=== PATIENT | female | born 1955 | race African-American/Black ===

== ENCOUNTER → 2017-03-31 | Outpatient (CLI) | payer MEDICARE, MEDICAID ==
[2017-03-31 12:02] LABS: ABSOLUTE BASOPHILS # (AUTO) 0.1 10^3/uL (0.0-0.2); ABSOLUTE EOSINOPHILS # (AUTO) 0.2 10^3/uL (0.0-0.6); ABSOLUTE LYMPHOCYTES (AUTO) 2.2 10^3/uL (0.5-4.7); ABSOLUTE MONOCYTES (AUTO) 0.5 10^3/uL (0.1-1.4); ABSOLUTE NEUT (AUTO) 4.8 10^3/uL (1.7-8.2); BASOPHILS % (AUTO) 0.7 % (0-2); EOSINOPHILS % (AUTO) 2.2 % (0-6); HEMATOCRIT 35.2 % (36.0-47.0); HEMOGLOBIN 11.3 g/dL (12.0-15.5); HGB HCT DIFFERENCE -1.3; LYMPHOCYTES % (AUTO) 28.2 % (13-45); MEAN CORPUSCULAR HEMOGLOBIN 25.6 pg (27.0-33.4); MEAN CORPUSCULAR HGB CONC 32.2 g/dL (32.0-36.0); MEAN CORPUSCULAR VOLUME 80 fl (80-97); RED BLOOD COUNT 4.42 10^6/uL (3.72-5.28); RED CELL DISTRIBUTION WIDTH 15.1 % (11.5-14.0); SEGMENTED NEUTROPHILS % (AUTO) 62.9 % (42-78); WHITE BLOOD COUNT 7.7 10^3/uL (4.0-10.5)
[2017-03-31 12:31] LABS: ALANINE AMINOTRANSFERASE 23 U/L (9-52); ALBUMIN 3.8 g/dL (3.5-5.0); ALKALINE PHOSPHATASE 76 U/L (38-126); ANION GAP 9 (5-19); ASPARTATE AMINO TRANSFERASE 18 U/L (14-36); BILIRUBIN,DIRECT 0.4 mg/dL (0.0-0.4); BILIRUBIN,TOTAL 0.8 mg/dL (0.2-1.3); BLOOD UREA NITROGEN 11 mg/dL (7-20); CALCIUM 9.3 mg/dL (8.4-10.2); CARBON DIOXIDE 26 mmol/L (22-30); CHLORIDE 106 mmol/L (98-107); CREATININE RESULT 0.98 mg/dL (0.52-1.25); GLUCOSE 134 mg/dL (75-110); POTASSIUM 4.1 mmol/L (3.6-5.0); SODIUM 141.3 mmol/L (137-145); TOTAL PROTEIN 7.5 g/dL (6.3-8.2)
== END ==
LOC: OD 11:15
PROVIDERS: ATTEND Plastic Surgery
DX: E11.8 Type 2 diabetes mellitus with unspecified complications (principal)
CPT/HCPCS: 36415; 80053; 83036; 85025

== ENCOUNTER → 2017-04-07 | Outpatient (CLI) | payer MEDICAID, MEDICARE ==
--- NOTE | 2017-04-07 16:59 | XCELERA REPORT ---
[address] [address] Lower Extremity Arterial Evaluation Name: CARMELO WHITTEN Age: 61 yrs Gender: Female : 1955 Patient Status: Outpatient Patient Location: Study Date: 04/07/2017 01:20 PM Procedure: A color flow and duplex scan of the lower extremity arteries was performed bilaterally with velocity and waveform anaylsis. Ankle brachial indicies performed. 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 Biphasic with little spectral broadening, well maintained velocities to the infrageniculate vessels. 0-19% stenosis at the Femoral artery. Ankle Brachial index was not obtainable, non compressible. Left Side Arterial Evaluation Normal velocity and triphasic waveforms noted from the Common Femoral artery to the Popliteal . Biphasic with little spectral broadening, well maintained velocities in the infrageniculate vessels. 0-19% stenosis at the infrageniculate vessels. Ankle Brachial index was not obtainable, non compressible. Interpretation Summary Mild hemodynamically significant lesions in the bilateral lower extremities, on duplex imaging, at rest. : TANIYA BARBOUR > Theo Steen
--- NOTE | 2017-04-07 17:15 | XCELERA REPORT ---
[address] [address] Lower Extremity Venous Evaluation Name: CARMELO WHITTEN Age: 61 yrs Gender: Female : 1955 Patient Status: Outpatient Patient Location: Study Date: 04/07/2017 01:38 PM Procedure: A bilateral duplex scan of the lower extremity veins was performed. The evaluation included responses to compression and other maneuvers with patient in the supine and standing positions to assess venous insufficiency. Reason For Study: ULCER Ordering Physician: TANIYA BARBOUR Performed By: Marcus Carranza Right Sided Venous Evaluation Deep venous system evaluation shows patent veins with no obstruction or significant reflux identified. Sapheno Femoral junction: 4.5 second reflux. 6 mm diameter. Greater Saphenous vein beneath the knee exhibits chronic phlebitis. Greater Saphenous vein, Proximal thigh: reflux: 4.5 seconds, 5 mm diameter. Greater Saphenous vein, Distal thigh: reflux: 4.7 seconds. 4 mm diameter. Greater Saphenous vein, Proximal below knee: reflux: none. Short Saphenous vein: No reflux. No significant Perforators identified. Left Sided Venous Evaluation Deep venous system evaluation shows patent veins with no obstruction or significant reflux identified. Greater Saphenous vein in the thigh exhibits chronic phlebitis. Sapheno Femoral junction:no reflux. Greater Saphenous vein, Proximal thigh: reflux: no reflux. Greater Saphenous vein, Distal thigh: reflux: 4.2 seconds. 5 mm diameter. Greater Saphenous vein, Proximal below knee: reflux: 4.6 secpnd reflux, 5 mm diameter.. Greater Saphenous vein, Mid below knee: reflux: 4.6 secpnd reflux, 4 mm diameter.. Short Saphenous vein: No reflux. No significant Perforators identified. Interpretation Summary No duplex evidence of DVT or obstruction in the bilateral lower extremities. Reflux and chronic superficial phlebitis as indicated. : TANIYA BARBOUR > Theo Steen
== END ==
LOC: SP 12:37
PROVIDERS: ATTEND Plastic Surgery
DX: I87.2 Venous insufficiency (chronic) (peripheral) (principal); L97.919 Non-pressure chronic ulcer of unspecified part of right lower leg with unspecified severity; L97.909 Non-pressure chronic ulcer of unspecified part of unspecified lower leg with unspecified severity
CPT/HCPCS: 93925; 93970

== ENCOUNTER → 2018-03-06 | Outpatient (CLI) | payer MEDICAID, MEDICARE ==
--- NOTE | 2018-03-06 12:46 | RADIOLOGY REPORT (SQ) ---
EXAM DESCRIPTION: VENOUS BILATERAL LOWER COMPLETED DATE/TIME: 03/06/2018 12:34 pm REASON FOR STUDY: SWELLING I87.2 VENOUS INSUFFICIENCY (CHRONIC) (PERIPHERAL) COMPARISON: Venous reflux study 04/07/2017 TECHNIQUE: Dynamic and static ceja scale and color images acquired of both lower extremity venous sy stems. Selected spectral images acquired with additional compression and augmentation maneuvers. Imag es stored on PACS. LIMITATIONS: Body habitus FINDINGS: RIGHT LEG COMMON FEMORAL AND FEMORAL: Normal phasicity, compression and augmentation. No visualized echogenic m aterial on ceja scale. No defects on color images. POPLITEAL: Normal compression and augmentation. No visualized echogenic material on ceja scale. No de fects on color images. CALF VESSELS: Normal compression and augmentation. No visualized echogenic material on ceja scale. No defects on color image. Please note that the peroneal veins were not visualized. GSV AND SSV: Normal compression. No visualized echogenic material on ceja scale. No defects on color images. ANY DEEP VENOUS INSUFFICIENCY: Not evaluated. Prior dedicated venous reflux study 04/07/2017 demonstra nguyen reflux in the right saphenous femoral junction and saphenous veins. ANY EVIDENCE OF POPLITEAL CYST: No. OTHER: No other significant finding. LEFT LEG COMMON FEMORAL AND FEMORAL: Normal phasicity, compression and augmentation. No visualized echogenic m aterial on ceja scale. No defects on color images. POPLITEAL: Normal compression and augmentation. No visualized echogenic material on ceja scale. No de fects on color images. CALF VESSELS: Normal compression and augmentation. No visualized echogenic material on ceja scale. No defects on color images. Please note that the peroneal veins were not visualized. GSV AND SSV: Normal compression. No visualized echogenic material on ceja scale. No defects on color images. ANY DEEP VENOUS INSUFFICIENCY: Not evaluated. Prior dedicated venous reflux study 04/07/2017 demonstra nguyen reflux in the right greater saphenous vein. ANY EVIDENCE POPLITEAL CYST: No. OTHER: No other significant finding. IMPRESSION: NO EVIDENCE DVT OR SVT IN EITHER LEG. TECHNICAL DOCUMENTATION: JOB ID: [id number] [employer]- All Rights Reserved Reading location - IP/workstation name: [facility]
== END ==
LOC: SP 11:11
PROVIDERS: ATTEND Plastic Surgery
DX: I87.2 Venous insufficiency (chronic) (peripheral) (principal)
CPT/HCPCS: 93970

== ENCOUNTER 2018-04-22 10:33 | Inpatient (IN) | payer MEDICARE, MEDICAID ==
[2018-04-22] MEDS ORDERED: HYDROCODONE/ACETAMINOPHEN 5-325 MG TABLET PO ONE (13:12)
[2018-04-22] MEDS ORDERED: NORMAL SALINE 1000 ML 1,000 ML IV ONE ×2 (13:44→19:16)
--- NOTE | 2018-04-22 15:41 | ER Document Report ---
ED Extremity Problem, Lower - General Chief Complaint: Leg Swelling Stated Complaint: SWOLLEN LEG Time Seen by Provider: 04/22/18 12:00 Mode of Arrival: Wheelchair Information source: Patient, Relative TRAVEL OUTSIDE OF THE [place] IN LAST 30 DAYS: No - HPI Patient complains to provider of: Pain, Swelling, Other - This 62-year-old female presented for evaluation of left lower extremity swelling and pain which is worsened over the last 5 days since the blister burst on the leg as well as uncontrolled blood sugars at home. She notes that she has had subjective fevers without taking temperature, she denies any shortness of breath chest pain diarrhea constipation dysuria or other symptoms, she has had some polyuria and fatigue and difficulty with ambulation. She has had similar symptoms in the past which have been a result of cellulitis for which she has been treated. - Related Data Allergies/Adverse Reactions: oxycodone [Oxycodone] Adverse Reaction (Verified 04/22/18 10:35) oxycodone HCl [From Percocet] Adverse Reaction (Verified 04/22/18 10:35) Bradycardia Past Medical History - General Information source: Patient, Relative - Social History Smoking Status: Never Smoker Frequency of alcohol use: None Drug Abuse: None Family History: Reviewed & Not Pertinent Patient has suicidal ideation: No Patient has homicidal ideation: No - Past Medical History Cardiac Medical History: Reports: Hx Hypercholesterolemia, Hx Hypertension Endocrine Medical History: Reports: Hx Diabetes Mellitus Type 1, Hx Diabetes Mellitus Type 2 Renal/ Medical History: Denies: Hx Peritoneal Dialysis Skin Medical History: Reports Hx Cellulitis Psychiatric Medical History: Denies: Hx Depression Past Surgical History: Reports: Hx Hysterectomy - Immunizations Hx Diphtheria, Pertussis, Tetanus Vaccination: No Hx Pneumococcal Vaccination: 09/05/99 Review of Systems - Review of Systems -: Yes All other systems reviewed and negative Physical Exam - Vital signs Vitals: Temp Pulse Resp BP Pulse Ox 98.2 F 92 18 160/80 H 100 04/22/18 10:39 04/22/18 10:39 04/22/18 10:39 04/22/18 10:39 04/22/18 10:39 - General General appearance: Appears well, Other - somewhat lethargic In distress: Mild - HEENT Head: Normocephalic Eyes: Normal Conjunctiva: Normal Cornea: Normal Extraocular movements intact: Yes - Respiratory Respiratory status: No respiratory distress Chest status: Nontender Breath sounds: Normal Chest palpation: Normal - Cardiovascular Rhythm: Regular Heart sounds: Normal auscultation Murmur: No - Abdominal Inspection: Normal Distension: No distension Tenderness: Nontender - Back Back: Normal - Extremities General upper extremity: Normal inspection General lower extremity: Other - Massive edema erythema and swelling over the left lower extremity with bolus changes over the dorsum of the foot, weeping wound over the lateral aspect of the left lower extremity, loss of skin over the posterior aspect of the right lower extremity just proximal to the level of the knee - Neurological Neuro grossly intact: Yes Cognition: Other - Somnolent 62-year-old female Orientation: AAOx4 Course - Re-evaluation Re-evalutation: 04/22/18 18:24 62-year-old female presents for massive swelling edema and pain in the left lower extremity as well as uncontrolled blood glucoses. Given the concern for her hyperglycemia will plan for administration of bolus saline, will obtain broad-spectrum labs including beta hydroxybutyrate VBG his CBC CMP. Patient with difficulty in obtaining access, placed ultrasound-guided IV, second liter of normal saline administered, her initial labs hemolyzed. We will plan to redraw. 04/22/18 19:27 Venous blood gas demonstrates a pH of 7.28, recheck of fingerstick glucose is 447, will initiate rate of normal saline 125, will initiate vancomycin for treatment of presumptive cellulitis in the left lower extremity. Blood cultures have been drawn, have a chemistry pending at this time. I am waiting on the administration of insulin as this patient currently does not have a known potassium. A third chemistry has been sent at this time. We will plan for admission to the [facility] we have the hospitalist Dr. Dwayne Shea. He is agreed to admission at this time, will plan for evaluation. - Vital Signs Vital signs: Temp Pulse Resp BP Pulse Ox 98.4 F 84 18 138/66 H 100 04/22/18 19:05 04/22/18 19:05 04/22/18 19:05 04/22/18 19:05 04/22/18 19:05 - Laboratory Result Diagrams: 04/22/18 15:54 04/22/18 15:54 Laboratory results interpreted by me: 04/22/18 04/22/18 04/22/18 15:54 18:44 18:47 WBC 14.2 H Hgb 11.8 L Hct 35.7 L RDW 15.5 H Seg Neutrophils % 83.5 H Lymphocytes % 9.7 L Absolute Neutrophils 11.9 H VBG pH 7.28 L POC Glucose 443 H* Discharge - Discharge Clinical Impression: Cellulitis Qualifiers: Site of cellulitis: extremity Site of cellulitis of extremity: lower extremity Laterality: left Qualified Code(s): L03.116 - Cellulitis of left lower limb Edema Qualifiers: Edema type: unspecified Qualified Code(s): R60.9 - Edema, unspecified Leukocytosis Qualifiers: Leukocytosis type: other Qualified Code(s): D72.828 - Other elevated white blood cell count Condition: Serious Disposition: ADMITTED INPATIENT Admitting Provider: Hospitalist Unit Admitted: IMCU Referrals: AQUILINO LIPSCOMB MD [Primary Care Provider] - Follow up as needed
[2018-04-22 16:10] LABS: ABSOLUTE BASOPHILS # (AUTO) 0.1 10^3/uL (0.0-0.2); ABSOLUTE EOSINOPHILS # (AUTO) 0.1 10^3/uL (0.0-0.6); ABSOLUTE LYMPHOCYTES (AUTO) 1.4 10^3/uL (0.5-4.7); ABSOLUTE MONOCYTES (AUTO) 0.7 10^3/uL (0.1-1.4); ABSOLUTE NEUT (AUTO) 11.9 10^3/uL (1.7-8.2); BASOPHILS % (AUTO) 0.7 % (0-2); EOSINOPHILS % (AUTO) 0.9 % (0-6); HEMATOCRIT 35.7 % (36.0-47.0); HEMOGLOBIN 11.8 g/dL (12.0-15.5); LYMPHOCYTES % (AUTO) 9.7 % (13-45); MEAN CORPUSCULAR HEMOGLOBIN 27.1 pg (27.0-33.4); MEAN CORPUSCULAR VOLUME 82 fl (80-97); MONOCYTES % (AUTO) 5.2 % (3-13); PLATELET COUNT 404 10^3/uL (150-450); RED BLOOD COUNT 4.34 10^6/uL (3.72-5.28); RED CELL DISTRIBUTION WIDTH 15.5 % (11.5-14.0); SEGMENTED NEUTROPHILS % (AUTO) 83.5 % (42-78); TOTAL CELLS COUNTED % (AUTO) 100 %; WHITE BLOOD COUNT 14.2 10^3/uL (4.0-10.5)
[2018-04-22] MEDS ORDERED: NORMAL SALINE 1000 ML 1,000 ML IV PRN (17:38)
[2018-04-22 19:06] LABS: VENOUS BLOOD BASE EXCESS -2.7 mmol/L; VENOUS BLOOD HCO3 24.8 mmol/L (20-32); VENOUS BLOOD PCO2 53.4 mmHg (35-63); VENOUS BLOOD PH 7.28 (7.30-7.42)
[2018-04-22] MEDS ORDERED: VANCOMYCIN HCL INJ 1000 MG VIAL IV ONE (19:18)
[2018-04-22] MEDS ORDERED: IPRATROPIUM/ALBUTEROL 0.5-2.5 MG/3 ML AMPUL NEB PRN (19:25)
[2018-04-22] MEDS ORDERED: GLUCAGON,HUMAN RECOMB 1 MG INJ IM PRN (19:25)
[2018-04-22] MEDS ORDERED: MAGNESIUM HYDROXIDE SUSP 30 ML UDCUP PO PRN (19:25)
[2018-04-22] MEDS ORDERED: DEXTROSE 50%-WATER 25 GM/50 ML DISP.SYRIN IV PRN ×2 (19:25)
[2018-04-22] MEDS ORDERED: DEXTROSE 40% GEL 15 GM TUBE PO PRN ×2 (19:25)
[2018-04-22] MEDS ORDERED: MAG HYDROX/AL HYDROX/SIMETH SUSP 30 ML UDCUP PO PRN (19:25)
[2018-04-22] MEDS ORDERED: NORMAL SALINE 1000 ML 1,000 ML IV SCH (19:30)
[2018-04-22 19:50] LABS: ALANINE AMINOTRANSFERASE 13 U/L (9-52); ALBUMIN 2.9 g/dL (3.5-5.0); ALKALINE PHOSPHATASE 90 U/L (38-126); ANION GAP 12 (5-19); ASPARTATE AMINO TRANSFERASE 8 U/L (14-36); BILIRUBIN,DIRECT 0.4 mg/dL (0.0-0.4); BILIRUBIN,TOTAL 0.4 mg/dL (0.2-1.3); BLOOD UREA NITROGEN 57 mg/dL (7-20); CALCIUM 9.3 mg/dL (8.4-10.2); CARBON DIOXIDE 19 mmol/L (22-30); CHLORIDE 109 mmol/L (98-107); GLUCOSE 375 mg/dL (75-110); POTASSIUM 4.7 mmol/L (3.6-5.0); SODIUM 139.9 mmol/L (137-145); TOTAL PROTEIN 6.8 g/dL (6.3-8.2)
[2018-04-22] MEDS: INSULIN LISPRO 100 UNIT/ML 3 ML VIAL SUBCUT PRN (20:57)
[2018-04-22] MEDS: HEPARIN SOD (PORCINE) 5,000 UNIT/ML 1 ML SYRINGE SUBCUT SCH (21:56)
[2018-04-22] MEDS: ACETAMINOPHEN 325 MG TABLET PO PRN (22:00)
[2018-04-22 22:04] LABS: APPEARANCE,URINE CLEAR; BILIRUBIN,URINE NEGATIVE (NEGATIVE); COLOR,URINE YELLOW; GLUCOSE, URINE >=500 mg/dL (NEGATIVE); KETONES,URINE NEGATIVE (NEGATIVE); LEUKOCYTE ESTERASE,URINE NEGATIVE (NEGATIVE); NITRITE,URINE NEGATIVE (NEGATIVE); PROTEIN,URINE NEGATIVE (NEGATIVE); UROBILINOGEN,URINE NEGATIVE mg/dL (<2.0)
[2018-04-22 22:22] LABS: URINE AMPHETAMINES SCREEN NEGATIVE; URINE BARBITURATES SCREEN NEGATIVE; URINE BENZODIAZEPINES SCREEN NEGATIVE; URINE COCAINE SCREEN NEGATIVE; URINE MARIJUANA (THC) SCREEN NEGATIVE; URINE METHADONE SCREEN NEGATIVE; URINE PHENCYCLIDINE SCREEN NEGATIVE
[2018-04-23 01:41] LABS: ANION GAP 12 (5-19); BLOOD UREA NITROGEN 53 mg/dL (7-20); CARBON DIOXIDE 19 mmol/L (22-30); CHLORIDE 111 mmol/L (98-107); GLUCOSE 317 mg/dL (75-110); POTASSIUM 4.7 mmol/L (3.6-5.0); SODIUM 141.8 mmol/L (137-145)
[2018-04-23] MEDS ORDERED: NORMAL SALINE 1000 ML 1,000 ML IV SCH (04:00)
[2018-04-23] MEDS: NORMAL SALINE 1000 ML 1,000 ML IV PRN ×3 (04:01→14:20)
[2018-04-23] MEDS: HEPARIN SOD (PORCINE) 5,000 UNIT/ML 1 ML SYRINGE SUBCUT SCH ×2 (05:45→21:50)
[2018-04-23] MEDS: ACETAMINOPHEN 325 MG TABLET PO PRN (05:45)
--- NOTE | 2018-04-23 05:46 | PDOC H&P ---
History of Present Illness Admission Date/PCP: 04/22/18 19:36 AQUILINO LIPSCOMB Patient complains of: Leg edema and pain History of Present Illness: CARMELO WHITTEN is a 62 year old female with a past medical history of morbid obesity, diabetes, hypertension, MRSA cellulitis, chronic venous stasis with lymphedema bilaterally. Patient followed by wound care clinic and Dr. Baltazar, over the last 5 days she has developed blistering of the left foot and uncontrolled hyperglycemia. She denies fever but admits to polyuria polydipsia. In the emergency room she is found to have leukocytosis, acute renal failure cellulitis of the left lower extremity, started on empiric antibiotics and referred to the hospitalist for admission. Patient has scheduled appointment with vascular surgeon Dr. Lou April 24. Past Medical History Cardiac Medical History: Reports: Hyperlipidema, Hypertension Endocrine Medical History: Reports: Diabetes Mellitus Type 1, Diabetes Mellitus Type 2, Obesity Psychiatric Medical History: Denies: Depression Past Surgical History Past Surgical History: Reports: Hysterectomy Social History Information Source: Patient Lives with: Family Smoking Status: Never Smoker Frequency of Alcohol Use: None Hx Recreational Drug Use: No Drugs: None Hx Prescription Drug Abuse: No Family History Family History: DM, Hypertension Parental Family History Reviewed: Yes Children Family History Reviewed: Yes Sibling(s) Family History Reviewed.: Yes Medication/Allergy Home Medications: Amlodipine Besylate 10 mg PO DAILY 04/12/13 Ascorbic Acid [Vitamin C] 500 mg PO Q12HP PRN 04/12/13 Atenolol 100 mg PO BID 04/12/13 Hum Insulin NPH/Reg Insulin Hm [Novolin 70-30 100 Unit/ml Vial] 40 units BID 04/17 Metformin HCl [Glucophage 1000 mg Tablet] 1,000 mg PO BID 04/12/13 Pravastatin Sodium [Pravachol] 20 mg PO DAILY 04/12/13 Ferrous Sulfate 325 mg PO Q12HP PRN 04/13/13 Oxycodone HCl/Acetaminophen [Percocet 5-325 mg Tablet] 1 - 2 tab PO ASDIR PRN # 25 tablet 09/10/15 Acidoph/L.bulg/Bif.b/S.thermop [Bacid Caplet] 1 each PO BID #28 tablet 09/18/15 Ciprofloxacin HCl [Cipro 750 mg Tablet] 750 mg PO Q12 #28 tablet 09/18/15 Linezolid [Zyvox 600 mg Tablet] 600 mg PO Q12 #28 tablet 09/18/15 Torsemide [Demadex 20 mg Tablet] 10 mg PO DAILY #30 tablet 09/18/15 Allergies/Adverse Reactions: oxycodone [Oxycodone] Adverse Reaction (Verified 04/22/18 10:35) oxycodone HCl [From Percocet] Adverse Reaction (Verified 04/22/18 10:35) Bradycardia Review of Systems Constitutional: PRESENT: as per HPI, fatigue, weakness. ABSENT: chills, fever(s ), headache(s), weight gain, weight loss Eyes: ABSENT: visual disturbances Ears: ABSENT: hearing changes Cardiovascular: ABSENT: chest pain, dyspnea on exertion, edema, orthropnea, palpitations Respiratory: ABSENT: cough, hemoptysis Gastrointestinal: ABSENT: abdominal pain, constipation, diarrhea, hematemesis, hematochezia, nausea, vomiting Genitourinary: PRESENT: as per HPI Musculoskeletal: PRESENT: as per HPI Integumentary: PRESENT: as per HPI, wounds - Marketed bilateral chronic changes to the lower extremity, acute blistering of the left foot Neurological: ABSENT: abnormal gait, abnormal speech, confusion, dizziness, focal weakness, syncope Psychiatric: ABSENT: anxiety, depression, homidical ideation, suicidal ideation Endocrine: PRESENT: polydipsia, polyuria. ABSENT: cold intolerance, heat intolerance Hematologic/Lymphatic: ABSENT: easy bleeding, easy bruising Physical Exam Vital Signs: Temp Pulse Resp BP Pulse Ox 98.5 F 83 16 139/54 H 100 04/23/18 03:42 04/23/18 03:42 04/23/18 03:42 04/23/18 03:42 04/23/18 03:42 Intake & Output 04/21/18 04/22/18 04/23/18 11:59 11:59 11:59 Intake Total 1100 Output Total 0 Balance 1100 Weight 128.3 kg General appearance: PRESENT: cooperative, mild distress, morbidly obese. ABSENT : disheveled Head exam: PRESENT: atraumatic, normocephalic Eye exam: PRESENT: conjunctiva pink, EOMI, PERRLA. ABSENT: scleral icterus Ear exam: PRESENT: normal external ear exam Mouth exam: PRESENT: moist, tongue midline Neck exam: ABSENT: carotid bruit, JVD, lymphadenopathy, thyromegaly Respiratory exam: PRESENT: clear to auscultation paulie. ABSENT: rales, rhonchi, wheezes Cardiovascular exam: PRESENT: RRR. ABSENT: diastolic murmur, rubs, systolic murmur Pulses: PRESENT: normal dorsalis pedis pul Vascular exam: PRESENT: normal capillary refill GI/Abdominal exam: PRESENT: normal bowel sounds, soft. ABSENT: distended, guarding, mass, organolmegaly, rebound, tenderness Rectal exam: PRESENT: deferred Extremities exam: PRESENT: pedal edema, tenderness, +2 edema. ABSENT: calf tenderness, clubbing Neurological exam: PRESENT: alert, awake, oriented to person, oriented to place , oriented to time, oriented to situation, CN II-XII grossly intact. ABSENT: motor sensory deficit Psychiatric exam: PRESENT: appropriate affect, normal mood. ABSENT: homicidal ideation, suicidal ideation Skin exam: PRESENT: erythema, rash, skin tears, warm, other - Bulla. ABSENT: intact, jaundice Results Laboratory Results: 04/23/18 01:16 04/22/18 04/23/18 21:10 01:16 Sodium 141.8 Potassium 4.7 Chloride 111 H Carbon Dioxide 19 L Anion Gap 12 BUN 53 H Creatinine 1.84 H Est GFR ( Amer) 33 L Est GFR (Non-Af Amer) 28 L Glucose 317 H Calcium 9.0 Urine Color YELLOW Urine Appearance CLEAR Urine pH 5.0 Ur Specific [place] 1.020 Urine Protein NEGATIVE Urine Glucose (UA) >=500 H Urine Ketones NEGATIVE Urine Blood NEGATIVE Urine Nitrite NEGATIVE Ur Leukocyte Esterase NEGATIVE Urine WBC (Auto) 1 Urine RBC (Auto) 3 Assessment & Plan - Diagnosis (1) Cellulitis Qualifiers: Site of cellulitis: extremity Site of cellulitis of extremity: lower extremity Laterality: left Qualified Code(s): L03.116 - Cellulitis of left lower limb Is this a current diagnosis for this admission?: Yes Plan: Complicated by chronic venous stasis, empiric antibiotics initiated, follow-up CBC, culture and surgery consult (2) Diabetes 1.5, managed as type 1 Is this a current diagnosis for this admission?: Yes Plan: IV fluid, insulin, follow-up chemistry and A1c (3) Acute renal failure Is this a current diagnosis for this admission?: Yes Plan: Avoid nephrotoxic meds and doses, IV fluid challenge reevaluate chemistry - Time Time Spent: 50 to 70 Minutes - Inpatient Certification Medical Necessity: Need Close Monitoring Due to Risk of Patient Decompensation
[2018-04-23 08:08] LABS: ABSOLUTE BASOPHILS # (AUTO) 0.1 10^3/uL (0.0-0.2); ABSOLUTE EOSINOPHILS # (AUTO) 0.1 10^3/uL (0.0-0.6); ABSOLUTE LYMPHOCYTES (AUTO) 1.1 10^3/uL (0.5-4.7); ABSOLUTE MONOCYTES (AUTO) 0.5 10^3/uL (0.1-1.4); ABSOLUTE NEUT (AUTO) 7.4 10^3/uL (1.7-8.2); BASOPHILS % (AUTO) 0.6 % (0-2); EOSINOPHILS % (AUTO) 1.4 % (0-6); HEMATOCRIT 29.1 % (36.0-47.0); LYMPHOCYTES % (AUTO) 12.1 % (13-45); MEAN CORPUSCULAR HEMOGLOBIN 26.2 pg (27.0-33.4); MEAN CORPUSCULAR HGB CONC 32.1 g/dL (32.0-36.0); MEAN CORPUSCULAR VOLUME 82 fl (80-97); MONOCYTES % (AUTO) 5.1 % (3-13); PLATELET COUNT 257 10^3/uL (150-450); RED BLOOD COUNT 3.56 10^6/uL (3.72-5.28); SEGMENTED NEUTROPHILS % (AUTO) 80.8 % (42-78); TOTAL CELLS COUNTED % (AUTO) 100 %; WHITE BLOOD COUNT 9.2 10^3/uL (4.0-10.5)
[2018-04-23 08:11] LABS: HEMOGLOBIN 9.3 g/dL (12.0-15.5)
[2018-04-23 08:18] LABS: ANION GAP 10 (5-19); BLOOD UREA NITROGEN 47 mg/dL (7-20); CALCIUM 8.8 mg/dL (8.4-10.2); CARBON DIOXIDE 19 mmol/L (22-30); CHLORIDE 115 mmol/L (98-107); CHOLESTEROL 79.49 mg/dL (0-200); GLUCOSE 321 mg/dL (75-110); POTASSIUM 4.9 mmol/L (3.6-5.0); SODIUM 144.4 mmol/L (137-145); TRIGLYCERIDES 93 mg/dL (<150)
[2018-04-23 08:29] LABS: DIRECT LDL 38 mg/dL (<100)
[2018-04-23] MEDS: INSULIN LISPRO 100 UNIT/ML 3 ML VIAL SUBCUT PRN ×3 (08:32→22:37)
[2018-04-23] MEDS ORDERED: ATENOLOL 50 MG TABLET PO SCH ×2 (10:00→11:00)
[2018-04-23] MEDS ORDERED: ATORVASTATIN CALCIUM 10 MG TABLET PO SCH ×2 (11:00→22:00)
[2018-04-23] MEDS: HUM INSULIN NPH/REG INSULIN HM 100 UNIT/1 ML 3 ML SUBCUT SCH ×2 (11:06→20:52)
[2018-04-23] MEDS: AMLODIPINE BESYLATE 10 MG TABLET PO SCH (11:08)
[2018-04-23] MEDS: LACTOBACILLUS ACIDOPHILUS 250 MG TAB PO SCH ×2 (11:15→19:01)
[2018-04-23] MEDS: DOCUSATE SODIUM 100 MG CAPSULE PO SCH ×2 (11:15→19:01)
--- NOTE | 2018-04-23 11:57 | PDOC CONSULTATION ---
Consultation Consult Date: 04/23/18 Consult reason:: Left foot infection History of Present Illness Admission Date/PCP: 04/22/18 19:36 AQUILINO LIPSCOMB History of Present Illness: CARMELO WHITTEN is a 62 year old female seen at the request of the hospitalist service. This is a patient with chronic venous stasis changes of bilateral lower extremities. She has recently been treated for lower extremity cellulitis on an outpatient basis. The patient presents with bullae/swelling of the left foot, severe pain, and purulent drainage. She describes her pain as throbbing. She reports her pain as 5 out of 10. Her bulla encompasses the entire dorsal surface of her foot, from the toes to the ankle. The patient denies fevers, chills, chest pain, shortness of breath, headache, dizziness, orthostasis. She does report increasing swelling, pain, and drainage. She first noticed the swelling and bulla 4-5 days ago. She thought it would get better on its own. Past Medical History Cardiac Medical History: Reports: Hyperlipidema, Hypertension Endocrine Medical History: Reports: Diabetes Mellitus Type 1, Diabetes Mellitus Type 2, Obesity Skin Medical History: Reports: Other - Chronic venous insufficiency bilateral lower extremities Psychiatric Medical History: Denies: Depression Past Surgical History Past Surgical History: Reports: Hysterectomy Social History Lives with: Family Smoking Status: Never Smoker Frequency of Alcohol Use: None Hx Recreational Drug Use: No Drugs: None Hx Prescription Drug Abuse: No Family History Family History: DM, Hypertension Parental Family History Reviewed: Yes Children Family History Reviewed: Yes Sibling(s) Family History Reviewed.: Yes Medication/Allergy Allergies/Adverse Reactions: oxycodone [Oxycodone] Adverse Reaction (Verified 04/22/18 10:35) oxycodone HCl [From Percocet] Adverse Reaction (Verified 04/22/18 10:35) Bradycardia Review of Systems Constitutional: ABSENT: chills, fever(s), headache(s) Eyes: ABSENT: visual disturbances Ears: ABSENT: hearing changes Nose, Mouth, and Throat: ABSENT: sore throat Cardiovascular: ABSENT: chest pain, dyspnea on exertion Respiratory: ABSENT: cough, dyspnea Gastrointestinal: ABSENT: abdominal pain, diarrhea, heartburn, nausea, vomiting Genitourinary: ABSENT: dysuria Musculoskeletal: ABSENT: back pain Integumentary: PRESENT: other - bilateral lower extremities edema. Large bulla of the left foot. Neurological: ABSENT: abnormal speech, confusion, memory loss Psychiatric: ABSENT: anxiety, depression Endocrine: ABSENT: cold intolerance, heat intolerance Hematologic/Lymphatic: ABSENT: easy bleeding, easy bruising Physical Exam Vital Signs: Temp Pulse Resp BP Pulse Ox 98.1 F 69 14 135/57 H 99 04/23/18 07:48 04/23/18 10:57 04/23/18 10:57 04/23/18 07:48 04/23/18 10:57 Intake & Output 04/22/18 04/23/18 04/24/18 06:59 06:59 06:59 Intake Total 1100 983 Output Total 0 Balance 1100 983 Weight 129.1 kg General appearance: PRESENT: no acute distress Head exam: PRESENT: atraumatic, normocephalic Eye exam: PRESENT: EOMI, PERRLA. ABSENT: scleral icterus Mouth exam: PRESENT: moist, neck supple Neck exam: ABSENT: meningismus, tenderness, thyromegaly, tracheal deviation Respiratory exam: PRESENT: clear to auscultation paulie. ABSENT: chest wall tenderness, tachypnea Cardiovascular exam: PRESENT: RRR Pulses: PRESENT: normal radial pulses Vascular exam: PRESENT: other - Gaiter sign bilateral lower extremities. GI/Abdominal exam: PRESENT: soft. ABSENT: distended, firm, guarding, hernia, tenderness Rectal exam: PRESENT: deferred Extremities exam: PRESENT: +2 edema, other - Large bulla of the left foot extending from the toes to the ankle on the dorsal surface. There is evidence of skin necrosis, and purulent drainage. Neurological exam: PRESENT: alert, awake, oriented to person, oriented to place , oriented to time, oriented to situation, CN II-XII grossly intact Psychiatric exam: ABSENT: agitated, anxious, depressed Focused psych exam: ABSENT: delusional Skin exam: PRESENT: other - See extremity exam.. ABSENT: cyanosis, jaundice Results Laboratory Results: 04/23/18 07:41 04/23/18 07:41 04/22/18 04/23/18 04/23/18 21:10 01:16 07:41 WBC 9.2 RBC 3.56 L Hgb 9.3 L D Hct 29.1 L MCV 82 MCH 26.2 L MCHC 32.1 RDW 15.0 H Plt Count 257 Seg Neutrophils % 80.8 H Lymphocytes % 12.1 L Monocytes % 5.1 Eosinophils % 1.4 Basophils % 0.6 Absolute Neutrophils 7.4 Absolute Lymphocytes 1.1 Absolute Monocytes 0.5 Absolute Eosinophils 0.1 Absolute Basophils 0.1 Sodium 141.8 Potassium 4.7 Chloride 111 H Carbon Dioxide 19 L Anion Gap 12 BUN 53 H Creatinine 1.84 H Est GFR ( Amer) 33 L Est GFR (Non-Af Amer) 28 L Glucose 317 H Calcium 9.0 Triglycerides Cholesterol LDL Cholesterol Direct VLDL Cholesterol HDL Cholesterol Urine Color YELLOW Urine Appearance CLEAR Urine pH 5.0 Ur Specific [place] 1.020 Urine Protein NEGATIVE Urine Glucose (UA) >=500 H Urine Ketones NEGATIVE Urine Blood NEGATIVE Urine Nitrite NEGATIVE Ur Leukocyte Esterase NEGATIVE Urine WBC (Auto) 1 Urine RBC (Auto) 3 04/23/18 07:41 WBC RBC Hgb Hct MCV MCH MCHC RDW Plt Count Seg Neutrophils % Lymphocytes % Monocytes % Eosinophils % Basophils % Absolute Neutrophils Absolute Lymphocytes Absolute Monocytes Absolute Eosinophils Absolute Basophils Sodium 144.4 Potassium 4.9 Chloride 115 H Carbon Dioxide 19 L Anion Gap 10 BUN 47 H Creatinine 1.62 H Est GFR ( Amer) 39 L Est GFR (Non-Af Amer) 32 L Glucose 321 H Calcium 8.8 Triglycerides 93 Cholesterol 79.49 LDL Cholesterol Direct 38 VLDL Cholesterol 19.0 HDL Cholesterol 19 L Urine Color Urine Appearance Urine pH Ur Specific [place] Urine Protein Urine Glucose (UA) Urine Ketones Urine Blood Urine Nitrite Ur Leukocyte Esterase Urine WBC (Auto) Urine RBC (Auto) Assessment & Plan - Diagnosis (1) Diabetic infection of left foot Is this a current diagnosis for this admission?: Yes - Plan Summary Plan Summary: This is a 62-year-old female with a severe diabetic foot infection, superimposed over chronic venous insufficiency. The patient has evidence of skin necrosis and purulent bulla formation. I have recommended urgent surgical intervention with debridement of any necrotic or nonviable tissue. Tight glucose control is very important. Continue antibiotics. At this time, the prognosis is guarded with significant threat to the left foot.
[2018-04-23 15:15] LABS: ANION GAP 13 (5-19); BLOOD UREA NITROGEN 40 mg/dL (7-20); CARBON DIOXIDE 19 mmol/L (22-30); CHLORIDE 116 mmol/L (98-107); GLUCOSE 238 mg/dL (75-110); POTASSIUM 4.8 mmol/L (3.6-5.0); SODIUM 147.6 mmol/L (137-145)
[2018-04-23] MEDS ORDERED: NORMAL SALINE 1000 ML 1,000 ML IV PRN (15:41)
[2018-04-23] MEDS: PIPERACILLIN SODIUM/TAZOBACTAM 3.375 GM in NORMAL SALINE 100 ML IV SCH ×2 (16:19→20:55)
--- NOTE | 2018-04-23 16:19 | EKG REPORT ---
SEVERITY:- NORMAL ECG - SINUS RHYTHM : Confirmed by: Rick Jones MD 23-Apr-2018 16:18:37
[2018-04-23] MEDS ORDERED: FENTANYL CITRATE INJ/PF 100 MCG/2 ML AMPUL ONE (16:53)
[2018-04-23] MEDS ORDERED: KETAMINE HCL INJ 500 MG/10 ML VIAL ONE (16:53)
[2018-04-23] MEDS ORDERED: EPHEDRINE SULFATE INJ 50 MG/1 ML AMPULE ONE (16:54)
[2018-04-23] MEDS ORDERED: MIDAZOLAM 2 MG/2 ML INJ ONE (16:54)
[2018-04-23] MEDS ORDERED: PROPOFOL INJ 200 MG/20 ML VIAL IV ONE (16:54)
[2018-04-23] MEDS ORDERED: LIDOCAINE 2% INJ-PF (20 MG/ML) 10 ML AMPUL ONE (16:57)
[2018-04-23] MEDS ORDERED: LIDOCAINE 1% INJ-PF (10 MG/ML) 30 ML SDV ONE (17:01)
[2018-04-23] MEDS ORDERED: BUPIVACAINE HCL 0.25 % INJ/PF (2.5 MG/1 ML) 30 ML VIAL ONE (17:02)
[2018-04-23] MEDS ORDERED: METOCLOPRAMIDE HCL INJ/PF 10 MG/2 ML SDV ONE (17:05)
[2018-04-23] MEDS ORDERED: FAMOTIDINE INJ/PF 20 MG/2 ML SDV IV ONE (17:06)
[2018-04-23] MEDS ORDERED: DIPHENHYDRAMINE HCL 50 MG/ML VIAL IV PRN (17:37)
[2018-04-23] MEDS ORDERED: PROMETHAZINE HCL INJ 25 MG/1 ML VIAL IV PRN (17:37)
[2018-04-23] MEDS ORDERED: FENTANYL CITRATE INJ/PF 100 MCG/2 ML AMPUL IV PRN ×3 (17:37)
--- NOTE | 2018-04-23 18:01 | PDOC PROGRESS REPORT ---
Subjective Progress Note for:: 04/23/18 Subjective:: The patient is a 62-year-old female with a past medical history of morbid obesity, insulin-dependent diabetes, hypertension, hyperlipidemia, MRSA cellulitis, and chronic venous stasis with lymphedema to her bilateral lower extremities who was recently followed by the wound care clinic and referred to vascular surgery for chronic wounds. She was admitted 04/22/18 for acutely worsened cellulitis of the left lower extremity and acute renal failure. The patient was seen on morning rounds. She was found resting in bed comfortably on supplemental oxygen. Unfortunately, the patient has just completed her breakfast and so her surgical intervention will need to be delayed until this evening. The patient reports that she was discharged from the wound care clinic and has recently been followed by physical therapy only. She reports that she developed increased swelling, pain, erythema, and blister formation to her left lower leg and foot approximately 4-5 day ago. She denies associated fever, chills, or body aches. She has already been seen by Dr. Santos today and states that the plan is to go to the OR this afternoon to "remove the skin and clean it really well." She does understand that once Safely beings the procedure, he may find that the infection is much deeper. She has no new questions or concerns at this time. Nursing requests that Dr. Santos be notified of need for central line placement. Reason For Visit: LEFT LEG CELLULITIS MORBID OBESITY ISABEL Physical Exam Vital Signs: Temp Pulse Resp BP Pulse Ox 98.8 F 96 16 156/75 H 100 04/23/18 16:25 04/23/18 16:25 04/23/18 16:25 04/23/18 16:25 04/23/18 16:25 Intake & Output 04/22/18 04/23/18 04/24/18 06:59 06:59 06:59 Intake Total 1100 2220 Output Total 0 400 Balance 1100 1820 Weight 129.1 kg General appearance: PRESENT: no acute distress, cooperative, morbidly obese, well-developed, well-nourished Head exam: PRESENT: atraumatic, normocephalic Eye exam: PRESENT: conjunctiva pink, EOMI, PERRLA. ABSENT: scleral icterus Ear exam: PRESENT: normal external ear exam Mouth exam: PRESENT: moist, tongue midline Neck exam: ABSENT: carotid bruit, JVD, lymphadenopathy, thyromegaly Respiratory exam: PRESENT: clear to auscultation paulie. ABSENT: rales, rhonchi, wheezes Cardiovascular exam: PRESENT: RRR. ABSENT: diastolic murmur, rubs, systolic murmur Pulses: PRESENT: normal dorsalis pedis pul Vascular exam: PRESENT: normal capillary refill GI/Abdominal exam: PRESENT: normal bowel sounds, soft. ABSENT: distended, guarding, mass, organolmegaly, rebound, tenderness Rectal exam: PRESENT: deferred Extremities exam: PRESENT: full ROM, +2 edema - Bilateral lower extremities; L> R. ABSENT: calf tenderness, clubbing, pedal edema Neurological exam: PRESENT: alert, awake, oriented to person, oriented to place , oriented to time, oriented to situation, CN II-XII grossly intact. ABSENT: motor sensory deficit Psychiatric exam: PRESENT: appropriate affect, normal mood. ABSENT: homicidal ideation, suicidal ideation Skin exam: PRESENT: dry, warm, other - BLE edema; L +2, R +1 edema with chronic venous stasis changes and crusts. Left extremity with erythema begining just proximal to the foot. Large bulla with purulent fluid noted to dorsum of foot, extending around the posterior ankle/heel, and circumfrencially to toes 2-4.. ABSENT: cyanosis, rash Results Laboratory Results: 04/23/18 07:41 04/23/18 14:39 04/22/18 04/23/18 04/23/18 21:10 01:16 07:41 WBC 9.2 RBC 3.56 L Hgb 9.3 L D Hct 29.1 L MCV 82 MCH 26.2 L MCHC 32.1 RDW 15.0 H Plt Count 257 Seg Neutrophils % 80.8 H Lymphocytes % 12.1 L Monocytes % 5.1 Eosinophils % 1.4 Basophils % 0.6 Absolute Neutrophils 7.4 Absolute Lymphocytes 1.1 Absolute Monocytes 0.5 Absolute Eosinophils 0.1 Absolute Basophils 0.1 Sodium 141.8 Potassium 4.7 Chloride 111 H Carbon Dioxide 19 L Anion Gap 12 BUN 53 H Creatinine 1.84 H Est GFR ( Amer) 33 L Est GFR (Non-Af Amer) 28 L Glucose 317 H Calcium 9.0 Triglycerides Cholesterol LDL Cholesterol Direct VLDL Cholesterol HDL Cholesterol Urine Color YELLOW Urine Appearance CLEAR Urine pH 5.0 Ur Specific [place] 1.020 Urine Protein NEGATIVE Urine Glucose (UA) >=500 H Urine Ketones NEGATIVE Urine Blood NEGATIVE Urine Nitrite NEGATIVE Ur Leukocyte Esterase NEGATIVE Urine WBC (Auto) 1 Urine RBC (Auto) 3 04/23/18 04/23/18 07:41 14:39 WBC RBC Hgb Hct MCV MCH MCHC RDW Plt Count Seg Neutrophils % Lymphocytes % Monocytes % Eosinophils % Basophils % Absolute Neutrophils Absolute Lymphocytes Absolute Monocytes Absolute Eosinophils Absolute Basophils Sodium 144.4 147.6 H Potassium 4.9 4.8 Chloride 115 H 116 H Carbon Dioxide 19 L 19 L Anion Gap 10 13 BUN 47 H 40 H Creatinine 1.62 H 1.43 H Est GFR ( Amer) 39 L 45 L Est GFR (Non-Af Amer) 32 L 37 L Glucose 321 H 238 H Calcium 8.8 9.0 Triglycerides 93 Cholesterol 79.49 LDL Cholesterol Direct 38 VLDL Cholesterol 19.0 HDL Cholesterol 19 L Urine Color Urine Appearance Urine pH Ur Specific [place] Urine Protein Urine Glucose (UA) Urine Ketones Urine Blood Urine Nitrite Ur Leukocyte Esterase Urine WBC (Auto) Urine RBC (Auto) 04/23/18 07:41 Creatine Kinase 82 Assessment & Plan - Diagnosis (1) Cellulitis Qualifiers: Site of cellulitis: extremity Site of cellulitis of extremity: lower extremity Laterality: left Qualified Code(s): L03.116 - Cellulitis of left lower limb Is this a current diagnosis for this admission?: Yes Plan: The patient presents with extensive purulent cellulitis to her left foot; complicated by chronic venous stasis, lymphedema , uncontrolled diabetes mellitus, and morbid obesity. Surgery has been consulted; plan for surgical intervention this evening. We will obtain central line at that time. She is empirically been placed on Zyvox for MRSA coverage, and Zosyn for gram positives/negatives and anaerobic bacterium. Cultures are pending; will adjust antibiotics as these result. Analgesics and antiemetics as needed. Anticipate that patient may require extensive wound care and/or acute rehab at discharge. Discharge planning is consulted. (2) Diabetes Qualifiers: Diabetes mellitus type: type 2 Diabetes mellitus terminal make up operator insulin use: with terminal make up operator use Diabetes mellitus complication status: with skin complications Diabetes mellitus complication detail: with other skin complication Qualified Code(s): E11.628 - Type 2 diabetes mellitus with other skin complications; Z79.4 - shelter (current) use of insulin; Z79.4 - shelter (current) use of insulin; Z79.4 - terminal supervisor (current) use of insulin; Z79.4 - shelter (current) use of insulin Is this a current diagnosis for this admission?: Yes Plan: A1c 8.9% The patient is placed on a consistent carb diet. Continue 70/30 40 units BID. Accu-Cheks before meals and at bedtime with Humalog sliding scale coverage. We will ask the head of merchandise buying and registered dietitian to meet with patient. (3) Acute renal failure Is this a current diagnosis for this admission?: Yes Plan: Creatinine 2.06 on admission; baseline of 0.98. She is provided IV fluids; creatinine is trending down, this afternoon 1.43. We will avoid nephrotoxic medication as able. Renally dosed antibiotics. Continue to trend daily chemistries. (4) Leukocytosis Qualifiers: Leukocytosis type: bandemia Qualified Code(s): D72.825 - Bandemia Is this a current diagnosis for this admission?: Yes Plan: Resolved; on admission WBC 14.2, now 9.2 Cultures and Antibiotics as above. (5) Morbid obesity Is this a current diagnosis for this admission?: Yes Plan: A1c 8.9% Lipid panel acceptable. TSH is low; <0.01. Will obtain T3/T4 with am labs. manager transfer and charge lpn are consulted. Dietary discretion is advised. (6) Hypertension Is this a current diagnosis for this admission?: Yes Plan: The patient's home medication regimen is continued with the exception of Accupril r/t LEDA.
--- NOTE | 2018-04-23 18:06 | Operative Report ---
Nonrecallable Operative Report DATE OF SURGERY: 04/23/18 PREOPERATIVE DIAGNOSIS: Severe diabetic left foot infection POSTOPERATIVE DIAGNOSIS: Same as above OPERATION: Sharp, excisional debridement of skin of the left foot for diabetic foot infection (23 cm x 20 cm). SURGEON: AIME FRANCOIS ANESTHESIA: LMAC TISSUE REMOVED OR ALTERED: Wound culture COMPLICATIONS: None apparent ESTIMATED BLOOD LOSS: Minimal PROCEDURE: Drains/implants: 4 x 4 gauze. Procedure in detail: After informed consent was obtained, the patient was brought into the operating room and laid in the supine position. The area of the left foot was prepped and draped in a normal sterile fashion. There was a large bulla encompassing the entirety of the dorsal aspect of the foot, from the toes extending to the ankle. This bulla was filled with purulent fluid. The bulla was incised, fluid was taken for culture, and the necrotic appearing skin was debrided away sharply with Metzenbaum scissors. The debrided area measured 23 x 20 cm. Once the skin was debrided away, the wound was irrigated and vigorously cleaned with Betadine scrub brushes. Next, a dressing was fashioned with Betadine soaked 4 x 4 gauze. The wound was then wrapped with a Kerlix. Once the dressing was fashioned, the procedure was concluded. All sponge, instrument, and needle counts were correct 2. Condition: Fair.
[2018-04-23] MEDS: LINEZOLID 600 MG/300 ML RTUPB IV SCH (19:01)
[2018-04-23] MEDS: MORPHINE SULFATE 10 MG/ML INJ IV PRN (19:57)
[2018-04-23] MEDS: CLONIDINE HCL 0.2 MG TABLET PO SCH (21:50)
[2018-04-23] MEDS: TRAMADOL HCL 50 MG TABLET PO PRN (21:56)
[2018-04-24] MEDS: PIPERACILLIN SODIUM/TAZOBACTAM 3.375 GM in NORMAL SALINE 100 ML IV SCH ×4 (02:53→20:42)
[2018-04-24] MEDS: LINEZOLID 600 MG/300 ML RTUPB IV SCH ×2 (05:03→17:55)
[2018-04-24] MEDS: HEPARIN SOD (PORCINE) 5,000 UNIT/ML 1 ML SYRINGE SUBCUT SCH ×3 (05:03→22:02)
[2018-04-24] MEDS: MORPHINE SULFATE 10 MG/ML INJ IV PRN (09:07)
[2018-04-24] MEDS: AMLODIPINE BESYLATE 10 MG TABLET PO SCH (09:10)
[2018-04-24] MEDS: LACTOBACILLUS ACIDOPHILUS 250 MG TAB PO SCH ×2 (09:10→17:55)
[2018-04-24] MEDS: DOCUSATE SODIUM 100 MG CAPSULE PO SCH ×2 (09:10→17:55)
[2018-04-24] MEDS: CLONIDINE HCL 0.2 MG TABLET PO SCH ×2 (09:10→22:02)
[2018-04-24] MEDS: HUM INSULIN NPH/REG INSULIN HM 100 UNIT/1 ML 3 ML SUBCUT SCH ×3 (09:14→17:56)
[2018-04-24] MEDS ORDERED: AMLODIPINE BESYLATE 10 MG TABLET PO SCH (10:00)
--- NOTE | 2018-04-24 10:18 | PDOC PROGRESS REPORT ---
Subjective Progress Note for:: 04/24/18 Subjective:: States she feels better. Reason For Visit: LEFT LEG CELLULITIS MORBID OBESITY ISABEL Physical Exam Vital Signs: Temp Pulse Resp BP Pulse Ox 98.6 F 81 18 125/66 96 04/24/18 07:26 04/24/18 07:26 04/24/18 07:26 04/24/18 07:26 04/24/18 07:26 Intake & Output 04/23/18 04/24/18 04/25/18 06:59 06:59 06:59 Intake Total 1100 5020 Output Total 0 2075 Balance 1100 2945 Weight 129.1 kg 132.1 kg General appearance: PRESENT: no acute distress Extremities exam: PRESENT: other - Extremities examined. Chronic lichenification of both legs appreciated; mostly dry; small wound distal left inner thigh with minimal dry eschar. Left foot examined. Status post debridement; there are new micro-pustules at the sites of skin debridement. Underlying deep tissue appears uninvolved. Patient able to wiggle toes. Results Laboratory Results: 04/23/18 07:41 04/23/18 14:39 04/23/18 14:39 Sodium 147.6 H Potassium 4.8 Chloride 116 H Carbon Dioxide 19 L Anion Gap 13 BUN 40 H Creatinine 1.43 H Est GFR ( Amer) 45 L Est GFR (Non-Af Amer) 37 L Glucose 238 H Calcium 9.0 04/23/18 07:41 Creatine Kinase 82 Assessment & Plan - Diagnosis (1) Cellulitis Qualifiers: Site of cellulitis: extremity Site of cellulitis of extremity: lower extremity Laterality: left Qualified Code(s): L03.116 - Cellulitis of left lower limb Is this a current diagnosis for this admission?: Yes Plan: Impression: Improved cellulitis and edema status post superficial skin debridement yesterday; skin continues to have small ocular eruptions. Wound cultures left foot growing no infecting organisms. Recommendation: 1. Start dressing changes with nonadhesive applique, 4 x 4's and Kerlix 2. Continue empiric antibiotic therapy 3. We will continue to follow left foot closely (2) Acute renal failure Is this a current diagnosis for this admission?: Yes (3) Diabetes Qualifiers: Diabetes mellitus type: type 2 Diabetes mellitus salvage determiner insulin use: with salvage determiner use Diabetes mellitus complication status: with skin complications Diabetes mellitus complication detail: with other skin complication Qualified Code(s): E11.628 - Type 2 diabetes mellitus with other skin complications; Z79.4 - long-term (current) use of insulin; Z79.4 - long-term (current) use of insulin; Z79.4 - terminal block assembler (current) use of insulin; Z79.4 - terminal block assembler (current) use of insulin Is this a current diagnosis for this admission?: Yes (4) Hypertension Is this a current diagnosis for this admission?: Yes
[2018-04-24] MEDS: INSULIN LISPRO 100 UNIT/ML 3 ML VIAL SUBCUT PRN ×3 (12:30→22:09)
--- NOTE | 2018-04-24 17:17 | PDOC PROGRESS REPORT ---
Subjective Progress Note for:: 04/24/18 Subjective:: Pt seen at bedside and is doing better. She is s.p debridement of left foot blister has left thigh blister. Blood culture - no growth day 1; Wound culture is pending.We appreciate input of Dr Still in mgt of this pt.We will increase NPH insulin to 45 iu BID to optimize DM mgt. We will switch her IV fluid to from normal saline to 1/2 normal saline due to hypernatremia. Reason For Visit: LEFT LEG CELLULITIS MORBID OBESITY ISABEL Physical Exam Vital Signs: Temp Pulse Resp BP Pulse Ox 98.7 F 73 16 125/61 93 04/24/18 11:26 04/24/18 14:00 04/24/18 13:50 04/24/18 11:26 04/24/18 13:50 Intake & Output 04/23/18 04/24/18 04/25/18 06:59 06:59 06:59 Intake Total 1100 5020 722 Output Total 0 2075 400 Balance 1100 2945 322 Weight 129.1 kg 132.1 kg General appearance: PRESENT: no acute distress, cooperative, morbidly obese, well-nourished Head exam: PRESENT: atraumatic, normocephalic Eye exam: PRESENT: EOMI, PERRLA Ear exam: PRESENT: normal external ear exam, TM's normal bilaterally Mouth exam: PRESENT: neck supple, tongue midline Respiratory exam: PRESENT: clear to auscultation paulie, symmetrical Cardiovascular exam: PRESENT: +S1, +S2 Pulses: PRESENT: +1 pedal pulses bilateral GI/Abdominal exam: PRESENT: normal bowel sounds, soft Rectal exam: PRESENT: deferred Additional comments: Left foot- covered with dressing; s.p debridement; has left thigh blister covered with dressing. Musculoskeletal exam: PRESENT: full ROM Neurological exam: PRESENT: alert, awake, oriented to person, oriented to place , oriented to time Psychiatric exam: PRESENT: normal mood Results Laboratory Results: 04/23/18 07:41 04/23/18 14:39 04/23/18 07:41 Creatine Kinase 82 Assessment & Plan - Diagnosis (1) Cellulitis Qualifiers: Site of cellulitis: extremity Site of cellulitis of extremity: lower extremity Laterality: left Qualified Code(s): L03.116 - Cellulitis of left lower limb Is this a current diagnosis for this admission?: Yes Plan: Ct with Zosyn 3.375 mg q6h IV; Linezolid 600 mg q12h IV; Morphine 4mg q4h IV prn ; Tramadol 50 mg q6h po prn. F/u wound culture and blood culture. F/u Gen. surgeon for mgt. (2) Acute kidney injury Is this a current diagnosis for this admission?: Yes Plan: Ct with IV half normal saline at 125 cc/hour; Strict input/out chart; daily weight; Monitor chemistries daily. Hold Quinapril, Metformin and all nephrotoxics. (3) Diabetes mellitus type 2 in obese Is this a current diagnosis for this admission?: Yes Plan: Ct with accucheck QAC, QHS with slidding scale with humalog insulin [facility] protocol. Ct with NPH insulin 70/30 45 iu BID subcut; 1800 calorie ADA diet. Hold Metformin due to acute kidney injury. (4) Hypertension Is this a current diagnosis for this admission?: Yes Plan: Ct with Clonidine 0.2 mg Q12h PO; Amlodipine 10 mg qd po; Hold Quinapril 40 mg qd due to acute kidney injury; hold Atenolol 100 mg due to relative bradycardia and hypotension. Ct with 2 G sodium diet. (5) Hyperlipidemia Qualifiers: Hyperlipidemia type: mixed hyperlipidemia Qualified Code(s): E78.2 - Mixed hyperlipidemia Is this a current diagnosis for this admission?: Yes Plan: Ct with Atorvastatin 5 mg qhs since Pravastatin 40 mg is not in our formulary; 200 mg cholesterol diet. (6) Constipation Is this a current diagnosis for this admission?: Yes Plan: Ct with Colace 100 mg BID po. (7) DVT prophylaxis Is this a current diagnosis for this admission?: Yes Plan: Ct with Heparin 5000iu Q8H subcut; SCD.
[2018-04-24] MEDS: 1/2 NORMAL SALINE 1,000 ML IV PRN (17:55)
[2018-04-24] MEDS ORDERED: HUM INSULIN NPH/REG INSULIN HM 100 UNIT/1 ML 3 ML SUBCUT SCH (18:00)
[2018-04-24] MEDS: ATORVASTATIN CALCIUM 10 MG TABLET PO SCH (22:02)
[2018-04-25] MEDS: PIPERACILLIN SODIUM/TAZOBACTAM 3.375 GM in NORMAL SALINE 100 ML IV SCH ×4 (03:27→21:38)
[2018-04-25] MEDS: 1/2 NORMAL SALINE 1,000 ML IV PRN ×2 (03:28→15:00)
[2018-04-25 05:20] LABS: ABSOLUTE EOSINOPHILS # (AUTO) 0.2 10^3/uL (0.0-0.6); ABSOLUTE LYMPHOCYTES (AUTO) 1.3 10^3/uL (0.5-4.7); ABSOLUTE MONOCYTES (AUTO) 0.5 10^3/uL (0.1-1.4); ABSOLUTE NEUT (AUTO) 5.5 10^3/uL (1.7-8.2); BASOPHILS % (AUTO) 0.4 % (0-2); EOSINOPHILS % (AUTO) 2.1 % (0-6); HEMATOCRIT 29.2 % (36.0-47.0); HEMOGLOBIN 9.6 g/dL (12.0-15.5); LYMPHOCYTES % (AUTO) 17.5 % (13-45); MEAN CORPUSCULAR HEMOGLOBIN 26.3 pg (27.0-33.4); MEAN CORPUSCULAR HGB CONC 32.7 g/dL (32.0-36.0); MEAN CORPUSCULAR VOLUME 81 fl (80-97); MONOCYTES % (AUTO) 6.8 % (3-13); PLATELET COUNT 195 10^3/uL (150-450); RED BLOOD COUNT 3.62 10^6/uL (3.72-5.28); SEGMENTED NEUTROPHILS % (AUTO) 73.2 % (42-78); TOTAL CELLS COUNTED % (AUTO) 100 %; WHITE BLOOD COUNT 7.6 10^3/uL (4.0-10.5)
[2018-04-25 05:45] LABS: ALANINE AMINOTRANSFERASE 23 U/L (9-52); ALBUMIN 2.2 g/dL (3.5-5.0); ALKALINE PHOSPHATASE 77 U/L (38-126); ANION GAP 11 (5-19); ASPARTATE AMINO TRANSFERASE 19 U/L (14-36); BILIRUBIN,DIRECT 0.4 mg/dL (0.0-0.4); BILIRUBIN,TOTAL 0.5 mg/dL (0.2-1.3); BLOOD UREA NITROGEN 15 mg/dL (7-20); CALCIUM 8.2 mg/dL (8.4-10.2); CARBON DIOXIDE 20 mmol/L (22-30); CHLORIDE 114 mmol/L (98-107); GLUCOSE 120 mg/dL (75-110); POTASSIUM 3.8 mmol/L (3.6-5.0); SODIUM 144.5 mmol/L (137-145); TOTAL PROTEIN 5.8 g/dL (6.3-8.2)
[2018-04-25] MEDS: LINEZOLID 600 MG/300 ML RTUPB IV SCH ×2 (06:39→17:45)
[2018-04-25] MEDS: HEPARIN SOD (PORCINE) 5,000 UNIT/ML 1 ML SYRINGE SUBCUT SCH ×3 (06:39→21:39)
--- NOTE | 2018-04-25 10:58 | PDOC PROGRESS REPORT ---
Subjective Progress Note for:: 04/25/18 Subjective:: No complaints Reason For Visit: LEFT LEG CELLULITIS MORBID OBESITY ISABEL Physical Exam Vital Signs: Temp Pulse Resp BP Pulse Ox 98.6 F 83 20 150/79 H 97 04/25/18 07:43 04/25/18 07:43 04/25/18 07:43 04/25/18 07:43 04/25/18 07:43 Intake & Output 04/24/18 04/25/18 04/26/18 06:59 06:59 06:59 Intake Total 5020 3944 300 Output Total 2075 2450 Balance 2945 1494 300 Weight 132.1 kg 132.8 kg Extremities exam: PRESENT: other - Left leg with lichenification of the upper leg with chronic venous stasis changes. Diffuse bilateral leg swelling. Her foot appears relatively clean with no necrotic debris. No active oozing. Xeroform dressings being applied. Results Laboratory Results: 04/25/18 04:26 04/25/18 04:26 04/25/18 04/25/18 04:26 04:26 WBC 7.6 RBC 3.62 L Hgb 9.6 L Hct 29.2 L MCV 81 MCH 26.3 L MCHC 32.7 RDW 15.0 H Plt Count 195 Seg Neutrophils % 73.2 Lymphocytes % 17.5 Monocytes % 6.8 Eosinophils % 2.1 Basophils % 0.4 Absolute Neutrophils 5.5 Absolute Lymphocytes 1.3 Absolute Monocytes 0.5 Absolute Eosinophils 0.2 Absolute Basophils 0.0 Sodium 144.5 Potassium 3.8 Chloride 114 H Carbon Dioxide 20 L Anion Gap 11 BUN 15 Creatinine 1.32 H Est GFR ( Amer) 49 L Est GFR (Non-Af Amer) 41 L Glucose 120 H Calcium 8.2 L Total Bilirubin 0.5 AST 19 ALT 23 Alkaline Phosphatase 77 Total Protein 5.8 L Albumin 2.2 L 04/23/18 17:28 Foot - Left Gram Stain - Final 04/23/18 07:41 Creatine Kinase 82 Assessment & Plan - Diagnosis (1) Cellulitis of leg, left Is this a current diagnosis for this admission?: Yes Plan: In the setting of chronic venous stasis. Status post local debridement with good results. I do not see any role for any further debridement. Recommend continuation leg elevations and antibiotics. When patient is discharged have her follow-up at the wound care clinic. Surgicalist service signing off.
[2018-04-25] MEDS: MORPHINE SULFATE 10 MG/ML INJ IV PRN (11:12)
[2018-04-25] MEDS: HUM INSULIN NPH/REG INSULIN HM 100 UNIT/1 ML 3 ML SUBCUT SCH ×2 (11:13→17:47)
[2018-04-25] MEDS: AMLODIPINE BESYLATE 10 MG TABLET PO SCH (11:15)
[2018-04-25] MEDS: CLONIDINE HCL 0.2 MG TABLET PO SCH ×2 (11:15→21:39)
[2018-04-25] MEDS: DOCUSATE SODIUM 100 MG CAPSULE PO SCH ×2 (11:15→17:45)
[2018-04-25] MEDS: LACTOBACILLUS ACIDOPHILUS 250 MG TAB PO SCH ×2 (11:15→17:45)
[2018-04-25] MEDS: TRAMADOL HCL 50 MG TABLET PO PRN ×2 (12:05→21:38)
--- NOTE | 2018-04-25 16:32 | PDOC PROGRESS REPORT ---
Subjective Progress Note for:: 04/25/18 Subjective:: Pt is doing well. Her wound culture showed Pseudomonas, Klebsiella, Gram positive cocci in chains and Corynebactrium; we will ct with same antibiotics for now. The surgical team has signed off and we appreciate their input in mgt of this pt. Reason For Visit: LEFT LEG CELLULITIS MORBID OBESITY ISABEL Physical Exam Vital Signs: Temp Pulse Resp BP Pulse Ox 98.6 F 83 20 150/79 H 97 04/25/18 07:43 04/25/18 07:43 04/25/18 07:43 04/25/18 07:43 04/25/18 07:43 Intake & Output 04/24/18 04/25/18 04/26/18 06:59 06:59 06:59 Intake Total 5020 3944 2022 Output Total 2075 2450 700 Balance 2945 1494 1322 Weight 132.1 kg 132.8 kg General appearance: PRESENT: no acute distress, cooperative, morbidly obese, well-nourished Head exam: PRESENT: atraumatic, normocephalic Eye exam: PRESENT: EOMI, PERRLA Ear exam: PRESENT: TM's normal bilaterally Mouth exam: PRESENT: neck supple, tongue midline Neck exam: PRESENT: full ROM Respiratory exam: PRESENT: clear to auscultation paulie, symmetrical Cardiovascular exam: PRESENT: +S1, +S2 Pulses: PRESENT: +1 pedal pulses bilateral, +2 pedal pulses bilateral GI/Abdominal exam: PRESENT: normal bowel sounds, soft Rectal exam: PRESENT: deferred Extremities exam: PRESENT: full ROM Musculoskeletal exam: PRESENT: full ROM Neurological exam: PRESENT: alert, altered, awake, oriented to person, oriented to place, oriented to time Psychiatric exam: PRESENT: normal mood Results Laboratory Results: 04/25/18 04:26 04/25/18 04:26 04/25/18 04/25/18 04:26 04:26 WBC 7.6 RBC 3.62 L Hgb 9.6 L Hct 29.2 L MCV 81 MCH 26.3 L MCHC 32.7 RDW 15.0 H Plt Count 195 Seg Neutrophils % 73.2 Lymphocytes % 17.5 Monocytes % 6.8 Eosinophils % 2.1 Basophils % 0.4 Absolute Neutrophils 5.5 Absolute Lymphocytes 1.3 Absolute Monocytes 0.5 Absolute Eosinophils 0.2 Absolute Basophils 0.0 Sodium 144.5 Potassium 3.8 Chloride 114 H Carbon Dioxide 20 L Anion Gap 11 BUN 15 Creatinine 1.32 H Est GFR ( Amer) 49 L Est GFR (Non-Af Amer) 41 L Glucose 120 H Calcium 8.2 L Total Bilirubin 0.5 AST 19 ALT 23 Alkaline Phosphatase 77 Total Protein 5.8 L Albumin 2.2 L 04/23/18 17:28 Foot - Left Gram Stain - Final 04/23/18 07:41 Creatine Kinase 82 Assessment & Plan - Diagnosis (1) Cellulitis Qualifiers: Site of cellulitis: extremity Site of cellulitis of extremity: lower extremity Laterality: left Qualified Code(s): L03.116 - Cellulitis of left lower limb Is this a current diagnosis for this admission?: Yes Plan: Ct with Zosyn 3.375 mg q6h IV; Linezolid 600 mg q12h IV; Morphine 4mg q4h IV prn ; Tramadol 50 mg q6h po prn. F/u wound culture and blood culture. F/u Gen. surgeon for mgt. (2) Acute kidney injury Is this a current diagnosis for this admission?: Yes Plan: Ct with IV half normal saline at 125 cc/hour; Strict input/out chart; daily weight; Monitor chemistries daily. Hold Quinapril, Metformin and all nephrotoxics. (3) Diabetes mellitus type 2 in obese Is this a current diagnosis for this admission?: Yes Plan: Ct with accucheck QAC, QHS with slidding scale with humalog insulin [facility] protocol. Ct with NPH insulin 70/30 45 iu BID subcut; 1800 calorie ADA diet. Hold Metformin due to acute kidney injury. (4) Hypertension Is this a current diagnosis for this admission?: Yes Plan: Ct with Clonidine 0.2 mg Q12h PO; Amlodipine 10 mg qd po; Hold Quinapril 40 mg qd due to acute kidney injury; hold Atenolol 100 mg due to relative bradycardia and hypotension. Ct with 2 G sodium diet. (5) Hyperlipidemia Qualifiers: Hyperlipidemia type: mixed hyperlipidemia Qualified Code(s): E78.2 - Mixed hyperlipidemia Is this a current diagnosis for this admission?: Yes Plan: Ct with Atorvastatin 5 mg qhs since Pravastatin 40 mg is not in our formulary; 200 mg cholesterol diet. (6) Constipation Is this a current diagnosis for this admission?: Yes Plan: Ct with Colace 100 mg BID po. (7) DVT prophylaxis Is this a current diagnosis for this admission?: Yes Plan: Ct with Heparin 5000iu Q8H subcut; SCD.
[2018-04-25] MEDS: ATORVASTATIN CALCIUM 10 MG TABLET PO SCH (21:39)
[2018-04-26] MEDS: PIPERACILLIN SODIUM/TAZOBACTAM 3.375 GM in NORMAL SALINE 100 ML IV SCH ×4 (02:53→22:09)
[2018-04-26] MEDS: 1/2 NORMAL SALINE 1,000 ML IV PRN ×2 (04:12→14:23)
[2018-04-26 05:19] LABS: ABSOLUTE EOSINOPHILS # (AUTO) 0.2 10^3/uL (0.0-0.6); ABSOLUTE LYMPHOCYTES (AUTO) 2.5 10^3/uL (0.5-4.7); ABSOLUTE MONOCYTES (AUTO) 0.8 10^3/uL (0.1-1.4); ABSOLUTE NEUT (AUTO) 5.9 10^3/uL (1.7-8.2); BASOPHILS % (AUTO) 0.2 % (0-2); EOSINOPHILS % (AUTO) 1.6 % (0-6); HEMATOCRIT 29.4 % (36.0-47.0); HEMOGLOBIN 9.7 g/dL (12.0-15.5); MEAN CORPUSCULAR VOLUME 82 fl (80-97); MONOCYTES % (AUTO) 8.5 % (3-13); PLATELET COUNT 196 10^3/uL (150-450); RED CELL DISTRIBUTION WIDTH 14.5 % (11.5-14.0); SEGMENTED NEUTROPHILS % (AUTO) 62.7 % (42-78); TOTAL CELLS COUNTED % (AUTO) 100 %; WHITE BLOOD COUNT 9.4 10^3/uL (4.0-10.5)
[2018-04-26 05:53] LABS: ALANINE AMINOTRANSFERASE 27 U/L (9-52); ALBUMIN 2.4 g/dL (3.5-5.0); ALKALINE PHOSPHATASE 82 U/L (38-126); ANION GAP 9 (5-19); ASPARTATE AMINO TRANSFERASE 27 U/L (14-36); BILIRUBIN,DIRECT 0.4 mg/dL (0.0-0.4); BILIRUBIN,TOTAL 0.5 mg/dL (0.2-1.3); BLOOD UREA NITROGEN 9 mg/dL (7-20); CALCIUM 8.1 mg/dL (8.4-10.2); CARBON DIOXIDE 22 mmol/L (22-30); CHLORIDE 110 mmol/L (98-107); GLUCOSE 46 mg/dL (75-110); POTASSIUM 3.6 mmol/L (3.6-5.0); SODIUM 141.1 mmol/L (137-145); TOTAL PROTEIN 6.1 g/dL (6.3-8.2)
[2018-04-26] MEDS: HEPARIN SOD (PORCINE) 5,000 UNIT/ML 1 ML SYRINGE SUBCUT SCH ×3 (06:03→22:10)
[2018-04-26] MEDS: LINEZOLID 600 MG/300 ML RTUPB IV SCH (06:03)
[2018-04-26] MEDS ORDERED: ONDANSETRON HCL INJ/PF 4 MG/2 ML SDV IV PRN (10:47)
[2018-04-26] MEDS: HUM INSULIN NPH/REG INSULIN HM 100 UNIT/1 ML 3 ML SUBCUT SCH ×2 (11:18→17:31)
[2018-04-26] MEDS: AMLODIPINE BESYLATE 10 MG TABLET PO SCH (12:11)
[2018-04-26] MEDS: LACTOBACILLUS ACIDOPHILUS 250 MG TAB PO SCH ×2 (12:11→17:27)
[2018-04-26] MEDS: CLONIDINE HCL 0.2 MG TABLET PO SCH ×2 (12:11→22:10)
[2018-04-26] MEDS: DOCUSATE SODIUM 100 MG CAPSULE PO SCH ×2 (12:11→17:27)
--- NOTE | 2018-04-26 14:55 | PDOC PROGRESS REPORT ---
Subjective Progress Note for:: 04/26/18 Subjective:: She is doing well except that she complained of nausea, and Zofran IV prn was added. She agreed for SNF placement due to deconditioning and pt wants to go to [facility] for REHAB. We are looking forward for possible placement tomorrow.Wound culture grew additional Enterococcus fecalis. while blood culture showed n growth day 3. Reason For Visit: LEFT LEG CELLULITIS MORBID OBESITY ISABEL Physical Exam Vital Signs: Temp Pulse Resp BP Pulse Ox 98.6 F 81 18 177/84 H 96 04/26/18 11:50 04/26/18 11:50 04/26/18 11:50 04/26/18 11:50 04/26/18 11:50 Intake & Output 04/25/18 04/26/18 04/27/18 06:59 06:59 06:59 Intake Total 3944 3622 1622 Output Total 2450 2050 900 Balance 1494 1572 722 Weight 132.8 kg 135.3 kg General appearance: PRESENT: no acute distress, cooperative, morbidly obese, well-developed, well-nourished Head exam: PRESENT: atraumatic, normocephalic Eye exam: PRESENT: EOMI, PERRLA Ear exam: PRESENT: normal external ear exam, TM's normal bilaterally Mouth exam: PRESENT: neck supple, tongue midline Respiratory exam: PRESENT: clear to auscultation paulie, symmetrical Cardiovascular exam: PRESENT: +S1, +S2 Pulses: PRESENT: +2 pedal pulses bilateral GI/Abdominal exam: PRESENT: normal bowel sounds, soft Rectal exam: PRESENT: deferred Extremities exam: PRESENT: full ROM Musculoskeletal exam: PRESENT: full ROM Neurological exam: PRESENT: alert, awake, oriented to person, oriented to place , oriented to time Psychiatric exam: PRESENT: normal mood Results Laboratory Results: 04/26/18 04:15 04/26/18 04:15 04/26/18 04/26/18 04:15 04:15 WBC 9.4 RBC 3.60 L Hgb 9.7 L Hct 29.4 L MCV 82 MCH 27.0 MCHC 33.0 RDW 14.5 H Plt Count 196 Seg Neutrophils % 62.7 Lymphocytes % 27.0 Monocytes % 8.5 Eosinophils % 1.6 Basophils % 0.2 Absolute Neutrophils 5.9 Absolute Lymphocytes 2.5 Absolute Monocytes 0.8 Absolute Eosinophils 0.2 Absolute Basophils 0.0 Sodium 141.1 Potassium 3.6 Chloride 110 H Carbon Dioxide 22 Anion Gap 9 BUN 9 Creatinine 1.14 Est GFR ( Amer) 58 L Est GFR (Non-Af Amer) 48 L Glucose 46 L Calcium 8.1 L Total Bilirubin 0.5 AST 27 ALT 27 Alkaline Phosphatase 82 Total Protein 6.1 L Albumin 2.4 L 04/23/18 17:28 Foot - Left Gram Stain - Final 04/23/18 17:28 Foot - Left Wound Culture - Final Pseudomonas Aeruginosa Klebsiella Pneumoniae Enterococcus Faecalis(Group D) Corynebacterium Species 04/23/18 07:41 Creatine Kinase 82 Assessment & Plan - Diagnosis (1) Cellulitis Qualifiers: Site of cellulitis: extremity Site of cellulitis of extremity: lower extremity Laterality: left Qualified Code(s): L03.116 - Cellulitis of left lower limb Is this a current diagnosis for this admission?: Yes Plan: Ct with Zosyn 3.375 mg q6h IV; Linezolid 600 mg q12h IV; Morphine 4mg q4h IV prn ; Tramadol 50 mg q6h po prn. F/u wound culture and blood culture. F/u Gen. surgeon for mgt. (2) Acute kidney injury Is this a current diagnosis for this admission?: Yes Plan: Ct with IV half normal saline at 125 cc/hour; Strict input/out chart; daily weight; Monitor chemistries daily. Hold Quinapril, Metformin and all nephrotoxics. (3) Diabetes mellitus type 2 in obese Is this a current diagnosis for this admission?: Yes Plan: Ct with accucheck QAC, QHS with slidding scale with humalog insulin OM protocol. Ct with NPH insulin 70/30 45 iu BID subcut; 1800 calorie ADA diet. Hold Metformin due to acute kidney injury. (4) Hypertension Is this a current diagnosis for this admission?: Yes Plan: Ct with Clonidine 0.2 mg Q12h PO; Amlodipine 10 mg qd po; Hold Quinapril 40 mg qd due to acute kidney injury; hold Atenolol 100 mg due to relative bradycardia and hypotension. Ct with 2 G sodium diet. (5) Hyperlipidemia Qualifiers: Hyperlipidemia type: mixed hyperlipidemia Qualified Code(s): E78.2 - Mixed hyperlipidemia Is this a current diagnosis for this admission?: Yes Plan: Ct with Atorvastatin 5 mg qhs since Pravastatin 40 mg is not in our formulary; 200 mg cholesterol diet. (6) Constipation Is this a current diagnosis for this admission?: Yes Plan: Ct with Colace 100 mg BID po. (7) DVT prophylaxis Is this a current diagnosis for this admission?: Yes Plan: Ct with Heparin 5000iu Q8H subcut; SCD.
[2018-04-26] MEDS: LINEZOLID 600 MG TABLET PO SCH (17:28)
[2018-04-26] MEDS: ATORVASTATIN CALCIUM 10 MG TABLET PO SCH (22:09)
[2018-04-27] MEDS: 1/2 NORMAL SALINE 1,000 ML IV PRN ×2 (00:33→09:13)
[2018-04-27] MEDS: PIPERACILLIN SODIUM/TAZOBACTAM 3.375 GM in NORMAL SALINE 100 ML IV SCH ×3 (02:30→14:17)
[2018-04-27] MEDS: LINEZOLID 600 MG TABLET PO SCH (05:35)
[2018-04-27] MEDS: HEPARIN SOD (PORCINE) 5,000 UNIT/ML 1 ML SYRINGE SUBCUT SCH ×2 (05:35→14:16)
[2018-04-27 06:34] LABS: ALANINE AMINOTRANSFERASE 36 U/L (9-52); ALBUMIN 2.4 g/dL (3.5-5.0); ALKALINE PHOSPHATASE 89 U/L (38-126); ANION GAP 10 (5-19); ASPARTATE AMINO TRANSFERASE 47 U/L (14-36); BILIRUBIN,DIRECT 0.4 mg/dL (0.0-0.4); BILIRUBIN,TOTAL 0.5 mg/dL (0.2-1.3); BLOOD UREA NITROGEN 8 mg/dL (7-20); CALCIUM 8.2 mg/dL (8.4-10.2); CARBON DIOXIDE 22 mmol/L (22-30); CHLORIDE 108 mmol/L (98-107); GLUCOSE 189 mg/dL (75-110); POTASSIUM 4.5 mmol/L (3.6-5.0); SODIUM 139.5 mmol/L (137-145); TOTAL PROTEIN 6.2 g/dL (6.3-8.2)
[2018-04-27 06:35] LABS: ABSOLUTE BASOPHILS # (AUTO) 0.1 10^3/uL (0.0-0.2); ABSOLUTE EOSINOPHILS # (AUTO) 0.2 10^3/uL (0.0-0.6); ABSOLUTE LYMPHOCYTES (AUTO) 1.6 10^3/uL (0.5-4.7); ABSOLUTE MONOCYTES (AUTO) 0.6 10^3/uL (0.1-1.4); ABSOLUTE NEUT (AUTO) 4.9 10^3/uL (1.7-8.2); BASOPHILS % (AUTO) 0.8 % (0-2); EOSINOPHILS % (AUTO) 2.7 % (0-6); HEMATOCRIT 30.4 % (36.0-47.0); HEMOGLOBIN 9.8 g/dL (12.0-15.5); LYMPHOCYTES % (AUTO) 21.8 % (13-45); MEAN CORPUSCULAR HEMOGLOBIN 26.4 pg (27.0-33.4); MEAN CORPUSCULAR HGB CONC 32.4 g/dL (32.0-36.0); MEAN CORPUSCULAR VOLUME 81 fl (80-97); MONOCYTES % (AUTO) 8.1 % (3-13); PLATELET COUNT 206 10^3/uL (150-450); RED BLOOD COUNT 3.73 10^6/uL (3.72-5.28); RED CELL DISTRIBUTION WIDTH 14.9 % (11.5-14.0); SEGMENTED NEUTROPHILS % (AUTO) 66.6 % (42-78); TOTAL CELLS COUNTED % (AUTO) 100 %; WHITE BLOOD COUNT 7.4 10^3/uL (4.0-10.5)
[2018-04-27] MEDS: CLONIDINE HCL 0.2 MG TABLET PO SCH (09:11)
[2018-04-27] MEDS: LACTOBACILLUS ACIDOPHILUS 250 MG TAB PO SCH (09:11)
[2018-04-27] MEDS: AMLODIPINE BESYLATE 10 MG TABLET PO SCH (09:11)
[2018-04-27] MEDS: DOCUSATE SODIUM 100 MG CAPSULE PO SCH (09:11)
[2018-04-27] MEDS: HUM INSULIN NPH/REG INSULIN HM 100 UNIT/1 ML 3 ML SUBCUT SCH (09:13)
--- NOTE | 2018-04-27 11:07 | PDOC TRANSFER SUMMARY ---
General - Admit/Disc Date/PCP Admission Date/Primary Care Provider: 04/22/18 19:36 AQUILINO LIPSCOMB Discharge Date: 04/27/18 - Discharge Diagnosis (1) Cellulitis Is this a current diagnosis for this admission?: Yes (2) Acute kidney injury Is this a current diagnosis for this admission?: Yes (3) Diabetes mellitus type 2 in obese Is this a current diagnosis for this admission?: Yes (4) Hypertension Is this a current diagnosis for this admission?: Yes (5) Hyperlipidemia Is this a current diagnosis for this admission?: Yes (6) Constipation Is this a current diagnosis for this admission?: Yes (7) DVT prophylaxis Is this a current diagnosis for this admission?: Yes - Additional Information Resuscitation Status: Full Code Home Medications: Amlodipine Besylate [Norvasc 10 mg Tablet] 10 mg PO DAILY 04/23/18 Clonidine HCl [Catapres 0.2 mg Tablet] 0.2 mg PO Q12 04/23/18 Ergocalciferol (Vitamin D2) [Drisdol 50,000 unit (1.25MG) Capsule] 50,000 unit PO LOAIZA@1000 04/23/18 Furosemide [Lasix 20 mg Tablet] 20 mg PO DAILY 04/23/18 Insulin NPH Hum/Reg Insulin Hm [Humulin 70-30 Vial] 55 units SQ BID 04/23/18 Pravastatin Sodium [Pravachol] 40 mg PO DAILY 04/23/18 Quinapril HCl [Accupril 40 mg Tablet] 40 mg PO Q12 04/23/18 Tramadol HCl [Ultram 50 mg Tablet] 50 mg PO Q12HP PRN 04/23/18 History of Present Illness Admission Date/PCP: 04/22/18 19:36 AQUILINO LIPSCOMB History of Present Illness: CARMELO WHITTEN is a 62 year old female Hospital Course Hospital Course: 62 year old woman who was admitted to [facility] for left foot cellulitis and acute kidney injury. She had debridement of left foot by general surgeon and wound culture grew Pseudomonas aeruginosa, Klebsiella pneumoniae, Enterococcus fecalis and Corynebacterium. She was put o IV Zosyn and Linezolid and IV fluids and pain was optimized with Morphine and Tylenol. Her kidney function is back to normal and she was evaluated by physical therapy for PT/OT and due to deconditioning and her inability to take care of herself at home since she lives by herself, skill nursing facility was recommended for short term REHAB. She was accepted at [facility] and she will be transferred there today. Patient is in agreement with this plan of care. Physical Exam Vital Signs: Temp Pulse Resp BP Pulse Ox 98.5 F 81 20 159/80 H 94 04/27/18 08:00 04/27/18 08:00 04/27/18 08:00 04/27/18 08:00 04/27/18 08:00 Intake & Output 04/26/18 04/27/18 04/28/18 06:59 06:59 06:59 Intake Total 3622 3380 1100 Output Total 2050 4950 Balance 1572 -1570 1100 Weight 135.3 kg 137.2 kg General appearance: PRESENT: no acute distress, cooperative, morbidly obese, well-nourished Head exam: PRESENT: atraumatic, normocephalic Eye exam: PRESENT: EOMI, PERRLA Ear exam: PRESENT: normal external ear exam Mouth exam: PRESENT: neck supple, tongue midline Neck exam: PRESENT: full ROM Respiratory exam: PRESENT: clear to auscultation paulie, symmetrical Cardiovascular exam: PRESENT: +S1, +S2 GI/Abdominal exam: PRESENT: normal bowel sounds, soft Rectal exam: PRESENT: deferred Neurological exam: PRESENT: alert, awake, oriented to person, oriented to place , oriented to time Psychiatric exam: PRESENT: normal mood Results Laboratory Results: 04/27/18 04:42 04/27/18 04:42 04/27/18 04/27/18 04:42 04:42 WBC 7.4 RBC 3.73 Hgb 9.8 L Hct 30.4 L MCV 81 MCH 26.4 L MCHC 32.4 RDW 14.9 H Plt Count 206 Seg Neutrophils % 66.6 Lymphocytes % 21.8 Monocytes % 8.1 Eosinophils % 2.7 Basophils % 0.8 Absolute Neutrophils 4.9 Absolute Lymphocytes 1.6 Absolute Monocytes 0.6 Absolute Eosinophils 0.2 Absolute Basophils 0.1 Sodium 139.5 Potassium 4.5 Chloride 108 H Carbon Dioxide 22 Anion Gap 10 BUN 8 Creatinine 0.99 Est GFR ( Amer) > 60 Est GFR (Non-Af Amer) 56 L Glucose 189 H Calcium 8.2 L Total Bilirubin 0.5 AST 47 H ALT 36 Alkaline Phosphatase 89 Total Protein 6.2 L Albumin 2.4 L 04/23/18 17:28 Foot - Left Gram Stain - Final 04/23/18 17:28 Foot - Left Wound Culture - Final Pseudomonas Aeruginosa Klebsiella Pneumoniae Enterococcus Faecalis(Group D) Corynebacterium Species 04/23/18 07:41 Creatine Kinase 82 Transfer Plan - Time Spent with Patient Time spent with patient: Less than 30 Minutes Qualifiers - * PATIENT BEING DISCHARGED WITH ANY OF THE FOLLOWING DIAGNOSIS: No
[2018-04-27] MEDS: INSULIN LISPRO 100 UNIT/ML 3 ML VIAL SUBCUT PRN (12:41)
[2018-04-27 15:42] VITALS: BP 121/72
== END 2018-04-27 16:44 | DRG 603 ==
LOC: ER 10:33 → EH 19:36 → 3N 21:11
PROVIDERS: ADMIT Internal Medicine; ATTEND Internal Medicine
PROC: 3E0F73Z Introduction of Anti-inflammatory into Respiratory Tract, Via Natural or Artificial Opening (ICD-10-PCS; 2018-04-23)
PROC: 0HDNXZZ Extraction of Left Foot Skin, External Approach (ICD-10-PCS; principal; 2018-04-23 17:30)
DX: L03.116 Cellulitis of left lower limb (principal); Z68.42 Body mass index [BMI] 45.0-49.9, adult; N17.9 Acute kidney failure, unspecified; E66.01 Morbid (severe) obesity due to excess calories; G47.33 Obstructive sleep apnea (adult) (pediatric); E78.2 Mixed hyperlipidemia; K59.00 Constipation, unspecified; B96.5 Pseudomonas (aeruginosa) (mallei) (pseudomallei) as the cause of diseases classified elsewhere; B96.1 Klebsiella pneumoniae [K. pneumoniae] as the cause of diseases classified elsewhere; B95.2 Enterococcus as the cause of diseases classified elsewhere; I87.2 Venous insufficiency (chronic) (peripheral); E11.69 Type 2 diabetes mellitus with other specified complication; I10 Essential (primary) hypertension; E11.65 Type 2 diabetes mellitus with hyperglycemia; Z86.14 Personal history of Methicillin resistant Staphylococcus aureus infection; Z88.6 Allergy status to analgesic agent; Z79.4 Long term (current) use of insulin; Z79.899 Other long term (current) drug therapy; Z90.710 Acquired absence of both cervix and uterus; Z83.3 Family history of diabetes mellitus; Z82.49 Family history of ischemic heart disease and other diseases of the circulatory system
CPT/HCPCS: 36415; 400; 80048; 80053; 80061; 80307; 81001; 82010; 82550; 82803; 82962; 83036; 83605; 83880; 84443; 85025; 87040; 87070; 87075; 87077; 87186; 87205; 93005; 93010; 96360; 96361; 99285; J1644; J1815; J2020; J2250; J2270; J2405; J2543; J2704; J2765; J3010; J3370; J3490; J7030; S0028

== ENCOUNTER 2019-04-09 17:23 | Inpatient (IN) | payer MEDICARE ==
--- NOTE | 2019-04-09 18:27 | ER Document Report ---
ED Medical Screen (RME) - General Chief Complaint: Abnormal Lab Results Stated Complaint: ABNORMAL LABS Time Seen by Provider: 04/09/19 18:19 Primary Care Provider: AQUILINO LIPSCOMB MD [Primary Care Provider] - Follow up as needed TRAVEL OUTSIDE OF THE [place] IN LAST 30 DAYS: No - HPI Notes: 04/09/19 18:25 Patient is a 63-year-old female with a history of morbid obesity, diabetes, hypertension, MRSA cellulitis, chronic venous stasis with lymphedema bilaterally who presents per the direction of Dr. Lipscomb for abnormal renal function, but was not told any of her numbers. Patient states that she had blood work this past Tuesday and she was called today to come here for evaluation. Patient states that she is feeling well. She is eating and drinking without difficulty. She i s urinating normally and having normal bowel movements. She has no concerns or complaints otherwise. Denies SCHNEIDER, fever, neck pain, URI, CP, SOB, Abd pain, dysuria, back pain, or rash. I have treated and performed a rapid initial assessment of this patient. A comprehensive ED assessment and evaluation of the patient, analysis of test results and completion of medical decision making process will be conducted by additional ED providers. PHYSICAL EXAMINATION: GENERAL: Well-appearing, well-nourished and in no acute distress. A&Ox4. Answers questions appropriately. LUNGS: Breath sounds clear to auscultation bilaterally and equal. No wheezes rales or rhonchi. HEART: Regular rate and rhythm without murmurs, rubs, gallops. ABDOMEN: Soft, nondistended abdomen. No guarding, no rebound. Normal bowel sounds present. No CVA tenderness bilaterally. Grossly nontender (cannot elicit thorough abd exam w/o bed, however). - Related Data Allergies/Adverse Reactions: oxycodone [Oxycodone] Adverse Reaction (Verified 04/09/19 17:27) oxycodone HCl [From Percocet] Adverse Reaction (Verified 04/09/19 17:27) Bradycardia Past Medical History - Social History Frequency of alcohol use: None Drug Abuse: None - Past Medical History Cardiac Medical History: Reports: Hx Hypercholesterolemia, Hx Hypertension Endocrine Medical History: Reports: Hx Diabetes Mellitus Type 1, Hx Diabetes Mellitus Type 2 Renal/ Medical History: Denies: Hx Peritoneal Dialysis Skin Medical History: Reports Hx Cellulitis Psychiatric Medical History: Denies: Hx Depression Past Surgical History: Reports: Hx Hysterectomy - Immunizations Hx Diphtheria, Pertussis, Tetanus Vaccination: No Physical Exam - Vital signs Vitals: Temp Pulse Resp BP 97.8 F 88 18 118/56 L 04/09/19 17:32 04/09/19 17:32 04/09/19 17:32 04/09/19 17:32 Course - Vital Signs Vital signs: Temp Pulse Resp BP Pulse Ox 97.8 F 88 18 118/56 L 04/09/19 17:32 04/09/19 17:32 04/09/19 17:32 04/09/19 17:32 Doctor's Discharge - Discharge Referrals: AQUILINO LIPSCOMB MD [Primary Care Provider] - Follow up as needed
[2019-04-09 19:04] LABS: AMORPHOUS SEDIMENT,URINE TRACE /HPF; APPEARANCE,URINE CLOUDY; BILIRUBIN,URINE NEGATIVE (NEGATIVE); GLUCOSE, URINE NEGATIVE (NEGATIVE); KETONES,URINE NEGATIVE (NEGATIVE); LEUKOCYTE ESTERASE,URINE LARGE (NEGATIVE); NITRITE,URINE NEGATIVE (NEGATIVE); PROTEIN,URINE 30 mg/dL (NEGATIVE); URINE SPECIFIC GRAVITY 1.019; UROBILINOGEN,URINE NEGATIVE mg/dL (<2.0)
[2019-04-09 19:05] LABS: COLOR,URINE YELLOW
[2019-04-09 19:07] LABS: ABSOLUTE EOSINOPHILS # (AUTO) 0.1 10^3/uL (0.0-0.6); ABSOLUTE LYMPHOCYTES (AUTO) 1.7 10^3/uL (0.5-4.7); ABSOLUTE MONOCYTES (AUTO) 0.6 10^3/uL (0.1-1.4); ABSOLUTE NEUT (AUTO) 4.7 10^3/uL (1.7-8.2); BASOPHILS % (AUTO) 0.5 % (0-2); EOSINOPHILS % (AUTO) 1.4 % (0-6); HEMATOCRIT 32.7 % (36.0-47.0); HEMOGLOBIN 10.3 g/dL (12.0-15.5); MEAN CORPUSCULAR HEMOGLOBIN 25.8 pg (27.0-33.4); MEAN CORPUSCULAR HGB CONC 31.4 g/dL (32.0-36.0); MEAN CORPUSCULAR VOLUME 82 fl (80-97); MONOCYTES % (AUTO) 8.7 % (3-13); PLATELET COUNT 141 10^3/uL (150-450); RED BLOOD COUNT 3.97 10^6/uL (3.72-5.28); SEGMENTED NEUTROPHILS % (AUTO) 65.4 % (42-78); TOTAL CELLS COUNTED % (AUTO) 100 %; WHITE BLOOD COUNT 7.3 10^3/uL (4.0-10.5)
[2019-04-09 19:29] LABS: ALBUMIN 4.3 g/dL (3.5-5.0); ALKALINE PHOSPHATASE 67 U/L (38-126); ANION GAP 14 (5-19); ASPARTATE AMINO TRANSFERASE 19 U/L (14-36); BILIRUBIN,DIRECT 0.4 mg/dL (0.0-0.4); BILIRUBIN,TOTAL 0.4 mg/dL (0.2-1.3); BLOOD UREA NITROGEN 64 mg/dL (7-20); CALCIUM 9.8 mg/dL (8.4-10.2); CARBON DIOXIDE 16 mmol/L (22-30); CHLORIDE 112 mmol/L (98-107); GLUCOSE 125 mg/dL (75-110); POTASSIUM 5.1 mmol/L (3.6-5.0); TOTAL PROTEIN 8.8 g/dL (6.3-8.2)
[2019-04-09] MEDS ORDERED: NORMAL SALINE 1000 ML 1,000 ML IV ONE (22:05)
[2019-04-09 23:09] LABS: APPEARANCE,URINE SLIGHTLY-CLOUDY; BILIRUBIN,URINE NEGATIVE (NEGATIVE); COLOR,URINE YELLOW; GLUCOSE, URINE NEGATIVE (NEGATIVE); KETONES,URINE NEGATIVE (NEGATIVE); LEUKOCYTE ESTERASE,URINE NEGATIVE (NEGATIVE); NITRITE,URINE NEGATIVE (NEGATIVE); PROTEIN,URINE 30 mg/dL (NEGATIVE); URINE SPECIFIC GRAVITY 1.014; UROBILINOGEN,URINE NEGATIVE mg/dL (<2.0)
--- NOTE | 2019-04-09 23:38 | ER Document Report ---
Entered by CECILE BARBOSA SCRIBE 04/09/19 [id number] Acting as scribe for:SYLVIA LYLE MD ED General - General Chief Complaint: Abnormal Lab Results Stated Complaint: ABNORMAL LABS Time Seen by Provider: 04/09/19 18:19 Primary Care Provider: AQUILINO LIPSCOMB MD [Primary Care Provider] - Follow up as needed Mode of Arrival: Ambulatory Information source: Patient Notes: 63-year-old female presents to the emergency department today with complaints of abnormal labs during outpatient blood work on 04/06/2019. Patient had a creatinine of 4.4. The last labs that we have in our system are from April 27, 2018 and her creatinine at that time was 2.06. Patient states that she has had a decreased appetite but that has been her only symptom. Patient states she has lost about 10 pounds in the last 2 weeks. TRAVEL OUTSIDE OF THE [place] IN LAST 30 DAYS: No - Related Data Allergies/Adverse Reactions: oxycodone [Oxycodone] Adverse Reaction (Verified 04/09/19 17:27) oxycodone HCl [From Percocet] Adverse Reaction (Verified 04/09/19 17:27) Bradycardia Past Medical History - General Information source: Patient - Social History Smoking Status: Never Smoker Cigarette use (# per day): No Frequency of alcohol use: None Drug Abuse: None Lives with: Family Family History: DM, Hypertension Patient has suicidal ideation: No Patient has homicidal ideation: No - Past Medical History Cardiac Medical History: Reports: Hx Hypercholesterolemia, Hx Hypertension Endocrine Medical History: Reports: Hx Diabetes Mellitus Type 1, Hx Diabetes Mellitus Type 2 Renal/ Medical History: Denies: Hx Peritoneal Dialysis Skin Medical History: Reports Hx Cellulitis Psychiatric Medical History: Denies: Hx Depression Past Surgical History: Reports: Hx Hysterectomy - Immunizations Hx Diphtheria, Pertussis, Tetanus Vaccination: No Hx Pneumococcal Vaccination: 09/05/99 Review of Systems - Review of Systems Constitutional: See HPI, Other - lack of appetite. abnormal labs, creatinine 4.4, Weight loss - 10 lbs over x2 weeks EENT: No symptoms reported Cardiovascular: No symptoms reported Respiratory: No symptoms reported Gastrointestinal: No symptoms reported Genitourinary: No symptoms reported Female Genitourinary: No symptoms reported Musculoskeletal: No symptoms reported Skin: No symptoms reported Hematologic/Lymphatic: No symptoms reported Neurological/Psychological: No symptoms reported -: Yes All other systems reviewed and negative Physical Exam - Vital signs Vitals: Temp Pulse Resp BP 97.8 F 88 18 118/56 L 04/09/19 17:32 04/09/19 17:32 04/09/19 17:32 04/09/19 17:32 - Notes Notes: Physical Exam: General: Alert, appears well. HEENT: Normocephalic. Atraumatic. PERRL. Extraocular movements intact. Oropharynx clear. Neck: Supple. Non-tender. Respiratory: No respiratory distress. Clear and equal breath sounds bilaterally. Cardiovascular: 2/6 systolic ejection murmur. Regular rate and rhythm. Abdominal: Normal Inspection. Non-tender. No distension. Normal Bowel Sounds. Back: Non-tender. No deformity or step off. Extremities: Moves all four extremities. Upper extremities: Normal inspection. Normal ROM. Lower extremities: Normal inspection. No edema. Normal ROM. Neurological: Normal cognition. AAOx4. Normal speech. Psychological: Normal affect. Normal Mood. Skin: Warm. Dry. Normal color. Course - Vital Signs Vital signs: Temp Pulse Resp BP Pulse Ox 97.8 F 88 18 118/56 L 04/09/19 17:32 04/09/19 17:32 04/09/19 17:32 04/09/19 17:32 - Laboratory Result Diagrams: 04/09/19 18:40 04/09/19 18:40 Laboratory results interpreted by me: 04/09/19 04/09/19 04/09/19 18:40 18:40 18:40 Hgb 10.3 L Hct 32.7 L MCH 25.8 L MCHC 31.4 L RDW 16.0 H Plt Count 141 L Potassium 5.1 H Chloride 112 H Carbon Dioxide 16 L BUN 64 H Creatinine 4.43 H Est GFR ( Amer) 12 L Est GFR (Non-Af Amer) 10 L Glucose 125 H POC Glucose Total Protein 8.8 H Urine Protein 30 H Urine Blood SMALL H Ur Leukocyte Esterase LARGE H 04/09/19 04/09/19 18:41 22:55 Hgb Hct MCH MCHC RDW Plt Count Potassium Chloride Carbon Dioxide BUN Creatinine Est GFR ( Amer) Est GFR (Non-Af Amer) Glucose POC Glucose 116 H Total Protein Urine Protein 30 H Urine Blood Ur Leukocyte Esterase - Diagnostic Test Radiology reviewed: Image reviewed, Reports reviewed - Renal ultrasound did not show any acute abnormalities. - Consults Dr. Shea Time consulted: 00:14 Consulted provider: will come to ER Discharge - Discharge Clinical Impression: Dehydration Acute renal failure (ARF) Qualifiers: Acute renal failure type: unspecified Qualified Code(s): N17.9 - Acute kidney failure, unspecified Condition: Stable Disposition: ADMITTED INPATIENT Admitting Provider: Shabbir (Hospitalist) Unit Admitted: Telemetry Referrals: AQUILINO LIPSCOMB MD [Primary Care Provider] - Follow up as needed Scribe Attestation: 04/09/19 23:40 I personally performed the services described in the documentation, reviewed and edited the documentation which was dictated to the scribe in my presence, and it accurately records my words and actions. I personally performed the services described in the documentation, reviewed and edited the documentation which was dictated to the scribe in my presence, and it accurately records my words and actions.
--- NOTE | 2019-04-09 23:46 | RADIOLOGY REPORT (SQ) ---
EXAM: US Retroperitoneum (renals) CLINICAL DATA: Acute renal failure TECHNICAL DATA: Grayscale and Doppler ultrasound imaging of the abdomen was performed including imaging of the kidneys, bladder and aorta. Comparison: Prior retroperitoneal ultrasound performed on 09/13/2015. FINDINGS: The right kidney measures 9.5 x 4.9 x 4.4 cm. The renal cortex appears normal in thickness and grossly normal in echogenicity. There is no evidence of renal mass, calculi or perinephric fluid collection. There is no pelvocaliectasis. The left kidney measures 10.0 x 5.1 x 4.4 cm. The renal cortex appears normal in thickness and grossly normal in echogenicity. There are a couple of small focal areas of decreased echogenicity arising from the left renal cortex which demonstrate enhanced through transmission of sound and may represent renal cysts. These measure 1.6 x 1.3 x 1.2 cm and 1.0 x 0.8 x 0.9 cm. There is no pelvocaliectasis. There is Doppler flow to both kidneys. The aorta is normal in caliber and contour and tapers distally. The visualized bladder appears to be within normal limits. No focal bladder abnormalities are appreciated on this examination. IMPRESSION: 1. No acute renal abnormalities are identified. 2. There are a couple of small focal areas of decreased echogenicity arising from the left renal cortex which demonstrate enhanced through transmission of sound and may represent renal cysts.
[2019-04-10] MEDS ORDERED: MAG HYDROX/AL HYDROX/SIMETH SUSP 30 ML UDCUP PO PRN (00:19)
[2019-04-10] MEDS ORDERED: IPRATROPIUM/ALBUTEROL 0.5-2.5 MG/3 ML AMPUL NEB PRN (00:19)
[2019-04-10] MEDS ORDERED: DEXTROSE 50%-WATER 25 GM/50 ML DISP.SYRIN IV PRN ×2 (00:23)
[2019-04-10] MEDS ORDERED: GLUCAGON,HUMAN RECOMB 1 MG INJ IM PRN (00:23)
[2019-04-10] MEDS ORDERED: DEXTROSE 40% GEL 15 GM TUBE PO PRN ×2 (00:23)
[2019-04-10 00:37] LABS: ABSOLUTE RETICS # 0.056 10^6/uL (0.028-0.122); RETICULOCYTE COUNT (AUTO) 1.38 % (0.66-2.85)
[2019-04-10 01:10] LABS: CREATINE KINASE 101 U/L (30-135); IRON(TIBC) 53.5 ug/dL (37-170)
[2019-04-10] MEDS: NORMAL SALINE 1000 ML 1,000 ML IV PRN ×4 (01:29→18:45)
[2019-04-10 02:18] LABS: FOLATE 7.23 ng/mL (>2.76)
[2019-04-10] MEDS: ACETAMINOPHEN 325 MG TABLET PO PRN (02:42)
--- NOTE | 2019-04-10 05:47 | PDOC H&P ---
History of Present Illness Admission Date/PCP: 04/10/19 00:25 AQUILINO LIPSCOMB Patient complains of: Abnormal labs History of Present Illness: CARMELO WHITTEN is a 63 year old female with a past medical history of morbid obesity, diabetes, hypertension, MRSA cellulitis, chronic venous stasis with lymphedema, morbid obesity and obstructive sleep apnea with noncompliance. She presents to the emergency room with abnormal labs from her primary care provider Dr. Lipscomb. She is found to have acute renal failure with a creatinine of 4.4 when 62, metabolic acidosis, hyperkalemia, anemia and thrombocytopenia. Renal ultrasound is unremarkable urinalysis is similarly unremarkable with exception to minor protein. Patient denies recent change in urine, new medications and is otherwise felt well. She is referred to the hospitalist for admission. Past Medical History Cardiac Medical History: Reports: Hyperlipidema, Hypertension Pulmonary Medical History: Reports: Sleep Apnea Endocrine Medical History: Reports: Diabetes Mellitus Type 1, Diabetes Mellitus Type 2, Obesity Psychiatric Medical History: Denies: Depression Past Surgical History Past Surgical History: Reports: Hysterectomy Social History Information Source: Patient, [facility] Records Lives with: Family Smoking Status: Never Smoker Frequency of Alcohol Use: None Hx Recreational Drug Use: No Drugs: None Hx Prescription Drug Abuse: No - Advance Directive Resuscitation Status: Full Code Family History Family History: DM, Hypertension Parental Family History Reviewed: Yes Children Family History Reviewed: Yes Sibling(s) Family History Reviewed.: Yes Medication/Allergy Home Medications: Amlodipine Besylate [Norvasc 10 mg Tablet] 10 mg PO DAILY 04/23/18 Clonidine HCl [Catapres 0.2 mg Tablet] 0.2 mg PO Q12 04/23/18 Ergocalciferol (Vitamin D2) [Drisdol 50,000 unit (1.25MG) Capsule] 50,000 unit PO LOAIZA@1000 04/23/18 Pravastatin Sodium [Pravachol] 40 mg PO DAILY 04/23/18 Quinapril HCl [Accupril 40 mg Tablet] 40 mg PO Q12 04/23/18 Furosemide [Lasix 20 mg Tablet] 20 mg PO DAILY PRN #0 04/27/18 Insulin NPH Hum/Reg Insulin Hm [Humulin 70-30 Vial] 50 units SQ BID #0 04/27/18 Levofloxacin [Levaquin 500 mg Tablet] 500 mg PO DAILY #10 tablet 04/27/18 Ondansetron HCl [Zofran 4 mg Tablet] 1 tab PO TID PRN #90 tablet 04/27/18 Penicillin V Potassium [Penicillin Vk 500 mg Tablet] 500 mg PO Q6H 10 Days #40 tablet 04/27/18 Tramadol HCl [Ultram 50 mg Tablet] 50 mg PO Q6H PRN #90 04/27/18 Allergies/Adverse Reactions: oxycodone [Oxycodone] Adverse Reaction (Verified 04/09/19 17:27) oxycodone HCl [From Percocet] Adverse Reaction (Verified 04/09/19 17:27) Bradycardia Review of Systems Constitutional: ABSENT: chills, fever(s), headache(s), weight gain, weight loss Eyes: ABSENT: visual disturbances Ears: ABSENT: hearing changes Cardiovascular: ABSENT: chest pain, dyspnea on exertion, edema, orthropnea, palpitations Respiratory: ABSENT: cough, hemoptysis Gastrointestinal: ABSENT: abdominal pain, constipation, diarrhea, hematemesis, hematochezia, nausea, vomiting Genitourinary: ABSENT: dysuria, hematuria Musculoskeletal: ABSENT: joint swelling Integumentary: ABSENT: rash, wounds Neurological: ABSENT: abnormal gait, abnormal speech, confusion, dizziness, focal weakness, syncope Psychiatric: ABSENT: anxiety, depression, homidical ideation, suicidal ideation Endocrine: ABSENT: cold intolerance, heat intolerance, polydipsia, polyuria Hematologic/Lymphatic: ABSENT: easy bleeding, easy bruising Physical Exam Vital Signs: Temp Pulse Resp BP Pulse Ox 98.2 F 95 17 133/59 H 100 04/10/19 02:51 04/10/19 02:51 04/10/19 02:51 04/10/19 02:51 04/10/19 02:51 Intake & Output 04/08/19 04/09/19 04/10/19 11:59 11:59 11:59 Intake Total 1000 Balance 1000 Weight 118 kg General appearance: PRESENT: no acute distress, cooperative, obese, well-dev eloped Head exam: PRESENT: atraumatic, normocephalic Eye exam: PRESENT: conjunctiva pink, EOMI, PERRLA. ABSENT: scleral icterus Ear exam: PRESENT: normal external ear exam Mouth exam: PRESENT: moist, tongue midline Neck exam: ABSENT: carotid bruit, JVD, lymphadenopathy, thyromegaly Respiratory exam: PRESENT: clear to auscultation paulie. ABSENT: rales, rhonchi, wheezes Cardiovascular exam: PRESENT: diastolic murmur, RRR. ABSENT: rubs, systolic murmur Pulses: PRESENT: normal dorsalis pedis pul Vascular exam: PRESENT: normal capillary refill GI/Abdominal exam: PRESENT: normal bowel sounds, soft. ABSENT: distended, guarding, mass, organolmegaly, rebound, tenderness Rectal exam: PRESENT: deferred Extremities exam: PRESENT: full ROM, +2 edema. ABSENT: calf tenderness, clubbing Neurological exam: PRESENT: alert, awake, oriented to person, oriented to place, oriented to time, oriented to situation, CN II-XII grossly intact. ABSENT: motor sensory deficit Psychiatric exam: PRESENT: appropriate affect, normal mood. ABSENT: homicidal ideation, suicidal ideation Skin exam: PRESENT: other - Bilateral lower extremity lymphedema with chronic changes. Results Laboratory Results: 04/09/19 18:40 04/09/19 18:40 04/09/19 04/09/19 04/09/19 18:40 18:40 18:40 WBC 7.3 RBC 3.97 Hgb 10.3 L Hct 32.7 L MCV 82 MCH 25.8 L MCHC 31.4 L RDW 16.0 H Plt Count 141 L Seg Neutrophils % 65.4 Lymphocytes % 24.0 Monocytes % 8.7 Eosinophils % 1.4 Basophils % 0.5 Absolute Neutrophils 4.7 Absolute Lymphocytes 1.7 Absolute Monocytes 0.6 Absolute Eosinophils 0.1 Absolute Basophils 0.0 Retic Count (auto) Absolute Retic Sodium 141.6 Potassium 5.1 H Chloride 112 H Carbon Dioxide 16 L Anion Gap 14 BUN 64 H Creatinine 4.43 H Est GFR ( Amer) 12 L Est GFR (Non-Af Amer) 10 L Glucose 125 H Calcium 9.8 Magnesium Iron TIBC % Saturation Ferritin Total Bilirubin 0.4 AST 19 Alkaline Phosphatase 67 Total Protein 8.8 H Albumin 4.3 Vitamin B12 Folate TSH Urine Color YELLOW Urine Appearance CLOUDY Urine pH 5.0 Ur Specific [place] 1.019 Urine Protein 30 H Urine Glucose (UA) NEGATIVE Urine Ketones NEGATIVE Urine Blood SMALL H Urine Nitrite NEGATIVE Ur Leukocyte Esterase LARGE H Urine WBC (Auto) 84 Urine RBC (Auto) 34 04/09/19 04/09/19 04/09/19 18:40 18:40 18:40 WBC RBC Hgb Hct MCV MCH MCHC RDW Plt Count Seg Neutrophils % Lymphocytes % Monocytes % Eosinophils % Basophils % Absolute Neutrophils Absolute Lymphocytes Absolute Monocytes Absolute Eosinophils Absolute Basophils Retic Count (auto) 1.38 Absolute Retic 0.056 Sodium Potassium Chloride Carbon Dioxide Anion Gap BUN Creatinine Est GFR ( Amer) Est GFR (Non-Af Amer) Glucose Calcium Magnesium 1.5 L Iron 53.5 TIBC 217 L % Saturation 25 Ferritin 285.00 H Total Bilirubin AST Alkaline Phosphatase Total Protein Albumin Vitamin B12 398.0 Folate 7.23 TSH < 0.01 L Urine Color Urine Appearance Urine pH Ur Specific [place] Urine Protein Urine Glucose (UA) Urine Ketones Urine Blood Urine Nitrite Ur Leukocyte Esterase Urine WBC (Auto) Urine RBC (Auto) 04/09/19 22:55 WBC RBC Hgb Hct MCV MCH MCHC RDW Plt Count Seg Neutrophils % Lymphocytes % Monocytes % Eosinophils % Basophils % Absolute Neutrophils Absolute Lymphocytes Absolute Monocytes Absolute Eosinophils Absolute Basophils Retic Count (auto) Absolute Retic Sodium Potassium Chloride Carbon Dioxide Anion Gap BUN Creatinine Est GFR ( Amer) Est GFR (Non-Af Amer) Glucose Calcium Magnesium Iron TIBC % Saturation Ferritin Total Bilirubin AST Alkaline Phosphatase Total Protein Albumin Vitamin B12 Folate TSH Urine Color YELLOW Urine Appearance SLIGHTLY-CLOUDY Urine pH 5.0 Ur Specific [place] 1.014 Urine Protein 30 H Urine Glucose (UA) NEGATIVE Urine Ketones NEGATIVE Urine Blood NEGATIVE Urine Nitrite NEGATIVE Ur Leukocyte Esterase NEGATIVE Urine WBC (Auto) 2 Urine RBC (Auto) 1 04/09/19 18:40 Creatine Kinase 101 Impressions: Renal Ultrasound 04/09/19 22:08 IMPRESSION: 1. No acute renal abnormalities are identified. 2. There are a couple of small focal areas of decreased echogenicity arising from the left renal cortex which demonstrate enhanced through transmission of sound and may represent renal cysts. Assessment and Plan - Diagnosis (1) Metabolic acidosis Is this a current diagnosis for this admission?: Yes Plan: Appears primarily prerenal with an elevated BUN and hyaline casts, IV fluid challenge, avoid nephrotoxic meds and doses follow-up chemistry, nephrology consult (2) Anemia Is this a current diagnosis for this admission?: Yes Plan: Likely of chronic disease, follow-up anemia work-up (3) Thrombocytopenia Is this a current diagnosis for this admission?: Yes Plan: Consider outpatient hematology consult (4) Acute renal failure Qualifiers: Acute renal failure type: unspecified Qualified Code(s): N17.9 - Acute kidney failure, unspecified Is this a current diagnosis for this admission?: Yes Plan: Likely prerenal azotemia, fairly benign urinalysis with hyaline casts and only 30 protein. IV fluid challenge, follow-up chemistry, consider nephrology consult (5) Diabetes mellitus type 2 in obese Is this a current diagnosis for this admission?: Yes Plan: Outpatient regiment with Humalog sliding scale - Time Time Spent with patient: 25-34 minutes - Inpatient Certification Medical Necessity: Need Close Monitoring Due to Risk of Patient Decompensation
[2019-04-10] MEDS: CLONIDINE HCL 0.2 MG TABLET PO SCH ×3 (06:38→17:01)
[2019-04-10] MEDS: HEPARIN SOD (PORCINE) 5,000 UNIT/ML 1 ML VIAL SUBCUT SCH ×3 (06:38→21:37)
[2019-04-10 06:57] LABS: ABSOLUTE EOSINOPHILS # (AUTO) 0.1 10^3/uL (0.0-0.6); ABSOLUTE LYMPHOCYTES (AUTO) 1.6 10^3/uL (0.5-4.7); ABSOLUTE MONOCYTES (AUTO) 0.8 10^3/uL (0.1-1.4); ABSOLUTE NEUT (AUTO) 4.4 10^3/uL (1.7-8.2); BASOPHILS % (AUTO) 0.3 % (0-2); EOSINOPHILS % (AUTO) 1.7 % (0-6); HEMATOCRIT 26.1 % (36.0-47.0); HEMOGLOBIN 8.3 g/dL (12.0-15.5); LYMPHOCYTES % (AUTO) 22.6 % (13-45); MEAN CORPUSCULAR HEMOGLOBIN 26.1 pg (27.0-33.4); MEAN CORPUSCULAR VOLUME 82 fl (80-97); MONOCYTES % (AUTO) 11.5 % (3-13); PLATELET COUNT 101 10^3/uL (150-450); RED BLOOD COUNT 3.19 10^6/uL (3.72-5.28); RED CELL DISTRIBUTION WIDTH 15.3 % (11.5-14.0); SEGMENTED NEUTROPHILS % (AUTO) 63.9 % (42-78); TOTAL CELLS COUNTED % (AUTO) 100 %; WHITE BLOOD COUNT 6.9 10^3/uL (4.0-10.5)
[2019-04-10 07:11] LABS: ANION GAP 10 (5-19); BLOOD UREA NITROGEN 60 mg/dL (7-20); CALCIUM 8.6 mg/dL (8.4-10.2); CARBON DIOXIDE 14 mmol/L (22-30); CHLORIDE 117 mmol/L (98-107); GLUCOSE 176 mg/dL (75-110); POTASSIUM 5.2 mmol/L (3.6-5.0)
--- NOTE | 2019-04-10 07:39 | Progress Note Acknowledgement ---
Progress Note Acknowledgement Progess Note Acknowledgement: I, the undersigned member of the medical staff with appropriate privileges and with supervisory authority over [Felipe Parra], a dependent practice allied health professional, acknowledge that I have reviewed the progress notes entered on this patient, and in my professional judgment believe that the assessment made and/or any care evidenced was appropriate
[2019-04-10] MEDS: HUM INSULIN NPH/REG INSULIN HM 100 UNIT/1 ML 3 ML SUBCUT SCH ×2 (07:42→15:45)
--- NOTE | 2019-04-10 07:42 | Progress Note ---
Provider Note Provider Note: Patient admitted early this a.m. Patient does have a slight hyperkalemia 5.2 she has been hydrated with normal saline at this time. Patient has acute renal failure which is significantly improved from 4-2 with fluids. We will continue hydration. Repeat BMP in a.m. Patient has a what is thought to be hyperthyro idism. I am awaiting a T4 at this time. Patient also has a hypomagnesemia. magnesium level 1.5. Will give 2 g IV magnesium this time. Magnesium level in a.m.
[2019-04-10] MEDS: INSULIN LISPRO 100 UNIT/ML 3 ML VIAL SUBCUT SCH ×3 (07:43→15:45)
[2019-04-10] MEDS: MAGNESIUM SULFATE/D5W 1 GM/100 ML RTUPB IV SCH ×2 (08:27→10:28)
[2019-04-10] MEDS ORDERED: LOSARTAN POTASSIUM 25 MG TABLET PO SCH (10:00)
[2019-04-10] MEDS: AMLODIPINE BESYLATE 5 MG TABLET PO SCH ×2 (12:12→21:40)
[2019-04-10] MEDS: TRAMADOL HCL 50 MG TABLET PO PRN (21:40)
[2019-04-11] MEDS: CLONIDINE HCL 0.2 MG TABLET PO SCH ×4 (04:37→17:28)
[2019-04-11] MEDS: NORMAL SALINE 1000 ML 1,000 ML IV PRN ×2 (05:15→14:14)
[2019-04-11] MEDS: HEPARIN SOD (PORCINE) 5,000 UNIT/ML 1 ML VIAL SUBCUT SCH ×3 (06:23→21:17)
[2019-04-11 06:36] LABS: ABSOLUTE EOSINOPHILS # (AUTO) 0.1 10^3/uL (0.0-0.6); ABSOLUTE LYMPHOCYTES (AUTO) 1.4 10^3/uL (0.5-4.7); ABSOLUTE MONOCYTES (AUTO) 0.7 10^3/uL (0.1-1.4); ABSOLUTE NEUT (AUTO) 3.1 10^3/uL (1.7-8.2); BASOPHILS % (AUTO) 0.6 % (0-2); EOSINOPHILS % (AUTO) 2.7 % (0-6); HEMATOCRIT 28.6 % (36.0-47.0); LYMPHOCYTES % (AUTO) 26.5 % (13-45); MEAN CORPUSCULAR HEMOGLOBIN 25.6 pg (27.0-33.4); MEAN CORPUSCULAR HGB CONC 31.5 g/dL (32.0-36.0); MEAN CORPUSCULAR VOLUME 81 fl (80-97); MONOCYTES % (AUTO) 12.4 % (3-13); PLATELET COUNT 120 10^3/uL (150-450); RED BLOOD COUNT 3.52 10^6/uL (3.72-5.28); RED CELL DISTRIBUTION WIDTH 15.7 % (11.5-14.0); SEGMENTED NEUTROPHILS % (AUTO) 57.8 % (42-78); TOTAL CELLS COUNTED % (AUTO) 100 %; WHITE BLOOD COUNT 5.3 10^3/uL (4.0-10.5)
[2019-04-11 07:00] LABS: ANION GAP 10 (5-19); BLOOD UREA NITROGEN 39 mg/dL (7-20); CALCIUM 8.8 mg/dL (8.4-10.2); CARBON DIOXIDE 14 mmol/L (22-30); CHLORIDE 117 mmol/L (98-107); GLUCOSE 138 mg/dL (75-110); POTASSIUM 5.1 mmol/L (3.6-5.0)
[2019-04-11] MEDS: INSULIN LISPRO 100 UNIT/ML 3 ML VIAL SUBCUT SCH ×3 (08:03→16:00)
[2019-04-11] MEDS: HUM INSULIN NPH/REG INSULIN HM 100 UNIT/1 ML 3 ML SUBCUT SCH ×2 (08:17→17:24)
--- NOTE | 2019-04-11 08:55 | PDOC PROGRESS REPORT ---
Subjective Progress Note for:: 04/11/19 Subjective:: April 11, 2019-no complaints this a.m. Reason For Visit: ARF DIABETES MORBID OBESITY Physical Exam Vital Signs: Temp Pulse Resp BP Pulse Ox 98.2 F 65 14 124/62 100 04/11/19 03:26 04/11/19 07:00 04/11/19 03:26 04/11/19 03:26 04/11/19 03:26 Intake & Output 04/10/19 04/11/19 04/12/19 06:59 06:59 06:59 Intake Total 1999 4390 Balance 1999 4390 Weight 118 kg General appearance: PRESENT: no acute distress, well-developed, well-nourished Head exam: PRESENT: atraumatic, normocephalic Eye exam: PRESENT: conjunctiva pink, EOMI, PERRLA. ABSENT: scleral icterus Ear exam: PRESENT: normal external ear exam Mouth exam: PRESENT: moist, tongue midline Neck exam: ABSENT: carotid bruit, JVD, lymphadenopathy, thyromegaly Respiratory exam: PRESENT: clear to auscultation paulie. ABSENT: rales, rhonchi, wheezes Cardiovascular exam: PRESENT: RRR. ABSENT: diastolic murmur, rubs, systolic murmur Pulses: PRESENT: normal dorsalis pedis pul Vascular exam: PRESENT: normal capillary refill GI/Abdominal exam: PRESENT: normal bowel sounds, soft. ABSENT: distended, guard ing, mass, organolmegaly, rebound, tenderness Rectal exam: PRESENT: deferred Extremities exam: PRESENT: full ROM. ABSENT: calf tenderness, clubbing, pedal edema Neurological exam: PRESENT: alert, awake, oriented to person, oriented to place, oriented to time, oriented to situation, CN II-XII grossly intact. ABSENT: motor sensory deficit Psychiatric exam: PRESENT: appropriate affect, normal mood. ABSENT: homicidal ideation, suicidal ideation Skin exam: PRESENT: dry, intact, warm. ABSENT: cyanosis, rash Results Laboratory Results: 04/11/19 06:27 04/11/19 06:27 04/11/19 04/11/19 06:27 06:27 WBC 5.3 RBC 3.52 L Hgb 9.0 L Hct 28.6 L MCV 81 MCH 25.6 L MCHC 31.5 L RDW 15.7 H Plt Count 120 L Seg Neutrophils % 57.8 Lymphocytes % 26.5 Monocytes % 12.4 Eosinophils % 2.7 Basophils % 0.6 Absolute Neutrophils 3.1 Absolute Lymphocytes 1.4 Absolute Monocytes 0.7 Absolute Eosinophils 0.1 Absolute Basophils 0.0 Sodium 140.5 Potassium 5.1 H Chloride 117 H Carbon Dioxide 14 L Anion Gap 10 BUN 39 H Creatinine 1.68 H Est GFR ( Amer) 37 L Est GFR (Non-Af Amer) 31 L Glucose 138 H Calcium 8.8 04/09/19 18:40 Creatine Kinase 101 Impressions: Renal Ultrasound 04/09/19 22:08 IMPRESSION: 1. No acute renal abnormalities are identified. 2. There are a couple of small focal areas of decreased echogenicity arising from the left renal cortex which demonstrate enhanced through transmission of sound and may represent renal cysts. Assessment and Plan - Diagnosis (1) Acute renal failure Qualifiers: Acute renal failure type: unspecified Qualified Code(s): N17.9 - Acute kidney failure, unspecified Is this a current diagnosis for this admission?: Yes Plan: Likely prerenal azotemia, fairly benign urinalysis with hyaline casts and only 30 protein. IV fluid challenge, follow-up chemistry, consider nephrology consult April 11, 2019-improving at this time. Creatinine is down to 1.68. This most likely prerenal in nature. Patient continued hydrated we will repeat BMP in the a.m. I suspect that at this time this should be mostly resolved. (2) Dehydration Is this a current diagnosis for this admission?: Yes Plan: April 11, 2019-continue hydration (3) Thrombocytopenia Is this a current diagnosis for this admission?: Yes Plan: Consider outpatient hematology consult April 11, 2019-slightly worse at this time most likely secondary to hydration. We will continue to follow daily CBCs. (4) Diabetes Qualifiers: Diabetes mellitus type: type 2 Diabetes mellitus penitentiary insulin use: with penitentiary use Diabetes mellitus complication status: with skin complications Diabetes mellitus complication detail: with other skin complication Qualified Code(s): E11.628 - Type 2 diabetes mellitus with other skin complications; Z79.4 - snf (current) use of insulin; Z79.4 - snf (current) use of insulin; Z79.4 - long term acute care registered nurse (current) use of insulin; Z79.4 - snf (current) use of insulin Is this a current diagnosis for this admission?: Yes Plan: April 11, 2019-stable. Continue current management titrate medications as needed for patient response. (5) Hyperkalemia Is this a current diagnosis for this admission?: Yes Plan: April 11, 2019-mild potassium 5.1. Most likely resolving patient's renal function returned to normal. We will continue to follow daily BMPs. - Time Time Spent with patient: Less than 15 minutes - Inpatient Certification Based on my medical assessment, after consideration of the patient's comorbidities, presenting symptoms, or acuity I expect that the services needed warrant INPATIENT care.: Yes I certify that my determination is in accordance with my understanding of Medicare's requirements for reasonable and necessary INPATIENT services [42 CFR 412.3e].: Yes Medical Necessity: Other - Continue IV hydration, continue to monitor renal function.
[2019-04-11] MEDS ORDERED: HUM INSULIN NPH/REG INSULIN HM 100 UNIT/1 ML 3 ML SUBCUT ONE (09:00)
[2019-04-11] MEDS: AMLODIPINE BESYLATE 5 MG TABLET PO SCH ×2 (09:03→21:15)
[2019-04-11] MEDS: TRAMADOL HCL 50 MG TABLET PO PRN (21:15)
[2019-04-12] MEDS: CLONIDINE HCL 0.2 MG TABLET PO SCH ×4 (01:09→17:43)
[2019-04-12 04:44] LABS: HEMATOCRIT 25.9 % (36.0-47.0); HEMOGLOBIN 8.2 g/dL (12.0-15.5); MEAN CORPUSCULAR HEMOGLOBIN 25.7 pg (27.0-33.4); MEAN CORPUSCULAR HGB CONC 31.8 g/dL (32.0-36.0); MEAN CORPUSCULAR VOLUME 81 fl (80-97); PLATELET COUNT 111 10^3/uL (150-450); RED BLOOD COUNT 3.21 10^6/uL (3.72-5.28); RED CELL DISTRIBUTION WIDTH 15.4 % (11.5-14.0)
[2019-04-12 05:00] LABS: BLOOD UREA NITROGEN 29 mg/dL (7-20); CALCIUM 8.6 mg/dL (8.4-10.2); CHLORIDE 116 mmol/L (98-107); GLUCOSE 187 mg/dL (75-110); POTASSIUM 5.8 mmol/L (3.6-5.0)
[2019-04-12 05:05] LABS: CARBON DIOXIDE 18 mmol/L (22-30)
[2019-04-12 05:10] LABS: ANION GAP 4 (5-19)
[2019-04-12] MEDS: NORMAL SALINE 1000 ML 1,000 ML IV PRN (05:25)
[2019-04-12] MEDS: HEPARIN SOD (PORCINE) 5,000 UNIT/ML 1 ML VIAL SUBCUT SCH ×3 (06:49→21:19)
--- NOTE | 2019-04-12 08:12 | PDOC PROGRESS REPORT ---
Subjective Progress Note for:: 04/12/19 Subjective:: April 11, 2019-no complaints this a.m. April 12, 2019-no complaints this a.m. Reason For Visit: ARF DIABETES MORBID OBESITY Physical Exam Vital Signs: Temp Pulse Resp BP Pulse Ox 98.2 F 61 17 119/61 100 04/12/19 04:56 04/12/19 07:00 04/12/19 04:56 04/12/19 04:56 04/12/19 04:56 Intake & Output 04/11/19 04/12/19 04/13/19 06:59 06:59 06:59 Intake Total 4390 2822 Balance 4390 2822 General appearance: PRESENT: no acute distress, well-developed, well-nourished Head exam: PRESENT: atraumatic, normocephalic Eye exam: PRESENT: conjunctiva pink, EOMI, PERRLA. ABSENT: scleral icterus Ear exam: PRESENT: normal external ear exam Mouth exam: PRESENT: moist, tongue midline Neck exam: ABSENT: carotid bruit, JVD, lymphadenopathy, thyromegaly Respiratory exam: PRESENT: clear to auscultation paulie. ABSENT: rales, rhonchi, wheezes Cardiovascular exam: PRESENT: RRR. ABSENT: diastolic murmur, rubs, systolic murmur Pulses: PRESENT: normal dorsalis pedis pul Vascular exam: PRESENT: normal capillary refill GI/Abdominal exam: PRESENT: normal bowel sounds, soft. ABSENT: distended, guarding, mass, organolmegaly, rebound, tenderness Rectal exam: PRESENT: deferred Extremities exam: PRESENT: full ROM, pedal edema, +2 edema, other - Gross lymphedema bilateral extremities Neurological exam: PRESENT: alert, awake, oriented to person, oriented to place, oriented to time, oriented to situation, CN II-XII grossly intact. ABSENT: motor sensory deficit Psychiatric exam: PRESENT: appropriate affect, normal mood. ABSENT: homicidal ideation, suicidal ideation Skin exam: PRESENT: dry, intact, warm. ABSENT: cyanosis, rash Results Laboratory Results: 04/12/19 03:41 04/12/19 03:41 04/12/19 04/12/19 03:41 03:41 WBC 6.0 RBC 3.21 L Hgb 8.2 L Hct 25.9 L MCV 81 MCH 25.7 L MCHC 31.8 L RDW 15.4 H Plt Count 111 L Sodium 138.3 Potassium 5.8 H Chloride 116 H Carbon Dioxide 18 L Anion Gap 4 L BUN 29 H Creatinine 1.33 H Est GFR ( Amer) 48 L Est GFR (Non-Af Amer) 40 L Glucose 187 H Calcium 8.6 04/09/19 18:40 Creatine Kinase 101 Impressions: Renal Ultrasound 04/09/19 22:08 IMPRESSION: 1. No acute renal abnormalities are identified. 2. There are a couple of small focal areas of decreased echogenicity arising from the left renal cortex which demonstrate enhanced through transmission of sound and may represent renal cysts. Assessment and Plan - Diagnosis (1) Acute renal failure Qualifiers: Acute renal failure type: unspecified Qualified Code(s): N17.9 - Acute kidney failure, unspecified Is this a current diagnosis for this admission?: Yes Plan: Likely prerenal azotemia, fairly benign urinalysis with hyaline casts and only 30 protein. IV fluid challenge, follow-up chemistry, consider nephrology consult April 11, 2019-improving at this time. Creatinine is down to 1.68. This most likely prerenal in nature. Patient continued hydrated we will repeat BMP in the a.m. I suspect that at this time this should be mostly resolved. April 12, 2019-much improved at this time creatinine down to 1.3 this a.m. Patient does have a slight hyperkalemia at 5.8. We will continue hydration give patient Kayexalate 30 g p.o. and repeat potassium at 2:00 this afternoon. (2) Dehydration Is this a current diagnosis for this admission?: Yes Plan: April 11, 2019-continue hydration April 8019-much improved. Continue hydration (3) Thrombocytopenia Is this a current diagnosis for this admission?: Yes Plan: Consider outpatient hematology consult April 11, 2019-slightly worse at this time most likely secondary to hydration. We will continue to follow daily CBCs. (4) Diabetes Qualifiers: Diabetes mellitus type: type 2 Diabetes mellitus parts counterman insulin use: with parts counterman use Diabetes mellitus complication status: with skin comp lications Diabetes mellitus complication detail: with other skin complication Qualified Code(s): E11.628 - Type 2 diabetes mellitus with other skin complications; Z79.4 - nursing home (current) use of insulin; Z79.4 - terminal computer operator (current) use of insulin; Z79.4 - terminal computer operator (current) use of insulin; Z79.4 - terminal computer operator (current) use of insulin Is this a current diagnosis for this admission?: Yes Plan: April 11, 2019-stable. Continue current management titrate medications as needed for patient response. April 12, 2019-stable (5) Hyperkalemia Is this a current diagnosis for this admission?: Yes Plan: April 11, 2019-mild potassium 5.1. Most likely resolving patient's renal function returned to normal. We will continue to follow daily BMPs. April 12, 2019-potassium 5.8. Kayexalate 30 g p.o. times 1 repeat potassium level at 2 PM. - Time Time Spent with patient: 15-24 minutes - Inpatient Certification Based on my medical assessment, after consideration of the patient's comorbidities, presenting symptoms, or acuity I expect that the services needed warrant INPATIENT care.: Yes I certify that my determination is in accordance with my understanding of Medicare's requirements for reasonable and necessary INPATIENT services [42 CFR 412.3e].: Yes Medical Necessity: Other - IV fluids, follow labs.
[2019-04-12] MEDS: HUM INSULIN NPH/REG INSULIN HM 100 UNIT/1 ML 3 ML SUBCUT SCH ×2 (08:21→17:41)
[2019-04-12] MEDS: INSULIN LISPRO 100 UNIT/ML 3 ML VIAL SUBCUT SCH ×3 (08:26→16:00)
[2019-04-12] MEDS ORDERED: SODIUM POLYSTYRENE SULFONATE 15 GM/60 ML PO ONE (08:30)
[2019-04-12] MEDS: AMLODIPINE BESYLATE 5 MG TABLET PO SCH ×2 (10:01→21:20)
[2019-04-13] MEDS: CLONIDINE HCL 0.2 MG TABLET PO SCH ×5 (00:33→23:56)
[2019-04-13] MEDS: NORMAL SALINE 1000 ML 1,000 ML IV PRN (00:56)
[2019-04-13] MEDS: ACETAMINOPHEN 325 MG TABLET PO PRN (01:08)
[2019-04-13 05:12] LABS: ANION GAP 8 (5-19); BLOOD UREA NITROGEN 22 mg/dL (7-20); CALCIUM 8.6 mg/dL (8.4-10.2); CARBON DIOXIDE 16 mmol/L (22-30); CHLORIDE 113 mmol/L (98-107); GLUCOSE 188 mg/dL (75-110); POTASSIUM 5.5 mmol/L (3.6-5.0)
[2019-04-13] MEDS: HEPARIN SOD (PORCINE) 5,000 UNIT/ML 1 ML VIAL SUBCUT SCH ×3 (05:33→21:41)
[2019-04-13] MEDS: HUM INSULIN NPH/REG INSULIN HM 100 UNIT/1 ML 3 ML SUBCUT SCH ×2 (07:59→17:35)
[2019-04-13] MEDS: INSULIN LISPRO 100 UNIT/ML 3 ML VIAL SUBCUT SCH ×3 (08:06→16:00)
--- NOTE | 2019-04-13 08:26 | PDOC PROGRESS REPORT ---
Subjective Progress Note for:: 04/13/19 Subjective:: April 11, 2019-no complaints this a.m. April 12, 2019-no complaints this a.m. April 13, 2019-no complaints this a.m. Reason For Visit: ARF DIABETES MORBID OBESITY Physical Exam Vital Signs: Temp Pulse Resp BP Pulse Ox 98.3 F 70 16 119/59 L 96 04/13/19 07:19 04/13/19 07:19 04/13/19 07:19 04/13/19 07:19 04/13/19 07:19 Intake & Output 04/12/19 04/13/19 04/14/19 06:59 06:59 06:59 Intake Total 2822 1680 Balance 2822 1680 General appearance: PRESENT: no acute distress, well-developed, well-nourished Head exam: PRESENT: atraumatic, normocephalic Eye exam: PRESENT: conjunctiva pink, EOMI, PERRLA. ABSENT: scleral icterus Ear exam: PRESENT: normal external ear exam Mouth exam: PRESENT: moist, tongue midline Neck exam: ABSENT: carotid bruit, JVD, lymphadenopathy, thyromegaly Respiratory exam: PRESENT: clear to auscultation paulie. ABSENT: rales, rhonchi, w heezes Cardiovascular exam: PRESENT: RRR. ABSENT: diastolic murmur, rubs, systolic murmur Pulses: PRESENT: normal dorsalis pedis pul Vascular exam: PRESENT: normal capillary refill GI/Abdominal exam: PRESENT: normal bowel sounds, soft. ABSENT: distended, guarding, mass, organolmegaly, rebound, tenderness Rectal exam: PRESENT: deferred Extremities exam: PRESENT: full ROM. ABSENT: calf tenderness, clubbing, pedal edema Neurological exam: PRESENT: alert, awake, oriented to person, oriented to place, oriented to time, oriented to situation, CN II-XII grossly intact. ABSENT: motor sensory deficit Psychiatric exam: PRESENT: appropriate affect, normal mood. ABSENT: homicidal ideation, suicidal ideation Skin exam: PRESENT: dry, intact, warm. ABSENT: cyanosis, rash Results Laboratory Results: 04/12/19 03:41 04/13/19 03:27 04/12/19 04/13/19 13:47 03:27 Sodium 137.2 Potassium 5.0 5.5 H Chloride 113 H Carbon Dioxide 16 L Anion Gap 8 BUN 22 H Creatinine 1.29 H Est GFR ( Amer) 50 L Est GFR (Non-Af Amer) 41 L Glucose 188 H Calcium 8.6 04/09/19 18:40 Creatine Kinase 101 Impressions: Renal Ultrasound 04/09/19 22:08 IMPRESSION: 1. No acute renal abnormalities are identified. 2. There are a couple of small focal areas of decreased echogenicity arising from the left renal cortex which demonstrate enhanced through transmission of sound and may represent renal cysts. Assessment and Plan - Diagnosis (1) Acute renal failure Qualifiers: Acute renal failure type: unspecified Qualified Code(s): N17.9 - Acute kidney failure, unspecified Is this a current diagnosis for this admission?: Yes Plan: Likely prerenal azotemia, fairly benign urinalysis with hyaline casts and only 30 protein. IV fluid challenge, follow-up chemistry, consider nephrology consult April 11, 2019-improving at this time. Creatinine is down to 1.68. This most likely prerenal in nature. Patient continued hydrated we will repeat BMP in the a.m. I suspect that at this time this should be mostly resolved. April 12, 2019-much improved at this time creatinine down to 1.3 this a.m. Patient does have a slight hyperkalemia at 5.8. We will continue hydration give patient Kayexalate 30 g p.o. and repeat potassium at 2:00 this afternoon. April 13, 2019-resolved. DC IV fluids. Repeat BMP in a.m. (2) Dehydration Is this a current diagnosis for this admission?: Yes Plan: April 11, 2019-continue hydration April 12, 2019-much improved. 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 Continue current management titrate medications as needed for patient response. April 12, 2019-stable April 9019-stable continue current management (5) Hyperkalemia Is this a current diagnosis for this admission?: Yes Plan: April 11, 2019-mild potassium 5.1. Most likely resolving patient's renal function returned to normal. We will continue to follow daily BMPs. April 12, 2019-potassium 5.8. Kayexalate 30 g p.o. times 1 repeat potassium level at 2 PM. April 13, 2019-repeat potassium yesterday afternoon was 5.0. Repeat this morning is 5.5. I will give her 30 g of Kayexalate p.o. 1 time more. Repeat B MP in the a.m. Unsure where this hyperkalemia is coming from. - Time Time Spent with patient: 15-24 minutes - Inpatient Certification Based on my medical assessment, after consideration of the patient's comorbidities, presenting symptoms, or acuity I expect that the services needed warrant INPATIENT care.: Yes I certify that my determination is in accordance with my understanding of Medicare's requirements for reasonable and necessary INPATIENT services [42 CFR 412.3e].: Yes Medical Necessity: Other - Electrolyte monitoring
[2019-04-13] MEDS ORDERED: SODIUM POLYSTYRENE SULFONATE 15 GM/60 ML PO ONE (09:30)
[2019-04-13] MEDS: AMLODIPINE BESYLATE 5 MG TABLET PO SCH ×2 (09:48→21:43)
[2019-04-14] MEDS: HEPARIN SOD (PORCINE) 5,000 UNIT/ML 1 ML VIAL SUBCUT SCH ×2 (05:16→13:55)
[2019-04-14 06:09] LABS: ANION GAP 7 (5-19); BLOOD UREA NITROGEN 18 mg/dL (7-20); CARBON DIOXIDE 19 mmol/L (22-30); CHLORIDE 112 mmol/L (98-107); GLUCOSE 234 mg/dL (75-110); POTASSIUM 4.7 mmol/L (3.6-5.0)
[2019-04-14] MEDS: CLONIDINE HCL 0.2 MG TABLET PO SCH (06:50)
[2019-04-14] MEDS: HUM INSULIN NPH/REG INSULIN HM 100 UNIT/1 ML 3 ML SUBCUT SCH (08:18)
[2019-04-14] MEDS: INSULIN LISPRO 100 UNIT/ML 3 ML VIAL SUBCUT SCH ×2 (08:21→12:15)
--- NOTE | 2019-04-14 08:56 | PDOC DISCHARGE SUMMARY ---
General - Admit/Disc Date/PCP Admission Date/Primary Care Provider: 04/10/19 00:25 AQUILINO LIPSCOMB Discharge Date: 04/14/19 - Discharge Diagnosis (1) Acute renal failure Is this a current diagnosis for this admission?: Yes (2) Dehydration Is this a current diagnosis for this admission?: Yes (3) Thrombocytopenia Is this a current diagnosis for this admission?: Yes (4) Diabetes Is this a current diagnosis for this admission?: Yes (5) Hyperkalemia Is this a current diagnosis for this admission?: Yes - Additional Information Resuscitation Status: Full Code Discharge Diet: As Tolerated Home Medications: Amlodipine Besylate [Norvasc 10 mg Tablet] 10 mg PO DAILY 04/23/18 Clonidine HCl [Catapres 0.2 mg Tablet] 0.2 mg PO Q12 04/23/18 Ergocalciferol (Vitamin D2) [Drisdol 50,000 unit (1.25MG) Capsule] 50,000 unit PO LOAIZA@1000 04/23/18 Pravastatin Sodium [Pravachol] 40 mg PO DAILY 04/23/18 Atenolol [Tenormin 100 mg Tablet] 100 mg PO BID 04/10/19 Insulin NPH Hum/Reg Insulin Hm [Humulin 70-30 Vial] 45 units SQ BID 04/10/19 Lisinopril [Prinivil 40 mg Tablet] 40 mg PO DAILY 04/10/19 Metformin HCl 1,000 mg PO BID 04/10/19 Mirtazapine [Remeron 15 mg Tablet] 7.5 mg PO QHS 04/10/19 Tramadol HCl [Ultram 50 mg Tablet] 50 mg PO TID PRN 04/10/19 History of Present Illness Patient complains of: No complaints this a.m. History of Present Illness: CARMELO WHITTEN is a 63 year old female who was admitted for acute renal failure Hospital Course Hospital Course: Patient was admitted for acute renal failure. Patient was hydrated throughout her hospital stay and showed a return to normal baseline creatinine on date of discharge. Patient was found to have slight hyperkalemia for 2 days unknown etiology. Patient was given Kayexalate x2 with potassium this morning 4.7. Patient to follow-up with her primary care practitioner within a week with a potassium level. Patient will resume all other home medications other than Lasix and potassium which I have DC'd the patient follows up with her primary care practitioner. Patient is in agreement with plan of care. Physical Exam Vital Signs: Temp Pulse Resp BP Pulse Ox 98.2 F 70 18 129/66 H 100 04/14/19 03:28 04/14/19 07:00 04/14/19 03:28 04/14/19 03:28 04/14/19 03:28 Intake & Output 04/13/19 04/14/19 04/15/19 06:59 06:59 06:59 Intake Total 1680 1979 Balance 1680 1979 Weight 118.1 kg General appearance: PRESENT: no acute distress, well-developed, well-nourished Head exam: PRESENT: atraumatic, normocephalic Eye exam: PRESENT: conjunctiva pink, EOMI, PERRLA. ABSENT: scleral icterus Ear exam: PRESENT: normal external ear exam Mouth exam: PRESENT: moist, tongue midline Neck exam: ABSENT: carotid bruit, JVD, lymphadenopathy, thyromegaly Respiratory exam: PRESENT: clear to auscultation paulie. ABSENT: rales, rhonchi, wheezes Cardiovascular exam: PRESENT: RRR. ABSENT: diastolic murmur, rubs, systolic murmur Pulses: PRESENT: normal dorsalis pedis pul Vascular exam: PRESENT: normal capillary refill GI/Abdominal exam: PRESENT: normal bowel sounds, soft. ABSENT: distended, guarding, mass, organolmegaly, rebound, tenderness Rectal exam: PRESENT: deferred Extremities exam: PRESENT: full ROM, other - Bilateral lower extremity lymphedema. ABSENT: calf tenderness, clubbing, pedal edema Neurological exam: PRESENT: alert, awake, oriented to person, oriented to place, oriented to time, oriented to situation, CN II-XII grossly intact. ABSENT: motor sensory deficit Psychiatric exam: PRESENT: appropriate affect, normal mood. ABSENT: homicidal ideation, suicidal ideation Skin exam: PRESENT: dry, intact, warm. ABSENT: cyanosis, rash Results Laboratory Results: 04/12/19 03:41 04/14/19 05:32 04/14/19 04/14/19 03:54 05:32 Sodium Cancelled 137.8 Potassium Cancelled 4.7 Chloride Cancelled 112 H Carbon Dioxide Cancelled 19 L Anion Gap Cancelled 7 BUN Cancelled 18 Creatinine Cancelled 1.12 Est GFR ( Amer) Cancelled 59 L Est GFR (Non-Af Amer) Cancelled 49 L Glucose Cancelled 234 H Calcium Cancelled 9.0 04/09/19 18:40 Creatine Kinase 101 Impressions: Renal Ultrasound 04/09/19 22:08 IMPRESSION: 1. No acute renal abnormalities are identified. 2. There are a couple of small focal areas of decreased echogenicity arising from the left renal cortex which demonstrate enhanced through transmission of sound and may represent renal cysts. Qualifiers - * PATIENT BEING DISCHARGED WITH ANY OF THE FOLLOWING DIAGNOSIS: No Acute Heart Failure - Is this a Heart Failure Patient?: No Plan Time Spent: Greater than 30 Minutes
--- NOTE | 2019-04-14 08:58 | ADVANCED CARE ---
- Diagnosis (1) Acute renal failure Diagnosis Current: Yes (2) Dehydration Diagnosis Current: Yes (3) Thrombocytopenia Diagnosis Current: Yes (4) Diabetes Diagnosis Current: Yes (5) Hyperkalemia Diagnosis Current: Yes Attendance: Myself and patient Resuscitation Status: Full Code Discussion: Discussed plan of care with patient. Discharge home hold potassium and Lasix at this time. Patient follow-up with primary care. Return 1 week for repeat potassium level. Care Planning Goals: 1-no further bouts of acute renal failure 2-continue resolution of hyperkalemia 3-follow-up with primary care within 1 week Time Spent: 15 minutes
[2019-04-14] MEDS: AMLODIPINE BESYLATE 5 MG TABLET PO SCH (09:34)
[2019-04-14 13:57] VITALS: BP 119/57
== END 2019-04-14 14:55 | disposition home or self-care (01) | DRG 683 ==
LOC: ER 17:23 → EH 04-10 00:25 → 4N 04-10 01:55
PROVIDERS: ADMIT Internal Medicine; ATTEND Internal Medicine
DX: N17.9 Acute kidney failure, unspecified (principal); Z68.41 Body mass index [BMI] 40.0-44.9, adult; E87.2 Acidosis; E87.5 Hyperkalemia; G47.33 Obstructive sleep apnea (adult) (pediatric); E86.0 Dehydration; D64.9 Anemia, unspecified; E83.42 Hypomagnesemia; I87.8 Other specified disorders of veins; E11.9 Type 2 diabetes mellitus without complications; E05.90 Thyrotoxicosis, unspecified without thyrotoxic crisis or storm; E66.01 Morbid (severe) obesity due to excess calories; D69.6 Thrombocytopenia, unspecified; E78.5 Hyperlipidemia, unspecified; Z90.710 Acquired absence of both cervix and uterus; Z91.19 Patient's noncompliance with other medical treatment and regimen; Z82.49 Family history of ischemic heart disease and other diseases of the circulatory system; Z83.3 Family history of diabetes mellitus; Z79.4 Long term (current) use of insulin; Z88.8 Allergy status to other drugs, medicaments and biological substances
CPT/HCPCS: 36415; 51701; 76770; 80048; 80053; 81001; 82550; 82607; 82728; 82746; 82962; 83036; 83540; 83550; 83735; 84132; 84439; 84443; 85025; 85027; 85045; 96360; 99285; J1815; J3475; J7030

== ENCOUNTER 2019-05-17 19:52 | Inpatient (IN) | payer MEDICARE ==
--- NOTE | 2019-05-17 20:41 | ER Document Report ---
ED Medical Screen (RME) - General Chief Complaint: Abnormal Lab Results Stated Complaint: FLANK PAIN Time Seen by Provider: 05/17/19 20:38 Primary Care Provider: AQUILINO LIPSCOMB MD [Primary Care Provider] - Follow up as needed Mode of Arrival: Ambulatory Information source: Patient Notes: 64-year-old female presented to ED for abnormal blood work. She states her do ctor called her and told her she was in kidney failure she need to go straight to the emergency room. She does not have any blood levels in our facility yesterday. I have ordered blood work at this time. He states he does have a history of diabetes cholesterol high blood pressure. States he has had a hysterectomy. He states he has been feeling tired and fatigued. I have greeted and performed a rapid initial assessment of this patient. A comprehensive ED assessment and evaluation of the patient, analysis of test results and completion of medical decision making process will be conducted by an additional ED providers. TRAVEL OUTSIDE OF THE [place] IN LAST 30 DAYS: No - Related Data Allergies/Adverse Reactions: oxycodone [Oxycodone] Adverse Reaction (Verified 04/09/19 17:27) oxycodone HCl [From Percocet] Adverse Reaction (Verified 04/09/19 17:27) Bradycardia Past Medical History - Past Medical History Cardiac Medical History: Reports: Hx Hypercholesterolemia, Hx Hypertension Pulmonary Medical History: Reports: Hx Sleep Apnea Endocrine Medical History: Reports: Hx Diabetes Mellitus Type 1, Hx Diabetes Mellitus Type 2 Renal/ Medical History: Denies: Hx Peritoneal Dialysis Skin Medical History: Reports Hx Cellulitis Psychiatric Medical History: Denies: Hx Depression Past Surgical History: Reports: Hx Hysterectomy - Immunizations Hx Diphtheria, Pertussis, Tetanus Vaccination: No Physical Exam - Vital signs Vitals: Temp Pulse Resp BP Pulse Ox 98.7 F 84 18 127/61 H 100 05/17/19 20:30 05/17/19 20:30 05/17/19 20:30 05/17/19 20:30 05/17/19 20:30 Course - Vital Signs Vital signs: Temp Pulse Resp BP Pulse Ox 98.7 F 84 18 127/61 H 100 05/17/19 20:30 05/17/19 20:30 05/17/19 20:30 05/17/19 20:30 05/17/19 20:30 Doctor's Discharge - Discharge Referrals: AQUILINO LIPSCOMB MD [Primary Care Provider] - Follow up as needed
[2019-05-17 21:38] LABS: ABSOLUTE BASOPHILS # (AUTO) 0.1 10^3/uL (0.0-0.2); ABSOLUTE EOSINOPHILS # (AUTO) 0.1 10^3/uL (0.0-0.6); ABSOLUTE LYMPHOCYTES (AUTO) 1.2 10^3/uL (0.5-4.7); ABSOLUTE MONOCYTES (AUTO) 0.7 10^3/uL (0.1-1.4); ABSOLUTE NEUT (AUTO) 6.8 10^3/uL (1.7-8.2); BASOPHILS % (AUTO) 0.9 % (0-2); EOSINOPHILS % (AUTO) 1.1 % (0-6); HEMOGLOBIN 11.3 g/dL (12.0-15.5); LYMPHOCYTES % (AUTO) 13.7 % (13-45); MEAN CORPUSCULAR HEMOGLOBIN 26.1 pg (27.0-33.4); MEAN CORPUSCULAR HGB CONC 31.3 g/dL (32.0-36.0); MEAN CORPUSCULAR VOLUME 83 fl (80-97); MONOCYTES % (AUTO) 7.7 % (3-13); RED BLOOD COUNT 4.33 10^6/uL (3.72-5.28); RED CELL DISTRIBUTION WIDTH 16.4 % (11.5-14.0); SEGMENTED NEUTROPHILS % (AUTO) 76.6 % (42-78); TOTAL CELLS COUNTED % (AUTO) 100 %; WHITE BLOOD COUNT 8.9 10^3/uL (4.0-10.5)
[2019-05-17 21:41] LABS: ALBUMIN 4.6 g/dL (3.5-5.0); ALKALINE PHOSPHATASE 77 U/L (38-126); ANION GAP 14 (5-19); ASPARTATE AMINO TRANSFERASE 17 U/L (14-36); BILIRUBIN,DIRECT 0.3 mg/dL (0.0-0.4); BILIRUBIN,TOTAL 0.6 mg/dL (0.2-1.3); BLOOD UREA NITROGEN 110 mg/dL (7-20); CARBON DIOXIDE 14 mmol/L (22-30); CHLORIDE 115 mmol/L (98-107); CREATINE KINASE 71 U/L (30-135); GLUCOSE 209 mg/dL (75-110); TOTAL PROTEIN 9.3 g/dL (6.3-8.2)
[2019-05-17 21:51] LABS: POTASSIUM 8.9 mmol/L (3.6-5.0)
[2019-05-17 21:57] LABS: PLATELET COUNT 178 10^3/uL (150-450)
[2019-05-17] MEDS ORDERED: SODIUM POLYSTYRENE SULFONATE 15 GM/60 ML PO ONE (22:06)
[2019-05-17] MEDS ORDERED: DEXTROSE 50%-WATER 25 GM/50 ML DISP.SYRIN IV ONE (22:06)
[2019-05-17] MEDS ORDERED: INSULIN REG, HUMAN 100 UNIT/ML 3 ML VIAL (PYX) IV ONE (22:06)
[2019-05-17] MEDS ORDERED: CALCIUM GLUCONATE 1000 MG/10 ML INJ IV ONE (22:06)
--- NOTE | 2019-05-17 22:50 | ER Document Report ---
ED General - General Chief Complaint: Abnormal Lab Results Stated Complaint: FLANK PAIN Time Seen by Provider: 05/17/19 20:38 Primary Care Provider: AQUILINO LIPSCOMB MD [Primary Care Provider] - Follow up as needed Mode of Arrival: Ambulatory TRAVEL OUTSIDE OF THE [place] IN LAST 30 DAYS: No - HPI Notes: Patient is a 64-year-old female who presents to the emergency department for evaluation. She was recently admitted to the hospital for acute renal failure and hyperkalemia. She had routine lab work as performed by her primary care physician yesterday. He called her and stated that her potassium was high and she needed to report to the emergency department. Generally the patient states that she has had a sense of malaise and generalized weakness, but denies any pain. No trouble breathing. No palpitations. No significant dizziness. She states she is been taking her medications as prescribed and she was discharged from the hospital. - Related Data Allergies/Adverse Reactions: oxycodone [Oxycodone] Adverse Reaction (Verified 04/09/19 17:27) oxycodone HCl [From Percocet] Adverse Reaction (Verified 04/09/19 17:27) Bradycardia Past Medical History - General Information source: Patient - Social History Smoking Status: Never Smoker Chew tobacco use (# tins/day): No Frequency of alcohol use: None Drug Abuse: None Family History: DM, Hypertension Patient has suicidal ideation: No Patient has homicidal ideation: No - Past Medical History Cardiac Medical History: Reports: Hx Hypercholesterolemia, Hx Hypertension Pulmonary Medical History: Reports: Hx Sleep Apnea Endocrine Medical History: Reports: Hx Diabetes Mellitus Type 2 Renal/ Medical History: Denies: Hx Peritoneal Dialysis Musculoskeletal Medical History: Reports Other - Lymphedema and chronic lower extremity cellulitis Skin Medical History: Reports Hx Cellulitis Psychiatric Medical History: Denies: Hx Depression Past Surgical History: Reports: Hx Hysterectomy - Immunizations Hx Diphtheria, Pertussis, Tetanus Vaccination: No Hx Pneumococcal Vaccination: 09/05/99 Review of Systems - Review of Systems Constitutional: See HPI EENT: No symptoms reported Cardiovascular: No symptoms reported Respiratory: No symptoms reported Gastrointestinal: No symptoms reported Genitourinary: No symptoms reported Musculoskeletal: No symptoms reported Skin: No symptoms reported Neurological/Psychological: No symptoms reported Physical Exam - Vital signs Vitals: Temp Pulse Resp BP Pulse Ox 98.7 F 84 18 127/61 H 100 05/17/19 20:30 05/17/19 20:30 05/17/19 20:30 05/17/19 20:30 05/17/19 20:30 - Notes Notes: Vital signs reviewed, please refer to chart. Head is normocephalic, atraumatic. Pupils equal round, reactive to light. Neck is supple without meningismus. Heart is regular rate and rhythm. Lungs are clear to auscultation bilaterally. Abdomen is soft, nontender, normoactive bowel sounds throughout. Lymphedematous extremities with bandages in place. She has foul-smelling drainage from bi lateral lower extremities. Neurovascularly intact distally. No posterior calf tenderness. Patient is awake and alert, neurological exam is nonfocal. Course - Re-evaluation Re-evalutation: 05/17/19 22:52 Patient presents emergency department for evaluation. Laboratory investigations were obtained as ordered through triage. She was found to be markedly hyperkalemic. Based on this information she was given calcium, Kayexalate, insulin, dextrose. Given IV fluids. EKG failed to reveal any significant QRS widening or other concerning findings secondary to hyperkalemia. We will continue to monitor. 05/18/19 01:39 Patient remained stable, on the monitor. Her heart rate is in the 90s. I spoke with Dr. Shea, he will admit the patient for further care. 05/18/19 02:04 Dr. Shea did ask that I verify with Dr. Reid the she was willing to accept this patient. I spoke with Dr. Reid. She states that if there is an ICU bed that can accommodate dialysis, and the surgeon can place a temporary dialysis catheter, she will accept the patient in consult. I spoke with the nursing newspaper distributor supervisor, who states that this can be accommodated. I spoke with Dr. Spring, who will place a line in consultation. - Vital Signs Vital signs: Temp Pulse Resp BP Pulse Ox 98.7 F 84 18 127/61 H 100 05/17/19 20:30 05/17/19 20:30 05/17/19 20:30 05/17/19 20:30 05/17/19 20:30 - Laboratory Result Diagrams: 05/17/19 21:10 05/17/19 21:10 Laboratory results interpreted by me: 05/17/19 05/17/19 21:10 21:10 Hgb 11.3 L MCH 26.1 L MCHC 31.3 L RDW 16.4 H Potassium 8.9 H* Chloride 115 H Carbon Dioxide 14 L BUN 110 H Creatinine 5.60 H Est GFR ( Amer) 9 L Est GFR (MDRD) Non-Af 8 L Glucose 209 H Calcium 11.0 H Total Protein 9.3 H Lipase 429.8 H - EKG Interpretation by Me Additional EKG results interpreted by me: 05/17/19 22:53 Sinus mechanism with a rate of 85 bpm. Left axis deviation. Normal intervals. No acute ST changes concerning for ischemia or infarction. She does have peaked T waves across the precordium. Discharge - Discharge Clinical Impression: Acute renal failure, Hyperkalemia Condition: Stable Disposition: ADMITTED INPATIENT Admitting Provider: Shabbir (Hospitalist) Unit Admitted: ICU Referrals: AQUILINO LIPSCOMB MD [Primary Care Provider] - Follow up as needed
[2019-05-18] MEDS ORDERED: LACTULOSE SYRUP 20 GM/30 ML UDCUP PO ONE (01:39)
[2019-05-18] MEDS ORDERED: CALCIUM GLUCONATE 2,000 MG in DEXTROSE 5%-WATER 100 ML IV ONE (01:39)
[2019-05-18] MEDS ORDERED: SODIUM POLYSTYRENE SULFONATE 15 GM/60 ML PO ONE (01:39)
[2019-05-18] MEDS ORDERED: MAG HYDROX/AL HYDROX/SIMETH SUSP 30 ML UDCUP PO PRN (01:40)
[2019-05-18] MEDS ORDERED: IPRATROPIUM/ALBUTEROL 0.5-2.5 MG/3 ML AMPUL NEB ONE (01:40)
[2019-05-18] MEDS ORDERED: GLUCAGON,HUMAN RECOMB 1 MG INJ IM PRN (01:40)
[2019-05-18] MEDS ORDERED: DEXTROSE 40% GEL 15 GM TUBE PO PRN ×2 (01:40)
[2019-05-18] MEDS ORDERED: IPRATROPIUM/ALBUTEROL 0.5-2.5 MG/3 ML AMPUL NEB PRN (01:40)
[2019-05-18] MEDS ORDERED: DEXTROSE 50%-WATER 25 GM/50 ML DISP.SYRIN IV PRN ×2 (01:40)
[2019-05-18] MEDS ORDERED: NORMAL SALINE 1000 ML 1,000 ML IV PRN ×2 (01:45→08:56)
[2019-05-18] MEDS ORDERED: HUM INSULIN NPH/REG INSULIN HM 100 UNIT/1 ML 3 ML SUBCUT ONE (02:15)
[2019-05-18] MEDS ORDERED: CALCIUM GLUCONATE 1000 MG/10 ML INJ IV ONE (02:23)
[2019-05-18 04:30] LABS: ABSOLUTE BASOPHILS # (AUTO) 0.1 10^3/uL (0.0-0.2); ABSOLUTE EOSINOPHILS # (AUTO) 0.1 10^3/uL (0.0-0.6); ABSOLUTE LYMPHOCYTES (AUTO) 1.3 10^3/uL (0.5-4.7); ABSOLUTE MONOCYTES (AUTO) 1.1 10^3/uL (0.1-1.4); ABSOLUTE NEUT (AUTO) 7.1 10^3/uL (1.7-8.2); BASOPHILS % (AUTO) 0.5 % (0-2); EOSINOPHILS % (AUTO) 0.7 % (0-6); HEMATOCRIT 32.5 % (36.0-47.0); HEMOGLOBIN 10.2 g/dL (12.0-15.5); LYMPHOCYTES % (AUTO) 13.2 % (13-45); MEAN CORPUSCULAR HEMOGLOBIN 25.4 pg (27.0-33.4); MEAN CORPUSCULAR HGB CONC 31.5 g/dL (32.0-36.0); MEAN CORPUSCULAR VOLUME 81 fl (80-97); MONOCYTES % (AUTO) 11.6 % (3-13); PLATELET COUNT 162 10^3/uL (150-450); RED BLOOD COUNT 4.03 10^6/uL (3.72-5.28); RED CELL DISTRIBUTION WIDTH 16.2 % (11.5-14.0); TOTAL CELLS COUNTED % (AUTO) 100 %; WHITE BLOOD COUNT 9.6 10^3/uL (4.0-10.5)
[2019-05-18 04:48] LABS: ANION GAP 11 (5-19); BLOOD UREA NITROGEN 109 mg/dL (7-20); CALCIUM 10.7 mg/dL (8.4-10.2); CARBON DIOXIDE 16 mmol/L (22-30); CHLORIDE 117 mmol/L (98-107); GLUCOSE 212 mg/dL (75-110)
[2019-05-18 04:51] LABS: POTASSIUM 7.9 mmol/L (3.6-5.0)
[2019-05-18] MEDS ORDERED: LIDOCAINE 1% INJ-PF (10 MG/ML) 30 ML SDV ONE (05:40)
--- NOTE | 2019-05-18 05:52 | PDOC H&P ---
History of Present Illness Admission Date/PCP: 05/18/19 02:09 AQUILINO LIPSCOMB Patient complains of: Abnormal labs History of Present Illness: CARMELO WHITTEN is a 64 year old female patient of Dr. Lipscomb with past medical history of morbid obesity, diabetes, hypertension, MRSA cellulitis, chronic venous stasis with lymphedema, obstructive sleep apnea with noncompliance and CKD 3. Patient presents after notified by primary care to report to the emergency department for evaluation of hyperkalemia and acute on chronic renal failure. In the emergency room she is found to have peaked T waves and a potassium of 8.9, creatinine of 5.6 and a GFR of 9. She receives calcium, insulin, Kayexalate. Consultation with cdl bulk driver Dr. Reid verifies dialysis is available recommending try dialysis catheter placement and ICU admission. Patient admits constipation, is unaware of dietary restrictions but denies recent change in urine or medication regiment. Past Medical History Cardiac Medical History: Reports: Hyperlipidema, Hypertension Pulmonary Medical History: Reports: Sleep Apnea Endocrine Medical History: Reports: Diabetes Mellitus Type 1, Diabetes Mellitus Type 2 Musculoskeltal Medical History: Reports: Other - Lymphedema and chronic lower extremity cellulitis Psychiatric Medical History: Denies: Depression Past Surgical History Past Surgical History: Reports: Hysterectomy Social History Information Source: Patient, [facility] Records Smoking Status: Never Smoker Frequency of Alcohol Use: None Hx Recreational Drug Use: No Drugs: None Hx Prescription Drug Abuse: No - Advance Directive Resuscitation Status: Full Code Family History Family History: DM, Hypertension Parental Family History Reviewed: Yes Children Family History Reviewed: Yes Sibling(s) Family History Reviewed.: Yes Medication/Allergy Home Medications: Amlodipine Besylate [Norvasc 10 mg Tablet] 10 mg PO DAILY 04/23/18 Clonidine HCl [Catapres 0.2 mg Tablet] 0.2 mg PO Q12 04/23/18 Ergocalciferol (Vitamin D2) [Drisdol 50,000 unit (1.25MG) Capsule] 50,000 unit PO LOAIZA@1000 04/23/18 Pravastatin Sodium [Pravachol] 40 mg PO DAILY 04/23/18 Atenolol [Tenormin 100 mg Tablet] 100 mg PO BID 04/10/19 Insulin NPH Hum/Reg Insulin Hm [Humulin 70-30 Vial] 45 units SQ BID 04/10/19 Lisinopril [Prinivil 40 mg Tablet] 40 mg PO DAILY 04/10/19 Metformin HCl 1,000 mg PO BID 04/10/19 Mirtazapine [Remeron 15 mg Tablet] 7.5 mg PO QHS 04/10/19 Tramadol HCl [Ultram 50 mg Tablet] 50 mg PO TID PRN 04/10/19 Allergies/Adverse Reactions: oxycodone [Oxycodone] Adverse Reaction (Verified 04/09/19 17:27) oxycodone HCl [From Percocet] Adverse Reaction (Verified 04/09/19 17:27) Bradycardia Review of Systems Constitutional: PRESENT: as per HPI, fatigue. ABSENT: chills, fever(s), headache(s), weight gain, weight loss Eyes: ABSENT: visual disturbances Ears: ABSENT: hearing changes Cardiovascular: PRESENT: as per HPI, dyspnea on exertion, edema, orthropnea. ABSENT: chest pain, palpitations Respiratory: ABSENT: cough, hemoptysis Gastrointestinal: PRESENT: constipation. ABSENT: abdominal pain, diarrhea, hematemesis, hematochezia, nausea, vomiting Genitourinary: ABSENT: dysuria, hematuria Musculoskeletal: ABSENT: joint swelling Integumentary: PRESENT: other - Severe and chronic changes of lymphedema in the lower extremity bilaterally. ABSENT: rash, wounds Neurological: ABSENT: abnormal gait, abnormal speech, confusion, dizziness, focal weakness, syncope Psychiatric: ABSENT: anxiety, depression, homidical ideation, suicidal ideation Endocrine: ABSENT: cold intolerance, heat intolerance, polydipsia, polyuria Hematologic/Lymphatic: ABSENT: easy bleeding, easy bruising Physical Exam Vital Signs: Temp Pulse Resp BP Pulse Ox 98.8 F 84 19 121/66 99 05/18/19 02:00 05/17/19 20:30 05/18/19 04:01 05/18/19 04:00 05/18/19 04:01 Intake & Output 05/16/19 05/17/19 05/18/19 11:59 11:59 11:59 Weight 112.945 kg General appearance: PRESENT: cooperative, mild distress, obese, well-developed, well-nourished Head exam: PRESENT: atraumatic, normocephalic Eye exam: PRESENT: conjunctiva pink, EOMI, PERRLA. ABSENT: scleral icterus Ear exam: PRESENT: normal external ear exam Mouth exam: PRESENT: moist, tongue midline Neck exam: ABSENT: carotid bruit, JVD, lymphadenopathy, thyromegaly Respiratory exam: PRESENT: clear to auscultation paulie, symmetrical. ABSENT: crackles, prolonged expiratory phas, rales, rhonchi, wheezes Cardiovascular exam: PRESENT: RRR, +S1, +S2 Pulses: PRESENT: normal dorsalis pedis pul Vascular exam: PRESENT: normal capillary refill GI/Abdominal exam: PRESENT: distended, hypoactive bowel sounds, normal bowel sounds, soft. ABSENT: guarding, mass, organolmegaly, rebound, tenderness Rectal exam: PRESENT: deferred Extremities exam: PRESENT: +2 edema, other - Severe and chronic changes of lymphedema in the lower extremity bilaterally Neurological exam: PRESENT: alert, awake, oriented to person, oriented to place, oriented to time, oriented to situation, CN II-XII grossly intact. ABSENT: motor sensory deficit Psychiatric exam: PRESENT: appropriate affect, normal mood. ABSENT: homicidal ideation, suicidal ideation Results Laboratory Results: 05/18/19 04:18 05/18/19 04:18 05/17/19 05/17/19 05/17/19 21:10 21:10 21:10 WBC 8.9 RBC 4.33 Hgb 11.3 L Hct 36.0 MCV 83 MCH 26.1 L MCHC 31.3 L RDW 16.4 H Plt Count 178 Seg Neutrophils % 76.6 Sodium 143.0 Potassium 8.9 H* Chloride 115 H Carbon Dioxide 14 L Anion Gap 14 BUN 110 H Creatinine 5.60 H Est GFR ( Amer) 9 L Glucose 209 H Calcium 11.0 H Magnesium Total Bilirubin 0.6 AST 17 Alkaline Phosphatase 77 Total Protein 9.3 H Albumin 4.6 Lipase 429.8 H TSH < 0.01 L 05/18/19 05/18/19 04:18 04:18 WBC 9.6 RBC 4.03 Hgb 10.2 L Hct 32.5 L MCV 81 MCH 25.4 L MCHC 31.5 L RDW 16.2 H Plt Count 162 Seg Neutrophils % 74.0 Sodium 143.7 Potassium 7.9 H* D Chloride 117 H Carbon Dioxide 16 L Anion Gap 11 BUN 109 H Creatinine 4.94 H Est GFR ( Amer) 11 L Glucose 212 H Calcium 10.7 H Magnesium 1.9 Total Bilirubin AST Alkaline Phosphatase Total Protein Albumin Lipase TSH 05/17/19 05/17/19 21:10 21:10 Creatine Kinase 71 CK-MB (CK-2) 1.28 Assessment and Plan - Diagnosis (1) Acute renal failure Is this a current diagnosis for this admission?: Yes Plan: Acute on chronic renal failure with a GFR of only 9. Complicated by diabetes, diet and lifestyle noncompliance. Consults obtained for surgery and nephrology for paralysis catheter and hemodialysis. Follow-up serial chemistries. (2) Hyperkalemia Is this a current diagnosis for this admission?: Yes Plan: Complicated by peak T waves, ICU admission with calcium gluconate, insulin, albuterol, Kayexalate and lactulose initiated. Dialysis pending (3) Diabetes 1.5, managed as type 1 Is this a current diagnosis for this admission?: Yes Plan: Humalog sliding scale and 50% of long-acting insulin dose ordered while n.p.o. - Time Time Spent with patient: 35 or more minutes - Inpatient Certification Medical Necessity: Need Close Monitoring Due to Risk of Patient Decompensation
--- NOTE | 2019-05-18 06:13 | Operative Report ---
Operative Report DATE OF SURGERY: 05/18/19 PREOPERATIVE DIAGNOSIS: renal failure and poor veins for IV access POSTOPERATIVE DIAGNOSIS: same OPERATION: placement of 1) left IJ triple lumen catheter and 2) Trialysis catheter via right IJ under Ultrasound Guidance ANESTHESIA: Local TISSUE REMOVED OR ALTERED: none COMPLICATIONS: none ESTIMATED BLOOD LOSS: 10 ccs INTRAOPERATIVE FINDINGS: small left IJV PROCEDURE: Patient was placed in Trendelenburg position and the left neck was then prepped and draped in the usual sterile fashion. We used the use of the ultrasound the left internal jugular vein was then identified and noted to be slightly smaller than normal. Local anesthesia was then infiltrated over the skin and the internal jugular vein subsequently punctured and guidewire passed through the needle towards the area of the superior vena cava. The needle was removed and the insertion site dilated and a triple-lumen catheter inserted through the guidewire to a distance of about 19cm. The guidewire was removed and all the 3 ports aspirated blood easily and instilled saline easily. The catheter was then anchored to the skin with 3-0 nylon. Biopatch placed at the insertion site and a sterile dressing placed over the Biopatch and catheter. After this was done attention was then directed to the right internal jugular vein for placement of try dialysis catheter. The right internal jugular vein was then identified to the ultrasound after sterile prep and standard draped place. This time the internal jugular vein appeared to be bigger. Local anesthesia infiltrated over the skin and needle inserted through the internal jugular vein and the guidewire passed through the needle towards the area of the superior vena cava. The puncture site was then dilated and dialysis catheter about 20 cm long was aspirated through the guidewire to a distance of about 19cm. All the 3 ports of the catheter aspirated blood easily and instilled saline easily. The catheter was then anchored to the skin with 3-0 nylon. Sterile dressing was placed over the operative site. Needle patient tolerated procedure well estimated blood loss about 10 cc for the 2 procedures. Chest x-rays was obtained right away and showed 2 catheters in good position towards the area of the superior vena cava and atrium. No evidence of pneumothorax.
--- NOTE | 2019-05-18 06:35 | RADIOLOGY REPORT (SQ) ---
CLINICAL HISTORY: LINE PLACEMENT COMPARISON: September 13, 2015. TECHNIQUE: XR CHEST 1 VIEW 05/18/2019 12:00 AM CDT FINDINGS: Cardiac silhouette is normal in size. Lungs are clear without consolidation, atelectasis, mass or edema. There is no pleural effusion. There is no pneumothorax. There are no acute osseous findings. Right IJ and left IJ central line tips are in the lower SVC. IMPRESSION: No pneumothorax following bilateral central line placement.
[2019-05-18] MEDS: INSULIN LISPRO 100 UNIT/ML 3 ML VIAL SUBCUT SCH ×4 (06:59→22:07)
[2019-05-18] MEDS: HEPARIN SOD (PORCINE) 5,000 UNIT/ML 1 ML VIAL SUBCUT SCH ×3 (06:59→22:06)
[2019-05-18 07:38] LABS: FREE T3 3.46 pg/mL (2.77-5.27); FREE T4 (FREE THYROXINE) 1.05 ng/dL (0.78-2.19)
[2019-05-18 08:50] LABS: ANION GAP 11 (5-19); BLOOD UREA NITROGEN 99 mg/dL (7-20); CALCIUM 10.8 mg/dL (8.4-10.2); CARBON DIOXIDE 16 mmol/L (22-30); CHLORIDE 118 mmol/L (98-107); GLUCOSE 148 mg/dL (75-110)
[2019-05-18 08:53] LABS: POTASSIUM 7.5 mmol/L (3.6-5.0)
--- NOTE | 2019-05-18 08:55 | PDOC PROGRESS REPORT ---
Subjective Progress Note for:: 05/18/19 Subjective:: The patient had not been felling well for a number of days. she went ot see her PMD. History of Present Illness: CARMELO WHITTEN is a 64 year old female patient of Dr. Austin with past medical history of morbid obesity, diabetes, hypertension, MRSA cellulitis, chronic venous stasis with lymphedema, obstructive sleep apnea with noncompliance and CKD 3. Patient presents after notified by primary care to report to the emergency department for evaluation of hyperkalemia and acute on chronic renal failure. In the emergency room she is found to have peaked T waves and a potassium of 8.9, creatinine of 5.6 and a GFR of 9. She receives calcium, insulin, Kayexalate. Consultation with certified diabetes educator Dr. Reid verifies dialysis is available recommending try dialysis catheter placement and ICU admission. Patient admits constipation, is unaware of dietary restrictions but denies recent change in urine or medication regiment. Past Medical History Cardiac Medical History: Reports: Hyperlipidema, Hypertension Pulmonary Medical History: Reports: Sleep Apnea Endocrine Medical History: Reports: Diabetes Mellitus Type 1, Diabetes Mellitus Type 2 Musculoskeltal Medical History: Reports: Other - Lymphedema and chronic lower extremity cellulitis Psychiatric Medical History: Denies: Depression Past Surgical History Past Surgical History: Reports: Hysterectomy Social History Information Source: Patient, [facility] Records Smoking Status: Never Smoker Frequency of Alcohol Use: None Hx Recreational Drug Use: No Drugs: None Hx Prescription Drug Abuse: No - Advance Directive Resuscitation Status: Full Code Family History Family History: DM, Hypertension Parental Family History Reviewed: Yes Children Family History Reviewed: Yes Sibling(s) Family History Reviewed.: Yes Medication/Allergy Home Medications: Amlodipine Besylate [Norvasc 10 mg Tablet] 10 mg PO DAILY 04/23/18 Clonidine HCl [Catapres 0.2 mg Tablet] 0.2 mg PO Q12 04/23/18 Ergocalciferol (Vitamin D2) [Drisdol 50,000 unit (1.25MG) Capsule] 50,000 unit PO LOAIZA@1000 04/23/18 Pravastatin Sodium [Pravachol] 40 mg PO DAILY 04/23/18 Atenolol [Tenormin 100 mg Tablet] 100 mg PO BID 04/10/19 Insulin NPH Hum/Reg Insulin Hm [Humulin 70-30 Vial] 45 units SQ BID 04/10/19 Lisinopril [Prinivil 40 mg Tablet] 40 mg PO DAILY 04/10/19 Metformin HCl 1,000 mg PO BID 04/10/19 Mirtazapine [Remeron 15 mg Tablet] 7.5 mg PO QHS 04/10/19 Tramadol HCl [Ultram 50 mg Tablet] 50 mg PO TID PRN 04/10/19 Allergies/Adverse Reactions: oxycodone [Oxycodone] Adverse Reaction (Verified 04/09/19 17:27) oxycodone HCl [From Percocet] Adverse Reaction (Verified 04/09/19 17:27) Bradycardia Reason For Visit: ARF,HYPERKALEMIA WITH EKG CHANGES,DIABETES Physical Exam Vital Signs: Temp Pulse Resp BP Pulse Ox 98.1 F 96 17 147/77 H 97 05/18/19 08:00 05/18/19 08:00 05/18/19 08:00 05/18/19 08:00 05/18/19 08:00 Intake & Output 05/17/19 05/18/19 05/19/19 06:59 06:59 06:59 Output Total 0 Balance 0 Weight 112.4 kg General appearance: PRESENT: no acute distress Eye exam: PRESENT: conjunctiva pink Neck exam: ABSENT: thyromegaly GI/Abdominal exam: PRESENT: normal bowel sounds, soft Extremities exam: PRESENT: full ROM Neurological exam: PRESENT: alert Psychiatric exam: PRESENT: normal mood Results Laboratory Results: 05/18/19 04:18 05/17/19 05/17/19 05/17/19 21:10 21:10 21:10 WBC 8.9 RBC 4.33 Hgb 11.3 L Hct 36.0 MCV 83 MCH 26.1 L MCHC 31.3 L RDW 16.4 H Plt Count 178 Seg Neutrophils % 76.6 Sodium 143.0 Potassium 8.9 H* Chloride 115 H Carbon Dioxide 14 L Anion Gap 14 BUN 110 H Creatinine 5.60 H Est GFR ( Amer) 9 L Glucose 209 H Calcium 11.0 H Magnesium Total Bilirubin 0.6 AST 17 Alkaline Phosphatase 77 Total Protein 9.3 H Albumin 4.6 Lipase 429.8 H TSH < 0.01 L Free T4 Free T3 pg/mL 05/18/19 05/18/19 05/18/19 04:18 04:18 06:53 WBC 9.6 RBC 4.03 Hgb 10.2 L Hct 32.5 L MCV 81 MCH 25.4 L MCHC 31.5 L RDW 16.2 H Plt Count 162 Seg Neutrophils % 74.0 Sodium 143.7 Potassium 7.9 H* D Chloride 117 H Carbon Dioxide 16 L Anion Gap 11 BUN 109 H Creatinine 4.94 H Est GFR ( Amer) 11 L Glucose 212 H Calcium 10.7 H Magnesium 1.9 Total Bilirubin AST Alkaline Phosphatase Total Protein Albumin Lipase TSH Free T4 1.05 Free T3 pg/mL 3.46 05/17/19 05/17/19 21:10 21:10 Creatine Kinase 71 CK-MB (CK-2) 1.28 Impressions: Chest X-Ray 05/18/19 00:00 IMPRESSION: No pneumothorax following bilateral central line placement. Assessment & Plan - Diagnosis (1) Acute renal failure Is this a current diagnosis for this admission?: Yes Plan: The patient presented with a very elevated potassium. Her initial pottassium was 8.9 with a crteatinine of 5-6. - Time Time Spent with patient: 25-34 minutes Anticipated discharge: Home Within: within 72 hours
--- NOTE | 2019-05-18 08:55 | EKG REPORT ---
SEVERITY:- OTHERWISE NORMAL ECG - SINUS RHYTHM BORDERLINE LEFT AXIS DEVIATION : Confirmed by: Danya Ryder MD 18-May-2019 08:53:54
[2019-05-18] MEDS ORDERED: HEPARIN SOD (PORCINE) 1,000 UNIT/ML 10 ML VIAL IV PRN (08:56)
[2019-05-18 11:28] LABS: ANION GAP 13 (5-19); CALCIUM 10.1 mg/dL (8.4-10.2); CARBON DIOXIDE 22 mmol/L (22-30); CHLORIDE 109 mmol/L (98-107); GLUCOSE 106 mg/dL (75-110)
[2019-05-18 11:30] LABS: BLOOD UREA NITROGEN 67 mg/dL (7-20); POTASSIUM 5.2 mmol/L (3.6-5.0)
[2019-05-18] MEDS: DOCUSATE SODIUM 100 MG CAPSULE PO SCH ×2 (13:09→17:45)
[2019-05-18] MEDS: AMLODIPINE BESYLATE 10 MG TABLET PO SCH (13:10)
[2019-05-18] MEDS: METOPROLOL TARTRATE 50 MG TABLET PO SCH ×2 (13:11→22:06)
[2019-05-18] MEDS: ACETAMINOPHEN 325 MG TABLET PO PRN (13:19)
[2019-05-18] MEDS: HUM INSULIN NPH/REG INSULIN HM 100 UNIT/1 ML 3 ML SUBCUT SCH ×2 (13:52→17:47)
[2019-05-18] MEDS: 1/2 NORMAL SALINE 1,000 ML IV PRN (15:22)
--- NOTE | 2019-05-18 18:31 | PDOC CONSULTATION ---
Consultation Consult Date: 05/18/19 Provider Consulted: PEDRO CHAN Consult reason:: I was asked to see the patient because of severely elevated potassium of 8.9 and acute worsening of kidney function with a creatinine of 5.6. History of Present Illness Admission Date/PCP: 05/18/19 02:09 AQUILINO LIPSCOMB History of Present Illness: CARMELO WHITTEN is a 64 year old female with history of diabetes mellitus type 2, hypertension, and chronic lymphedema who presented to the emergency room with advice of her primary care provider, Dr. Lipscomb due to hyperkalemia from lab drawn as an outpatient yesterday. Initial evaluation in the emergency room revealed potassium of 8.9, bicarbonate of 14 with anion gap of only 14, BUN of 110 , creatinine of 5.6 and calcium of 11. Patient was given medications for the hyperkalemia including calcium gluconate, insulin with D50 and Kayexalate. I was then called for emergent treatment with hemodialysis. After all the cocktail of medications patient's potassium only went down to 7.5. Patient states that she was just admitted a month ago in April for dehydration, acute kidney injury and hyperkalemia. On April 14, 2019 she had a BUN of 18 and creatinine of 1.12. She was discharged improved. Patient states that this week her appetite has decreased and she really is not eating much. She tries to drink some fluids but it may not be enough. She also states that she has been sluggish and feeling tired. She noted that her urine output is also decreased. She has some nausea but no vomiting nor diarrhea. She admits feeling more sleepy lately. She denies chest pains, shortness of breath, cough nor abdominal pains. She denies any history of known kidney disease, kidney stones, hepatitis, NSAID use, recent administration of contrast nor any other procedures. Because of the elevated potassium, severe acidosis and acute kidney injury I imm ediately arrange for emergent hemodialysis in the ICU. So this morning I am seeing the patient on initiation of hemodialysis. She is awake and communicative and answering questions appropriately. She had a trialysis catheter placed for dialysis. Her vitals has been stable. So far she has no other complaint except for the diarrhea due to Kayexalate. Past Medical History Cardiac Medical History: Reports: Hyperlipidemia, Hypertension-primary Endocrine Medical History: Reports: Diabetes Mellitus Type 2 Musculoskeltal Medical History: Reports: Other - Lymphedema and chronic lower extremity cellulitis Psychiatric Medical History: Denies: Depression Past Surgical History Past Surgical History: Reports: Hysterectomy Social History Information Source: Patient Occupation: She was working as a part-time [employer]MENT [employer] but currently not working. Lives with: Alone Smoking Status: Never Smoker Frequency of Alcohol Use: None Hx Recreational Drug Use: No Drugs: None Hx Prescription Drug Abuse: No - Advance Directive Resuscitation Status: Full Code Family History Family History: Chronic Kidney Disease - Sister, DM - Siblings, Hypertension - Siblings Parental Family History Reviewed: Yes Children Family History Reviewed: Yes Sibling(s) Family History Reviewed.: Yes Medication/Allergy Home Medications: Amlodipine Besylate [Norvasc 10 mg Tablet] 10 mg PO DAILY 04/23/18 Clonidine HCl [Catapres 0.2 mg Tablet] 0.2 mg PO Q12 04/23/18 Ergocalciferol (Vitamin D2) [Drisdol 50,000 unit (1.25MG) Capsule] 50,000 unit PO LOAIZA@1000 04/23/18 Pravastatin Sodium [Pravachol] 40 mg PO DAILY 04/23/18 Atenolol [Tenormin 100 mg Tablet] 100 mg PO BID 04/10/19 Insulin NPH Hum/Reg Insulin Hm [Humulin 70-30 Vial] 45 units SQ BID 04/10/19 Lisinopril [Prinivil 40 mg Tablet] 40 mg PO DAILY 04/10/19 Metformin HCl 1,000 mg PO BID 04/10/19 Mirtazapine [Remeron 15 mg Tablet] 7.5 mg PO QHS 04/10/19 Tramadol HCl [Ultram 50 mg Tablet] 50 mg PO TID PRN 04/10/19 Potassium Chloride [Klor-Con M10] 10 meq PO DAILY 05/18/19 Allergies/Adverse Reactions: oxycodone [Oxycodone] Adverse Reaction (Verified 04/09/19 17:27) oxycodone HCl [From Percocet] Adverse Reaction (Verified 04/09/19 17:27) Bradycardia Review of Systems All systems: reviewed and no additional remarkable complaints except as stated Review of Systems: Constitutional: ABSENT: chills, fatigue, fever(s), headache(s), weight gain, weight loss; admits loss of appetite and sleepiness Eyes: ABSENT: visual disturbances Ears: ABSENT: hearing changes Cardiovascular: ABSENT: chest pain, dyspnea on exertion, edema, orthropnea, palpitations Respiratory: ABSENT: cough, dyspnea, hemoptysis Gastrointestinal: ABSENT: abdominal pain, constipation, hematemesis, hematochezia, vomiting; admits nausea and just started diarrhea Genitourinary: ABSENT: dysuria, hematuria Musculoskeletal: ABSENT: joint swelling Integumentary: ABSENT: rash, wounds Neurological: ABSENT: abnormal gait, abnormal speech, confusion, dizziness, focal weakness, numbness, syncope Psychiatric: ABSENT: anxiety, depression Endocrine: ABSENT: cold intolerance, heat intolerance, polydipsia, polyuria Hematologic/Lymphatic: ABSENT: easy bleeding, easy bruising, lymphadenopathy Physical Exam Vital Signs: Temp Pulse Resp BP Pulse Ox 98.1 F 96 17 147/77 H 97 05/18/19 08:00 05/18/19 08:00 05/18/19 08:00 05/18/19 08:00 05/18/19 08:00 Intake & Output 05/17/19 05/18/19 05/19/19 06:59 06:59 06:59 Output Total 0 Balance 0 Weight 112.4 kg Vitals during dialysis: Blood pressure of 138/24, heart rate of 102, respiratory rate of 15 and oxygen saturation of 100%. Exam: General appearance: No acute distress, cooperative, well-developed, well- nourished Head exam: PRESENT: atraumatic, normocephalic Eye exam: PRESENT: Conjunctiva Tomas De Castro, EOMI, PERRLA. ABSENT: conjunctival injection, scleral icterus Mouth exam: PRESENT: moist, neck supple, tongue midline Neck exam: PRESENT: full ROM. ABSENT: carotid bruit, JVD, lymphadenopathy, thyromegaly Respiratory exam: PRESENT: clear to auscultation bilaterally. ABSENT: rales, rhonchi, stridor, wheezes Cardiovascular exam: PRESENT: RRR, +S1, +S2. ABSENT: systolic murmur Pulses: PRESENT: normal radial pulses, normal dorsalis pedis pulses GI/Abdominal exam: PRESENT: normal bowel sounds, soft. ABSENT: guarding, mass, tenderness Rectal exam: Deferred Extremities exam: PRESENT: full ROM. Grade 2 bilateral chronic lymphedema ABSENT: calf tenderness Musculoskeletal: PRESENT: full ROM. ABSENT: deformity Neurological exam: PRESENT: alert, Awake, Oriented to person, Oriented to place, Oriented to time, reflexes normal, CN II-XII grossly intact. ABSENT: motor sensory deficit Psychiatric exam: PRESENT: appropriate affect, normal mood. ABSENT: homicidal ideation, suicidal ideation Skin exam: PRESENT: intact, dry, warm. Fair skin turgor ABSENT: rash Results Laboratory Results: 05/18/19 04:18 05/18/19 08:15 05/17/19 05/17/19 05/17/19 21:10 21:10 21:10 WBC 8.9 RBC 4.33 Hgb 11.3 L Hct 36.0 MCV 83 MCH 26.1 L MCHC 31.3 L RDW 16.4 H Plt Count 178 Seg Neutrophils % 76.6 Sodium 143.0 Potassium 8.9 H* Chloride 115 H Carbon Dioxide 14 L Anion Gap 14 BUN 110 H Creatinine 5.60 H Est GFR ( Amer) 9 L Glucose 209 H Calcium 11.0 H Magnesium Total Bilirubin 0.6 AST 17 Alkaline Phosphatase 77 Total Protein 9.3 H Albumin 4.6 Lipase 429.8 H TSH < 0.01 L Free T4 Free T3 pg/mL 05/18/19 05/18/19 05/18/19 04:18 04:18 06:53 WBC 9.6 RBC 4.03 Hgb 10.2 L Hct 32.5 L MCV 81 MCH 25.4 L MCHC 31.5 L RDW 16.2 H Plt Count 162 Seg Neutrophils % 74.0 Sodium 143.7 Potassium 7.9 H* D Chloride 117 H Carbon Dioxide 16 L Anion Gap 11 BUN 109 H Creatinine 4.94 H Est GFR ( Amer) 11 L Glucose 212 H Calcium 10.7 H Magnesium 1.9 Total Bilirubin AST Alkaline Phosphatase Total Protein Albumin Lipase TSH Free T4 1.05 Free T3 pg/mL 3.46 05/18/19 08:15 WBC RBC Hgb Hct MCV MCH MCHC RDW Plt Count Seg Neutrophils % Sodium 144.8 Potassium 7.5 H* Chloride 118 H Carbon Dioxide 16 L Anion Gap 11 BUN 99 H Creatinine 4.19 H Est GFR ( Amer) 13 L Glucose 148 H Calcium 10.8 H Magnesium Total Bilirubin AST Alkaline Phosphatase Total Protein Albumin Lipase TSH Free T4 Free T3 pg/mL 05/17/19 05/17/19 21:10 21:10 Creatine Kinase 71 CK-MB (CK-2) 1.28 Impressions: Chest X-Ray 05/18/19 00:00 IMPRESSION: No pneumothorax following bilateral central line placement. Assessment & Plan - Diagnosis (1) Acute kidney injury superimposed on chronic kidney disease Is this a current diagnosis for this admission?: Yes Plan: This is most likely secondary to severe prerenal azotemia secondary to severe dehydration because of poor oral intake. Due to associated severe hyperkalemia and metabolic acidosis patient required emergency hemodialysis. We will do dialysis today for 3 hours, using the patient's trialysis catheter, with 1K for an hour and depending on repeat potassium will change to 2 potassium bath, blood flow rate of 250 mL per minute, dialysate flow rate of 500 mL per minute, no ultrafiltration as the patient is dehydrated, will give the patient fluids up to 500 to 600 mL of normal saline, no heparin and no Procrit discussed treatment plan with her dialysis nurse, Nadine. Patient will be monitored thro ughout dialysis treatment and adjust treatment accordingly. I will repeat a BMP after first hour of hemodialysis to adjust treatment. (2) Hyperkalemia Is this a current diagnosis for this admission?: Yes Plan: Patient was given calcium gluconate, insulin and Kayexalate but potassium remains to be dangerously elevated which requires emergency hemodialysis. (3) Metabolic acidosis Is this a current diagnosis for this admission?: Yes Plan: Due to LEDA. (4) Dehydration Is this a current diagnosis for this admission?: Yes Plan: We will give the patient IV fluid hydration after dialysis. (5) Diabetes mellitus type 2 in obese Is this a current diagnosis for this admission?: Yes (6) Hypertension Is this a current diagnosis for this admission?: Yes - Notes Notes: Thank you very much for this consultation. Emergency hemodialysis currently ongoing. - Time Time Spent: Greater than 70 Minutes
[2019-05-18 19:34] LABS: ANION GAP 8 (5-19); BLOOD UREA NITROGEN 52 mg/dL (7-20); CALCIUM 8.9 mg/dL (8.4-10.2); CARBON DIOXIDE 25 mmol/L (22-30); CHLORIDE 106 mmol/L (98-107); GLUCOSE 136 mg/dL (75-110); POTASSIUM 4.5 mmol/L (3.6-5.0)
[2019-05-19] MEDS: ACETAMINOPHEN 325 MG TABLET PO PRN ×2 (00:21→11:09)
[2019-05-19] MEDS: 1/2 NORMAL SALINE 1,000 ML IV PRN ×3 (00:22→21:58)
[2019-05-19] MEDS: HEPARIN SOD (PORCINE) 5,000 UNIT/ML 1 ML VIAL SUBCUT SCH ×2 (06:14→14:25)
[2019-05-19 06:38] LABS: ABSOLUTE EOSINOPHILS # (AUTO) 0.1 10^3/uL (0.0-0.6); ABSOLUTE LYMPHOCYTES (AUTO) 1.5 10^3/uL (0.5-4.7); ABSOLUTE MONOCYTES (AUTO) 0.9 10^3/uL (0.1-1.4); ABSOLUTE NEUT (AUTO) 5.5 10^3/uL (1.7-8.2); BASOPHILS % (AUTO) 0.4 % (0-2); EOSINOPHILS % (AUTO) 1.5 % (0-6); HEMATOCRIT 25.4 % (36.0-47.0); HEMOGLOBIN 8.3 g/dL (12.0-15.5); LYMPHOCYTES % (AUTO) 18.7 % (13-45); MEAN CORPUSCULAR HEMOGLOBIN 25.9 pg (27.0-33.4); MEAN CORPUSCULAR HGB CONC 32.6 g/dL (32.0-36.0); MEAN CORPUSCULAR VOLUME 80 fl (80-97); MONOCYTES % (AUTO) 11.4 % (3-13); PLATELET COUNT 106 10^3/uL (150-450); RED BLOOD COUNT 3.19 10^6/uL (3.72-5.28); RED CELL DISTRIBUTION WIDTH 15.7 % (11.5-14.0); TOTAL CELLS COUNTED % (AUTO) 100 %
[2019-05-19 06:52] LABS: ANION GAP 7 (5-19); BLOOD UREA NITROGEN 48 mg/dL (7-20); CALCIUM 8.4 mg/dL (8.4-10.2); CARBON DIOXIDE 25 mmol/L (22-30); CHLORIDE 107 mmol/L (98-107); GLUCOSE 190 mg/dL (75-110); PHOSPHORUS 3.7 mg/dL (2.5-4.5); POTASSIUM 4.8 mmol/L (3.6-5.0)
[2019-05-19 07:37] LABS: HEPATITS B SURFACE ANTIGEN Negative (Negative)
--- NOTE | 2019-05-19 08:40 | PDOC PROGRESS REPORT ---
Subjective Progress Note for:: 05/19/19 Subjective:: The patient had not been felling well for a number of days. she went ot see her PMD. History of Present Illness: CARMELO WHITTEN is a 64 year old female patient of Dr. Austin with past medical history of morbid obesity, diabetes, hypertension, MRSA cellulitis, chronic venous stasis with lymphedema, obstructive sleep apnea with noncompliance and CKD 3. Patient presents after notified by primary care to report to the emergency department for evaluation of hyperkalemia and acute on chronic renal failure. In the emergency room she is found to have peaked T waves and a potassium of 8.9, creatinine of 5.6 and a GFR of 9. She receives calcium, insulin, Kayexalate. Consultation with rose grower Dr. Reid verifies dialysis is available recommending try dialysis catheter placement and ICU admission. Patient admits constipation, is unaware of dietary restrictions but denies recent change in urine or medication regiment. Past Medical History Cardiac Medical History: Reports: Hyperlipidema, Hypertension Pulmonary Medical History: Reports: Sleep Apnea Endocrine Medical History: Reports: Diabetes Mellitus Type 1, Diabetes Mellitus Type 2 Musculoskeltal Medical History: Reports: Other - Lymphedema and chronic lower extremity cellulitis Psychiatric Medical History: Denies: Depression Past Surgical History Past Surgical History: Reports: Hysterectomy Social History Information Source: Patient, [facility] Records Smoking Status: Never Smoker Frequency of Alcohol Use: None Hx Recreational Drug Use: No Drugs: None Hx Prescription Drug Abuse: No - Advance Directive Resuscitation Status: Full Code Family History Family History: DM, Hypertension Parental Family History Reviewed: Yes Children Family History Reviewed: Yes Sibling(s) Family History Reviewed.: Yes Medication/Allergy Home Medications: Amlodipine Besylate [Norvasc 10 mg Tablet] 10 mg PO DAILY 04/23/18 Clonidine HCl [Catapres 0.2 mg Tablet] 0.2 mg PO Q12 04/23/18 Ergocalciferol (Vitamin D2) [Drisdol 50,000 unit (1.25MG) Capsule] 50,000 unit PO LOAIZA@1000 04/23/18 Pravastatin Sodium [Pravachol] 40 mg PO DAILY 04/23/18 Atenolol [Tenormin 100 mg Tablet] 100 mg PO BID 04/10/19 Insulin NPH Hum/Reg Insulin Hm [Humulin 70-30 Vial] 45 units SQ BID 04/10/19 Lisinopril [Prinivil 40 mg Tablet] 40 mg PO DAILY 04/10/19 Metformin HCl 1,000 mg PO BID 04/10/19 Mirtazapine [Remeron 15 mg Tablet] 7.5 mg PO QHS 04/10/19 Tramadol HCl [Ultram 50 mg Tablet] 50 mg PO TID PRN 04/10/19 Allergies/Adverse Reactions: oxycodone [Oxycodone] Adverse Reaction (Verified 04/09/19 17:27) oxycodone HCl [From Percocet] Adverse Reaction (Verified 04/09/19 17:27) Bradycardia Reason For Visit: ARF,HYPERKALEMIA WITH EKG CHANGES,DIABETES Physical Exam Vital Signs: Temp Pulse Resp BP Pulse Ox 99.9 F 91 16 113/61 100 05/18/19 20:00 05/19/19 06:00 05/19/19 06:00 05/19/19 05:57 05/19/19 06:00 Intake & Output 05/18/19 05/19/19 05/20/19 06:59 06:59 06:59 Intake Total 2140 Output Total 600 Balance 1540 Weight 112.4 kg General appearance: PRESENT: no acute distress, well-developed, well-nourished Eye exam: PRESENT: conjunctiva pink Ear exam: PRESENT: normal external ear exam Neck exam: ABSENT: meningismus Respiratory exam: PRESENT: symmetrical, unlabored Cardiovascular exam: PRESENT: RRR, +S1, +S2 Pulses: PRESENT: +2 pedal pulses bilateral Vascular exam: PRESENT: normal capillary refill GI/Abdominal exam: PRESENT: normal bowel sounds, soft Extremities exam: PRESENT: full ROM Musculoskeletal exam: PRESENT: full ROM Results Laboratory Results: 05/19/19 06:20 05/19/19 06:20 05/18/19 05/18/19 05/18/19 08:15 10:45 18:30 WBC RBC Hgb Hct MCV MCH MCHC RDW Plt Count Seg Neutrophils % Sodium 144.8 143.5 138.7 Potassium 7.5 H* 5.2 H D 4.5 Chloride 118 H 109 H 106 Carbon Dioxide 16 L 22 25 Anion Gap 11 13 8 BUN 99 H 67 H D 52 H Creatinine 4.19 H 2.69 H 2.32 H Est GFR ( Amer) 13 L 21 L 25 L Glucose 148 H 106 136 H Calcium 10.8 H 10.1 8.9 Phosphorus Magnesium 05/19/19 05/19/19 06:20 06:20 WBC 8.0 RBC 3.19 L Hgb 8.3 L Hct 25.4 L MCV 80 MCH 25.9 L MCHC 32.6 RDW 15.7 H Plt Count 106 L Seg Neutrophils % 68.0 Sodium 139.3 Potassium 4.8 Chloride 107 Carbon Dioxide 25 Anion Gap 7 BUN 48 H Creatinine 2.10 H Est GFR ( Amer) 29 L Glucose 190 H Calcium 8.4 Phosphorus 3.7 Magnesium 1.5 L 05/17/19 05/17/19 21:10 21:10 Creatine Kinase 71 CK-MB (CK-2) 1.28 Impressions: Chest X-Ray 05/18/19 00:00 IMPRESSION: No pneumothorax following bilateral central line placement. Assessment & Plan - Diagnosis (1) Acute renal failure Is this a current diagnosis for this admission?: Yes - Time Time Spent with patient: 25-34 minutes Medications reviewed and adjusted accordingly: Yes Anticipated discharge: Home Within: within 48 hours
[2019-05-19] MEDS ORDERED: CLONIDINE HCL 0.2 MG TABLET PO SCH (10:00)
[2019-05-19] MEDS ORDERED: (PENDING PHARMACY ID) (Atenolol [Tenormin 100 Mg Tablet] 100 MG) PO SCH (10:00)
[2019-05-19] MEDS ORDERED: (PENDING PHARMACY ID) (Pravastatin Sodium [Pravachol] 40 MG) PO SCH (10:00)
[2019-05-19] MEDS: INSULIN LISPRO 100 UNIT/ML 3 ML VIAL SUBCUT SCH ×4 (10:16→21:51)
[2019-05-19] MEDS: AMLODIPINE BESYLATE 10 MG TABLET PO SCH ×3 (10:17→11:04)
[2019-05-19] MEDS: METOPROLOL TARTRATE 50 MG TABLET PO SCH (10:33)
[2019-05-19] MEDS: DOCUSATE SODIUM 100 MG CAPSULE PO SCH ×2 (11:04→17:39)
[2019-05-19] MEDS: HUM INSULIN NPH/REG INSULIN HM 100 UNIT/1 ML 3 ML SUBCUT SCH ×2 (11:05→17:38)
[2019-05-19] MEDS: ATENOLOL 50 MG TABLET PO SCH ×2 (11:05→21:52)
[2019-05-19] MEDS: MAGNESIUM SULFATE 1 GM/D5W 100 ML IV SCH ×2 (17:39→18:47)
[2019-05-19 20:36] LABS: HEPATITIS C QUANTITATION HCV Not Detected IU/mL (.)
[2019-05-19] MEDS: MIRTAZAPINE 15 MG TABLET PO SCH (21:52)
[2019-05-19] MEDS: ATORVASTATIN CALCIUM 10 MG TABLET PO SCH (21:52)
[2019-05-20 06:31] LABS: ABSOLUTE EOSINOPHILS # (AUTO) 0.3 10^3/uL (0.0-0.6); ABSOLUTE LYMPHOCYTES (AUTO) 1.9 10^3/uL (0.5-4.7); ABSOLUTE MONOCYTES (AUTO) 0.8 10^3/uL (0.1-1.4); ABSOLUTE NEUT (AUTO) 4.5 10^3/uL (1.7-8.2); BASOPHILS % (AUTO) 0.5 % (0-2); EOSINOPHILS % (AUTO) 3.8 % (0-6); HEMATOCRIT 24.4 % (36.0-47.0); LYMPHOCYTES % (AUTO) 25.6 % (13-45); MEAN CORPUSCULAR HGB CONC 32.3 g/dL (32.0-36.0); MEAN CORPUSCULAR VOLUME 80 fl (80-97); MONOCYTES % (AUTO) 10.9 % (3-13); PLATELET COUNT 106 10^3/uL (150-450); RED BLOOD COUNT 3.03 10^6/uL (3.72-5.28); RED CELL DISTRIBUTION WIDTH 15.5 % (11.5-14.0); SEGMENTED NEUTROPHILS % (AUTO) 59.2 % (42-78); TOTAL CELLS COUNTED % (AUTO) 100 %; WHITE BLOOD COUNT 7.6 10^3/uL (4.0-10.5)
[2019-05-20 06:33] LABS: HEMOGLOBIN 7.9 g/dL (12.0-15.5)
[2019-05-20 06:46] LABS: ANION GAP 6 (5-19); BLOOD UREA NITROGEN 36 mg/dL (7-20); CALCIUM 8.3 mg/dL (8.4-10.2); CARBON DIOXIDE 26 mmol/L (22-30); CHLORIDE 107 mmol/L (98-107); GLUCOSE 102 mg/dL (75-110); PHOSPHORUS 2.8 mg/dL (2.5-4.5); POTASSIUM 4.4 mmol/L (3.6-5.0)
[2019-05-20] MEDS: INSULIN LISPRO 100 UNIT/ML 3 ML VIAL SUBCUT SCH ×4 (07:46→21:15)
[2019-05-20] MEDS: ACETAMINOPHEN 325 MG TABLET PO PRN ×2 (07:49→20:17)
--- NOTE | 2019-05-20 08:43 | PDOC PROGRESS REPORT ---
Subjective Progress Note for:: 05/20/19 Subjective:: The patient had not been felling well for a number of days. she went ot see her PMD. History of Present Illness: CARMELO WHITTEN is a 64 year old female patient of Dr. Austin with past medical history of morbid obesity, diabetes, hypertension, MRSA cellulitis, chronic venous stasis with lymphedema, obstructive sleep apnea with noncompliance and CKD 3. Patient presents after notified by primary care to report to the emergency department for evaluation of hyperkalemia and acute on chronic renal failure. In the emergency room she is found to have peaked T waves and a potassium of 8.9, creatinine of 5.6 and a GFR of 9. She receives calcium, insulin, Kayexalate. Consultation with room inspector Dr. Reid verifies dialysis is available recommending try dialysis catheter placement and ICU admission. Patient admits constipation, is unaware of dietary restrictions but denies recent change in urine or medication regiment. Past Medical History Cardiac Medical History: Reports: Hyperlipidema, Hypertension Pulmonary Medical History: Reports: Sleep Apnea Endocrine Medical History: Reports: Diabetes Mellitus Type 1, Diabetes Mellitus Type 2 Musculoskeltal Medical History: Reports: Other - Lymphedema and chronic lower extremity cellulitis Psychiatric Medical History: Denies: Depression Past Surgical History Past Surgical History: Reports: Hysterectomy Social History Information Source: Patient, ON LICENSE OF [facility] Records Smoking Status: Never Smoker Frequency of Alcohol Use: None Hx Recreational Drug Use: No Drugs: None Hx Prescription Drug Abuse: No - Advance Directive Resuscitation Status: Full Code Family History Family History: DM, Hypertension Parental Family History Reviewed: Yes Children Family History Reviewed: Yes Sibling(s) Family History Reviewed.: Yes Medication/Allergy Home Medications: Amlodipine Besylate [Norvasc 10 mg Tablet] 10 mg PO DAILY 04/23/18 Clonidine HCl [Catapres 0.2 mg Tablet] 0.2 mg PO Q12 04/23/18 Ergocalciferol (Vitamin D2) [Drisdol 50,000 unit (1.25MG) Capsule] 50,000 unit PO LOAIZA@1000 04/23/18 Pravastatin Sodium [Pravachol] 40 mg PO DAILY 04/23/18 Atenolol [Tenormin 100 mg Tablet] 100 mg PO BID 04/10/19 Insulin NPH Hum/Reg Insulin Hm [Humulin 70-30 Vial] 45 units SQ BID 04/10/19 Lisinopril [Prinivil 40 mg Tablet] 40 mg PO DAILY 04/10/19 Metformin HCl 1,000 mg PO BID 04/10/19 Mirtazapine [Remeron 15 mg Tablet] 7.5 mg PO QHS 04/10/19 Tramadol HCl [Ultram 50 mg Tablet] 50 mg PO TID PRN 04/10/19 Allergies/Adverse Reactions: oxycodone [Oxycodone] Adverse Reaction (Verified 04/09/19 17:27) oxycodone HCl [From Percocet] Adverse Reaction (Verified 04/09/19 17:27) Bradycardia Reason For Visit: ARF,HYPERKALEMIA WITH EKG CHANGES,DIABETES 05/20 The patient has looked much improved. she is awake and alert. Her appetite is good. Her renal fn is much improved. No longer hyperkalemic Physical Exam Vital Signs: Temp Pulse Resp BP Pulse Ox 98.2 F 79 13 121/65 99 05/20/19 04:00 05/19/19 22:00 05/20/19 06:00 05/20/19 05:58 05/20/19 06:00 Intake & Output 05/19/19 05/20/19 05/21/19 06:59 06:59 06:59 Intake Total 2140 3250 Output Total 600 650 0 Balance 1540 2600 0 General appearance: PRESENT: no acute distress Eye exam: PRESENT: conjunctiva pink, EOMI Ear exam: PRESENT: normal external ear exam Mouth exam: PRESENT: moist Neck exam: PRESENT: full ROM Respiratory exam: PRESENT: clear to auscultation paulie, unlabored Cardiovascular exam: PRESENT: RRR, +S1, +S2 Pulses: PRESENT: +1 pedal pulses bilateral GI/Abdominal exam: PRESENT: normal bowel sounds, soft Rectal exam: PRESENT: deferred, normal inspection Extremities exam: PRESENT: full ROM Results Laboratory Results: 05/20/19 05:50 05/20/19 05:50 05/20/19 05/20/19 05:50 05:50 WBC 7.6 RBC 3.03 L Hgb 7.9 L Hct 24.4 L MCV 80 MCH 26.0 L MCHC 32.3 RDW 15.5 H Plt Count 106 L Seg Neutrophils % 59.2 Sodium 138.6 Potassium 4.4 Chloride 107 Carbon Dioxide 26 Anion Gap 6 BUN 36 H Creatinine 1.54 H Est GFR ( Amer) 41 L Glucose 102 Calcium 8.3 L Phosphorus 2.8 Magnesium 1.8 05/17/19 05/17/19 21:10 21:10 Creatine Kinase 71 CK-MB (CK-2) 1.28 Impressions: Chest X-Ray 05/18/19 00:00 IMPRESSION: No pneumothorax following bilateral central line placement. Assessment & Plan - Diagnosis (1) Acute renal failure Is this a current diagnosis for this admission?: Yes Plan: The patient presented with a very elevated potassium. Her initial pottassium was 8.9 with a crteatinine of 5-6. The patient was treate iitaially with detrose and insulinand kayexelat. A vascyular cather was placed last night. the patient is getting diaysis this AM 05/20 The patient still remains a bit oliguric. I am not sure oif further dialysi is plkanned for the next 1-2 days. As noted her creatinine is in the 1-2 range presently and potassium is normal (4) Anemia Is this a current diagnosis for this admission?: Yes Plan: The patient was slightly anemic on admission. her Hb was about 11. It has consistently dropped since than. It is presently 7.9 There is no opvert signof external bleeding. will be scheck ing stool ob. MCV is 80. Will be checking iron studies
[2019-05-20] MEDS: 1/2 NORMAL SALINE 1,000 ML IV PRN ×2 (08:47→20:00)
[2019-05-20] MEDS: AMLODIPINE BESYLATE 10 MG TABLET PO SCH (09:33)
[2019-05-20] MEDS: DOCUSATE SODIUM 100 MG CAPSULE PO SCH ×2 (09:33→18:14)
[2019-05-20] MEDS: ATENOLOL 50 MG TABLET PO SCH ×2 (09:33→21:13)
[2019-05-20] MEDS: HUM INSULIN NPH/REG INSULIN HM 100 UNIT/1 ML 3 ML SUBCUT SCH ×2 (09:33→18:14)
[2019-05-20] MEDS ORDERED: ERGOCALCIFEROL (VITAMIN D2) 50000 UNIT (1.25 MG) CAPSULE PO SCH (10:00)
[2019-05-20] MEDS: MIRTAZAPINE 15 MG TABLET PO SCH (21:14)
[2019-05-20] MEDS: ATORVASTATIN CALCIUM 10 MG TABLET PO SCH (21:14)
[2019-05-21 04:03] LABS: ABSOLUTE RETICS # 0.055 10^6/uL (0.028-0.122); RETICULOCYTE COUNT (AUTO) 1.75 % (0.66-2.85)
[2019-05-21 04:22] LABS: BLOOD UREA NITROGEN 28 mg/dL (7-20); CALCIUM 8.3 mg/dL (8.4-10.2); GLUCOSE 113 mg/dL (75-110); IRON(TIBC) 20.8 ug/dL (37-170); PHOSPHORUS 2.8 mg/dL (2.5-4.5); POTASSIUM 4.2 mmol/L (3.6-5.0)
[2019-05-21 04:27] LABS: ANION GAP 5 (5-19); CARBON DIOXIDE 26 mmol/L (22-30); CHLORIDE 108 mmol/L (98-107)
[2019-05-21 05:28] LABS: FOLATE 4.88 ng/mL (>2.76)
[2019-05-21] MEDS: ACETAMINOPHEN 325 MG TABLET PO PRN (05:34)
[2019-05-21 07:04] LABS: HEPATITIS B CORE AB TOT Negative (Negative)
[2019-05-21] MEDS: 1/2 NORMAL SALINE 1,000 ML IV PRN (08:13)
[2019-05-21] MEDS: INSULIN LISPRO 100 UNIT/ML 3 ML VIAL SUBCUT SCH (08:18)
--- NOTE | 2019-05-21 08:38 | PDOC PROGRESS REPORT ---
Subjective Progress Note for:: 05/21/19 Subjective:: The patient had not been felling well for a number of days. she went ot see her PMD. History of Present Illness: CARMELO WHITTEN is a 64 year old female patient of Dr. Austin with past medical history of morbid obesity, diabetes, hypertension, MRSA cellulitis, chronic venous stasis with lymphedema, obstructive sleep apnea with noncompliance and CKD 3. Patient presents after notified by primary care to report to the emergency department for evaluation of hyperkalemia and acute on chronic renal failure. In the emergency room she is found to have peaked T waves and a potassium of 8.9, creatinine of 5.6 and a GFR of 9. She receives calcium, insulin, Kayexalate. Consultation with run boat operator Dr. Reid verifies dialysis is available recommending try dialysis catheter placement and ICU admission. Patient admits constipation, is unaware of dietary restrictions but denies recent change in urine or medication regiment. Past Medical History Cardiac Medical History: Reports: Hyperlipidema, Hypertension Pulmonary Medical History: Reports: Sleep Apnea Endocrine Medical History: Reports: Diabetes Mellitus Type 1, Diabetes Mellitus Type 2 Musculoskeltal Medical History: Reports: Other - Lymphedema and chronic lower extremity cellulitis Psychiatric Medical History: Denies: Depression Past Surgical History Past Surgical History: Reports: Hysterectomy Social History Information Source: Patient, [facility] Records Smoking Status: Never Smoker Frequency of Alcohol Use: None Hx Recreational Drug Use: No Drugs: None Hx Prescription Drug Abuse: No - Advance Directive Resuscitation Status: Full Code Family History Family History: DM, Hypertension Parental Family History Reviewed: Yes Children Family History Reviewed: Yes Sibling(s) Family History Reviewed.: Yes Medication/Allergy Home Medications: Amlodipine Besylate [Norvasc 10 mg Tablet] 10 mg PO DAILY 04/23/18 Clonidine HCl [Catapres 0.2 mg Tablet] 0.2 mg PO Q12 04/23/18 Ergocalciferol (Vitamin D2) [Drisdol 50,000 unit (1.25MG) Capsule] 50,000 unit PO LOAIZA@1000 04/23/18 Pravastatin Sodium [Pravachol] 40 mg PO DAILY 04/23/18 Atenolol [Tenormin 100 mg Tablet] 100 mg PO BID 04/10/19 Insulin NPH Hum/Reg Insulin Hm [Humulin 70-30 Vial] 45 units SQ BID 04/10/19 Lisinopril [Prinivil 40 mg Tablet] 40 mg PO DAILY 04/10/19 Metformin HCl 1,000 mg PO BID 04/10/19 Mirtazapine [Remeron 15 mg Tablet] 7.5 mg PO QHS 04/10/19 Tramadol HCl [Ultram 50 mg Tablet] 50 mg PO TID PRN 04/10/19 Allergies/Adverse Reactions: oxycodone [Oxycodone] Adverse Reaction (Verified 04/09/19 17:27) oxycodone HCl [From Percocet] Adverse Reaction (Verified 04/09/19 17:27) Bradycardia 05/21 The patient is doing well. her creatinine is down. Her urine output is presently normal. I rodney the patient lizeth be able to be discharge. weare awiting renal input at this time. Reason For Visit: ARF,HYPERKALEMIA WITH EKG CHANGES,DIABETES Physical Exam Vital Signs: Temp Pulse Resp BP Pulse Ox 99.0 F 82 16 156/89 H 100 05/21/19 06:00 05/20/19 22:00 05/21/19 06:00 05/21/19 05:33 05/20/19 16:58 Intake & Output 05/20/19 05/21/19 05/22/19 06:59 06:59 06:59 Intake Total 3250 3670 Output Total 650 2000 Balance 2600 1670 Weight 123.5 kg General appearance: PRESENT: no acute distress, morbidly obese, well-developed Eye exam: PRESENT: conjunctiva pink, PERRLA Mouth exam: PRESENT: moist, neck supple Neck exam: PRESENT: full ROM. ABSENT: thyromegaly Respiratory exam: PRESENT: clear to auscultation paulie, symmetrical Cardiovascular exam: PRESENT: RRR, +S1, +S2 Pulses: PRESENT: +2 pedal pulses bilateral Vascular exam: PRESENT: normal capillary refill GI/Abdominal exam: PRESENT: normal bowel sounds, soft Rectal exam: PRESENT: deferred Extremities exam: PRESENT: full ROM. ABSENT: calf tenderness Musculoskeletal exam: PRESENT: ambulatory Neurological exam: PRESENT: alert, awake, oriented to person, oriented to place, oriented to time Results Laboratory Results: 05/20/19 05:50 05/21/19 03:45 05/21/19 05/21/19 03:45 03:45 Retic Count (auto) 1.75 Sodium 139.0 Potassium 4.2 Chloride 108 H Carbon Dioxide 26 Anion Gap 5 BUN 28 H Creatinine 1.46 H Est GFR ( Amer) 43 L Glucose 113 H Calcium 8.3 L Phosphorus 2.8 Magnesium 1.6 Iron 20.8 L TIBC 175 L % Saturation 12 Ferritin 231.00 Vitamin B12 269.0 Folate 4.88 05/17/19 05/17/19 21:10 21:10 Creatine Kinase 71 CK-MB (CK-2) 1.28 Impressions: Chest X-Ray 05/18/19 00:00 IMPRESSION: No pneumothorax following bilateral central line placement. Assessment & Plan - Diagnosis (1) Acute renal failure Is this a current diagnosis for this admission?: Yes Plan: The patient presented with a very elevated potassium. Her initial pottassium was 8.9 with a crteatinine of 5-6. The patient was treate iitaially with detrose and insulinand kayexelat. A vascyular cather was placed last night. the patient is getting diaysis this AM 05/20 The patient still remains a bit oliguric. I am not sure oif further dialysi is plkanned for the next 1-2 days. As noted her creatinine is in the 1-2 range presently and potassium is normal 05/21 The patient is doiung well. Her numbers are much improved and output commensurately. May be able to go home today. WE aait nehrology input. (3) Anemia Is this a current diagnosis for this admission?: Yes Plan: The patient hasd dropped her HB over 3 points form admission. we are checking stool ob. I have sent out irone studies etc.,. If ehr stool ob is posiitve she may need gi workup. Her present Hb is 7.9 and we will not transfuse at this time. (4) Acute kidney injury Is this a current diagnosis for this admission?: Yes Plan: Her creatinine has returned to her baseline and output improved - Time Time Spent with patient: 15-24 minutes Medications reviewed and adjusted accordingly: Yes Anticipated discharge: Home Within: within 24 hours
[2019-05-21] MEDS ORDERED: FERRIC CARBOXYMALTOSE 750 MG in NORMAL SALINE 100 ML IV ONE (09:31)
[2019-05-21] MEDS ORDERED: 1/2 NORMAL SALINE 1,000 ML IV PRN (09:32)
[2019-05-21] MEDS: MAGNESIUM SULFATE/D5W 1 GM/100 ML RTUPB IV SCH ×2 (09:40→10:56)
--- NOTE | 2019-05-21 09:41 | PDOC PROGRESS REPORT ---
Subjective Progress Note for:: 05/21/19 Subjective:: Patient is doing very well. She says she feels much better and has no complaints except for the pain on her neck because of the trialysis catheter in the central line. She says she is eating and drinking fluids fine. We discussed about her anemia and she admits that she had iron deficiency anemia years ago prior to moving here in [place] about 6 years ago. She said she was taking iron with vitamin C but was discontinued by a provider she saw at that time. She denies any blood from the stool prior to admission. She is making a good amount of urine and for the past 24 hours had made 2000 mL of urine output. Reason For Visit: ARF,HYPERKALEMIA WITH EKG CHANGES,DIABETES Physical Exam Vital Signs: Temp Pulse Resp BP Pulse Ox 99.0 F 74 16 156/89 H 100 05/21/19 06:00 05/21/19 08:39 05/21/19 06:00 05/21/19 05:33 05/20/19 16:58 Intake & Output 05/20/19 05/21/19 05/22/19 06:59 06:59 06:59 Intake Total 3250 3670 Output Total 650 2000 Balance 2600 1670 Weight 123.5 kg Exam: General appearance: PRESENT: no acute distress, cooperative, well-developed, well-nourished Head exam: PRESENT: atraumatic, normocephalic Eye exam: PRESENT: conjunctiva slightly pale, PERRLA. ABSENT: scleral icterus Neck exam: ABSENT: JVD Respiratory exam: PRESENT: Normal breath sounds. ABSENT: crackles, rales, rhonchi, unlabored, wheezes Cardiovascular exam: PRESENT: Regular rate rhythm -+S1, +S2. ABSENT: diastolic murmur, systolic murmur GI/Abdominal exam: PRESENT: normal bowel sounds, soft. ABSENT: guarding, mass, tenderness Extremities exam: Improved bilateral chronic trace lower extremity edema Neurological exam: PRESENT: alert, awake, oriented to person, place and time. Skin exam: PRESENT: dry, warm, Results Laboratory Results: 05/20/19 05:50 05/21/19 03:45 05/21/19 05/21/19 03:45 03:45 Retic Count (auto) 1.75 Sodium 139.0 Potassium 4.2 Chloride 108 H Carbon Dioxide 26 Anion Gap 5 BUN 28 H Creatinine 1.46 H Est GFR ( Amer) 43 L Glucose 113 H Calcium 8.3 L Phosphorus 2.8 Magnesium 1.6 Iron 20.8 L TIBC 175 L % Saturation 12 Ferritin 231.00 Vitamin B12 269.0 Folate 4.88 05/17/19 05/17/19 21:10 21:10 Creatine Kinase 71 CK-MB (CK-2) 1.28 Impressions: Chest X-Ray 05/18/19 00:00 IMPRESSION: No pneumothorax following bilateral central line placement. Assessment & Plan - Diagnosis (1) Acute kidney injury superimposed on chronic kidney disease Is this a current diagnosis for this admission?: Yes Plan: This is due to prerenal azotemia due to severe dehydration. Currently resolving and almost at baseline kidney function. Patient's urine output has also improved. Decrease IV fluids to 50 mL an hour and encourage oral intake. Patient does not need any further renal replacement therapy and may remove her trialysis catheter and less IV access is needed. From nephrology standpoint I think patient can be sent home in the next 24 hours. (2) Iron deficiency anemia Is this a current diagnosis for this admission?: Yes Plan: We will give IV Injectafer x1 dose today. Patient needs to go home with oral ferrous sulfate 325 mg twice a day with vitamin C 500 mg p.o. daily. Check stool for occult blood. (3) Hyperkalemia Is this a current diagnosis for this admission?: Yes Plan: Resolved. (4) Metabolic acidosis Is this a current diagnosis for this admission?: Yes Plan: Resolved. (5) Dehydration Is this a current diagnosis for this admission?: Yes Plan: Resolved. (6) Diabetes mellitus type 2 in obese Is this a current diagnosis for this admission?: Yes (7) Hypertension Is this a current diagnosis for this admission?: Yes - Notes Notes: From nephrology standpoint patient can be discharged home as stated above. I will sign off at this point. If the patient chooses I will be happy to see her in the office in the next 3 to 6 weeks with repeat CBC, BMP and iron panel. - Time Time with patient: 15-25 minutes
[2019-05-21] MEDS: ATENOLOL 50 MG TABLET PO SCH (09:43)
[2019-05-21] MEDS: DOCUSATE SODIUM 100 MG CAPSULE PO SCH (09:43)
[2019-05-21] MEDS: HUM INSULIN NPH/REG INSULIN HM 100 UNIT/1 ML 3 ML SUBCUT SCH (09:44)
[2019-05-21] MEDS ORDERED: AMLODIPINE BESYLATE 5 MG TABLET PO SCH (10:00)
[2019-05-21 10:52] LABS: FOLATE 5.48 ng/mL (>2.76)
[2019-05-21 11:44] VITALS: BP 130/64
--- NOTE | 2019-06-26 11:39 | PDOC DISCHARGE SUMMARY ---
Impression - Admit/DC Date/PCP Admission Date/Primary Care Provider: 05/18/19 02:09 AQUILINO LIPSCOMB Discharge Date: 05/21/19 - Discharge Diagnosis (1) Acute renal failure Is this a current diagnosis for this admission?: Yes (2) Morbid obesity Is this a current diagnosis for this admission?: Yes (3) Anemia Is this a current diagnosis for this admission?: Yes (4) Acute kidney injury Is this a current diagnosis for this admission?: Yes - Additional Information Resuscitation Status: Full Code Discharge Diet: Diabetic Discharge Activity: Activity As Tolerated Referrals: AQUILINO LIPSCOMB MD [Primary Care Provider] - 05/23/19 11:00 am (FOLLOW-UP: APPOINTMENT MADE ON 05/23/19 @1100 I MADE AN APPOINTMENT WITH ALCIRA IN DR LIPSCOMB'S OFFICE) Prescriptions: RX: Clonidine HCl [Catapres 0.2 mg Tablet] 0.2 mg PO Q12 90 Days #90 RX: Docusate Sodium [Colace 100 mg Capsule] 100 mg PO BID 90 Days #90 capsule RX: Ergocalciferol (Vitamin D2) [Drisdol 50,000 unit (1.25MG) Capsule] 50,000 unit PO LOAIZA@1000 90 Days #90 RX: Insulin Lispro [Humalog Insulin (Lispro) 100 unit/mL] 0 - 12 unit SUBCUT ACHS #1 unit RX: Amlodipine Besylate [Norvasc 10 mg Tablet] 10 mg PO DAILY 90 Days #90 RX: Pravastatin Sodium [Pravachol] 40 mg PO DAILY 90 Days #90 RX: Lisinopril [Prinivil 40 mg Tablet] 40 mg PO DAILY 90 Days #90 RX: Mirtazapine [Remeron 15 mg Tablet] 7.5 mg PO QHS 90 Days #90 RX: Atenolol [Tenormin 50 mg Tablet] 100 mg PO Q12 #90 tablet RX: Tramadol HCl [Ultram 50 mg Tablet] 50 mg PO TID PRN 30 Days #30 PRN Reason: For Pain Home Medications: RX: Insulin NPH Hum/Reg Insulin Hm [Humulin 70-30 Vial] 45 units SQ BID 04/10/19 RX: Amlodipine Besylate [Norvasc 10 mg Tablet] 10 mg PO DAILY 90 Days #90 05/21/19 RX: Amlodipine Besylate [Norvasc 5 mg Tablet] 5 mg PO DAILY 90 Days #90 tablet 05/21/19 RX: Atenolol [Tenormin 50 mg Tablet] 100 mg PO Q12 #90 tablet 05/21/19 RX: Clonidine HCl [Catapres 0.2 mg Tablet] 0.2 mg PO Q12 90 Days #90 05/21/19 RX: Docusate Sodium [Colace 100 mg Capsule] 100 mg PO BID 90 Days #90 capsule 05/21/19 RX: Ergocalciferol (Vitamin D2) [Drisdol 50,000 unit (1.25MG) Capsule] 50,000 unit PO LOAIZA@1000 90 Days #90 05/21/19 RX: Glucagon,Human Recombinant [Glucagen Inj 1 mg Vial] 1 mg IM PRN PRN vial 05/21/19 RX: Hum Insulin NPH/Reg Insulin Hm [Insulin 70-30 (NPH/Reg) 100 unit/mL] 25 unit SUBCUT BID #0 unit 05/21/19 RX: Insulin Lispro [Humalog Insulin (Lispro) 100 unit/mL] 0 - 12 unit SUBCUT ACHS #1 unit 05/21/19 RX: Lisinopril [Prinivil 40 mg Tablet] 40 mg PO DAILY 90 Days #90 05/21/19 RX: Mirtazapine [Remeron 15 mg Tablet] 7.5 mg PO QHS 90 Days #90 05/21/19 RX: Pravastatin Sodium [Pravachol] 40 mg PO DAILY 90 Days #90 05/21/19 RX: Tramadol HCl [Ultram 50 mg Tablet] 50 mg PO TID PRN 30 Days #30 05/21/19 History of Present Illiness History of Present Illness: CARMELO WHITTEN is a 64 year old female Hospital Course Hospital Course: The patient presented with acute on chronic renal failure. She presented with constitutional sx. Her creatinine was elevated and initial potassium was 8-9. The patient underwent emergency treatment for hyerkalemia in the ED including calcium, kayexelate and insulinand glucose. The renal service was consulted and a dialysis catheter placed. The patient underwent dialysis ion the ICU. Her lana fn. improved over the next few days. and dialysis was stopped. Physical Exam Vital Signs: Temp Pulse Resp BP Pulse Ox 99.0 F 74 19 130/64 H 100 05/21/19 11:30 05/21/19 11:30 05/21/19 11:30 05/21/19 11:30 05/21/19 11:30 General appearance: PRESENT: no acute distress, cooperative Head exam: PRESENT: atraumatic, normocephalic Eye exam: PRESENT: conjunctiva pink Mouth exam: PRESENT: neck supple Neck exam: PRESENT: full ROM. ABSENT: thyromegaly Respiratory exam: ABSENT: accessory muscle use Cardiovascular exam: PRESENT: RRR Pulses: PRESENT: normal dorsalis pedis pul GI/Abdominal exam: PRESENT: normal bowel sounds, soft Extremities exam: ABSENT: calf tenderness Musculoskeletal exam: PRESENT: ambulatory, full ROM, normal inspection Neurological exam: PRESENT: alert, altered, oriented to time, oriented to situation, CN II-XII grossly intact, normal gait Psychiatric exam: PRESENT: appropriate affect Skin exam: PRESENT: normal color, warm Results Laboratory Results: WBC 7.6 10^3/uL (4.0-10.5) 05/20/19 05:50 RBC 3.03 10^6/uL (3.72-5.28) L 05/20/19 05:50 Hgb 7.9 g/dL (12.0-15.5) L 05/20/19 05:50 Hct 24.4 % (36.0-47.0) L 05/20/19 05:50 MCV 80 fl (80-97) 05/20/19 05:50 MCH 26.0 pg (27.0-33.4) L 05/20/19 05:50 MCHC 32.3 g/dL (32.0-36.0) 05/20/19 05:50 RDW 15.5 % (11.5-14.0) H 05/20/19 05:50 Plt Count 106 10^3/uL (150-450) L 05/20/19 05:50 Lymph % (Auto) 25.6 % (13-45) 05/20/19 05:50 Mcpherson % (Auto) 10.9 % (3-13) 05/20/19 05:50 Eos % (Auto) 3.8 % (0-6) 05/20/19 05:50 Baso % (Auto) 0.5 % (0-2) 05/20/19 05:50 Reticulocyte # 0.055 10^6/uL (0.028-0.122) 05/21/19 03:45 Absolute Neuts (auto) 4.5 10^3/uL (1.7-8.2) 05/20/19 05:50 Absolute Lymphs (auto) 1.9 10^3/uL (0.5-4.7) 05/20/19 05:50 Absolute Monos (auto) 0.8 10^3/uL (0.1-1.4) 05/20/19 05:50 Absolute Eos (auto) 0.3 10^3/uL (0.0-0.6) 05/20/19 05:50 Absolute Basos (auto) 0.0 10^3/uL (0.0-0.2) 05/20/19 05:50 Seg Neutrophils % 59.2 % (42-78) 05/20/19 05:50 Retic Count (auto) 1.75 % (0.66-2.85) 05/21/19 03:45 Sodium 139.0 mmol/L (137-145) 05/21/19 03:45 Potassium 4.2 mmol/L (3.6-5.0) 05/21/19 03:45 Chloride 108 mmol/L (98-107) H 05/21/19 03:45 Carbon Dioxide 26 mmol/L (22-30) 05/21/19 03:45 Anion Gap 5 (5-19) 05/21/19 03:45 BUN 28 mg/dL (7-20) H 05/21/19 03:45 Creatinine 1.46 mg/dL (0.52-1.25) H 05/21/19 03:45 Est GFR ( Amer) 43 (>60) L 05/21/19 03:45 Est GFR (MDRD) Non-Af 36 (>60) L 05/21/19 03:45 Glucose 113 mg/dL (75-110) H 05/21/19 03:45 POC Glucose 169 mg/dL (70-110) H 05/21/19 11:10 Hemoglobin A1c % 8.3 % (4.7-6.0) H 05/19/19 06:20 Calcium 8.3 mg/dL (8.4-10.2) L 05/21/19 03:45 Phosphorus 2.8 mg/dL (2.5-4.5) 05/21/19 03:45 Magnesium 1.6 mg/dL (1.6-2.3) 05/21/19 03:45 Iron 26.0 ug/dL (37-170) L 05/21/19 08:55 TIBC 180 ug/dL (250-450) L 05/21/19 08:55 % Saturation 14 % 05/21/19 08:55 Ferritin 228.00 ng/mL (11.1-264.0) 05/21/19 08:55 Total Bilirubin 0.6 mg/dL (0.2-1.3) 05/17/19 21:10 Direct Bilirubin 0.3 mg/dL (0.0-0.4) 05/17/19 21:10 Neonat Total Bilirubin Not Reportable 05/17/19 21:10 Neonat Direct Bilirubin Not Reportable 05/17/19 21:10 Neonat Indirect Bili Not Reportable 05/17/19 21:10 AST 17 U/L (14-36) 05/17/19 21:10 ALT 14 U/L (<35) 05/17/19 21:10 Alkaline Phosphatase 77 U/L (38-126) 05/17/19 21:10 Creatine Kinase 71 U/L (30-135) 05/17/19 21:10 CK-MB (CK-2) 1.28 ng/mL (<4.55) 05/17/19 21:10 Total Protein 9.3 g/dL (6.3-8.2) H 05/17/19 21:10 Albumin 4.6 g/dL (3.5-5.0) 05/17/19 21:10 Lipase 429.8 U/L (23-300) H 05/17/19 21:10 Vitamin B12 285.0 pg/mL (239-931) 05/21/19 08:55 Folate 5.48 ng/mL (>2.76) 05/21/19 08:55 TSH < 0.01 uIU/mL (0.47-4.68) L 05/17/19 21:10 Free T4 1.05 ng/dL (0.78-2.19) 05/18/19 06:53 Free T3 pg/mL 3.46 pg/mL (2.77-5.27) 05/18/19 06:53 Heparin-induced Plt Ab 0.295 OD (0.000-0.40) 05/19/19 17:45 Hep Bs Antigen Negative (Negative) 05/18/19 10:45 Hep Bs Antibody, Quant 59.6 mIU/mL (Immunity>9) 05/18/19 10:45 Hep B Core Total Ab Negative (Negative) 05/18/19 10:45 HCV Quantitation HCV Not Detected IU/mL (.) 05/18/19 10:45 HCV RNA PCR Test Info Comment (.) 05/18/19 10:45 05/17/19 21:10 CK-MB (CK-2) 1.28 Impressions: Chest X-Ray 05/18/19 00:00 IMPRESSION: No pneumothorax following bilateral central line placement. Plan Health Concerns: The patient casandra be closely montoed after discharge. She will follow up with the nephrology service within 1 week of discharge.
== END 2019-05-21 12:54 | disposition home or self-care (01) | DRG 684 ==
LOC: ER 19:52 → EH 05-18 02:09 → ICU 05-18 06:32
PROVIDERS: ADMIT Internal Medicine; ATTEND Internal Medicine
PROC: 02HV33Z Insertion of Infusion Device into Superior Vena Cava, Percutaneous Approach (ICD-10-PCS; principal; 2019-05-18)
PROC: B548ZZA Ultrasonography of Superior Vena Cava, Guidance (ICD-10-PCS; 2019-05-18)
PROC: 5A1D70Z Performance of Urinary Filtration, Intermittent, Less than 6 Hours Per Day (ICD-10-PCS; 2019-05-18)
DX: N17.9 Acute kidney failure, unspecified (principal); I89.0 Lymphedema, not elsewhere classified; E87.5 Hyperkalemia; E78.5 Hyperlipidemia, unspecified; E86.0 Dehydration; N18.3 Chronic kidney disease, stage 3 (moderate); E66.01 Morbid (severe) obesity due to excess calories; K59.00 Constipation, unspecified; I12.9 Hypertensive chronic kidney disease with stage 1 through stage 4 chronic kidney disease, or unspecified chronic kidney disease; E13.22 Other specified diabetes mellitus with diabetic chronic kidney disease; I87.8 Other specified disorders of veins; G47.33 Obstructive sleep apnea (adult) (pediatric); D63.1 Anemia in chronic kidney disease; D50.9 Iron deficiency anemia, unspecified; Z60.2 Problems related to living alone; E78.00 Pure hypercholesterolemia, unspecified; Z88.6 Allergy status to analgesic agent; Z86.14 Personal history of Methicillin resistant Staphylococcus aureus infection; Z79.4 Long term (current) use of insulin; Z91.19 Patient's noncompliance with other medical treatment and regimen; Z79.899 Other long term (current) drug therapy; Z84.1 Family history of disorders of kidney and ureter; Z83.3 Family history of diabetes mellitus; Z82.49 Family history of ischemic heart disease and other diseases of the circulatory system
CPT/HCPCS: 36415; 71045; 80048; 80053; 82550; 82553; 82607; 82728; 82746; 82962; 83036; 83540; 83550; 83690; 83735; 84100; 84439; 84443; 84481; 85025; 85045; 86022; 86317; 86704; 87340; 87522; 93005; 93010; 96374; 96375; 99285; A6266; C1752; J0610; J1439; J1644; J1815; J3475; J3490; J7050; J7060; J7620

== ENCOUNTER 2019-07-09 13:59 | Emergency (ER) | payer MEDICARE ==
--- NOTE | 2019-07-09 14:42 | ER Document Report ---
ED General - General Chief Complaint: Altered Mental Status Stated Complaint: POSSIBLE SEPSIS Time Seen by Provider: 07/09/19 14:15 Primary Care Provider: AQUILINO LIPSCOMB MD [Primary Care Provider] - Follow up as needed Notes: 64-year-old female presents with mental status that started today. EMS was called by family member. [id number]-[id number] lactic with EMS was 4.2. Patient's BP was 106/55 respiratory rate was 25, heart rate was 100, temperature was 97.9 orally and blood sugar was 411. Patient was originally alert and oriented x1 upon arrival. However upon further questioning patient is now alert and oriented x3. States she has been having a fever since yesterday also states she has been urinating more often. She also states she had nausea/vomiting 2 days ago. Patient denies any chest pain, weakness, fatigue, dizziness, dyspnea, abdominal pain, any pain anywhere. Patient has edema to bilateral lower legs. She denies being on any antibiotics currently. TRAVEL OUTSIDE OF THE [place] IN LAST 30 DAYS: No - Related Data Allergies/Adverse Reactions: oxycodone [Oxycodone] Adverse Reaction (Verified 04/09/19 17:27) oxycodone HCl [From Percocet] Adverse Reaction (Verified 04/09/19 17:27) Bradycardia Past Medical History - Social History Smoking Status: Current Every Day Smoker Family History: DM, Hypertension - Past Medical History Cardiac Medical History: Reports: Hx Hypercholesterolemia, Hx Hypertension Pulmonary Medical History: Reports: Hx Sleep Apnea Endocrine Medical History: Reports: Hx Diabetes Mellitus Type 1, Hx Diabetes Mellitus Type 2 Renal/ Medical History: Denies: Hx Peritoneal Dialysis Skin Medical History: Reports Hx Cellulitis Psychiatric Medical History: Denies: Hx Depression Past Surgical History: Reports: Hx Hysterectomy - Immunizations Hx Diphtheria, Pertussis, Tetanus Vaccination: No Hx Pneumococcal Vaccination: 09/05/99 Review of Systems - Review of Systems Notes: Constitutional: Positive for fever. HENT: Negative for sore throat. Eyes: Negative for visual changes. Cardiovascular: Negative for chest pain. Respiratory: Negative for shortness of breath. Gastrointestinal: Positive for nausea/vomiting negative for abdominal pain or diarrhea. Genitourinary: Positive for frequency. Negative for dysuria. Musculoskeletal: Negative for back pain. Skin: Negative for rash. Neurological: Negative for headaches, weakness or numbness. 10 point ROS negative except as marked above and in HPI. Physical Exam - Vital signs Vitals: Resp BP 34 H 120/71 07/09/19 14:25 07/09/19 14:25 - Notes Notes: GENERAL: Well-appearing, well-nourished, obese and in no acute distress. HEAD: Atraumatic, normocephalic. EYES: Pupils equal round and reactive to light, extraocular movements intact, sclera anicteric, conjunctiva are normal. NECK: Normal range of motion, supple without lymphadenopathy or JVD. LUNGS: Breath sounds clear to auscultation bilaterally and equal. No wheezes rales or rhonchi. HEART: Regular rate and rhythm without murmurs, rubs or gallops. ABDOMEN: Soft, nontender. No guarding, no rebound. No masses appreciated. EXTREMITIES: Normal range of motion, no pitting or edema. No clubbing or cyanosis. NEUROLOGICAL: Cranial nerves II through XII grossly intact. Normal speech. Somnolent PSYCH: Normal mood, normal affect. SKIN: Warm, Dry, normal turgor, weeping lymphedema to bilateral lower legs Course - Re-evaluation Re-evalutation: 07/12/19 64 y/o female with past medical history of hypertension and diabetes presents for altered mental status. Septic workup initiated due to elevated qkpan-ie-denp lactic acid by EMS. Pt was alert and oriented to self, place, time, and situation at time of initial presentation. 07/09/19 15:20 Reassessed pt. Pt is not tachypneic or tachycardiac. Pt states cold so trembling. Warm blanket provided. 07/09/19 16:00 Pt reassessed due to increased confusion. Pt is alert and oriented to self and place but no longer to time. Critical potassium 9.1, CO2 7..89, bgl 421, BUN 154. Discussed pt with Dr. Martin, attending, who called Dr. Wayne, nephrology. Nephrology currently states pt cannot be emergently dialyzed at [place]. Transfer initiated to [facility]. 07/09/19 16:[address] Reginaldo Cagle, [facility], who accepted pt for transfer. Dr. Cagle requesting nephrology be called. Transfer center at [facility] states nephrology may call back. 07/09/19 17:[address] Rios, coagulating bath mixer at [facility], who requested a repeat BMP. Requested another dose of calcium gluconate if pt is not en route in 30 minutes. Also requesting hourly BMP if not left yet. Transport time greater than 1 hour by ground. Pt with critical lab findings, will utilize air transport. 07/09/19 17:33 Reassessed pt. Pt is comfortable at this time. HR 117, RR 23, BP 127/72. 07/09/19 17:36 Calcium gluconate ordered, 2nd dose. - Vital Signs Vital signs: Temp Pulse Resp BP Pulse Ox 21 H 118/71 07/09/19 17:01 07/09/19 17:00 - Laboratory Result Diagrams: 07/09/19 14:46 07/09/19 14:46 Laboratory results interpreted by me: 07/09/19 07/09/19 07/09/19 14:46 14:46 14:46 WBC 22.7 H RBC 3.67 L Hgb 9.7 L Hct 32.3 L MCH 26.5 L MCHC 30.1 L RDW 17.3 H Seg Neuts % (Manual) 85 H Band Neutrophils % 1 L Lymphocytes % (Manual) 11 L Abs Neuts (Manual) 19.5 H PT 17.7 H VBG pH VBG pCO2 VBG HCO3 Potassium 9.1 H* Chloride 110 H Carbon Dioxide 8 L* Anion Gap 22 H BUN 154 H Creatinine 12.60 H Est GFR ( Amer) 4 L Est GFR (MDRD) Non-Af 3 L Glucose 424 H* Urine Glucose (UA) Ur Leukocyte Esterase Urine Creatinine 07/09/19 07/09/19 07/09/19 14:46 15:00 15:00 WBC RBC Hgb Hct MCH MCHC RDW Seg Neuts % (Manual) Band Neutrophils % Lymphocytes % (Manual) Abs Neuts (Manual) PT VBG pH 7.10 L* VBG pCO2 32.5 L VBG HCO3 9.9 L Potassium Chloride Carbon Dioxide Anion Gap BUN Creatinine Est GFR ( Amer) Est GFR (MDRD) Non-Af Glucose Urine Glucose (UA) 50 H Ur Leukocyte Esterase TRACE H Urine Creatinine 467.5 H Critical Care Note - Critical Care Note Total time excluding time spent on procedures (mins): 45 Comments: Pt has critical high potassium and critical high BUN/Creatinine, need for emergent dialysis unable to be performed at this facility. Spoke to hospitalist and coagulating bath mixer for transfer. Multiple reassessments. Pt is currently on IV antibiotics and multiple medications to correct critical electrolyte abnormalities. Pt was air transferred to another facility. Discharge - Discharge Clinical Impression: Sepsis Qualifiers: Sepsis type: sepsis due to unspecified organism Sepsis acute organ dysfunction status: with acute organ dysfunction Severe sepsis acute organ dysfunction type: acute renal failure Acute renal failure type: unspecified Severe sepsis shock status: unspecified Qualified Code(s): A41.9 - Sepsis, unspecified organism Disposition: [facility] Referrals: AQUILINO LIPSCOMB MD [Primary Care Provider] - Follow up as needed
[2019-07-09 15:14] LABS: HEMATOCRIT 32.3 % (36.0-47.0); HEMOGLOBIN 9.7 g/dL (12.0-15.5); MEAN CORPUSCULAR HEMOGLOBIN 26.5 pg (27.0-33.4); MEAN CORPUSCULAR HGB CONC 30.1 g/dL (32.0-36.0); MEAN CORPUSCULAR VOLUME 88 fl (80-97); PLATELET COUNT 368 10^3/uL (150-450); RED BLOOD COUNT 3.67 10^6/uL (3.72-5.28); RED CELL DISTRIBUTION WIDTH 17.3 % (11.5-14.0); VENOUS BLOOD BASE EXCESS -18.3 mmol/L; VENOUS BLOOD HCO3 9.9 mmol/L (20-32); VENOUS BLOOD PCO2 32.5 mmHg (35-63); WHITE BLOOD COUNT 22.7 10^3/uL (4.0-10.5)
[2019-07-09 15:15] LABS: VENOUS BLOOD PH 7.1 (7.30-7.42)
[2019-07-09] MEDS ORDERED: RINGERS SOLUTION,LACTATED 1,000 ML IV ONE (15:17)
[2019-07-09 15:19] LABS: INTERNATIONAL RATION (INR) 1.44; PARTIAL THROMBOPLASTIN TIME 25.4 SEC (23.5-35.8); PROTHROMBIN TIME 17.7 SEC (11.4-15.4)
[2019-07-09 15:19] LABS: APPEARANCE,URINE SLIGHTLY-CLOUDY; BILIRUBIN,URINE NEGATIVE (NEGATIVE); COLOR,URINE DARK YELLOW; GLUCOSE, URINE 50 mg/dL (NEGATIVE); KETONES,URINE NEGATIVE (NEGATIVE); LEUKOCYTE ESTERASE,URINE TRACE (NEGATIVE); NITRITE,URINE NEGATIVE (NEGATIVE); PROTEIN,URINE NEGATIVE (NEGATIVE); URINE SPECIFIC GRAVITY 1.018; UROBILINOGEN,URINE NEGATIVE mg/dL (<2.0)
[2019-07-09 15:43] LABS: ALBUMIN 3.7 g/dL (3.5-5.0); ALKALINE PHOSPHATASE 113 U/L (38-126); ASPARTATE AMINO TRANSFERASE 17 U/L (14-36); BILIRUBIN,DIRECT 0.3 mg/dL (0.0-0.4); BILIRUBIN,TOTAL 0.4 mg/dL (0.2-1.3); CALCIUM 9.5 mg/dL (8.4-10.2)
[2019-07-09 15:46] LABS: ABSOLUTE LYMPHOCYTES# (MANUAL) 2.5 10^3/uL (0.5-4.7); ABSOLUTE MONOCYTES # (MANUAL) 0.7 10^3/uL (0.1-1.4); BAND NEUTROPHILS % (MANUAL) 1 % (3-5); BASOPHILS % (MANUAL) 0 % (0-2); EOSINOPHILS % (MANUAL) 0 % (0-6); LYMPHOCYTES % (MANUAL) 11 % (13-45); MONOCYTES % (MANUAL) 3 % (3-13); SEGMENTED NEUTROPHILS % (MAN) 85 % (42-78); TOTAL CELLS COUNTED 100
[2019-07-09 15:47] LABS: ANISOCYTOSIS 1+; PLATELET COMMENT ADEQUATE
[2019-07-09 15:49] LABS: CHLORIDE 110 mmol/L (98-107)
[2019-07-09 15:55] LABS: GLUCOSE 424 mg/dL (75-110)
[2019-07-09 15:56] LABS: BLOOD UREA NITROGEN 154 mg/dL (7-20); POTASSIUM 9.1 mmol/L (3.6-5.0)
--- NOTE | 2019-07-09 15:56 | RADIOLOGY REPORT (SQ) ---
EXAM DESCRIPTION: CHEST SINGLE VIEW COMPLETED DATE/TIME: 07/09/2019 3:36 pm REASON FOR STUDY: sepsis COMPARISON: 05/18/2019 EXAM PARAMETERS: NUMBER OF VIEWS: One view. TECHNIQUE: Single frontal radiographic view of the chest acquired. RADIATION DOSE: NA LIMITATIONS: Overlying support apparatus. FINDINGS: LUNGS AND PLEURA: No opacities, masses or pneumothorax. No pleural effusion. MEDIASTINUM AND HILAR STRUCTURES: No masses. Contour normal. HEART AND VASCULAR STRUCTURES: Heart normal in size. Normal vasculature. BONES: No acute findings. HARDWARE: None in the chest. OTHER: No other significant finding. IMPRESSION: NO ACUTE RADIOGRAPHIC FINDING IN THE CHEST. TECHNICAL DOCUMENTATION: JOB ID: [id number] [employer]- All Rights Reserved Reading location - IP/workstation name: [email or web address]
[2019-07-09 15:57] LABS: ANION GAP 22 (5-19); CARBON DIOXIDE 8 mmol/L (22-30)
[2019-07-09] MEDS ORDERED: INSULIN REG, HUMAN 100 UNIT/ML 3 ML VIAL (PYX) IV ONE (16:04)
[2019-07-09] MEDS ORDERED: CALCIUM GLUCONATE 1000 MG/10 ML INJ IV ONE ×2 (16:04→17:35)
[2019-07-09] MEDS ORDERED: SODIUM POLYSTYRENE SULFONATE 15 GM/60 ML NG ONE (16:04)
[2019-07-09] MEDS ORDERED: FUROSEMIDE INJ/PF 40 MG/4 ML SDV IV ONE (16:05)
[2019-07-09] MEDS ORDERED: CEFEPIME INJ 1 GM VIAL IV ONE (16:09)
[2019-07-09] MEDS ORDERED: VANCOMYCIN HCL INJ 1000 MG VIAL IV ONE (16:09)
[2019-07-09] MEDS ORDERED: NORMAL SALINE IV ONE (16:09)
[2019-07-09] MEDS ORDERED: SODIUM POLYSTYRENE SULFONATE 15 GM/60 ML PO ONE (16:18)
[2019-07-09] MEDS ORDERED: FUROSEMIDE INJ/PF 40 MG/4 ML SDV ONE ×2 (16:46→19:29)
[2019-07-09 17:54] LABS: ANION GAP 18 (5-19); CALCIUM 9.9 mg/dL (8.4-10.2)
[2019-07-09 18:14] LABS: CARBON DIOXIDE 8 mmol/L (22-30); POTASSIUM 8.7 mmol/L (3.6-5.0)
[2019-07-09 18:15] LABS: BLOOD UREA NITROGEN 161 mg/dL (7-20); CHLORIDE 117 mmol/L (98-107); GLUCOSE 371 mg/dL (75-110)
[2019-07-09 18:18] VITALS: BP 127/72
--- NOTE | 2019-07-10 09:45 | EKG REPORT ---
SEVERITY:- ABNORMAL ECG - SINUS RHYTHM ABNRM R PROG, CONSIDER ASMI OR LEAD PLACEMENT : Confirmed by: Cherie Morris 10-Jul-2019 09:44:54
--- NOTE | 2019-07-10 09:45 | EKG REPORT ---
SEVERITY:- OTHERWISE NORMAL ECG - SINUS TACHYCARDIA : Confirmed by: Cherie Morris 10-Jul-2019 09:44:46
== END 2019-07-09 18:19 | disposition short-term general hospital (02) ==
LOC: ER 13:59
DX: A41.9 Sepsis, unspecified organism (principal); R41.82 Altered mental status, unspecified; R50.9 Fever, unspecified; R35.0 Frequency of micturition; R11.2 Nausea with vomiting, unspecified; F17.200 Nicotine dependence, unspecified, uncomplicated; E78.00 Pure hypercholesterolemia, unspecified; I10 Essential (primary) hypertension; E11.9 Type 2 diabetes mellitus without complications; Z88.6 Allergy status to analgesic agent; Z90.710 Acquired absence of both cervix and uterus
CPT/HCPCS: 93005; 36415; 87040; 87086; 82570; 85025; 85610; 85730; 80053; 81001; 82803; 83605; 71045; 93010; J0610; J0692; A9270 ×2; J7030; J7120; J3370; J1815

== ENCOUNTER 2019-09-12 11:40 | Emergency (ER) | payer MEDICARE ==
--- NOTE | 2019-09-12 12:22 | ER Document Report ---
ED Extremity Problem, Lower - General Chief Complaint: Leg Swelling Stated Complaint: BILATERL LEG PAIN Time Seen by Provider: 09/12/19 12:00 Primary Care Provider: AQUILINO LIPSCOMB MD [Primary Care Provider] - Follow up as needed Mode of Arrival: Medic Information source: Patient, [facility] Records TRAVEL OUTSIDE OF THE [place]. IN LAST 30 DAYS: No - HPI Patient complains to provider of: Pain, Swelling Location: Ankle, Foot, Leg Occurred: Other Onset/Duration: Gradual, Worse Quality of pain: Throbbing Severity: Moderate Pain Level: 3 Recent injury: No Associated symptoms: denies: Chest pain, Chills, Dizzy, Fainting, Fever, Gates a crack, Gates a pop, Hurts to breath, Painful ambulation, Rapid heart rate, Seizure, Short of breath, Sweaty, Unable to bear weight, Weak, Other Exacerbated by: Hanging down, Movement, Walking Relieved by: Nothing - Related Data Allergies/Adverse Reactions: oxycodone [Oxycodone] Adverse Reaction (Verified 04/09/19 17:27) oxycodone HCl [From Percocet] Adverse Reaction (Verified 04/09/19 17:27) Bradycardia Past Medical History - General Information source: Patient - Social History Smoking Status: Never Smoker Cigarette use (# per day): No Chew tobacco use (# tins/day): No Frequency of alcohol use: None Drug Abuse: None Family History: DM, Hypertension Patient has suicidal ideation: No Patient has homicidal ideation: No - Past Medical History Cardiac Medical History: Reports: Hx Hypercholesterolemia, Hx Hypertension Pulmonary Medical History: Reports: Hx Sleep Apnea EENT Medical History: Reports: None Neurological Medical History: Reports: None Endocrine Medical History: Reports: Hx Diabetes Mellitus Type 1, Hx Diabetes Mellitus Type 2 Renal/ Medical History: Denies: Hx Peritoneal Dialysis GI Medical History: Reports: None Skin Medical History: Reports Hx Cellulitis Psychiatric Medical History: Denies: Hx Depression Traumatic Medical History: Reports: None Past Surgical History: Reports: Hx Hysterectomy - Immunizations Hx Diphtheria, Pertussis, Tetanus Vaccination: No Hx Pneumococcal Vaccination: 09/05/99 Review of Systems - Review of Systems Constitutional: Malaise EENT: No symptoms reported Cardiovascular: No symptoms reported Respiratory: No symptoms reported Gastrointestinal: Poor appetite Genitourinary: No symptoms reported Musculoskeletal: Muscle pain, Leg swelling, Ankle swelling Skin: Rash Hematologic/Lymphatic: No symptoms reported Neurological/Psychological: No symptoms reported -: Yes All other systems reviewed and negative Physical Exam - Vital signs Vitals: Temp Pulse Resp BP Pulse Ox 97.6 F 98 18 130/66 H 100 09/12/19 11:57 09/12/19 11:57 09/12/19 11:57 09/12/19 11:57 09/12/19 11:57 Interpretation: Normal - General General appearance: Appears well, Alert In distress: None - HEENT Head: Normocephalic, Atraumatic Eyes: Normal Pupils: PERRL Ears: Normal Mouth/Lips: Normal Mucous membranes: Normal Neck: Normal - Respiratory Respiratory status: No respiratory distress Chest status: Nontender Breath sounds: Normal Chest palpation: Normal - Cardiovascular Rhythm: Regular Heart sounds: Normal auscultation Murmur: No Normal capillary refill: Yes Notes: Bilateral lower extremities markedly swollen and firm secondary to severe venous stasis disease pulses are not obtainable however patient is able to move her toes. - Abdominal Inspection: Normal Distension: No distension Bowel sounds: Normal Tenderness: Nontender Organomegaly: No organomegaly - Back Back: Normal, Nontender - Extremities General upper extremity: Normal inspection General lower extremity: Tender, Edema Shoulder: Normal Arm: Normal Elbow: Normal Forearm: Normal Wrist: Normal Hand: Normal Hip: Normal - Neurological Neuro grossly intact: Yes Cognition: Normal Orientation: AAOx4 Presto Coma Scale Eye Opening: Spontaneous Christina Coma Scale Verbal: Oriented Presto Coma Scale Motor: Obeys Commands Presto Coma Scale Total: 15 Speech: Normal Sensory: Normal - Psychological Associated symptoms: Normal affect, Normal mood - Skin Skin Temperature: Warm Skin Moisture: Moist Notes: Bilateral lower extremities are swollen skin is thickened cracked and weeping approximately fci up bilateral lower extremities. Course - Re-evaluation Re-evalutation: 09/12/19 16:11 There has been a delay in care secondary to difficulty obtaining blood. Patient has remained stable. Still waiting on blood work results at this time. 09/12/19 17:23 Lab work has been resulted which demonstrates hyperkalemia 8.3 and renal failure BUN of 193 creatinine 14.05. 09/12/19 17:35 Spoke with the hospitalist and subsequently nephrology and they request patient to be transferred to higher level facility due to no dialysis beds available at this time. I have called [facility] and they state they are at full capacity. 09/12/19 17:41 Called and spoke to the transfer center at [facility] they are currently looking to see if there is a bed available. Patient will be signed out to oncoming physician. - Vital Signs Vital signs: Temp Pulse Resp BP Pulse Ox 97.6 F 98 18 130/66 H 100 09/12/19 11:57 09/12/19 11:57 09/12/19 11:57 09/12/19 11:57 09/12/19 11:57 - Laboratory Result Diagrams: 09/12/19 15:22 09/12/19 14:55 Laboratory results interpreted by me: 09/12/19 09/12/19 09/12/19 14:55 15:22 15:22 Hgb 11.8 L MCHC 31.9 L RDW 16.1 H Plt Count 137 L Sodium 145.7 H Potassium 8.3 H* Chloride 117 H Carbon Dioxide 7 L* Anion Gap 22 H BUN 193 H Creatinine 14.05 H Est GFR ( Amer) 3 L Est GFR (MDRD) Non-Af 3 L Glucose 322 H Hemoglobin A1c % 8.1 H AST 11 L NT-Pro-B Natriuret Pep Total Protein 8.5 H 09/12/19 15:22 Hgb MCHC RDW Plt Count Sodium Potassium Chloride Carbon Dioxide Anion Gap BUN Creatinine Est GFR ( Amer) Est GFR (MDRD) Non-Af Glucose Hemoglobin A1c % AST NT-Pro-B Natriuret Pep 342 H Total Protein - EKG Interpretation by Me EKG shows normal: Sinus rhythm Rate: Normal Rhythm: NSR [place]/QRS: No: Right axis deviation, Left axis deviation, RBBB, LBBB, IVCD, LAHB/LAFB, LPHB/LPFB, Bifasicular block Voltage: Decreased voltage When compared to previous EKG there are: Previous EKG unavailable Critical Care Note - Critical Care Note Total time excluding time spent on procedures (mins): 40 Comments: Please allow 40 minutes critical care time exclusive of separately billable procedures. Patient has been reevaluated several times is been maintained on a radiation monitor several consultations with hospitalist leather sprayer and attempts at transfer. Patient is currently being treated for hyperkalemia. Discharge - Discharge Clinical Impression: Diabetic infection of left foot, Hyperkalemia, Acute kidney injury superimposed on chronic kidney disease, Dialysis patient Condition: Fair Referrals: AQUILINO LIPSCOMB MD [Primary Care Provider] - Follow up as needed
[2019-09-12 15:58] LABS: ABSOLUTE BASOPHILS # (AUTO) 0.1 10^3/uL (0.0-0.2); ABSOLUTE EOSINOPHILS # (AUTO) 0.1 10^3/uL (0.0-0.6); ABSOLUTE LYMPHOCYTES (AUTO) 1.5 10^3/uL (0.5-4.7); ABSOLUTE MONOCYTES (AUTO) 0.8 10^3/uL (0.1-1.4); ABSOLUTE NEUT (AUTO) 7.4 10^3/uL (1.7-8.2); BASOPHILS % (AUTO) 0.6 % (0-2); EOSINOPHILS % (AUTO) 0.9 % (0-6); HEMATOCRIT 36.9 % (36.0-47.0); HEMOGLOBIN 11.8 g/dL (12.0-15.5); LYMPHOCYTES % (AUTO) 15.2 % (13-45); MEAN CORPUSCULAR HEMOGLOBIN 27.7 pg (27.0-33.4); MEAN CORPUSCULAR HGB CONC 31.9 g/dL (32.0-36.0); MEAN CORPUSCULAR VOLUME 87 fl (80-97); MONOCYTES % (AUTO) 7.9 % (3-13); PLATELET COUNT 137 10^3/uL (150-450); RED BLOOD COUNT 4.25 10^6/uL (3.72-5.28); RED CELL DISTRIBUTION WIDTH 16.1 % (11.5-14.0); SEGMENTED NEUTROPHILS % (AUTO) 75.4 % (42-78); TOTAL CELLS COUNTED % (AUTO) 100 %; WHITE BLOOD COUNT 9.8 10^3/uL (4.0-10.5)
[2019-09-12 16:19] LABS: ALBUMIN 4.1 g/dL (3.5-5.0); ALKALINE PHOSPHATASE 62 U/L (38-126); ASPARTATE AMINO TRANSFERASE 11 U/L (14-36); BILIRUBIN,DIRECT 0.4 mg/dL (0.0-0.4); BILIRUBIN,TOTAL 0.4 mg/dL (0.2-1.3); GLUCOSE 322 mg/dL (75-110); TOTAL PROTEIN 8.5 g/dL (6.3-8.2)
[2019-09-12 16:26] LABS: CHLORIDE 117 mmol/L (98-107)
[2019-09-12 16:40] LABS: BLOOD UREA NITROGEN 193 mg/dL (7-20)
[2019-09-12 16:43] LABS: POTASSIUM 8.3 mmol/L (3.6-5.0)
[2019-09-12 16:44] LABS: ANION GAP 22 (5-19)
[2019-09-12 16:51] LABS: CARBON DIOXIDE 7 mmol/L (22-30)
[2019-09-12] MEDS ORDERED: ALBUTEROL SULFATE 0.042% NEB (1.25 MG/3 ML) AMPUL NEB ONE (17:11)
[2019-09-12] MEDS ORDERED: CALCIUM GLUCONATE 1000 MG/10 ML INJ IV ONE (17:11)
[2019-09-12] MEDS ORDERED: DEXTROSE 5%-WATER 1000 ML 1,000 ML with SODIUM BICARBONATE 50 MEQ IV PRN ×2 (17:12)
[2019-09-12] MEDS ORDERED: DEXTROSE 50%-WATER 25 GM/50 ML DISP.SYRIN IV ONE (17:15)
[2019-09-12] MEDS ORDERED: INSULIN REG, HUMAN 100 UNIT/ML 3 ML VIAL (PYX) IV ONE (17:15)
[2019-09-12] MEDS ORDERED: SODIUM POLYSTYRENE SULFONATE 15 GM/60 ML PO ONE (17:55)
[2019-09-12] MEDS ORDERED: SODIUM BICARBONATE 8.4% INJ 50 MEQ/50 ML DISP.SYRIN IV ONE ×2 (18:11→18:16)
[2019-09-12] MEDS ORDERED: RINGERS SOLUTION,LACTATED 250 ML IV ONE (18:48)
--- NOTE | 2019-09-12 19:28 | ER Document Report ---
Doctor's Note Notes: 09/12/19 19:28 eval pt prior to air forbes to [facility], we sent vbg and repeat metab panel. which won't result prior to her air forbes, but ordered 250 cc lr in addition to temporizing treatments for hyperkalemia. She still continued to have no change in mental status or volume her respiratory status. Son thinks she still had all her supplies for peritoneal dialysis but just had not been doing it because she not feeling well. I relayed this to the ICU attending that she may still be able to get just peritoneal. Stable at time of transfer transfer team understands medications administered including insulin to watch for any hypoglycemia and that time to transport
[2019-09-12 19:35] LABS: ALBUMIN 3.9 g/dL (3.5-5.0); CALCIUM 9.7 mg/dL (8.4-10.2); GLUCOSE 305 mg/dL (75-110)
[2019-09-12 19:40] LABS: ANION GAP 19 (5-19); CHLORIDE 120 mmol/L (98-107)
[2019-09-12 19:42] VITALS: BP 115/67
[2019-09-12 20:05] LABS: BLOOD UREA NITROGEN 194 mg/dL (7-20); PHOSPHORUS 9.9 mg/dL (2.5-4.5)
[2019-09-12 20:07] LABS: POTASSIUM 7.8 mmol/L (3.6-5.0)
[2019-09-12 20:08] LABS: CARBON DIOXIDE 6 mmol/L (22-30)
--- NOTE | 2019-09-13 22:04 | EKG REPORT ---
SEVERITY:- BORDERLINE ECG - SINUS RHYTHM LOW VOLTAGE THROUGHOUT : Confirmed by: Cherie Morris 13-Sep-2019 22:03:03
== END 2019-09-12 19:52 | disposition short-term general hospital (02) ==
LOC: ER 11:40
DX: E11.621 Type 2 diabetes mellitus with foot ulcer (principal); L97.529 Non-pressure chronic ulcer of other part of left foot with unspecified severity; E11.22 Type 2 diabetes mellitus with diabetic chronic kidney disease; N17.9 Acute kidney failure, unspecified; N18.9 Chronic kidney disease, unspecified; E87.5 Hyperkalemia; M79.89 Other specified soft tissue disorders; Z99.2 Dependence on renal dialysis; I10 Essential (primary) hypertension
CPT/HCPCS: 93005; 94640; 99285; 96374; 96375; 80069; 36415; 87040; 87070; 87205; 82962; 85025; 87077; 80053; 87186; 83036; 83880; 93010; J0610; J3490 ×2; A9270 ×2; J7120; J1815

== ENCOUNTER 2019-11-08 12:51 | Inpatient (IN) | payer MEDICARE ==
--- NOTE | 2019-11-08 13:00 | ER Document Report ---
ED Medical Screen (RME) - General Chief Complaint: Abnormal Lab Results Stated Complaint: ABNORMAL LABS Time Seen by Provider: 11/08/19 12:57 Primary Care Provider: AQUILINO LIPSCOMB MD [Primary Care Provider] - Follow up as needed Mode of Arrival: Ambulatory Information source: Patient Notes: 64-year-old female presented to ED for complaint of elevated potassium. She states the doctor called her back today and told her that the potassium was high again. She states she did have emergency dialysis a couple times but has not been having it since then but every time she seems to get her blood work done they tell her that she has high potassium again. She states this time the blood was drawn yesterday and they called her today. She states she is not having any pain today but she is having some weakness. I have greeted and performed a rapid initial assessment of this patient. A comprehensive ED assessment and evaluation of the patient, analysis of test results and completion of medical decision making process will be conducted by an additional ED providers. TRAVEL OUTSIDE OF THE [place]. IN LAST 30 DAYS: No - Related Data Allergies/Adverse Reactions: oxycodone [Oxycodone] Adverse Reaction (Verified 04/09/19 17:27) oxycodone HCl [From Percocet] Adverse Reaction (Verified 04/09/19 17:27) Bradycardia Past Medical History - Past Medical History Cardiac Medical History: Reports: Hx Hypercholesterolemia, Hx Hypertension Pulmonary Medical History: Reports: Hx Sleep Apnea Endocrine Medical History: Reports: Hx Diabetes Mellitus Type 1, Hx Diabetes Mellitus Type 2 Renal/ Medical History: Denies: Hx Peritoneal Dialysis Skin Medical History: Reports Hx Cellulitis Psychiatric Medical History: Denies: Hx Depression Past Surgical History: Reports: Hx Hysterectomy - Immunizations Hx Diphtheria, Pertussis, Tetanus Vaccination: No Physical Exam - Vital signs Vitals: Temp Pulse Resp BP Pulse Ox 97.7 F 78 16 118/58 L 100 11/08/19 12:55 11/08/19 12:55 11/08/19 12:55 11/08/19 12:55 11/08/19 12:55 Course - Vital Signs Vital signs: Temp Pulse Resp BP Pulse Ox 97.7 F 78 16 118/58 L 100 11/08/19 12:55 11/08/19 12:55 11/08/19 12:55 11/08/19 12:55 11/08/19 12:55 Doctor's Discharge - Discharge Referrals: AQUILINO LIPSCOMB MD [Primary Care Provider] - Follow up as needed
[2019-11-08 14:05] LABS: ABSOLUTE EOSINOPHILS # (AUTO) 0.2 10^3/uL (0.0-0.6); ABSOLUTE MONOCYTES (AUTO) 0.6 10^3/uL (0.1-1.4); BASOPHILS % (AUTO) 0.5 % (0-2); EOSINOPHILS % (AUTO) 2.2 % (0-6); HEMATOCRIT 35.1 % (36.0-47.0); HEMOGLOBIN 11.5 g/dL (12.0-15.5); LYMPHOCYTES % (AUTO) 14.9 % (13-45); MEAN CORPUSCULAR HEMOGLOBIN 29.1 pg (27.0-33.4); MEAN CORPUSCULAR HGB CONC 32.7 g/dL (32.0-36.0); MEAN CORPUSCULAR VOLUME 89 fl (80-97); MONOCYTES % (AUTO) 8.5 % (3-13); PLATELET COUNT 199 10^3/uL (150-450); RED BLOOD COUNT 3.94 10^6/uL (3.72-5.28); RED CELL DISTRIBUTION WIDTH 16.6 % (11.5-14.0); SEGMENTED NEUTROPHILS % (AUTO) 73.9 % (42-78); TOTAL CELLS COUNTED % (AUTO) 100 %; WHITE BLOOD COUNT 6.8 10^3/uL (4.0-10.5)
[2019-11-08 14:21] LABS: APPEARANCE,URINE CLOUDY; BILIRUBIN,URINE NEGATIVE (NEGATIVE); COLOR,URINE YELLOW; GLUCOSE, URINE NEGATIVE (NEGATIVE); KETONES,URINE NEGATIVE (NEGATIVE); PROTEIN,URINE NEGATIVE (NEGATIVE); URINE SPECIFIC GRAVITY 1.016; UROBILINOGEN,URINE NEGATIVE mg/dL (<2.0)
[2019-11-08 16:18] LABS: ALBUMIN 3.6 g/dL (3.5-5.0); ALKALINE PHOSPHATASE 68 U/L (38-126); ANION GAP 10 (5-19); ASPARTATE AMINO TRANSFERASE 18 U/L (14-36); BILIRUBIN,TOTAL 0.2 mg/dL (0.2-1.3); BLOOD UREA NITROGEN 113 mg/dL (7-20); CALCIUM 9.4 mg/dL (8.4-10.2); CARBON DIOXIDE 14 mmol/L (22-30); CHLORIDE 112 mmol/L (98-107); GLUCOSE 175 mg/dL (75-110); TOTAL PROTEIN 7.2 g/dL (6.3-8.2)
[2019-11-08 16:23] LABS: POTASSIUM 7.3 mmol/L (3.6-5.0)
[2019-11-08] MEDS ORDERED: NORMAL SALINE 1000 ML 1,000 ML IV ONE (16:24)
--- NOTE | 2019-11-08 16:24 | ER Document Report ---
ED General - General Chief Complaint: Abnormal Lab Results Stated Complaint: ABNORMAL LABS Time Seen by Provider: 11/08/19 12:57 Primary Care Provider: AQUILINO LIPSCOMB MD [Primary Care Provider] - Follow up as needed Mode of Arrival: Ambulatory TRAVEL OUTSIDE OF THE [place] IN LAST 30 DAYS: No - HPI Notes: Patient is a 64-year-old female with a history of hypertension, insulin- dependent diabetes, chronic lymphedema of her legs who presents per the direc tion of her family doctor for having potassium elevated at 7 yesterday. Patient states that she has needed emergent dialysis 3 times in the past because of acute kidney injury and elevated potassium. Patient states that she is otherwise feeling well at this time. She has been able to eat and drink without difficulty. She is urinating normally and having normal bowel movements. She is not on dialysis routinely. Denies any headache, fever, neck pain, URI, sore throat, chest pain, palpitations, syncope, cough, shortness of breath, wheeze, dyspnea, abdominal pain, nausea/vomiting/diarrhea, urinary retention, dysuria, hematuria, or rash. - Related Data Allergies/Adverse Reactions: oxycodone [Oxycodone] Adverse Reaction (Verified 11/08/19 13:00) oxycodone HCl [From Percocet] Adverse Reaction (Verified 11/08/19 13:00) Bradycardia Home Medications: htn dm. renal insuff. Past Medical History - General Information source: Patient - Social History Smoking Status: Never Smoker Chew tobacco use (# tins/day): No Frequency of alcohol use: None Drug Abuse: None Family History: DM, Hypertension Patient has suicidal ideation: No Patient has homicidal ideation: No - Past Medical History Cardiac Medical History: Reports: Hx Hypercholesterolemia, Hx Hypertension Pulmonary Medical History: Reports: Hx Sleep Apnea Endocrine Medical History: Reports: Hx Diabetes Mellitus Type 1, Hx Diabetes Mellitus Type 2 Renal/ Medical History: Denies: Hx Peritoneal Dialysis Skin Medical History: Reports Hx Cellulitis Psychiatric Medical History: Denies: Hx Depression Past Surgical History: Reports: Hx Hysterectomy - Immunizations Hx Diphtheria, Pertussis, Tetanus Vaccination: No Hx Pneumococcal Vaccination: 09/05/99 Review of Systems - Review of Systems -: Yes All other systems reviewed and negative Physical Exam - Vital signs Vitals: Temp Pulse Resp BP Pulse Ox 97.7 F 78 16 118/58 L 100 11/08/19 12:55 11/08/19 12:55 11/08/19 12:55 11/08/19 12:55 11/08/19 12:55 - Notes Notes: PHYSICAL EXAMINATION: GENERAL: Well-appearing, well-nourished and in no acute distress. HEAD: Atraumatic, normocephalic. EYES: Pupils equal round and reactive to light, extraocular movements intact, sclera anicteric, conjunctiva are normal. ENT: Nares patent and without discharge. oropharynx clear without exudates. No tonsilar hypertrophy or erythema. Moist mucous membranes. NECK: Normal range of motion, supple without lymphadenopathy LUNGS: Breath sounds clear to auscultation bilaterally and equal. No wheezes rales or rhonchi. HEART: Regular rate and rhythm without murmurs, rubs, gallops. ABDOMEN: Soft, nontender, nondistended abdomen. No guarding, no rebound. Normal bowel sounds present. No CVA tenderness bilaterally. Musculoskeletal: FROM to passive/active. Strength 5+/5. Extremities: 2-3+ pitting edema b/l LE's. NEUROLOGICAL: Cranial nerves grossly intact. Normal speech, normal gait. Normal sensory, motor exams PSYCH: Normal mood, normal affect. SKIN: Warm, Dry, normal turgor, no rashes or lesions noted. Course - Re-evaluation Re-evalutation: 11/08/19 16:35 Dr. Davis was consulted who also eval'd the patient. Hyperkalemia treatment/meds ordered. I did speak with hospitalist and we do have dialysis beds available. We will check with nephrology to see if they would be willing to dialyze; patient does not currently have any access. Call placed to shaq Santana. 11/08/19 17:05 I was able to speak with Dr. Wayne. After review her baseline creatinine is 1.9-2 and he believes this is just an acute kidney injury and dehydration. He believes that she will turn around with meds and fluids. If she needs dialysis he can do that tomorrow. He does recommend labs every 1 hour had an EKG in about 3 hours for now. She is not in a hemolytic state. He did recommend after the first bolus having a continuous rate of 250 mL's per hour and possibly dropping that down later on to 100 to 150 mL's per hour. I did review with Dr. Grissom who is excepted patient to the telemetry floor. - Vital Signs Vital signs: Temp Pulse Resp BP Pulse Ox 97.7 F 78 17 115/68 100 11/08/19 12:55 11/08/19 12:55 11/08/19 16:01 11/08/19 16:01 11/08/19 16:01 - Laboratory Result Diagrams: 11/08/19 13:50 11/08/19 15:46 Laboratory results interpreted by me: 11/08/19 11/08/19 11/08/19 13:50 13:50 15:46 Hgb 11.5 L Hct 35.1 L RDW 16.6 H Sodium 135.8 L Potassium 7.3 H* Chloride 112 H Carbon Dioxide 14 L BUN 113 H Creatinine 4.26 H Est GFR ( Amer) 13 L Est GFR (MDRD) Non-Af 10 L Glucose 175 H Lipase 372.9 H Leukocyte Esterase Rfl MODERATE H Urine Ascorbic Acid 40 H Discharge - Discharge Clinical Impression: Acute kidney injury, Hyperkalemia Condition: Stable Disposition: ADMITTED INPATIENT Admitting Provider: Jaciel (Hospitalist) Unit Admitted: Telemetry Referrals: AQUILINO LIPSCOMB MD [Primary Care Provider] - Follow up as needed
[2019-11-08] MEDS ORDERED: CALCIUM GLUCONATE 1000 MG/10 ML INJ IV ONE (16:28)
[2019-11-08] MEDS ORDERED: SODIUM BICARBONATE 8.4% INJ 50 MEQ/50 ML DISP.SYRIN IV ONE ×2 (16:28→16:39)
[2019-11-08] MEDS ORDERED: DEXTROSE 50%-WATER 25 GM/50 ML DISP.SYRIN IV ONE (16:29)
[2019-11-08] MEDS ORDERED: SODIUM POLYSTYRENE SULFONATE 15 GM/60 ML PO ONE (16:29)
[2019-11-08] MEDS ORDERED: INSULIN REG, HUMAN 100 UNIT/ML 3 ML VIAL (PYX) IV ONE (16:29)
[2019-11-08] MEDS ORDERED: FUROSEMIDE INJ/PF 40 MG/4 ML SDV IV ONE (16:41)
[2019-11-08] MEDS ORDERED: NORMAL SALINE 1000 ML 1,000 ML IV PRN (17:00)
--- NOTE | 2019-11-08 17:28 | EKG REPORT ---
SEVERITY:- BORDERLINE ECG - SINUS RHYTHM ATRIAL PREMATURE COMPLEX LOW VOLTAGE PRECORDIAL LEADS : Confirmed by: Rick Jones MD 08-Nov-2019 17:28:19
[2019-11-08] MEDS ORDERED: ACETAMINOPHEN 325 MG TABLET PO PRN (18:28)
[2019-11-08] MEDS ORDERED: ONDANSETRON 4 MG TAB.RAPDIS PO PRN (18:28)
[2019-11-08] MEDS ORDERED: DEXTROSE 50%-WATER 25 GM/50 ML DISP.SYRIN IV PRN ×2 (18:42)
[2019-11-08] MEDS ORDERED: DEXTROSE 40% GEL 15 GM TUBE PO PRN ×2 (18:42)
[2019-11-08] MEDS ORDERED: GLUCAGON,HUMAN RECOMB 1 MG INJ IM PRN (18:42)
--- NOTE | 2019-11-08 18:47 | PDOC H&P ---
History of Present Illness Admission Date/PCP: 11/08/19 17:38 AQUILINO LIPSCOMB Patient complains of: Abnormal labs History of Present Illness: CARMELO WHITTEN is a 64 year old female with hypertension, diabetes and near end-stage kidney disease. She has required urgent hemodialysis on 3 occasions but is not yet on continuous dialysis. Does have blood work drawn every 2 to 3 weeks. She was notified by her loom repairer to go to the hospital because her serum potassium was extremely elevated. Evaluation in the emergency department revealed serum potassium 7.3, glucose 175, BUN 113 and creatinine 4.26. Hemoglobin was 11.5. Urinalysis was leukocyte Estrace positive. White blood cells, bacteria and hyaline casts were all noted. The EKG showed peaked T waves as well. The case was discussed with Dr. Wayne the on-call loom repairer. The case was referred to the hospital service for IV fluids and close scrutiny of her blood work and EKG. This will include serial labs at 2-hour intervals and serial EKGs as well. She will be admitted to the [facility] on telemetry. Past Medical History Cardiac Medical History: Reports: Hyperlipidema, Hypertension, Other - Severe chronic lower extremity lymphedema Pulmonary Medical History: Reports: Sleep Apnea Endocrine Medical History: Reports: Diabetes Mellitus Type 2 Renal/ Medical History: Reports: End Stage Renal Disease Psychiatric Medical History: Denies: Depression Hematology: Reports: Anemia Past Surgical History Past Surgical History: Reports: Hysterectomy, Other - Surgery to form a fistula in the left arm. Social History Information Source: Patient Lives with: Alone, Other - Single with 1 daughter Smoking Status: Never Smoker Electronic Cigarette use?: No Frequency of Alcohol Use: None Hx Recreational Drug Use: No Drugs: None Hx Prescription Drug Abuse: No - Advance Directive Resuscitation Status: Full Code Surrogate healthcare decision maker:: Her daughter would be the designated decision maker Family History Family History: DM, Hypertension Parental Family History Reviewed: Yes Children Family History Reviewed: Yes Sibling(s) Family History Reviewed.: Yes Medication/Allergy Home Medications: Amlodipine Besylate [Norvasc 10 mg Tablet] 10 mg PO DAILY 90 Days #05/21/19 Clonidine HCl [Catapres 0.2 mg Tablet] 0.2 mg PO Q12 90 Days #05/21/19 Ergocalciferol (Vitamin D2) [Drisdol 50,000 unit (1.25MG) Capsule] 50,000 unit PO LOAIZA@1000 90 Days #05/21/19 Lisinopril [Prinivil 40 mg Tablet] 40 mg PO DAILY 90 Days #05/21/19 Pravastatin Sodium [Pravachol] 40 mg PO DAILY 90 Days #05/21/19 Ascorbic Acid [Vitamin C 500 mg Tablet] 500 mg PO DAILY 11/08/19 Atenolol [Tenormin 50 mg Tablet] 100 mg PO DAILY 11/08/19 B Complex W-C No.20/Folic Acid [Virt-Caps Softgel] 1 mg PO DAILY 11/08/19 Ferrous Sulfate [Feosol 325 mg Tablet] 325 mg PO BID 11/08/19 Hum Insulin NPH/Reg Insulin Hm [Insulin 70-30 (NPH/Reg) 100 unit/mL] 22 unit SUBCUT BID 11/08/19 Hydrocodone/Acetaminophen [[place] 5-325 mg Tablet] 1 tab PO BIDP PRN 11/08/19 Magnesium Oxide [Mag-Ox 400 mg Tablet] 400 mg PO DAILY 11/08/19 Allergies/Adverse Reactions: oxycodone [Oxycodone] Adverse Reaction (Verified 11/08/19 13:00) oxycodone HCl [From Percocet] Adverse Reaction (Verified 11/08/19 13:00) Bradycardia Review of Systems All systems: reviewed and no additional remarkable complaints except as stated Cardiovascular: PRESENT: edema Physical Exam Vital Signs: Temp Pulse Resp BP Pulse Ox 97.7 F 78 17 115/68 100 11/08/19 12:55 11/08/19 12:55 11/08/19 16:01 11/08/19 16:01 11/08/19 16:01 Intake & Output 11/07/19 11/08/19 11/09/19 06:59 06:59 06:59 Intake Total 599 Balance 599 Weight 111.13 kg General appearance: PRESENT: no acute distress, cooperative, well-developed, well-nourished. ABSENT: morbidly obese Head exam: PRESENT: atraumatic, normocephalic Eye exam: PRESENT: conjunctiva pink, EOMI, PERRLA. ABSENT: scleral icterus Ear exam: PRESENT: normal external ear exam. ABSENT: bleeding, drainage Mouth exam: PRESENT: moist, tongue midline Neck exam: ABSENT: carotid bruit, JVD, lymphadenopathy Respiratory exam: PRESENT: clear to auscultation paulie, symmetrical, unlabored. ABSENT: accessory muscle use, rales, rhonchi, stridor, tachypnea, wheezes Cardiovascular exam: PRESENT: RRR, +S1, +S2, systolic murmur GI/Abdominal exam: PRESENT: normal bowel sounds, soft. ABSENT: distended, guarding, tenderness Rectal exam: PRESENT: deferred Gentrourinary exam: ABSENT: indwelling catheter Extremities exam: PRESENT: other - 4+ lower extremity edema bilateral Musculoskeletal exam: PRESENT: ambulatory Neurological exam: PRESENT: alert, awake, oriented to person, oriented to place, oriented to time, oriented to situation, CN II-XII grossly intact. ABSENT: altered, motor sensory deficit Psychiatric exam: PRESENT: appropriate affect, normal mood. ABSENT: agitated, anxious, depressed, unusual affect Focused psych exam: ABSENT: delusional, paranoid, restlessness Skin exam: PRESENT: dry, normal color, warm, other - Compression wraps on both lower legs. I did not take the dressings down.. ABSENT: rash Results Laboratory Results: 11/08/19 13:50 11/08/19 15:46 11/08/19 11/08/19 11/08/19 13:50 13:50 13:50 WBC 6.8 RBC 3.94 Hgb 11.5 L Hct 35.1 L MCV 89 MCH 29.1 MCHC 32.7 RDW 16.6 H Plt Count 199 Seg Neutrophils % 73.9 Sodium Cancelled Potassium Cancelled Chloride Cancelled Carbon Dioxide Cancelled Anion Gap Cancelled BUN Cancelled Creatinine Cancelled Est GFR ( Amer) Cancelled Est GFR (Non-Af Amer) Cancelled Glucose Cancelled Calcium Cancelled Total Bilirubin Cancelled AST Cancelled Alkaline Phosphatase Cancelled Total Protein Cancelled Albumin Cancelled Lipase Cancelled Urine Color YELLOW Urine Appearance CLOUDY Urine pH 5.0 Ur Specific [place] 1.016 Urine Protein NEGATIVE Urine Glucose (UA) NEGATIVE Urine Ketones NEGATIVE Urine Blood NEGATIVE Urine RBC (Auto) 7 11/08/19 15:46 WBC RBC Hgb Hct MCV MCH MCHC RDW Plt Count Seg Neutrophils % Sodium 135.8 L Potassium 7.3 H* Chloride 112 H Carbon Dioxide 14 L Anion Gap 10 BUN 113 H Creatinine 4.26 H Est GFR ( Amer) 13 L Est GFR (Non-Af Amer) Glucose 175 H Calcium 9.4 Total Bilirubin 0.2 AST 18 Alkaline Phosphatase 68 Total Protein 7.2 Albumin 3.6 Lipase 372.9 H Urine Color Urine Appearance Urine pH Ur Specific [place] Urine Protein Urine Glucose (UA) Urine Ketones Urine Blood Urine RBC (Auto) Assessment and Plan - Diagnosis (1) Acute kidney injury superimposed on chronic kidney disease Is this a current diagnosis for this admission?: Yes Plan: 11/08/2019 Nephrology made several suggestions to the emergency department provider. We will give IV fluids. At first very aggressively by a 1 L bolus and then a second liter over 4 hours and then finally continuous saline at 150 mL/h. We will check laboratory studies every 2 hours and monitor for changes in her electrolytes profile as well as her BUN and creatinine. A consult was placed for Dr. Wayne as well. We will keep strict account of intake and output to help monitor fluid balance. (2) Dehydration Is this a current diagnosis for this admission?: Yes Plan: 11/08/2019 It was felt that the patient was dry intravascularly. Hence the IV fluids as outlined above. Serial laboratory studies will be obtained. Intake and output will be closely monitored. Gradually we will decrease the IV fluids according to her laboratory studies and clinical improvement. (3) Hyperkalemia Is this a current diagnosis for this admission?: Yes Plan: The patient had peaked T waves. The serum potassium was 7.3. She did receive IV insulin. I do not believe she was given Kayexalate yet. With the aggressive fluids the potassium should improve also. Serial laboratory studies every 2 hours through the night. Serial EKGs as well to assess for improvement in the peaked T waves. 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 We will continue her 70/30 insulin at 22 units twice a day. She will be on a diabetic/renal/cardiac diet. A Humalog sliding scale will also be available. (5) Hypertension Qualifiers: Hypertension type: essential hypertension Qualified Code(s): I10 - Essential (primary) hypertension Is this a current diagnosis for this admission?: Yes Plan: 11/08/2019 The patient will continue on Norvasc 10 mg daily, atenolol 100 mg daily for now. She does state that her lisinopril 40 mg daily and clonidine 0.2 mg twice a day are currently on hold. We will monitor the patient on telemetry and check serial vital signs and adjust medications accordingly. (6) Acute cystitis Qualifiers: Hematuria presence: without hematuria Qualified Code(s): N30.00 - Acute cystitis without hematuria Is this a current diagnosis for this admission?: Yes (7) Anemia of chronic renal failure, stage 4 (severe) Is this a current diagnosis for this admission?: Yes Plan: 11/08/2019 Hemoglobin was 11.5. The patient does take iron supplements, multivitamin and vitamin C daily. We will continue this regimen. We will monitor her hemoglobin with a CBC daily. (8) Iron deficiency anemia Qualifiers: Iron deficiency anemia type: other iron deficiency Qualified Code(s): D50.8 - Other iron deficiency anemias Is this a current diagnosis for this admission?: Yes Plan: 11/08/2019 Continue iron supplements. The patient likely has a combination of anemia of chronic kidney disease and true iron deficiency. I do not believe there is a need for serum iron studies at this point. (9) Hyperlipidemia Qualifiers: Hyperlipidemia type: mixed hyperlipidemia Qualified Code(s): E78.2 - Mixed hyperlipidemia Is this a current diagnosis for this admission?: Yes Plan: 11/08/2019 We will substitute atorvastatin for her pravastatin and return her to pravastatin at discharge. (10) Lymphedema of both lower extremities Is this a current diagnosis for this admission?: Yes Plan: 11/08/2019 The patient has severe lymphedema of both lower extremities. She is scheduled to see a vascular specialist next month. She does wear compression wraps. We will elevate the legs when possible and consider other compression therapy if available. - Time Time Spent with patient: 35 or more minutes Medications reviewed and adjusted accordingly: Yes Anticipated discharge: Home - Inpatient Certification Based on my medical assessment, after consideration of the patient's co morbidities, presenting symptoms, or acuity I expect that the services needed warrant INPATIENT care.: Yes I certify that my determination is in accordance with my understanding of Medicare's requirements for reasonable and necessary INPATIENT services [42 CFR 412.3e].: Yes Medical Necessity: Need Close Monitoring Due to Risk of Patient Decompensation, Need For Continuous Telemetry Monitoring, Risk of Complication if Not Cared For in Hospital Post Hospital Care: D/C Fisher Spear Documentation
[2019-11-08] MEDS: ATORVASTATIN CALCIUM 40 MG TABLET PO SCH (22:11)
[2019-11-08] MEDS: FAMOTIDINE 20 MG TABLET PO SCH (22:11)
[2019-11-08] MEDS: INSULIN LISPRO 100 UNIT/ML 3 ML VIAL SUBCUT SCH (22:11)
[2019-11-08] MEDS: HEPARIN SOD (PORCINE) 5,000 UNIT/ML 1 ML VIAL SUBCUT SCH (22:12)
[2019-11-08] MEDS ORDERED: SODIUM BICARBONATE 650 MG TABLET PO ONE (23:45)
[2019-11-09] MEDS ORDERED: SODIUM BICARBONATE 650 MG TABLET PO ONE (03:30)
[2019-11-09] MEDS: HEPARIN SOD (PORCINE) 5,000 UNIT/ML 1 ML VIAL SUBCUT SCH ×3 (06:01→21:28)
[2019-11-09] MEDS: INSULIN LISPRO 100 UNIT/ML 3 ML VIAL SUBCUT SCH ×4 (07:45→21:28)
--- NOTE | 2019-11-09 07:50 | EKG REPORT ---
SEVERITY:- OTHERWISE NORMAL ECG - SINUS RHYTHM ATRIAL PREMATURE COMPLEX T WAVES NOT TYPICAL OF HYPERKALEMIA. : Confirmed by: Rick Jones MD 09-Nov-2019 07:49:56
--- NOTE | 2019-11-09 07:51 | EKG REPORT ---
SEVERITY:- BORDERLINE ECG - SINUS RHYTHM BORDERLINE R WAVE PROGRESSION, ANTERIOR LEADS T WAVES NOT TYPICAL OF HYPERKALEMIA : Confirmed by: Rick Jones MD 09-Nov-2019 07:51:06
[2019-11-09] MEDS ORDERED: AMLODIPINE BESYLATE 10 MG TABLET PO SCH (10:00)
[2019-11-09] MEDS ORDERED: ATENOLOL 50 MG TABLET PO SCH (10:00)
[2019-11-09] MEDS ORDERED: SODIUM POLYSTYRENE SULFONATE 15 GM/60 ML ONE (10:08)
[2019-11-09] MEDS: HUM INSULIN NPH/REG INSULIN HM 100 UNIT/1 ML 3 ML SUBCUT SCH ×2 (10:26→17:12)
[2019-11-09] MEDS: MAGNESIUM OXIDE 400 MG TABLET PO SCH (10:27)
[2019-11-09] MEDS: ASCORBIC ACID 500 MG TABLET PO SCH (10:27)
[2019-11-09] MEDS: DOCUSATE SODIUM 100 MG CAPSULE PO SCH ×2 (10:27→17:12)
[2019-11-09] MEDS: FERROUS SULFATE 325 MG TABLET PO SCH ×2 (10:27→17:12)
[2019-11-09] MEDS ORDERED: SODIUM POLYSTYRENE SULFONATE 15 GM/60 ML PO ONE (10:30)
[2019-11-09] MEDS: FAMOTIDINE 20 MG TABLET PO SCH ×2 (10:34→21:28)
[2019-11-09] MEDS ORDERED: HEPARIN SOD (PORCINE) 1,000 UNIT/ML 10 ML VIAL ONE (10:41)
[2019-11-09] MEDS ORDERED: HEPARIN SOD (PORCINE) 1,000 UNIT/ML 1 ML VIAL ONE (10:41)
[2019-11-09] MEDS ORDERED: HEPARIN SOD (PORCINE) 5,000 UNIT/ML 1 ML VIAL ONE (10:41)
[2019-11-09] MEDS ORDERED: LIDOCAINE 2% INJ (20 MG/ML) 20 ML MDV ONE (11:18)
[2019-11-09] MEDS ORDERED: NORMAL SALINE INJ/PF 0.9% 10 ML SDV IV PRN (11:57)
[2019-11-09 12:00] LABS: ABSOLUTE EOSINOPHILS # (AUTO) 0.2 10^3/uL (0.0-0.6); ABSOLUTE LYMPHOCYTES (AUTO) 0.9 10^3/uL (0.5-4.7); ABSOLUTE MONOCYTES (AUTO) 0.5 10^3/uL (0.1-1.4); ABSOLUTE NEUT (AUTO) 4.7 10^3/uL (1.7-8.2); BASOPHILS % (AUTO) 0.5 % (0-2); EOSINOPHILS % (AUTO) 2.4 % (0-6); HEMATOCRIT 32.5 % (36.0-47.0); HEMOGLOBIN 10.7 g/dL (12.0-15.5); LYMPHOCYTES % (AUTO) 14.3 % (13-45); MEAN CORPUSCULAR HGB CONC 32.8 g/dL (32.0-36.0); MEAN CORPUSCULAR VOLUME 86 fl (80-97); MONOCYTES % (AUTO) 8.5 % (3-13); PLATELET COUNT 175 10^3/uL (150-450); RED BLOOD COUNT 3.81 10^6/uL (3.72-5.28); RED CELL DISTRIBUTION WIDTH 15.9 % (11.5-14.0); SEGMENTED NEUTROPHILS % (AUTO) 74.3 % (42-78); TOTAL CELLS COUNTED % (AUTO) 100 %; WHITE BLOOD COUNT 6.3 10^3/uL (4.0-10.5)
--- NOTE | 2019-11-09 12:02 | Operative Report ---
Operative Report DATE OF SURGERY: 11/09/19 PREOPERATIVE DIAGNOSIS: Chronic renal insufficiency, stage V POSTOPERATIVE DIAGNOSIS: Same OPERATION: 1. Focused ultrasound of the right groin. 2. Insertion of right femoral vein paralysis catheter under ultrasound guidance SURGEON: LAINEY GRAY ANESTHESIA: Local TISSUE REMOVED OR ALTERED: None COMPLICATIONS: None ESTIMATED BLOOD LOSS: Scant INTRAOPERATIVE FINDINGS: See below PROCEDURE: The patient was taken from the third floor [facility] to the recovery room where instrumentation was set up for catheter insertion the right groin was exposed, cleaned thoroughly with chlorhexidine scrub brushes, then prepped and draped sterile fashion Surgical plan and surgical timeout were conducted. The right groin was scanned with the variable frequency linear transducer. Findings were significant for a patent, compressible right common femoral vein. The skin was anesthetized 1% plain lidocaine. A karla was made the skin with 11 blade, and the 16-gauge needle and 0.030 guidewire threaded into position. The tract was now dilated up with a 13 Kiswahili, 14 Kiswahili dilators, then the dialysis catheter was threaded over the wire. Wire removed, and catheter advanced such that 3 cm that was exposed between the skin and the. All 3 lm were aspirated and demonstrated to the flow smoothly. Catheters were capped, and loaded with concentrated heparin, approximately 1000 cc/lm. Catheter was secured to skin at 3 sites with 3-0 Ethilon suture and a Biopatch and sterile dressing applied. Patient tolerated the procedure well. Catheter may be used, only after aspirating concentrated heparin first. This was discussed with nursing staff.
[2019-11-09 12:23] LABS: ANION GAP 11 (5-19); CALCIUM 8.9 mg/dL (8.4-10.2); CARBON DIOXIDE 16 mmol/L (22-30); CHLORIDE 110 mmol/L (98-107); GLUCOSE 171 mg/dL (75-110)
[2019-11-09 12:35] LABS: BLOOD UREA NITROGEN 93 mg/dL (7-20); POTASSIUM 5.1 mmol/L (3.6-5.0)
[2019-11-09] MEDS: NORMAL SALINE 1000 ML 1,000 ML IV PRN ×2 (13:00→23:33)
[2019-11-09] MEDS ORDERED: HEPARIN SOD (PORCINE) 1,000 UNIT/ML 10 ML VIAL IV PRN (14:18)
--- NOTE | 2019-11-09 14:40 | PDOC PROGRESS REPORT ---
Subjective Progress Note for:: 11/09/19 Subjective:: Patient denies any shortness of breath at this time. Patient was devastated her potassium always keeps going up states that is been happening to her several times over and over again. Denies any palpitations or lightheadedness at this time. Reason For Visit: ACUTE ON CHRONIC KIDNEY INJURY,HYPERKALEMIA,HYPERT Physical Exam Vital Signs: Temp Pulse Resp BP Pulse Ox 97.8 F 72 18 132/71 H 100 11/09/19 12:28 11/09/19 12:28 11/09/19 12:28 11/09/19 12:28 11/09/19 12:28 Intake & Output 11/08/19 11/09/19 11/10/19 06:59 06:59 06:59 Intake Total 1755 Balance 1755 Weight 114.3 kg General appearance: PRESENT: no acute distress, cooperative Mouth exam: PRESENT: dry mucosa Neck exam: ABSENT: JVD Respiratory exam: PRESENT: clear to auscultation paulie, unlabored. ABSENT: tachypnea, wheezes Cardiovascular exam: PRESENT: RRR, +S1, +S2. ABSENT: tachycardia GI/Abdominal exam: PRESENT: normal bowel sounds, soft. ABSENT: rebound, rigid, tenderness Neurological exam: PRESENT: alert, awake, oriented to person, oriented to place, oriented to time, oriented to situation Results Laboratory Results: 11/09/19 11:42 11/09/19 11:42 11/08/19 11/09/19 11/09/19 15:46 11:42 11:42 WBC 6.3 RBC 3.81 Hgb 10.7 L Hct 32.5 L MCV 86 MCH 28.0 MCHC 32.8 RDW 15.9 H Plt Count 175 Seg Neutrophils % 74.3 Sodium 135.8 L 137.2 Potassium 7.3 H* 5.1 H D Chloride 112 H 110 H Carbon Dioxide 14 L 16 L Anion Gap 10 11 BUN 113 H 93 H D Creatinine 4.26 H 3.12 H Est GFR ( Amer) 13 L 18 L Glucose 175 H 171 H Calcium 9.4 8.9 Magnesium 2.0 Total Bilirubin 0.2 AST 18 Alkaline Phosphatase 68 Total Protein 7.2 Albumin 3.6 Lipase 372.9 H 11/08/19 13:50 Clean Catch Midstream Urine Culture - Final Mixed Urogenital Rosie Group G Beta Streptococcus Assessment and Plan - Diagnosis (1) Acute kidney injury superimposed on chronic kidney disease Is this a current diagnosis for this admission?: Yes Plan: Patient seems to be having an acute on chronic kidney disease. She seems to be CKD stage III-IV at baseline. Kidney function improving with IV fluids which will be continued. LEDA on CKD complicated by hyperkalemia and non-anion gap metabolic acidosis We will give a dose of Kayexalate. Start on patiromer with supper as this hyperkalemia seems to be a frequently requiring problem for patient. I will refrain from resuming lisinopril Start on Bicitra Continue continuous IV fluids while monitoring BMP will also start on Lasix w hich will help with hypertension and her chronic hyperkalemia as well. Nephrology consulted (2) Hyperkalemia Is this a current diagnosis for this admission?: Yes Plan: Plan as per problem #1 (3) Lymphedema of both lower extremities Is this a current diagnosis for this admission?: Yes Plan: The patient has severe lymphedema of both lower extremities. She is scheduled to see a vascular specialist next month. She does wear compression wraps. We will elevate the legs when possible and consider other compression therapy if available. (4) Hypertension Qualifiers: Hypertension type: essential hypertension Qualified Code(s): I10 - Essential (primary) hypertension Is this a current diagnosis for this admission?: Yes Plan: Continue Norvasc and atenolol. Lasix added. Resume clonidine if blood pressure rises. Lisinopril on hold given hyperkalemia and LEDA. (5) Iron deficiency anemia Qualifiers: Iron deficiency anemia type: other iron deficiency Qualified Code(s): D50.8 - Other iron deficiency anemias Is this a current diagnosis for this admission?: Yes Plan: Continue iron supplements. The patient likely has a combination of anemia of chronic kidney disease and true iron deficiency. I do not believe there is a need for serum iron studies at this point. - Time Time Spent with patient: 15-24 minutes
[2019-11-09] MEDS ORDERED: FUROSEMIDE 40 MG TABLET PO ONE (14:41)
--- NOTE | 2019-11-09 14:41 | PDOC CONSULTATION ---
Consultation Consult Date: 11/09/19 Provider Consulted: Masha MONAHAN Consult reason:: LEDA on chronic kidney disease with severe hyperkalemia/EKG changes. History of Present Illness Admission Date/PCP: 11/08/19 17:38 AQUILINO LIPSCOMB History of Present Illness: CARMELO WHITTEN is a 64 year old female has had 3 different admissions to various hospitals in the last 6-7 months with LEDA and severe hyperkalemia and all 3 required emergent dialysis given her severe hyperkalemia/EKG changes. First admission was in May 18, 2019 at [facility] with LEDA secondary to severe dehydration when she presented with a creatinine of 5.6 and potassium of 8. and was dialyzed temporarily. Second admission was in July 2019 when she presented with cellulitis and sepsis with a creatinine at 12.6 and potassium of 9.1 and had to be transferred to [facility] because of unavailability of dialysis here at [facility] again dialyzed temporarily. Then again she was admitted to [facility] around August for reasons I not sure when she presented with a creatinine of 14 and potassium of 8.5 and was dialyzed temporarily and discharged home. Her creatinine has reverted back to baseline (1.5- 2 ---Stage 3 CKD) and she was discharged home in a stable condition each of these times. She was in the process of being considered towards dialysis at some point down the line and she has had a left lower arm fistula placed which has clotted off. She was last seen in my office on 04 October when her creatinine was 1.9 and the potassium was 4.5 and she was not on any KARINA inhibitors or similar drugs. However during this admission I see that she is on lisinopril 40 mg daily which is rather counterproductive. She is unsure who is the author of this medicine. She has a longstanding complicated diabetes mellitus with history of neuropathy but apparently no retinopathy, hypertension, CKD stage IV with a base creatinine of 3-3.5, chronic lymphedema, morbid obesity was admitted yesterday evening with history of severe hyperkalemia 7.5 on incidental labs that was ordered by my office. She was last seen in my office in September when her creatinine was 1.9 and potassium was normal. She says she is watching her diet. She has noticed some generalized weakness over the last few days and she says she can feel that the potassium is creeping higher than what is it should be based on the emergence of this weakness but denies any history of loss of appetite, nausea,vomiting. No history of any diarrhea or NSAID usage. Initial admission labs showed potassium 7.5 CO2 14 and a creatinine of 4.2 with a gap of 10.She was given appropriate cocktail medications emergently in the ER yesterday as per discussions I had with the emergency doctor. Since we do not have any dialysis capabilities yesterday after 4, it was hoped that she will respond to these emergent measures and we would keep a close eye on the potassium on an hourly labs. Unfortunately she is a very hard stick and multiple attempts to access her veins proved rather futile and no labs have been drawn yet. Patient today morning is quite comfortable and she says she is feeling a whole lot better her the weakness that she usually presents when the potassium goes very high is gone. She has been eating and drinking well. She is scheduled to have central line access done today by Dr. Tinajero. Her IV fluids were discontinued last night because of failed access. She also has had left lower arm AV fistula done at [place] recently which has clotted off.Her renal ultrasound done yesterday was unremarkable for any obstructive uropathy. I did discuss with Dr. Tinajero on-call surgeon to have a trialysis catheter in the groin instead of central line in case we needed to go and dialyze based on worsening labs. She had dialysis catheter placed and repeat labs done through that catheter shows that her potassium is improved down to 5.1 and her CO2 is now 16 and her creatinine is down to 3.1. Past Medical History Cardiac Medical History: Reports: Hyperlipidemia, Hypertension-primary, Other - Severe chronic lower extremity lymphedema Pulmonary Medical History: Reports: Sleep Apnea Endocrine Medical History: Reports: Diabetes Mellitus Type 2 Renal/ Medical History: Reports: Chronic Kidney Disease Stage III Denies: Hematuria Psychiatric Medical History: Denies: Depression Hematology Medical History: Reports Anemia of Chronic Kidney Disease Past Surgical History Past Surgical History: Reports: Hysterectomy, Other - Surgery to form a fistula in the left arm. Social History Lives with: Alone, Other - Single with 1 daughter Smoking Status: Never Smoker Electronic Cigarette use?: No Frequency of Alcohol Use: None Hx Recreational Drug Use: No Drugs: None Hx Prescription Drug Abuse: No - Advance Directive Resuscitation Status: Full Code Family History Parental Family History Reviewed: No - Negative for ESRD Children Family History Reviewed: No Sibling(s) Family History Reviewed.: No Medication/Allergy Home Medications: Amlodipine Besylate [Norvasc 10 mg Tablet] 10 mg PO DAILY 90 Days #90 05/21/19 Clonidine HCl [Catapres 0.2 mg Tablet] 0.2 mg PO Q12 90 Days #05/21/19 Ergocalciferol (Vitamin D2) [Drisdol 50,000 unit (1.25MG) Capsule] 50,000 unit PO LOAIZA@1000 90 Days #05/21/19 Lisinopril [Prinivil 40 mg Tablet] 40 mg PO DAILY 90 Days #05/21/19 Pravastatin Sodium [Pravachol] 40 mg PO DAILY 90 Days #05/21/19 Ascorbic Acid [Vitamin C 500 mg Tablet] 500 mg PO DAILY 11/08/19 Atenolol [Tenormin 50 mg Tablet] 100 mg PO DAILY 11/08/19 B Complex W-C No.20/Folic Acid [Virt-Caps Softgel] 1 mg PO DAILY 11/08/19 Ferrous Sulfate [Feosol 325 mg Tablet] 325 mg PO BID 11/08/19 Hum Insulin NPH/Reg Insulin Hm [Insulin 70-30 (NPH/Reg) 100 unit/mL] 22 unit SUBCUT BID 11/08/19 Hydrocodone/Acetaminophen [[place] 5-325 mg Tablet] 1 tab PO BIDP PRN 11/08/19 Magnesium Oxide [Mag-Ox 400 mg Tablet] 400 mg PO DAILY 11/08/19 Allergies/Adverse Reactions: oxycodone [Oxycodone] Adverse Reaction (Verified 11/08/19 13:00) oxycodone HCl [From Percocet] Adverse Reaction (Verified 11/08/19 13:00) Bradycardia Review of Systems Constitutional: PRESENT: fatigue, weakness. ABSENT: anorexia, chills, fever(s), headache(s), night sweats Nose, Mouth, and Throat: ABSENT: mouth pain, sore throat Cardiovascular: PRESENT: edema. ABSENT: chest pain, dyspnea on exertion, palpitations Respiratory: ABSENT: dyspnea, hemoptysis Gastrointestinal: ABSENT: abdominal pain, bloating, coffee ground emesis, constipation, diarrhea, dysphagia, heartburn, hematemesis Genitourinary: ABSENT: dysuria, hematuria Musculoskeletal: ABSENT: deformity, joint swelling Integumentary: PRESENT: rash - Chronic lymphedema of both lower extremities. ABSENT: lesions, pruritus Neurological: PRESENT: numbness. ABSENT: abnormal movements, abnormal speech, confusion, convulsions, focal weakness, frequent falls, lack of coordination Hematologic/Lymphatic: ABSENT: easy bruising, lymphadenopathy Physical Exam Vital Signs: Temp Pulse Resp BP Pulse Ox 97.8 F 72 18 132/71 H 100 11/09/19 12:28 11/09/19 12:28 11/09/19 12:28 11/09/19 12:28 11/09/19 12:28 Intake & Output 11/08/19 11/09/19 11/10/19 06:59 06:59 06:59 Intake Total 1755 Balance 1755 Weight 114.3 kg General appearance: PRESENT: no acute distress Eye exam: PRESENT: EOMI. ABSENT: scleral icterus Ear exam: PRESENT: normal external ear exam Mouth exam: PRESENT: neck supple. ABSENT: moist Neck exam: ABSENT: lymphadenopathy, meningismus, tenderness, thyromegaly, tracheal deviation Respiratory exam: PRESENT: clear to auscultation paulie. ABSENT: crackles Cardiovascular exam: PRESENT: +S1, +S2 GI/Abdominal exam: PRESENT: normal bowel sounds, soft. ABSENT: organomegaly, tenderness Extremities exam: PRESENT: +1 edema - She is got rather large legs with chronic venous changes/changes suggestive of lymphedema Neurological exam: PRESENT: alert, awake, oriented to person, oriented to place, other - No asterixis Skin exam: PRESENT: rash - Both lower extremities.. ABSENT: erythema, jaundice, mottled Results Laboratory Results: 11/09/19 11:42 11/09/19 11:42 11/08/19 11/08/19 11/08/19 13:50 13:50 13:50 WBC 6.8 RBC 3.94 Hgb 11.5 L Hct 35.1 L MCV 89 MCH 29.1 MCHC 32.7 RDW 16.6 H Plt Count 199 Seg Neutrophils % 73.9 Sodium Cancelled Potassium Cancelled Chloride Cancelled Carbon Dioxide Cancelled Anion Gap Cancelled BUN Cancelled Creatinine Cancelled Est GFR ( Amer) Cancelled Est GFR (Non-Af Amer) Cancelled Glucose Cancelled Calcium Cancelled Magnesium Total Bilirubin Cancelled AST Cancelled Alkaline Phosphatase Cancelled Total Protein Cancelled Albumin Cancelled Lipase Cancelled Urine Color YELLOW Urine Appearance CLOUDY Urine pH 5.0 Ur Specific [place] 1.016 Urine Protein NEGATIVE Urine Glucose (UA) NEGATIVE Urine Ketones NEGATIVE Urine Blood NEGATIVE Urine RBC (Auto) 7 11/08/19 11/09/19 11/09/19 15:46 11:42 11:42 WBC 6.3 RBC 3.81 Hgb 10.7 L Hct 32.5 L MCV 86 MCH 28.0 MCHC 32.8 RDW 15.9 H Plt Count 175 Seg Neutrophils % 74.3 Sodium 135.8 L 137.2 Potassium 7.3 H* 5.1 H D Chloride 112 H 110 H Carbon Dioxide 14 L 16 L Anion Gap 10 11 BUN 113 H 93 H D Creatinine 4.26 H 3.12 H Est GFR ( Amer) 13 L 18 L Est GFR (Non-Af Amer) Glucose 175 H 171 H Calcium 9.4 8.9 Magnesium 2.0 Total Bilirubin 0.2 AST 18 Alkaline Phosphatase 68 Total Protein 7.2 Albumin 3.6 Lipase 372.9 H Urine Color Urine Appearance Urine pH Ur Specific [place] Urine Protein Urine Glucose (UA) Urine Ketones Urine Blood Urine RBC (Auto) 11/08/19 13:50 Clean Catch Midstream Urine Culture - Final Mixed Urogenital Rosie Group G Beta Streptococcus Assessment & Plan - Diagnosis (1) Hyperkalemia Is this a current diagnosis for this admission?: Yes Plan: Severe with EKG changes. Temporizing measures were instituted in the ER yesterday along with IV fluids and her potassium today is down to 5.1 with improving creatinine. She does not require hemodialysis at the moment. She should not be on any sort of KARINA inhibitors or similar drugs. She should be started on Veltassa 8.5 g daily on discharge. She should be followed by my office in 10 to 14 days time with with chemistry labs. (2) Acute kidney injury superimposed on chronic kidney disease Is this a current diagnosis for this admission?: Yes Plan: She has CKD stage III with a base creatinine of 1.5- 2.0. This does not warrant any renal replacements unless she has got severe persistent hyperkalemia or CHF etc. During this admission I see she is on lisinopril which should not have been put on her and is I would say is contraindicated in her. She should avoid dehydration of any sort. I would start her on Veltassa 8.5 g daily prior to discharge and we can watch over her potassium as an outpatient. Obviously she needs to be on a low potassium diet and dietitian referral during this admission would be helpful.Meanwhile continue on IV fluids. (3) Benign essential hypertension Plan: Well controlled to low normal. I would like to cut back and if possible taper off the atenolol given the fact that this would be another drug that predisposes her to hyperkalemia as well. (4) Diabetes mellitus type 2 in obese Plan: As per hospitalist. (5) Anemia of chronic renal failure, stage 4 (severe) Is this a current diagnosis for this admission?: Yes Plan: Patient gets erythropoietin as an outpatient through our office. (6) Lymphedema of both lower extremities Is this a current diagnosis for this admission?: Yes Plan: Status quo. (7) Morbid obesity Plan: Status quo - Time Time Spent: 50 to 70 Minutes - Total time taken to see the patient and discussed various possibilities as well as time taken to coordinate placement of catheter with the nurse and the surgeons.
[2019-11-09] MEDS: CITRIC ACID/SODIUM CITRATE ORAL SOLN 15 ML UDCUP PO SCH (17:12)
[2019-11-09] MEDS: PATIROMER 8.4 GM SUSP PACKET PO SCH (17:12)
[2019-11-09] MEDS ORDERED: FUROSEMIDE 40 MG TABLET ONE (17:14)
--- NOTE | 2019-11-09 18:16 | EKG REPORT ---
SEVERITY:- NORMAL ECG - SINUS RHYTHM : Confirmed by: Rick Jones MD 09-Nov-2019 18:15:21
[2019-11-09] MEDS: ATORVASTATIN CALCIUM 40 MG TABLET PO SCH (21:28)
[2019-11-10] MEDS: HEPARIN SOD (PORCINE) 5,000 UNIT/ML 1 ML VIAL SUBCUT SCH ×3 (05:53→21:16)
[2019-11-10] MEDS: NORMAL SALINE 1000 ML 1,000 ML IV PRN ×2 (05:53→21:15)
[2019-11-10 08:01] LABS: ANION GAP 9 (5-19); BLOOD UREA NITROGEN 74 mg/dL (7-20); CALCIUM 8.4 mg/dL (8.4-10.2); CARBON DIOXIDE 17 mmol/L (22-30); CHLORIDE 114 mmol/L (98-107); GLUCOSE 75 mg/dL (75-110); PHOSPHORUS 4.2 mg/dL (2.5-4.5); POTASSIUM 4.4 mmol/L (3.6-5.0)
[2019-11-10] MEDS ORDERED: AMLODIPINE BESYLATE 10 MG TABLET PO SCH (10:00)
[2019-11-10] MEDS: INSULIN LISPRO 100 UNIT/ML 3 ML VIAL SUBCUT SCH ×4 (10:45→21:20)
[2019-11-10] MEDS: HUM INSULIN NPH/REG INSULIN HM 100 UNIT/1 ML 3 ML SUBCUT SCH ×2 (10:46→18:10)
[2019-11-10] MEDS: FERROUS SULFATE 325 MG TABLET PO SCH ×2 (10:47→18:11)
[2019-11-10] MEDS: MAGNESIUM OXIDE 400 MG TABLET PO SCH (10:47)
[2019-11-10] MEDS: DOCUSATE SODIUM 100 MG CAPSULE PO SCH ×2 (10:47→18:11)
[2019-11-10] MEDS: FUROSEMIDE 40 MG TABLET PO SCH (10:47)
[2019-11-10] MEDS: ASCORBIC ACID 500 MG TABLET PO SCH (10:47)
[2019-11-10] MEDS: AMLODIPINE BESYLATE 5 MG TABLET PO SCH (10:47)
[2019-11-10] MEDS: ATENOLOL 50 MG TABLET PO SCH (10:47)
[2019-11-10] MEDS: FAMOTIDINE 20 MG TABLET PO SCH ×2 (10:48→22:36)
[2019-11-10] MEDS: CITRIC ACID/SODIUM CITRATE ORAL SOLN 15 ML UDCUP PO SCH ×2 (10:59→18:11)
--- NOTE | 2019-11-10 17:19 | PDOC PROGRESS REPORT ---
Subjective Progress Note for:: 11/10/19 Subjective:: No adverse events overnight. No new complaints. Vital signs been stable. She is had good urine output. Appetite is improved. She says she feels a lot better overall. Reason For Visit: ACUTE ON CHRONIC KIDNEY INJURY,HYPERKALEMIA,HYPERT Physical Exam Vital Signs: Temp Pulse Resp BP Pulse Ox 98.3 F 79 16 112/53 L 97 11/10/19 03:48 11/10/19 07:00 11/10/19 03:48 11/10/19 03:48 11/10/19 03:48 Intake & Output 11/09/19 11/10/19 11/11/19 06:59 06:59 07:59 Intake Total 1755 2790 Balance 1755 2790 Weight 114.3 kg 117 kg General appearance: PRESENT: no acute distress, cooperative, disheveled, morbidly obese Respiratory exam: PRESENT: clear to auscultation paulie, symmetrical, unlabored. ABSENT: accessory muscle use, crackles, prolonged expiratory phas, retraction, rhonchi, tachypnea, wheezes Cardiovascular exam: PRESENT: RRR, +S1, +S2 Pulses: PRESENT: normal carotid pulses Vascular exam: PRESENT: normal capillary refill GI/Abdominal exam: PRESENT: normal bowel sounds, soft. ABSENT: distended, guarding, rebound, tenderness Extremities exam: PRESENT: +2 edema. ABSENT: clubbing Musculoskeletal exam: PRESENT: normal inspection. ABSENT: deformity Neurological exam: PRESENT: alert, awake, oriented to person, oriented to place, oriented to situation Psychiatric exam: PRESENT: appropriate affect, normal mood Skin exam: PRESENT: dry, warm Results Laboratory Results: 11/09/19 11:42 11/10/19 06:56 11/10/19 06:56 Sodium 140.1 Potassium 4.4 Chloride 114 H Carbon Dioxide 17 L Anion Gap 9 BUN 74 H Creatinine 2.59 H Est GFR ( Amer) 22 L Glucose 75 Calcium 8.4 Phosphorus 4.2 Magnesium 1.8 11/08/19 13:50 Clean Catch Midstream Urine Culture - Final Mixed Urogenital Rosie Group G Beta Streptococcus Assessment and Plan - Diagnosis (1) Ofoft-ys-murlqmm kidney injury Qualifiers: Acute renal failure type: unspecified Chronic kidney disease stage: stage 3 (moderate) Qualified Code(s): N17.9 - Acute kidney failure, unspecified; N18.3 - Chronic kidney disease, stage 3 (moderate) Is this a current diagnosis for this admission?: Yes Plan: She had improvements in her BUN and creatinine with IV fluids, will continue current treatment. (2) Hyperkalemia Is this a current diagnosis for this admission?: Yes Plan: Resolved. Patient is on patiromer (3) Lymphedema of both lower extremities Is this a current diagnosis for this admission?: Yes Plan: Outpatient vascular surgery follow-up (4) Morbid obesity Is this a current diagnosis for this admission?: Yes Plan: Strongly encouraged lifestyle modification - Time Time Spent with patient: 15-24 minutes
[2019-11-10] MEDS: PATIROMER 8.4 GM SUSP PACKET PO SCH (18:10)
[2019-11-10] MEDS: ATORVASTATIN CALCIUM 40 MG TABLET PO SCH (21:20)
[2019-11-11] MEDS: NORMAL SALINE 1000 ML 1,000 ML IV PRN (05:22)
[2019-11-11] MEDS: HEPARIN SOD (PORCINE) 5,000 UNIT/ML 1 ML VIAL SUBCUT SCH ×2 (05:24→15:02)
[2019-11-11] MEDS: INSULIN LISPRO 100 UNIT/ML 3 ML VIAL SUBCUT SCH ×3 (08:29→16:52)
[2019-11-11] MEDS: FERROUS SULFATE 325 MG TABLET PO SCH ×2 (09:26→17:49)
[2019-11-11] MEDS: MAGNESIUM OXIDE 400 MG TABLET PO SCH (09:26)
[2019-11-11] MEDS: AMLODIPINE BESYLATE 5 MG TABLET PO SCH (09:26)
[2019-11-11] MEDS: FUROSEMIDE 40 MG TABLET PO SCH (09:26)
[2019-11-11] MEDS: ATENOLOL 50 MG TABLET PO SCH (09:26)
[2019-11-11] MEDS: HUM INSULIN NPH/REG INSULIN HM 100 UNIT/1 ML 3 ML SUBCUT SCH ×2 (09:26→17:49)
[2019-11-11] MEDS: DOCUSATE SODIUM 100 MG CAPSULE PO SCH ×2 (09:26→17:50)
[2019-11-11] MEDS: ASCORBIC ACID 500 MG TABLET PO SCH (09:26)
[2019-11-11] MEDS: CITRIC ACID/SODIUM CITRATE ORAL SOLN 15 ML UDCUP PO SCH ×2 (09:27→17:49)
[2019-11-11] MEDS: FAMOTIDINE 20 MG TABLET PO SCH (09:58)
[2019-11-11 10:26] LABS: ANION GAP 8 (5-19); BLOOD UREA NITROGEN 52 mg/dL (7-20); CALCIUM 7.9 mg/dL (8.4-10.2); CARBON DIOXIDE 18 mmol/L (22-30); CHLORIDE 114 mmol/L (98-107); GLUCOSE 168 mg/dL (75-110); POTASSIUM 4.3 mmol/L (3.6-5.0)
[2019-11-11 15:41] VITALS: BP 140/58
[2019-11-11] MEDS: PATIROMER 8.4 GM SUSP PACKET PO SCH (17:38)
--- NOTE | 2019-11-11 17:39 | PDOC DISCHARGE SUMMARY ---
Impression - Admit/DC Date/PCP Admission Date/Primary Care Provider: 11/08/19 17:38 AQUILINO LIPSCOMB Discharge Date: 11/11/19 - Discharge Diagnosis (1) Thdbh-re-rbqauca kidney injury Is this a current diagnosis for this admission?: Yes (2) Hyperkalemia Is this a current diagnosis for this admission?: Yes (3) Lymphedema of both lower extremities Is this a current diagnosis for this admission?: Yes (4) Morbid obesity Is this a current diagnosis for this admission?: Yes - Additional Information Resuscitation Status: Full Code Discharge Diet: Cardiac, Diabetic, Other (Comments) Discharge Activity: Activity As Tolerated, Balance Activity w/Rest, Keep Legs Elevated Referrals: AQUILINO LIPSCOMB MD [Primary Care Provider] - Follow up as needed (STICKER IN BOOK ) Masha WAYNE MD [ACTIVE STAFF] - (10-14 days for follow-up, needs BMP prior to visit---sticker in book ) Prescriptions: Patiromer Calcium Sorbitex [Veltassa 8.4 gm Susp Packet] 8.4 gm PO WSUPPER #30 packet Home Medications: Amlodipine Besylate [Norvasc 10 mg Tablet] 10 mg PO DAILY 90 Days #90 05/21/19 Ergocalciferol (Vitamin D2) [Drisdol 50,000 unit (1.25MG) Capsule] 50,000 unit PO LOAIZA@1000 90 Days #05/21/19 Pravastatin Sodium [Pravachol] 40 mg PO DAILY 90 Days #90 05/21/19 Ascorbic Acid [Vitamin C 500 mg Tablet] 500 mg PO DAILY 11/08/19 B Complex W-C No.20/Folic Acid [Virt-Caps Softgel] 1 mg PO DAILY 11/08/19 Ferrous Sulfate [Feosol 325 mg Tablet] 325 mg PO BID 11/08/19 Hum Insulin NPH/Reg Insulin Hm [Insulin 70-30 (NPH/Reg) 100 unit/mL] 22 unit SUBCUT BID 11/08/19 Magnesium Oxide [Mag-Ox 400 mg Tablet] 400 mg PO DAILY 11/08/19 Atenolol [Tenormin 50 mg Tablet] 50 mg PO DAILY #0 11/11/19 Patiromer Calcium Sorbitex [Veltassa 8.4 gm Susp Packet] 8.4 gm PO WSUPPER #30 packet 11/11/19 History of Present Illiness History of Present Illness: CARMELO WHITTEN is a 64 year old female with hypertension, diabetes and near end-stage kidney disease. She has required urgent hemodialysis on 3 occasions but is not yet on continuous dialysis. Does have blood work drawn every 2 to 3 weeks. She was notified by her materials tech to go to the hospital because her serum potassium was extremely elevated. Evaluation in the emergency department revealed serum potassium 7.3, glucose 175, BUN 113 and creatinine 4.26. Hemoglobin was 11.5. Urinalysis was leukocyte Estrace positive. White blood cells, bacteria and hyaline casts were all noted. The EKG showed peaked T waves as well. The case was discussed with Dr. Wayne the on-call materials tech. The case was referred to the hospital service for IV fluids and close scrutiny of her blood work and EKG. This will include serial labs at 2-hour intervals and serial EKGs as well. She will be admitted to the [facility] on telemetry. Hospital Course Hospital Course: She had a trialysis catheter placed in case she would need dialysis, but fortunately she did not, and she actually responded very well to IV fluids. Her creatinine got back down to its baseline. Nephrology recommended that she go on patiromer. She will follow-up with nephrology in 10 to 14 days for metabolic panel monitoring. She also suffers from chronic lymphedema and has follow-up scheduled with a vascular surgeon in [place] in approximately 3 weeks. Her labs and examination were reassuring and she was discharged in stable condition. Physical Exam Vital Signs: Temp Pulse Resp BP Pulse Ox 97.8 F 74 16 140/58 H 97 11/11/19 15:39 11/11/19 15:39 11/11/19 15:39 11/11/19 15:39 11/11/19 15:39 Intake & Output 11/10/19 11/11/19 11/12/19 05:59 06:59 06:59 Intake Total 1105 Balance 1105 Weight General appearance: PRESENT: no acute distress, cooperative, disheveled, morbidly obese Respiratory exam: PRESENT: clear to auscultation paulie, symmetrical, unlabored. ABSENT: accessory muscle use, crackles, prolonged expiratory phas, retraction, rhonchi, tachypnea, wheezes Cardiovascular exam: PRESENT: RRR, +S1, +S2 Pulses: PRESENT: normal carotid pulses Vascular exam: PRESENT: normal capillary refill GI/Abdominal exam: PRESENT: normal bowel sounds, soft. ABSENT: distended, guarding, rebound, tenderness Extremities exam: PRESENT: +2 edema. ABSENT: clubbing Musculoskeletal exam: PRESENT: normal inspection. ABSENT: deformity Neurological exam: PRESENT: alert, awake, oriented to person, oriented to place, oriented to situation Psychiatric exam: PRESENT: appropriate affect, normal mood Skin exam: PRESENT: dry, warm Results Laboratory Results: WBC 6.3 10^3/uL (4.0-10.5) 11/09/19 11:42 RBC 3.81 10^6/uL (3.72-5.28) 11/09/19 11:42 Hgb 10.7 g/dL (12.0-15.5) L 11/09/19 11:42 Hct 32.5 % (36.0-47.0) L 11/09/19 11:42 MCV 86 fl (80-97) 11/09/19 11:42 MCH 28.0 pg (27.0-33.4) 11/09/19 11:42 MCHC 32.8 g/dL (32.0-36.0) 11/09/19 11:42 RDW 15.9 % (11.5-14.0) H 11/09/19 11:42 Plt Count 175 10^3/uL (150-450) 11/09/19 11:42 Lymph % (Auto) 14.3 % (13-45) 11/09/19 11:42 [place] % (Auto) 8.5 % (3-13) 11/09/19 11:42 Eos % (Auto) 2.4 % (0-6) 11/09/19 11:42 Baso % (Auto) 0.5 % (0-2) 11/09/19 11:42 Absolute Neuts (auto) 4.7 10^3/uL (1.7-8.2) 11/09/19 11:42 Absolute Lymphs (auto) 0.9 10^3/uL (0.5-4.7) 11/09/19 11:42 Absolute Monos (auto) 0.5 10^3/uL (0.1-1.4) 11/09/19 11:42 Absolute Eos (auto) 0.2 10^3/uL (0.0-0.6) 11/09/19 11:42 Absolute Basos (auto) 0.0 10^3/uL (0.0-0.2) 11/09/19 11:42 Seg Neutrophils % 74.3 % (42-78) 11/09/19 11:42 Sodium 139.7 mmol/L (137-145) 11/11/19 09:30 Potassium 4.3 mmol/L (3.6-5.0) 11/11/19 09:30 Chloride 114 mmol/L (98-107) H 11/11/19 09:30 Carbon Dioxide 18 mmol/L (22-30) L 11/11/19 09:30 Anion Gap 8 (5-19) 11/11/19 09:30 BUN 52 mg/dL (7-20) H 11/11/19 09:30 Creatinine 2.01 mg/dL (0.52-1.25) H 11/11/19 09:30 Est GFR ( Amer) 30 (>60) L 11/11/19 09:30 Est GFR (Non-Af Amer) Cancelled 11/08/19 13:50 Est GFR (MDRD) Non-Af 25 (>60) L 11/11/19 09:30 Glucose 168 mg/dL (75-110) H 11/11/19 09:30 POC Glucose 121 mg/dL (70-110) H 11/11/19 16:19 Calcium 7.9 mg/dL (8.4-10.2) L 11/11/19 09:30 Phosphorus 4.2 mg/dL (2.5-4.5) 11/10/19 06:56 Magnesium 1.8 mg/dL (1.6-2.3) 11/10/19 06:56 Total Bilirubin 0.2 mg/dL (0.2-1.3) 11/08/19 15:46 Direct Bilirubin 0.0 mg/dL (0.0-0.4) 11/08/19 15:46 Neonat Total Bilirubin Not Reportable 11/08/19 15:46 Neonat Direct Bilirubin Not Reportable 11/08/19 15:46 Neonat Indirect Bili Not Reportable 11/08/19 15:46 AST 18 U/L (14-36) 11/08/19 15:46 ALT 13 U/L (<35) 11/08/19 15:46 Alkaline Phosphatase 68 U/L (38-126) 11/08/19 15:46 Total Protein 7.2 g/dL (6.3-8.2) 11/08/19 15:46 Albumin 3.6 g/dL (3.5-5.0) 11/08/19 15:46 Lipase 372.9 U/L (23-300) H 11/08/19 15:46 EGFR Cancelled 11/08/19 13:50 Urine Color YELLOW 11/08/19 13:50 Urine Appearance CLOUDY 11/08/19 13:50 Urine pH 5.0 (5.0-9.0) 11/08/19 13:50 Ur Specific [place] 1.016 11/08/19 13:50 Urine Protein NEGATIVE mg/dL (NEGATIVE) 11/08/19 13:50 Urine Glucose (UA) NEGATIVE mg/dL (NEGATIVE) 11/08/19 13:50 Urine Ketones NEGATIVE mg/dL (NEGATIVE) 11/08/19 13:50 Urine Blood NEGATIVE (NEGATIVE) 11/08/19 13:50 Urine Nitrite (Reflex) NEGATIVE (NEGATIVE) 11/08/19 13:50 Urine Bilirubin NEGATIVE (NEGATIVE) 11/08/19 13:50 Urine Urobilinogen NEGATIVE mg/dL (<2.0) 11/08/19 13:50 Leukocyte Esterase Rfl MODERATE (NEGATIVE) H 11/08/19 13:50 Urine RBC (Auto) 7 /HPF 11/08/19 13:50 U Hyaline Cast (Auto) 21 /LPF 11/08/19 13:50 Urine Bacteria (Auto) 3+ /HPF 11/08/19 13:50 Urine WBC (Reflex) 16 /HPF 11/08/19 13:50 Squamous Epi Cells Auto 34 /HPF 11/08/19 13:50 Urine Mucus (Auto) RARE /LPF 11/08/19 13:50 Urine Ascorbic Acid 40 (NEGATIVE) H 11/08/19 13:50 Plan Time Spent: Greater than 30 Minutes Stroke Is this a Stroke Patient?: No Acute Heart Failure - Is this a Heart Failure Patient?: No
== END 2019-11-11 18:30 | disposition home or self-care (01) | DRG 683 ==
LOC: ER 12:51 → EH 17:38 → 3W 18:57
PROVIDERS: ADMIT Hospitalist; ATTEND Hospitalist
PROC: 06HM33Z Insertion of Infusion Device into Right Femoral Vein, Percutaneous Approach (ICD-10-PCS; principal; 2019-11-09)
PROC: B54BZZA Ultrasonography of Right Lower Extremity Veins, Guidance (ICD-10-PCS; 2019-11-09)
DX: N17.9 Acute kidney failure, unspecified (principal); N30.00 Acute cystitis without hematuria; E87.5 Hyperkalemia; N18.4 Chronic kidney disease, stage 4 (severe); D63.1 Anemia in chronic kidney disease; E86.0 Dehydration; E11.22 Type 2 diabetes mellitus with diabetic chronic kidney disease; E11.40 Type 2 diabetes mellitus with diabetic neuropathy, unspecified; E66.01 Morbid (severe) obesity due to excess calories; I89.0 Lymphedema, not elsewhere classified; E11.65 Type 2 diabetes mellitus with hyperglycemia; I12.9 Hypertensive chronic kidney disease with stage 1 through stage 4 chronic kidney disease, or unspecified chronic kidney disease; E78.5 Hyperlipidemia, unspecified; I87.8 Other specified disorders of veins; D50.9 Iron deficiency anemia, unspecified; G47.30 Sleep apnea, unspecified; Z90.710 Acquired absence of both cervix and uterus; Z79.4 Long term (current) use of insulin; Z79.899 Other long term (current) drug therapy; Z88.5 Allergy status to narcotic agent; Z83.3 Family history of diabetes mellitus; Z82.49 Family history of ischemic heart disease and other diseases of the circulatory system
CPT/HCPCS: 36415; 80048; 80053; 81001; 82962; 83690; 83735; 84100; 85025; 87086; 87088; 93005; 93010; 96361; 96374; 96375; 99285; C1752; J0610; J1642; J1644; J1815; J1940; J3490; J7030

== ENCOUNTER → 2019-11-23 | Outpatient (CLI) | payer MEDICARE ==
[2019-11-24 12:22] LABS: ANION GAP 14 (5-19); BLOOD UREA NITROGEN 63 mg/dL (7-20); CALCIUM 9.4 mg/dL (8.4-10.2); CARBON DIOXIDE 12 mmol/L (22-30); CHLORIDE 110 mmol/L (98-107); GLUCOSE 216 mg/dL (75-110); POTASSIUM 5.2 mmol/L (3.6-5.0)
== END ==
LOC: OD 11:19
PROVIDERS: ATTEND Internal Medicine Nephrology
DX: E11.22 Type 2 diabetes mellitus with diabetic chronic kidney disease (principal); I12.9 Hypertensive chronic kidney disease with stage 1 through stage 4 chronic kidney disease, or unspecified chronic kidney disease; N18.3 Chronic kidney disease, stage 3 (moderate); D63.1 Anemia in chronic kidney disease; E87.2 Acidosis; E83.42 Hypomagnesemia
CPT/HCPCS: 36415; 80048

== ENCOUNTER 2019-12-03 16:39 | Inpatient (IN) | payer MEDICARE ==
[2019-12-03] MEDS ORDERED: NORMAL SALINE 1000 ML 1,000 ML IV ONE (16:57)
--- NOTE | 2019-12-03 16:59 | ER Document Report ---
ED General - General Chief Complaint: Abnormal Lab Results Stated Complaint: ABNORMAL LABS Time Seen by Provider: 12/03/19 16:47 Primary Care Provider: APRIL HA PA-C [Primary Care Provider] - Follow up as needed Mode of Arrival: Ambulatory Information source: Patient Notes: Patient had outpatient lab work performed today and was called by her consulting intern office to come here for abnormal lab work. Patient denies any complaints. Patient denies any chest pain, pain symptoms at all, shortness of breath or cough. Patient states she has had some mild diarrhea recently. TRAVEL OUTSIDE OF THE [place] IN LAST 30 DAYS: No - HPI Onset: This afternoon Onset/Duration: Gradual Quality of pain: No pain Pain Level: Denies Associated symptoms: Diarrhea. denies: Body/muscle aches, Chest pain, Chills, Nonproductive cough, Productive cough, Fever, Headache, Nausea, Vomiting, Shortness of breath Exacerbated by: Denies Relieved by: Denies Similar symptoms previously: Yes Recently seen / treated by doctor: Yes - Related Data Allergies/Adverse Reactions: oxycodone [Oxycodone] Adverse Reaction (Verified 12/03/19 16:47) oxycodone HCl [From Percocet] Adverse Reaction (Verified 12/03/19 16:47) Bradycardia Home Medications: see large bag at bedside. Past Medical History - General Information source: Patient - Social History Smoking Status: Never Smoker Chew tobacco use (# tins/day): No Frequency of alcohol use: None Drug Abuse: None Occupation: None Family History: DM, Hypertension Patient has suicidal ideation: No Patient has homicidal ideation: No - Past Medical History Cardiac Medical History: Reports: Hx Hypercholesterolemia, Hx Hypertension Pulmonary Medical History: Reports: Hx Sleep Apnea Endocrine Medical History: Reports: Hx Diabetes Mellitus Type 1, Hx Diabetes Mellitus Type 2 Renal/ Medical History: Reports: Hx Renal Insufficiency. Denies: Hx Peritoneal Dialysis Skin Medical History: Reports Hx Cellulitis Psychiatric Medical History: Denies: Hx Depression Past Surgical History: Reports: Hx Hysterectomy, Other - Surgery to form a fi stula in the left arm. - Immunizations Hx Diphtheria, Pertussis, Tetanus Vaccination: No Hx Pneumococcal Vaccination: 09/05/99 Review of Systems - Review of Systems Constitutional: No symptoms reported. denies: Chills, Fever, Weakness, Recent illness EENT: No symptoms reported Cardiovascular: No symptoms reported. denies: Chest pain, Dizziness, Lightheaded Respiratory: No symptoms reported. denies: Cough, Short of breath Gastrointestinal: Diarrhea. denies: Abdominal pain, Nausea, Vomiting Genitourinary: No symptoms reported. denies: Dysuria, Flank pain Female Genitourinary: No symptoms reported Musculoskeletal: No symptoms reported. denies: Back pain Skin: No symptoms reported Hematologic/Lymphatic: No symptoms reported Neurological/Psychological: No symptoms reported. denies: Weakness, Headaches Physical Exam - Vital signs Vitals: Pulse Ox 99 12/03/19 18:00 - General General appearance: Appears well, Alert In distress: None - HEENT Head: Normocephalic, Atraumatic Eyes: Other - Hordeolum to left lower lid Conjunctiva: Normal Nasal: Normal Mouth/Lips: Normal Mucous membranes: Normal Neck: Normal, Supple - Respiratory Respiratory status: No respiratory distress Chest status: Nontender Breath sounds: Normal Chest palpation: Normal - Cardiovascular Rhythm: Regular Heart sounds: S1 appreciated, S2 appreciated - Abdominal Inspection: Morbidly Obese Tenderness: Nontender - Back Back: Normal, Nontender. No: CVA tenderness - Extremities General upper extremity: Normal inspection, Normal ROM General lower extremity: Normal ROM, Other - lymphedema - Neurological Neuro grossly intact: Yes Cognition: Normal [place] Coma Scale Eye Opening: Spontaneous [place] Coma Scale Verbal: Oriented [place] Coma Scale Motor: Obeys Commands [place] Coma Scale Total: 15 - Psychological Associated symptoms: Normal affect, Normal mood - Skin Skin Temperature: Warm Skin irregularity: other - Venous stasis wounds to bilateral lower extremities, 3+ edema to the left, 2+ to the right. Patient with large bulla to the dorsum of the feet bilaterally. Wounds weeping and malodorous Irregularity with: Swelling, Weeping Course - Re-evaluation Re-evalutation: 12/03/19 20:[address] Martin, Dr Martin to bedside. Recommend starting IV Rocephin and IV Flagyl and consulting with hospitalist for admission at this time. 12/03/19 21:[address] Shea who agrees to accept patient for medical floor admission at this time - Vital Signs Vital signs: Temp Pulse Resp BP Pulse Ox 97.9 F 18 105/54 L 100 12/03/19 18:04 12/03/19 21:01 12/03/19 21:01 12/03/19 20:11 - Laboratory Result Diagrams: 12/03/19 19:10 12/03/19 19:10 Laboratory results interpreted by me: 12/03/19 12/03/19 19:10 19:10 WBC 13.3 H Hgb 11.3 L Hct 34.9 L RDW 14.3 H Seg Neuts % (Manual) 80 H Band Neutrophils % 1 L Lymphocytes % (Manual) 10 L Abs Neuts (Manual) 10.8 H Sodium 130.3 L Carbon Dioxide 16 L BUN 99 H Creatinine 4.84 H Est GFR ( Amer) 11 L Est GFR (MDRD) Non-Af 9 L Glucose 155 H Labs- Entire Visit 12/03/19 12/03/19 19:10 19:10 WBC 13.3 H RBC 4.10 Hgb 11.3 L Hct 34.9 L MCV 85 MCH 27.6 MCHC 32.4 RDW 14.3 H Plt Count 219 Lymph % (Auto) Not Reportable [place] % (Auto) Not Reportable Eos % (Auto) Not Reportable Baso % (Auto) Not Reportable Absolute Neuts (auto) Not Reportable Absolute Lymphs (auto) Not Reportable Absolute Monos (auto) Not Reportable Absolute Eos (auto) Not Reportable Absolute Basos (auto) Not Reportable Total Counted 100 Seg Neutrophils % Not Reportable Seg Neuts % (Manual) 80 H Band Neutrophils % 1 L Lymphocytes % (Manual) 10 L Monocytes % (Manual) 6 Eosinophils % (Manual) 3 Basophils % (Manual) 0 Abs Neuts (Manual) 10.8 H Abs Lymphs (Manual) 1.3 Abs Monocytes (Manual) 0.8 Absolute Eos (Manual) 0.4 Abs Basophils (Manual) 0.0 Clumped Platelets PRESENT Platelet Comment ADEQUATE Poikilocytosis SLIGHT Anisocytosis SLIGHT Ovalocytes SLIGHT Sodium 130.3 L Potassium 4.6 Chloride 98 Carbon Dioxide 16 L Anion Gap 16 BUN 99 H Creatinine 4.84 H Est GFR ( Amer) 11 L Est GFR (MDRD) Non-Af 9 L Glucose 155 H Calcium 9.6 Magnesium 2.3 Total Bilirubin 0.3 Direct Bilirubin 0.3 Neonat Total Bilirubin Not Reportable Neonat Direct Bilirubin Not Reportable Neonat Indirect Bili Not Reportable AST 20 ALT 12 Alkaline Phosphatase 82 Total Protein 8.0 Albumin 3.9 - Diagnostic Test Radiology reviewed: Reports reviewed Discharge - Discharge Clinical Impression: Lymphedema of both lower extremities Leukocytosis Qualifiers: Leukocytosis type: unspecified Qualified Code(s): D72.829 - Elevated white blood cell count, unspecified Acute renal failure Qualifiers: Acute renal failure type: unspecified Qualified Code(s): N17.9 - Acute kidney failure, unspecified Cellulitis Qualifiers: Site of cellulitis: extremity Site of cellulitis of extremity: lower extremity Laterality: unspecified laterality Qualified Code(s): L03.119 - Cellulitis of unspecified part of limb Condition: Stable Disposition: ADMITTED INPATIENT Admitting Provider: Shabbir (Hospitalist) Unit Admitted: Medical Floor Referrals: APRIL HA PA-C [Primary Care Provider] - Follow up as needed
--- NOTE | 2019-12-03 18:09 | RADIOLOGY REPORT (SQ) ---
EXAM DESCRIPTION: CHEST SINGLE VIEW IMAGES COMPLETED DATE/TIME: 12/03/2019 4:18 pm REASON FOR STUDY: LEDA COMPARISON: Chest radiograph, 07/09/2019 EXAM PARAMETERS: NUMBER OF VIEWS: One view. TECHNIQUE: Single frontal radiographic view of the chest acquired. RADIATION DOSE: NA LIMITATIONS: None. FINDINGS: LUNGS AND PLEURA: No opacities, masses or pneumothorax. No pleural effusion. MEDIASTINUM AND HILAR STRUCTURES: No masses. Contour normal. HEART AND VASCULAR STRUCTURES: Heart normal in size. Normal vasculature. BONES: No acute findings. HARDWARE: None in the chest. OTHER: No other significant finding. IMPRESSION: NO ACUTE RADIOGRAPHIC FINDING IN THE CHEST. TECHNICAL DOCUMENTATION: JOB ID: [id number] 2010 [employer]- All Rights Reserved Reading location - IP/workstation name: [email or web address]
[2019-12-03 19:30] LABS: HEMATOCRIT 34.9 % (36.0-47.0); HEMOGLOBIN 11.3 g/dL (12.0-15.5); MEAN CORPUSCULAR HEMOGLOBIN 27.6 pg (27.0-33.4); MEAN CORPUSCULAR HGB CONC 32.4 g/dL (32.0-36.0); MEAN CORPUSCULAR VOLUME 85 fl (80-97); RED CELL DISTRIBUTION WIDTH 14.3 % (11.5-14.0); WHITE BLOOD COUNT 13.3 10^3/uL (4.0-10.5)
[2019-12-03 19:49] LABS: ALBUMIN 3.9 g/dL (3.5-5.0); ALKALINE PHOSPHATASE 82 U/L (38-126); ANION GAP 16 (5-19); ASPARTATE AMINO TRANSFERASE 20 U/L (14-36); BILIRUBIN,DIRECT 0.3 mg/dL (0.0-0.4); BILIRUBIN,TOTAL 0.3 mg/dL (0.2-1.3); BLOOD UREA NITROGEN 99 mg/dL (7-20); CALCIUM 9.6 mg/dL (8.4-10.2); CARBON DIOXIDE 16 mmol/L (22-30); CHLORIDE 98 mmol/L (98-107); GLUCOSE 155 mg/dL (75-110); POTASSIUM 4.6 mmol/L (3.6-5.0)
[2019-12-03 19:53] LABS: PLATELET COUNT 219 10^3/uL (150-450)
[2019-12-03 19:58] LABS: ABSOLUTE LYMPHOCYTES# (MANUAL) 1.3 10^3/uL (0.5-4.7); ABSOLUTE MONOCYTES # (MANUAL) 0.8 10^3/uL (0.1-1.4); ANISOCYTOSIS SLIGHT; BAND NEUTROPHILS % (MANUAL) 1 % (3-5); BASOPHILS % (MANUAL) 0 % (0-2); EOSINOPHILS % (MANUAL) 3 % (0-6); LYMPHOCYTES % (MANUAL) 10 % (13-45); MONOCYTES % (MANUAL) 6 % (3-13); OVALOCYTES SLIGHT; PLATELET CLUMPS PRESENT; PLATELET COMMENT ADEQUATE; POIKILOCYTOSIS SLIGHT; SEGMENTED NEUTROPHILS % (MAN) 80 % (42-78); TOTAL CELLS COUNTED 100
[2019-12-03] MEDS ORDERED: CEFTRIAXONE 1 GM/D5W RTU 1 GM/50 ML RTUPB IV ONE (20:13)
[2019-12-03] MEDS ORDERED: METRONIDAZOLE 500 MG/NS RTU 500 MG/100 ML RTUPB IV ONE (21:00)
[2019-12-03] MEDS ORDERED: GLUCAGON,HUMAN RECOMB 1 MG INJ IM PRN (21:26)
[2019-12-03] MEDS ORDERED: ACETAMINOPHEN 325 MG TABLET PO PRN (21:26)
[2019-12-03] MEDS ORDERED: IPRATROPIUM/ALBUTEROL 0.5-2.5 MG/3 ML AMPUL NEB PRN (21:26)
[2019-12-03] MEDS ORDERED: METRONIDAZOLE 500 MG TABLET PO ONE (21:26)
[2019-12-03] MEDS ORDERED: MAG HYDROX/AL HYDROX/SIMETH SUSP 30 ML UDCUP PO PRN (21:26)
[2019-12-03] MEDS ORDERED: DEXTROSE 50%-WATER 25 GM/50 ML DISP.SYRIN IV PRN ×2 (21:26)
[2019-12-03] MEDS ORDERED: DEXTROSE 40% GEL 15 GM TUBE PO PRN ×2 (21:26)
[2019-12-03] MEDS ORDERED: NORMAL SALINE 1000 ML 1,000 ML IV SCH (21:30)
[2019-12-03] MEDS: CEFEPIME 1 GM/D5W RTU 1 GM/50 ML RTUPB IV SCH (22:43)
[2019-12-03] MEDS: HEPARIN SOD (PORCINE) 5,000 UNIT/ML 1 ML VIAL SUBCUT SCH (22:43)
[2019-12-03] MEDS: NORMAL SALINE 1000 ML 1,000 ML IV PRN (23:14)
[2019-12-04] MEDS: NORMAL SALINE 1000 ML 1,000 ML IV PRN ×2 (03:21→07:45)
--- NOTE | 2019-12-04 03:51 | PDOC H&P ---
History of Present Illness Admission Date/PCP: 12/03/19 21:35 APRIL HA PA-C Patient complains of: Abnormal labs History of Present Illness: CARMELO WHITTEN is a 64 year old female patient of Dr. Austin with a past medical history of morbid obesity, severe physical debility, diabetes, hypertension, MRSA cellulitis, chronic venous stasis with lymphedema, obstructive sleep apnea, noncompliance and CKD D3. She is referred to the emergency department after ro utine labs reveal a marketed decrease in renal function. Her GFR was reduced from 30-11 of the last 3 weeks. Patient denies recent change in diet or medications. She has poor insight of dietary restrictions. She otherwise complains of chronic edema and weeping from lymphedema with chronic venous stasis. Past Medical History Cardiac Medical History: Reports: Hyperlipidema, Hypertension Pulmonary Medical History: Reports: Sleep Apnea Endocrine Medical History: Reports: Diabetes Mellitus Type 1, Diabetes Mellitus Type 2 Renal/ Medical History: Reports: End Stage Renal Disease Psychiatric Medical History: Denies: Depression Hematology: Reports: Anemia Past Surgical History Past Surgical History: Reports: Hysterectomy, Other - Surgery to form a fistula in the left arm. Social History Information Source: Patient Smoking Status: Never Smoker Electronic Cigarette use?: No Frequency of Alcohol Use: None Hx Recreational Drug Use: No Drugs: None Hx Prescription Drug Abuse: No - Advance Directive Resuscitation Status: Full Code Family History Family History: DM, Hypertension Parental Family History Reviewed: Yes Children Family History Reviewed: Yes Sibling(s) Family History Reviewed.: Yes Medication/Allergy Home Medications: Ergocalciferol (Vitamin D2) [Drisdol 50,000 unit (1.25MG) Capsule] 50,000 unit PO LOAIZA@1000 90 Days #05/21/19 Pravastatin Sodium [Pravachol] 40 mg PO DAILY 90 Days #05/21/19 Ascorbic Acid [Vitamin C 500 mg Tablet] 500 mg PO DAILY 11/08/19 B Complex W-C No.20/Folic Acid [Virt-Caps Softgel] 1 mg PO DAILY 11/08/19 Ferrous Sulfate [Feosol 325 mg Tablet] 325 mg PO BID 11/08/19 Hum Insulin NPH/Reg Insulin Hm [Insulin 70-30 (NPH/Reg) 100 unit/mL] 22 unit SUBCUT BIDP PRN 11/08/19 Magnesium Oxide [Mag-Ox 400 mg Tablet] 400 mg PO DAILY 11/08/19 Atenolol [Tenormin 50 mg Tablet] 100 mg PO DAILY 12/03/19 Sodium Bicarbonate [Sodium Bicarbonate 650 mg Tablet] 650 mg PO BID 12/03/19 Sodium Zirconium Cyclosilicate [Lokelma] 1 packet PO BID 12/03/19 Allergies/Adverse Reactions: oxycodone [Oxycodone] Adverse Reaction (Verified 12/03/19 16:47) oxycodone HCl [From Percocet] Adverse Reaction (Verified 12/03/19 16:47) Bradycardia Review of Systems Constitutional: ABSENT: chills, fever(s), headache(s), weight gain, weight loss Eyes: ABSENT: visual disturbances Ears: ABSENT: hearing changes Cardiovascular: ABSENT: chest pain, dyspnea on exertion, edema, orthropnea, palpitations Respiratory: ABSENT: cough, hemoptysis Gastrointestinal: ABSENT: abdominal pain, constipation, diarrhea, hematemesis, hematochezia, nausea, vomiting Genitourinary: ABSENT: dysuria, hematuria Musculoskeletal: ABSENT: joint swelling Integumentary: ABSENT: rash, wounds Neurological: ABSENT: abnormal gait, abnormal speech, confusion, dizziness, focal weakness, syncope Psychiatric: ABSENT: anxiety, depression, homidical ideation, suicidal ideation Endocrine: ABSENT: cold intolerance, heat intolerance, polydipsia, polyuria Hematologic/Lymphatic: ABSENT: easy bleeding, easy bruising Physical Exam Vital Signs: Temp Pulse Resp BP Pulse Ox 98.1 F 91 16 116/57 L 100 12/03/19 23:08 12/03/19 23:08 12/03/19 23:08 12/03/19 23:08 12/03/19 23:08 Intake & Output 12/02/19 12/03/19 12/04/19 11:59 11:59 11:59 Intake Total 2100 Balance 2100 Weight 113.9 kg General appearance: PRESENT: no acute distress, cooperative, morbidly obese, well-developed, well-nourished Head exam: PRESENT: atraumatic, normocephalic Eye exam: PRESENT: conjunctiva pink, EOMI, PERRLA. ABSENT: scleral icterus Ear exam: PRESENT: normal external ear exam Mouth exam: PRESENT: moist, tongue midline Neck exam: ABSENT: carotid bruit, JVD, lymphadenopathy, thyromegaly Respiratory exam: PRESENT: clear to auscultation paulie. ABSENT: rales, rhonchi, wheezes Cardiovascular exam: PRESENT: RRR. ABSENT: diastolic murmur, rubs, systolic murmur Pulses: PRESENT: normal dorsalis pedis pul Vascular exam: PRESENT: normal capillary refill GI/Abdominal exam: PRESENT: normal bowel sounds, soft. ABSENT: distended, guarding, mass, organolmegaly, rebound, tenderness Rectal exam: PRESENT: deferred Extremities exam: PRESENT: full ROM, other - Malodorous, caseous discharge, +2 edema with severe and chronic changes of lymphedema of the bilateral lower extremity.. ABSENT: calf tenderness, clubbing, pedal edema Musculoskeletal exam: PRESENT: other - Malodorous, caseous discharge, +2 edema with severe and chronic changes of lymphedema of the bilateral lower extremity. Neurological exam: PRESENT: alert, awake, oriented to person, oriented to place, oriented to time, oriented to situation, CN II-XII grossly intact. ABSENT: motor sensory deficit Psychiatric exam: PRESENT: appropriate affect, normal mood. ABSENT: homicidal ideation, suicidal ideation Skin exam: PRESENT: dry, intact, warm, other - Malodorous, caseous discharge, +2 edema with severe and chronic changes of lymphedema of the bilateral lower extremity.. ABSENT: cyanosis, rash Results Laboratory Results: 12/03/19 19:10 12/03/19 19:10 12/03/19 12/03/19 19:10 19:10 WBC 13.3 H RBC 4.10 Hgb 11.3 L Hct 34.9 L MCV 85 MCH 27.6 MCHC 32.4 RDW 14.3 H Plt Count 219 Seg Neutrophils % Not Reportable Sodium 130.3 L Potassium 4.6 Chloride 98 Carbon Dioxide 16 L Anion Gap 16 BUN 99 H Creatinine 4.84 H Est GFR ( Amer) 11 L Glucose 155 H Calcium 9.6 Magnesium 2.3 Total Bilirubin 0.3 AST 20 Alkaline Phosphatase 82 Total Protein 8.0 Albumin 3.9 Impressions: Chest X-Ray 12/03/19 16:57 IMPRESSION: NO ACUTE RADIOGRAPHIC FINDING IN THE CHEST. Assessment and Plan - Diagnosis (1) Acute renal failure Qualifiers: Acute renal failure type: unspecified Qualified Code(s): N17.9 - Acute kidney failure, unspecified Is this a current diagnosis for this admission?: Yes Plan: Appears largely prerenal, volume resuscitate, avoid nephrotoxic meds and doses follow-up chemistry (2) Cellulitis Qualifiers: Site of cellulitis: extremity Site of cellulitis of extremity: lower extremity Laterality: unspecified laterality Qualified Code(s): L03.119 - Cellulitis of unspecified part of limb Is this a current diagnosis for this admission?: Yes Plan: Complicated by massive lymphedema, debility and renal failure, trial cefepime for Pseudomonas coverage and topical antifungal (3) Lymphedema of both lower extremities Is this a current diagnosis for this admission?: Yes Plan: Elevation as tolerated, wound care consult and referral (4) Diabetes 1.5, managed as type 1 Is this a current diagnosis for this admission?: Yes Plan: Outpatient regiment with Humalog sliding scale - Time Time Spent with patient: 25-34 minutes - Inpatient Certification Medical Necessity: Need Close Monitoring Due to Risk of Patient Decompensation
[2019-12-04] MEDS ORDERED: HUM INSULIN NPH/REG INSULIN HM 100 UNIT/1 ML 3 ML SUBCUT PRN (03:52)
[2019-12-04 05:36] LABS: APPEARANCE,URINE CLEAR; BILIRUBIN,URINE NEGATIVE (NEGATIVE); COLOR,URINE STRAW; GLUCOSE, URINE NEGATIVE (NEGATIVE); KETONES,URINE NEGATIVE (NEGATIVE); LEUKOCYTE ESTERASE,URINE NEGATIVE (NEGATIVE); NITRITE,URINE NEGATIVE (NEGATIVE); PROTEIN,URINE NEGATIVE (NEGATIVE); URINE SPECIFIC GRAVITY 1.005; UROBILINOGEN,URINE NEGATIVE mg/dL (<2.0)
[2019-12-04] MEDS: HEPARIN SOD (PORCINE) 5,000 UNIT/ML 1 ML VIAL SUBCUT SCH ×3 (06:45→21:48)
[2019-12-04] MEDS: INSULIN LISPRO 100 UNIT/ML 3 ML VIAL SUBCUT SCH ×3 (07:44→16:19)
[2019-12-04 08:37] LABS: ABSOLUTE EOSINOPHILS # (AUTO) 0.1 10^3/uL (0.0-0.6); ABSOLUTE LYMPHOCYTES (AUTO) 1.1 10^3/uL (0.5-4.7); ABSOLUTE MONOCYTES (AUTO) 0.9 10^3/uL (0.1-1.4); BASOPHILS % (AUTO) 0.3 % (0-2); EOSINOPHILS % (AUTO) 1.3 % (0-6); HEMATOCRIT 29.3 % (36.0-47.0); HEMOGLOBIN 9.5 g/dL (12.0-15.5); LYMPHOCYTES % (AUTO) 10.5 % (13-45); MEAN CORPUSCULAR HEMOGLOBIN 27.8 pg (27.0-33.4); MEAN CORPUSCULAR HGB CONC 32.5 g/dL (32.0-36.0); MEAN CORPUSCULAR VOLUME 85 fl (80-97); MONOCYTES % (AUTO) 8.6 % (3-13); PLATELET COUNT 184 10^3/uL (150-450); RED BLOOD COUNT 3.43 10^6/uL (3.72-5.28); RED CELL DISTRIBUTION WIDTH 14.5 % (11.5-14.0); SEGMENTED NEUTROPHILS % (AUTO) 79.3 % (42-78); TOTAL CELLS COUNTED % (AUTO) 100 %; WHITE BLOOD COUNT 10.1 10^3/uL (4.0-10.5)
[2019-12-04 08:43] LABS: ANION GAP 10 (5-19); BLOOD UREA NITROGEN 91 mg/dL (7-20); CALCIUM 8.6 mg/dL (8.4-10.2); CARBON DIOXIDE 14 mmol/L (22-30); CHLORIDE 109 mmol/L (98-107); GLUCOSE 160 mg/dL (75-110); POTASSIUM 4.2 mmol/L (3.6-5.0)
[2019-12-04] MEDS: MAGNESIUM OXIDE 400 MG TABLET PO SCH (09:09)
[2019-12-04] MEDS: TERBINAFINE HCL 250 MG TABLET PO SCH (09:09)
[2019-12-04] MEDS: CEFEPIME 1 GM/D5W RTU 1 GM/50 ML RTUPB IV SCH ×2 (09:09→21:48)
[2019-12-04] MEDS: DOCUSATE SODIUM 100 MG CAPSULE PO SCH ×2 (09:09→17:15)
[2019-12-04] MEDS: SODIUM BICARBONATE 650 MG TABLET PO SCH ×2 (09:09→17:15)
[2019-12-04] MEDS: ATENOLOL 50 MG TABLET PO SCH (09:09)
[2019-12-04] MEDS: ASCORBIC ACID 500 MG TABLET PO SCH (09:09)
[2019-12-04] MEDS: FERROUS SULFATE 325 MG TABLET PO SCH ×2 (09:10→17:15)
--- NOTE | 2019-12-04 09:26 | EKG REPORT ---
SEVERITY:- NORMAL ECG - SINUS RHYTHM : Confirmed by: Cherie Morris 04-Dec-2019 09:25:56
[2019-12-04] MEDS ORDERED: SODIUM ZIRCONIUM CYCLOSILICATE PO SCH (10:00)
[2019-12-04] MEDS ORDERED: NORMAL SALINE 1000 ML 1,000 ML IV PRN (12:53)
--- NOTE | 2019-12-04 12:59 | PDOC PROGRESS REPORT ---
Subjective Progress Note for:: 12/04/19 Subjective:: Patient denies any pain in her leg but does endorse she has been having weeping in her lower extremities. Foul-smelling and odorous. States she follows up with a wound clinic. However now she just does wound dressing. 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 Reason For Visit: LEG CELLULITIS, ACUTE RENAL FAILURE ON CKD Physical Exam Vital Signs: Temp Pulse Resp BP Pulse Ox 99.2 F 90 18 102/48 L 98 12/04/19 07:45 12/04/19 07:45 12/04/19 07:45 12/04/19 07:45 12/04/19 07:45 Intake & Output 12/03/19 12/04/19 12/05/19 06:59 06:59 06:59 Intake Total 2100 2290 Output Total 900 Balance 1200 2290 Weight 114.9 kg General appearance: PRESENT: no acute distress, cooperative Head exam: PRESENT: atraumatic Mouth exam: PRESENT: neck supple Neck exam: ABSENT: JVD Respiratory exam: PRESENT: symmetrical, unlabored. ABSENT: accessory muscle use, retraction, tachypnea GI/Abdominal exam: ABSENT: distended Extremities exam: PRESENT: other - 3+ nonpitting edema with weeping of serosanguineous fluid, crusting in both lower extremities and very malodorous Neurological exam: PRESENT: alert, awake, oriented to person, oriented to place, oriented to time Psychiatric exam: ABSENT: agitated, anxious Focused psych exam: ABSENT: pressured speech Skin exam: ABSENT: jaundice Results Laboratory Results: 12/04/19 06:40 12/04/19 06:40 12/03/19 12/03/19 12/04/19 19:10 19:10 05:20 WBC 13.3 H RBC 4.10 Hgb 11.3 L Hct 34.9 L MCV 85 MCH 27.6 MCHC 32.4 RDW 14.3 H Plt Count 219 Seg Neutrophils % Not Reportable Sodium 130.3 L Potassium 4.6 Chloride 98 Carbon Dioxide 16 L Anion Gap 16 BUN 99 H Creatinine 4.84 H Est GFR ( Amer) 11 L Glucose 155 H Calcium 9.6 Magnesium 2.3 Total Bilirubin 0.3 AST 20 Alkaline Phosphatase 82 Total Protein 8.0 Albumin 3.9 Urine Color STRAW Urine Appearance CLEAR Urine pH 5.0 Ur Specific [place] 1.005 Urine Protein NEGATIVE Urine Glucose (UA) NEGATIVE Urine Ketones NEGATIVE Urine Blood NEGATIVE Urine Nitrite NEGATIVE Ur Leukocyte Esterase NEGATIVE Urine WBC (Auto) 1 Urine RBC (Auto) 0 12/04/19 12/04/19 06:40 06:40 WBC 10.1 RBC 3.43 L Hgb 9.5 L Hct 29.3 L MCV 85 MCH 27.8 MCHC 32.5 RDW 14.5 H Plt Count 184 Seg Neutrophils % 79.3 H Sodium 133.2 L Potassium 4.2 Chloride 109 H Carbon Dioxide 14 L Anion Gap 10 BUN 91 H Creatinine 3.59 H Est GFR ( Amer) 15 L Glucose 160 H Calcium 8.6 Magnesium Total Bilirubin AST Alkaline Phosphatase Total Protein Albumin Urine Color Urine Appearance Urine pH Ur Specific [place] Urine Protein Urine Glucose (UA) Urine Ketones Urine Blood Urine Nitrite Ur Leukocyte Esterase Urine WBC (Auto) Urine RBC (Auto) Impressions: Chest X-Ray 12/03/19 16:57 IMPRESSION: NO ACUTE RADIOGRAPHIC FINDING IN THE CHEST. Assessment and Plan - Diagnosis (1) Acute kidney injury superimposed on chronic kidney disease Is this a current diagnosis for this admission?: Yes Plan: Improved with IV fluids given yesterday. Suspected prerenal azotemia. Recent Baseline creatinine somewhere between 2-3 but closer to 2. I will maintain on gentle IV hydration today and check BMP in the morning. Continue sodium bicarbonate. Avoid nephrotoxins. (2) Cellulitis Qualifiers: Site of cellulitis: extremity Site of cellulitis of extremity: lower extremity Laterality: unspecified laterality Qualified Code(s): L03.119 - Cellulitis of unspecified part of limb Is this a current diagnosis for this admission?: Yes Plan: Has leukocytosis on admission and increased weeping of wound. Currently on trial of cefepime and terbinafine since admission. I will continue for now but ultimately it is unlikely that antibiotics would have much of any effect on patient's condition and ultimately she will benefit more from adequate wound care, leg elevation, compression stockings and topical ointments. (3) Lymphedema of both lower extremities Is this a current diagnosis for this admission?: Yes Plan: Elevation as tolerated, wound care consult and referral (4) Diabetes mellitus type 2 in obese Is this a current diagnosis for this admission?: Yes Plan: Continue patient's insulin regimen. Accu-Cheks, carb restricted diet. - Time Time Spent with patient: Less than 15 minutes
[2019-12-04] MEDS: BACITRACIN ZINC OINTMENT 15 GM TP SCH (17:15)
[2019-12-04] MEDS ORDERED: ATORVASTATIN CALCIUM 10 MG TABLET PO SCH (22:00)
[2019-12-05 01:28] VITALS: BP 105/47
[2019-12-05] MEDS: HEPARIN SOD (PORCINE) 5,000 UNIT/ML 1 ML VIAL SUBCUT SCH ×2 (05:30→14:47)
[2019-12-05 05:46] LABS: ABSOLUTE BASOPHILS # (AUTO) 0.1 10^3/uL (0.0-0.2); ABSOLUTE EOSINOPHILS # (AUTO) 0.1 10^3/uL (0.0-0.6); ABSOLUTE LYMPHOCYTES (AUTO) 1.5 10^3/uL (0.5-4.7); ABSOLUTE MONOCYTES (AUTO) 0.8 10^3/uL (0.1-1.4); ABSOLUTE NEUT (AUTO) 5.8 10^3/uL (1.7-8.2); BASOPHILS % (AUTO) 0.8 % (0-2); EOSINOPHILS % (AUTO) 1.8 % (0-6); HEMATOCRIT 26.5 % (36.0-47.0); HEMOGLOBIN 8.8 g/dL (12.0-15.5); LYMPHOCYTES % (AUTO) 18.2 % (13-45); MEAN CORPUSCULAR HGB CONC 33.1 g/dL (32.0-36.0); MEAN CORPUSCULAR VOLUME 85 fl (80-97); MONOCYTES % (AUTO) 9.8 % (3-13); PLATELET COUNT 180 10^3/uL (150-450); RED BLOOD COUNT 3.14 10^6/uL (3.72-5.28); RED CELL DISTRIBUTION WIDTH 14.2 % (11.5-14.0); SEGMENTED NEUTROPHILS % (AUTO) 69.4 % (42-78); TOTAL CELLS COUNTED % (AUTO) 100 %; WHITE BLOOD COUNT 8.3 10^3/uL (4.0-10.5)
[2019-12-05 05:59] LABS: ANION GAP 6 (5-19); BLOOD UREA NITROGEN 74 mg/dL (7-20); CALCIUM 8.5 mg/dL (8.4-10.2); CARBON DIOXIDE 16 mmol/L (22-30); CHLORIDE 117 mmol/L (98-107); GLUCOSE 188 mg/dL (75-110); POTASSIUM 4.2 mmol/L (3.6-5.0)
[2019-12-05] MEDS: INSULIN LISPRO 100 UNIT/ML 3 ML VIAL SUBCUT SCH ×2 (07:44→11:35)
[2019-12-05] MEDS: BACITRACIN ZINC OINTMENT 15 GM TP SCH (10:05)
[2019-12-05] MEDS: DOCUSATE SODIUM 100 MG CAPSULE PO SCH (10:06)
[2019-12-05] MEDS: CEFEPIME 1 GM/D5W RTU 1 GM/50 ML RTUPB IV SCH (10:06)
[2019-12-05] MEDS: ASCORBIC ACID 500 MG TABLET PO SCH (10:07)
[2019-12-05] MEDS: FERROUS SULFATE 325 MG TABLET PO SCH (10:07)
[2019-12-05] MEDS: SODIUM BICARBONATE 650 MG TABLET PO SCH (10:07)
[2019-12-05] MEDS: TERBINAFINE HCL 250 MG TABLET PO SCH (10:07)
[2019-12-05] MEDS: ATENOLOL 50 MG TABLET PO SCH (10:07)
[2019-12-05] MEDS: MAGNESIUM OXIDE 400 MG TABLET PO SCH (10:07)
--- NOTE | 2019-12-05 12:17 | PDOC DISCHARGE SUMMARY ---
Impression - Admit/DC Date/PCP Admission Date/Primary Care Provider: 12/03/19 21:35 APRIL HA PA-C Discharge Date: 12/05/19 - Additional Information Resuscitation Status: Full Code Referrals: [facility] [Outside] - 12/06/19 AQUILINO LIPSCOMB MD [ACTIVE STAFF] - 12/12/19 11:00 am APRIL HA PA-C [Primary Care Provider] - 12/25/19 2:30 pm Prescriptions: Sulfamethoxazole/Trimethoprim [Sulfamethoxazole-Tmp Ds Tablet] 1 each PO BID 6 Days #12 tablet Home Medications: Ergocalciferol (Vitamin D2) [Drisdol 50,000 unit (1.25MG) Capsule] 50,000 unit PO LOAIZA@1000 90 Days #05/21/19 Pravastatin Sodium [Pravachol] 40 mg PO DAILY 90 Days #05/21/19 Ascorbic Acid [Vitamin C 500 mg Tablet] 500 mg PO DAILY 11/08/19 B Complex W-C No.20/Folic Acid [Virt-Caps Softgel] 1 mg PO DAILY 11/08/19 Ferrous Sulfate [Feosol 325 mg Tablet] 325 mg PO BID 11/08/19 Hum Insulin NPH/Reg Insulin Hm [Insulin 70-30 (NPH/Reg) 100 unit/mL] 22 unit SUBCUT BIDP PRN 11/08/19 Magnesium Oxide [Mag-Ox 400 mg Tablet] 400 mg PO DAILY 11/08/19 Atenolol [Tenormin 50 mg Tablet] 100 mg PO DAILY 12/03/19 Sodium Bicarbonate [Sodium Bicarbonate 650 mg Tablet] 650 mg PO BID 12/03/19 Sodium Zirconium Cyclosilicate [Lokelma] 1 packet PO BID 12/03/19 Bacitracin Zinc [Bacitracin Oint 15 gm] 1 applic TP BID tube 12/05/19 Docusate Sodium [Colace 100 mg Capsule] 100 mg PO BID capsule 12/05/19 Sulfamethoxazole/Trimethoprim [Sulfamethoxazole-Tmp Ds Tablet] 1 each PO BID 6 Days #12 tablet 12/05/19 History of Present Illiness History of Present Illness: CARMELO WHITTEN is a 64 year old female patient of Dr. Lipscomb with a past medical history of morbid obesity, severe physical debility, diabetes, hypertension, MRSA cellulitis, chronic venous stasis with lymphedema, obstructive sleep apnea, noncompliance and CKD D3. She is referred to the emergency department after routine labs reveal a marketed decrease in renal function. Her GFR was reduced from 30-11 of the last 3 weeks. Patient denies recent change in diet or medications. She has poor insight of dietary restrictions. She otherwise complains of chronic edema and weeping from lymphedema with chronic venous stasis. Hospital Course Hospital Course: The patient had a fairly benign hospital course. She improved with antibiotics and compression therapy. She is in fact scheduled to become a patient at a wound management lymphedema therapy clinic in [place]. My explained to her that that is the best thing for her. We will use Bactrim for post discharge antibiotic therapy as it is good for staph, strep and some gram-negative's. Physical Exam Vital Signs: Temp Pulse Resp BP Pulse Ox 98.6 F 82 17 105/47 L 98 12/04/19 23:07 12/04/19 23:07 12/04/19 23:07 12/04/19 23:07 12/05/19 00:38 Intake & Output 12/04/19 12/05/19 12/06/19 06:59 06:59 06:59 Intake Total 2100 2760 Output Total 900 400 Balance 1200 2360 Weight 114.9 kg 117.9 kg General appearance: PRESENT: no acute distress, cooperative, morbidly obese, well-developed Respiratory exam: PRESENT: clear to auscultation paulie, symmetrical, unlabored. ABSENT: rales, rhonchi, wheezes Cardiovascular exam: PRESENT: RRR, +S1, +S2 GI/Abdominal exam: PRESENT: normal bowel sounds, soft. ABSENT: tenderness Extremities exam: PRESENT: +2 edema - Bilateral Kosta wraps on lower extremities Neurological exam: PRESENT: alert, awake, oriented to person, oriented to place, oriented to time, oriented to situation, CN II-XII grossly intact Psychiatric exam: PRESENT: appropriate affect. ABSENT: agitated, anxious Focused psych exam: ABSENT: delusional, restlessness Results Laboratory Results: WBC 8.3 10^3/uL (4.0-10.5) 12/05/19 05:12 RBC 3.14 10^6/uL (3.72-5.28) L 12/05/19 05:12 Hgb 8.8 g/dL (12.0-15.5) L 12/05/19 05:12 Hct 26.5 % (36.0-47.0) L 12/05/19 05:12 MCV 85 fl (80-97) 12/05/19 05:12 MCH 28.0 pg (27.0-33.4) 12/05/19 05:12 MCHC 33.1 g/dL (32.0-36.0) 12/05/19 05:12 RDW 14.2 % (11.5-14.0) H 12/05/19 05:12 Plt Count 180 10^3/uL (150-450) 12/05/19 05:12 Lymph % (Auto) 18.2 % (13-45) 12/05/19 05:12 [place]ñuel[place] % (Auto) 9.8 % (3-13) 12/05/19 05:12 Eos % (Auto) 1.8 % (0-6) 12/05/19 05:12 Baso % (Auto) 0.8 % (0-2) 12/05/19 05:12 Absolute Neuts (auto) 5.8 10^3/uL (1.7-8.2) 12/05/19 05:12 Absolute Lymphs (auto) 1.5 10^3/uL (0.5-4.7) 12/05/19 05:12 Absolute Monos (auto) 0.8 10^3/uL (0.1-1.4) 12/05/19 05:12 Absolute Eos (auto) 0.1 10^3/uL (0.0-0.6) 12/05/19 05:12 Absolute Basos (auto) 0.1 10^3/uL (0.0-0.2) 12/05/19 05:12 Total Counted 100 12/03/19 19:10 Seg Neutrophils % 69.4 % (42-78) 12/05/19 05:12 Seg Neuts % (Manual) 80 % (42-78) H 12/03/19 19:10 Band Neutrophils % 1 % (3-5) L 12/03/19 19:10 Lymphocytes % (Manual) 10 % (13-45) L 12/03/19 19:10 Monocytes % (Manual) 6 % (3-13) 12/03/19 19:10 Eosinophils % (Manual) 3 % (0-6) 12/03/19 19:10 Basophils % (Manual) 0 % (0-2) 12/03/19 19:10 Abs Neuts (Manual) 10.8 10^3/uL (1.7-8.2) H 12/03/19 19:10 Abs Lymphs (Manual) 1.3 10^3/uL (0.5-4.7) 12/03/19 19:10 Abs Monocytes (Manual) 0.8 10^3/uL (0.1-1.4) 12/03/19 19:10 Absolute Eos (Manual) 0.4 10^3/uL (0.0-0.6) 12/03/19 19:10 Abs Basophils (Manual) 0.0 10^3/uL (0.0-0.2) 12/03/19 19:10 Clumped Platelets PRESENT 12/03/19 19:10 Platelet Comment ADEQUATE 12/03/19 19:10 Poikilocytosis SLIGHT 12/03/19 19:10 Anisocytosis SLIGHT 12/03/19 19:10 Ovalocytes SLIGHT 12/03/19 19:10 Sodium 138.5 mmol/L (137-145) 12/05/19 05:12 Potassium 4.2 mmol/L (3.6-5.0) 12/05/19 05:12 Chloride 117 mmol/L (98-107) H 12/05/19 05:12 Carbon Dioxide 16 mmol/L (22-30) L 12/05/19 05:12 Anion Gap 6 (5-19) 12/05/19 05:12 BUN 74 mg/dL (7-20) H 12/05/19 05:12 Creatinine 2.31 mg/dL (0.52-1.25) H 12/05/19 05:12 Est GFR ( Amer) 26 (>60) L 12/05/19 05:12 Est GFR (MDRD) Non-Af 21 (>60) L 12/05/19 05:12 Glucose 188 mg/dL (75-110) H 12/05/19 05:12 POC Glucose 254 mg/dL (70-110) H 12/05/19 11:28 Calcium 8.5 mg/dL (8.4-10.2) 12/05/19 05:12 Magnesium 2.3 mg/dL (1.6-2.3) 12/03/19 19:10 Total Bilirubin 0.3 mg/dL (0.2-1.3) 12/03/19 19:10 Direct Bilirubin 0.3 mg/dL (0.0-0.4) 12/03/19 19:10 Neonat Total Bilirubin Not Reportable 12/03/19 19:10 Neonat Direct Bilirubin Not Reportable 12/03/19 19:10 Neonat Indirect Bili Not Reportable 12/03/19 19:10 AST 20 U/L (14-36) 12/03/19 19:10 ALT 12 U/L (<35) 12/03/19 19:10 Alkaline Phosphatase 82 U/L (38-126) 12/03/19 19:10 Total Protein 8.0 g/dL (6.3-8.2) 12/03/19 19:10 Albumin 3.9 g/dL (3.5-5.0) 12/03/19 19:10 Urine Color STRAW 12/04/19 05:20 Urine Appearance CLEAR 12/04/19 05:20 Urine pH 5.0 (5.0-9.0) 12/04/19 05:20 Ur Specific [place] 1.005 12/04/19 05:20 Urine Protein NEGATIVE mg/dL (NEGATIVE) 12/04/19 05:20 Urine Glucose (UA) NEGATIVE mg/dL (NEGATIVE) 12/04/19 05:20 Urine Ketones NEGATIVE mg/dL (NEGATIVE) 12/04/19 05:20 Urine Blood NEGATIVE (NEGATIVE) 12/04/19 05:20 Urine Nitrite NEGATIVE (NEGATIVE) 12/04/19 05:20 Urine Bilirubin NEGATIVE (NEGATIVE) 12/04/19 05:20 Urine Urobilinogen NEGATIVE mg/dL (<2.0) 12/04/19 05:20 Ur Leukocyte Esterase NEGATIVE (NEGATIVE) 12/04/19 05:20 Urine WBC (Auto) 1 /HPF 12/04/19 05:20 Urine RBC (Auto) 0 /HPF 12/04/19 05:20 U Hyaline Cast (Auto) 1 /LPF 12/04/19 05:20 Urine Bacteria (Auto) 1+ /HPF 12/04/19 05:20 Squamous Epi Cells Auto 1 /HPF 03/31/20 05:20 Urine Mucus (Auto) RARE /LPF 12/04/19 05:20 Urine Ascorbic Acid NEGATIVE (NEGATIVE) 12/04/19 05:20 Impressions: Chest X-Ray 12/03/19 16:57 IMPRESSION: NO ACUTE RADIOGRAPHIC FINDING IN THE CHEST. Plan Health Concerns: Unfortunate this is an ongoing and chronic problem for this patient. She will need rigorous treatment and lymphedema management. Plan of Treatment: Complete antibiotic therapy. Follow-up with wound clinic in [place]. Goals: Better control of chronic lower extremity lymphedema Time Spent: Greater than 30 Minutes Stroke Is this a Stroke Patient?: No Acute Heart Failure - Is this a Heart Failure Patient?: No
== END 2019-12-05 15:25 | disposition home health service (06) | DRG 603 ==
LOC: ER 16:39 → EH 21:35 → 4S 22:54
PROVIDERS: ADMIT Internal Medicine; ATTEND Hospitalist
DX: L03.119 Cellulitis of unspecified part of limb (principal); N17.9 Acute kidney failure, unspecified; E13.22 Other specified diabetes mellitus with diabetic chronic kidney disease; E66.01 Morbid (severe) obesity due to excess calories; I12.9 Hypertensive chronic kidney disease with stage 1 through stage 4 chronic kidney disease, or unspecified chronic kidney disease; I87.8 Other specified disorders of veins; G47.33 Obstructive sleep apnea (adult) (pediatric); N18.3 Chronic kidney disease, stage 3 (moderate); E13.9 Other specified diabetes mellitus without complications; E78.5 Hyperlipidemia, unspecified; D63.1 Anemia in chronic kidney disease; I89.0 Lymphedema, not elsewhere classified; D72.829 Elevated white blood cell count, unspecified; E78.00 Pure hypercholesterolemia, unspecified; Z79.899 Other long term (current) drug therapy; Z91.19 Patient's noncompliance with other medical treatment and regimen; Z79.4 Long term (current) use of insulin; Z88.6 Allergy status to analgesic agent
CPT/HCPCS: 36415; 71045; 80048; 81001; 82962; 83735; 85025; 87040; 87070; 93005; 93010; 96360; 96361; 99284; J0692; J0696; J1644; J1815; J3490; J7030

== ENCOUNTER → 2019-12-03 | Outpatient (CLI) | payer MEDICARE ==
[2019-12-03 11:59] LABS: APPEARANCE,URINE CLOUDY; BILIRUBIN,URINE NEGATIVE (NEGATIVE); COLOR,URINE DARK YELLOW; GLUCOSE, URINE NEGATIVE (NEGATIVE); KETONES,URINE NEGATIVE (NEGATIVE); LEUKOCYTE ESTERASE,URINE MODERATE (NEGATIVE); NITRITE,URINE NEGATIVE (NEGATIVE); PROTEIN,URINE NEGATIVE (NEGATIVE); URINE SPECIFIC GRAVITY 1.014; UROBILINOGEN,URINE NEGATIVE mg/dL (<2.0)
[2019-12-03 12:05] LABS: ABSOLUTE EOSINOPHILS # (AUTO) 0.1 10^3/uL (0.0-0.6); ABSOLUTE LYMPHOCYTES (AUTO) 1.1 10^3/uL (0.5-4.7); ABSOLUTE MONOCYTES (AUTO) 0.6 10^3/uL (0.1-1.4); ABSOLUTE NEUT (AUTO) 6.6 10^3/uL (1.7-8.2); BASOPHILS % (AUTO) 0.5 % (0-2); EOSINOPHILS % (AUTO) 1.4 % (0-6); HEMATOCRIT 32.7 % (36.0-47.0); HEMOGLOBIN 11.1 g/dL (12.0-15.5); LYMPHOCYTES % (AUTO) 12.7 % (13-45); MEAN CORPUSCULAR HEMOGLOBIN 28.5 pg (27.0-33.4); MEAN CORPUSCULAR VOLUME 84 fl (80-97); MONOCYTES % (AUTO) 7.6 % (3-13); PLATELET COUNT 232 10^3/uL (150-450); RED BLOOD COUNT 3.91 10^6/uL (3.72-5.28); RED CELL DISTRIBUTION WIDTH 14.6 % (11.5-14.0); SEGMENTED NEUTROPHILS % (AUTO) 77.8 % (42-78); TOTAL CELLS COUNTED % (AUTO) 100 %; WHITE BLOOD COUNT 8.5 10^3/uL (4.0-10.5)
[2019-12-03 12:12] LABS: ANION GAP 14 (5-19); BLOOD UREA NITROGEN 94 mg/dL (7-20); CALCIUM 9.5 mg/dL (8.4-10.2); CARBON DIOXIDE 15 mmol/L (22-30); CHLORIDE 99 mmol/L (98-107); GLUCOSE 185 mg/dL (75-110); POTASSIUM 4.2 mmol/L (3.6-5.0)
== END ==
LOC: OD 11:03
PROVIDERS: ATTEND Physician Assistant Medical
DX: N17.9 Acute kidney failure, unspecified (principal)
CPT/HCPCS: 36415; 80048; 81001; 85025

== ENCOUNTER → 2020-01-03 | Outpatient (CLI) | payer MEDICARE ==
--- NOTE | 2020-01-03 10:24 | RADIOLOGY REPORT (SQ) ---
EXAM DESCRIPTION: MRA ABDOMEN WITHOUT IMAGES COMPLETED DATE/TIME: 01/03/2020 10:06 am REASON FOR STUDY: N17.9 ACUTE KIDNEY FAILURE, UNSPECIFIED N17.9 ACUTE KIDNEY FAILURE, UNSPECIFIED COMPARISON: None. TECHNIQUE: Axial 2-D volume acquisition imaging through the aorta from celiac artery to the renal ar teries with reformatting using 3-D MIPS. LIMITATIONS: None. FINDINGS: Patent single renal arteries bilaterally without evidence of stenosis. Proximal celiac an d SMA are normal. Aorta is normal. Small cyst left kidney. No hydronephrosis. Incidental gallstones. IMPRESSION: No evidence of renal artery stenosis. COMMENT: Quality ID #[id number]: Measurements of distal internal carotid diameter were used as the denomin ator for stenosis measurement. TECHNICAL DOCUMENTATION: JOB ID: [id number] 2010 Sincerely- All Rights Reserved Reading location - IP/workstation name: [email or web address]
== END ==
LOC: RAD 09:16
PROVIDERS: ATTEND Physician Assistant Medical
DX: N17.9 Acute kidney failure, unspecified (principal)
CPT/HCPCS: C8901

== ENCOUNTER → 2020-02-11 | Outpatient (CLI) | payer MEDICARE | LOC: OD 12:06 | PROVIDERS: ATTEND Physician Assistant Medical | DX: E87.6 Hypokalemia (principal) | CPT/HCPCS: 36415; 84132 ==

== ENCOUNTER 2020-03-14 12:31 | Inpatient (IN) | payer MEDICARE ==
[2020-03-14] MEDS ORDERED: NORMAL SALINE 1000 ML 1,000 ML IV PRN (12:48)
--- NOTE | 2020-03-14 12:49 | ER Document Report ---
ED Medical Screen (RME) - General Chief Complaint: Abnormal Lab Results Stated Complaint: ABNORMAL LABS Time Seen by Provider: 03/14/20 12:47 Primary Care Provider: APRIL HA PA-C [Primary Care Provider] - Follow up as needed Information source: Patient Notes: This 64-year-old female presents to the emergency room today after being referred by her PMD who sent her here for having abnormal blood work. TRAVEL OUTSIDE OF THE [place] IN LAST 30 DAYS: No - Related Data Allergies/Adverse Reactions: oxycodone [Oxycodone] Adverse Reaction (Verified 03/14/20 12:45) oxycodone HCl [From Percocet] Adverse Reaction (Verified 03/14/20 12:45) Bradycardia Past Medical History - Past Medical History Cardiac Medical History: Reports: Hx Hypercholesterolemia, Hx Hypertension Pulmonary Medical History: Reports: Hx Sleep Apnea Endocrine Medical History: Reports: Hx Diabetes Mellitus Type 1, Hx Diabetes Mellitus Type 2 Renal/ Medical History: Reports: Hx End Stage Renal Disease, Hx Renal Insufficiency. Denies: Hx Peritoneal Dialysis Skin Medical History: Reports Hx Cellulitis Psychiatric Medical History: Denies: Hx Depression Past Surgical History: Reports: Hx Hysterectomy, Other - Surgery to form a fistula in the left arm. - Immunizations Hx Diphtheria, Pertussis, Tetanus Vaccination: No Doctor's Discharge - Discharge Referrals: APRIL HA PA-C [Primary Care Provider] - Follow up as needed
--- NOTE | 2020-03-14 14:26 | ER Document Report ---
ED General - General Mode of Arrival: Ambulatory Information source: Patient TRAVEL OUTSIDE OF THE [place] IN LAST 30 DAYS: No <MILAGROS ROBERTSON - Last Filed: 03/14/20 17:04> <CELESTE JOHNSON - Last Filed: 03/14/20 20:45> - General Chief Complaint: Abnormal Lab Results Stated Complaint: ABNORMAL LABS Time Seen by Provider: 03/14/20 12:47 Primary Care Provider: APRIL HA PA-C [ALLIED HEALTH PROFESSIONAL] - Follow up as needed Notes: 64-year-old woman presents to the emergency department with a complaint she was contacted by her doctors office and told that she had abnormal labs and dehydration that she should go directly to the emergency department. Patient notes she has not experienced fever, nausea vomiting or dysuria. States that this is happened in the past. (MILAGROS ROBERTSON) - Related Data Allergies/Adverse Reactions: oxycodone [Oxycodone] Adverse Reaction (Verified 03/14/20 12:45) oxycodone HCl [From Percocet] Adverse Reaction (Verified 03/14/20 12:45) Bradycardia Past Medical History - General Information source: Patient - Social History Smoking Status: Never Smoker Chew tobacco use (# tins/day): No Frequency of alcohol use: None Drug Abuse: None Family History: DM, Hypertension Patient has homicidal ideation: No - Past Medical History Cardiac Medical History: Reports: Hx Hypercholesterolemia, Hx Hypertension Pulmonary Medical History: Reports: Hx Sleep Apnea Endocrine Medical History: Reports: Hx Diabetes Mellitus Type 1, Hx Diabetes Mellitus Type 2 Renal/ Medical History: Reports: Hx End Stage Renal Disease, Hx Renal Insufficiency. Denies: Hx Peritoneal Dialysis Skin Medical History: Reports Hx Cellulitis Psychiatric Medical History: Denies: Hx Depression Past Surgical History: Reports: Hx Hysterectomy, Other - Surgery to form a fistula in the left arm. - Immunizations Hx Diphtheria, Pertussis, Tetanus Vaccination: No Hx Pneumococcal Vaccination: 09/05/16 <MILAGROS ROBERTSON - Last Filed: 03/14/20 17:04> Review of Systems <MILAGROS ROBERTSON - Last Filed: 03/14/20 17:04> - Review of Systems Notes: Constitutional: Negative for fever. HENT: Negative for sore throat. Eyes: Negative for visual changes. Cardiovascular: Negative for chest pain. Respiratory: Negative for shortness of breath. Gastrointestinal: Negative for abdominal pain, vomiting or diarrhea. Genitourinary: Negative for dysuria. Musculoskeletal: + Lymphedema Skin: Negative for rash. Neurological: Negative for headaches, weakness or numbness. 10 point ROS negative except as marked above and in HPI. (MILAGROS ROBERTSON) Physical Exam <MILAGROS ROBERTSON - Last Filed: 03/14/20 17:04> - Vital signs Vitals: Temp Pulse Resp BP Pulse Ox 98.8 F 78 18 132/72 H 100 03/14/20 12:48 03/14/20 12:48 03/14/20 12:48 03/14/20 12:48 03/14/20 12:48 - Notes Notes: GENERAL: No acute distress, non-toxic appearance. HEAD: Normal with no signs of head trauma. EYES: PERRLA, EOMI, conjunctiva normal, no discharge. EARS: Hearing grossly intact. NOSE: Normal. THROAT: Oropharynx is normal. NECK: Normal range of motion, no tenderness, supple, no lymphadenopathy, No adenopathy, no JVD. CHEST: Clear breath sounds bilaterally. No wheezes, rales, or rhonchi. CARDIAC: Regular rate and rhythm. S1 and S2, without murmurs, gallops, or rubs. VASCULAR: No Edema. Peripheral pulses normal and equal in all extremities. ABDOMEN: Normal and soft with no tenderness, no masses or pulsatile masses. GASTROINTESTINAL: Bowel sounds normal GENITOURINARY: Normal, No tenderness LYMPATHTIC: No lymphadenopathy noted. MUSCULOSKELETAL: Bilateral lower extremity elephantiasis with severe lymphedema bilateral NEUROLOGICAL: Alert and oriented x 3. No focal sensory or strength deficits. Speech normal. Follows commands appropriately. PSYCHIATRIC: Normal Affect, judgement and mood. SKIN: Normal appearance with no rashes or lesions. (MILAGROS ROBERTSON) Course - Laboratory Result Diagrams: 03/14/20 15:22 03/14/20 15:22 <MILAGROS ROBERTSON - Last Filed: 03/14/20 17:04> - Laboratory Result Diagrams: 03/14/20 15:22 03/14/20 16:33 <CELESTE JOHNSON - Last Filed: 03/14/20 20:45> - Re-evaluation Re-evalutation: 03/14/20 19:23 Patient was signed out to me by off going physician while waiting on laboratory results. Labs have demonstrated a marked increase in the patient's BUN and creatinine as well as a blood glucose level of 410. There is no nephrology available at this facility over the weekend and initiation has been made to atte mpt transferring the patient to [facility] in [facility]. Call has been placed waiting on return phone call by the hospitalists. Patient does have a prior history of intermittent dialysis. Patient is given 10 units of IV insulin and will be reassessed. Portable chest x-ray has been requested prior to fluid initiation. 03/14/20 20:44 I was able to speak with Dr. Prabhakra nephrology on-call at [facility]. After reviewing the patient's laboratory studies as well as chest x-ray he feels the patient can be managed at this emergency department and hospitalization for rehydration and diabetes management. I have spoken with the patient and she is agreeable with care plan I have spoken with the hospitalist who is likewise agreeable with admission for observation status. (CELESTE JOHNSON) - Vital Signs Vital signs: Temp Pulse Resp BP Pulse Ox 98.8 F 78 14 106/60 100 03/14/20 12:48 03/14/20 12:48 03/14/20 20:01 03/14/20 20:01 03/14/20 20:01 - Laboratory Laboratory results interpreted by me: 03/14/20 03/14/20 03/14/20 15:22 15:22 16:33 Hgb 11.2 L Hct 33.9 L VBG pH 7.19 L* VBG HCO3 19.2 L Sodium 133.1 L Carbon Dioxide 14 L BUN 119 H Creatinine 3.85 H Est GFR ( Amer) 14 L Est GFR (MDRD) Non-Af 12 L Glucose 410 H* Discharge <IMLAGROS ROBERTSON - Last Filed: 03/14/20 17:04> - Discharge Admitting Provider: Filiberto (Hospitalist) Unit Admitted: Medical Floor <CELESTE JOHNSON - Last Filed: 03/14/20 20:45> - Discharge Clinical Impression: Acute kidney injury superimposed on chronic kidney disease, Diabetes 1.5, managed as type 1 Hyperglycemia due to type 2 diabetes mellitus Qualifiers: Diabetes mellitus retirement insulin use: unspecified retirement insulin use status Qualified Code(s): E11.65 - Type 2 diabetes mellitus with hyperglycemia Condition: Fair Disposition: ADMITTED OBSERVATION Referrals: APRIL HA PA-C [ALLIED HEALTH PROFESSIONAL] - Follow up as needed
[2020-03-14 15:44] LABS: VENOUS BLOOD BASE EXCESS -9.2 mmol/L; VENOUS BLOOD HCO3 19.2 mmol/L (20-32); VENOUS BLOOD PCO2 51.1 mmHg (35-63)
[2020-03-14 15:52] LABS: ABSOLUTE BASOPHILS # (AUTO) 0.1 10^3/uL (0.0-0.2); ABSOLUTE EOSINOPHILS # (AUTO) 0.1 10^3/uL (0.0-0.6); ABSOLUTE LYMPHOCYTES (AUTO) 1.4 10^3/uL (0.5-4.7); ABSOLUTE MONOCYTES (AUTO) 0.7 10^3/uL (0.1-1.4); ABSOLUTE NEUT (AUTO) 6.3 10^3/uL (1.7-8.2); BASOPHILS % (AUTO) 1.1 % (0-2); EOSINOPHILS % (AUTO) 1.4 % (0-6); HEMATOCRIT 33.9 % (36.0-47.0); HEMOGLOBIN 11.2 g/dL (12.0-15.5); LYMPHOCYTES % (AUTO) 15.9 % (13-45); MEAN CORPUSCULAR HEMOGLOBIN 28.4 pg (27.0-33.4); MEAN CORPUSCULAR HGB CONC 33.1 g/dL (32.0-36.0); MEAN CORPUSCULAR VOLUME 86 fl (80-97); MONOCYTES % (AUTO) 8.3 % (3-13); PLATELET COUNT 164 10^3/uL (150-450); RED BLOOD COUNT 3.95 10^6/uL (3.72-5.28); RED CELL DISTRIBUTION WIDTH 13.8 % (11.5-14.0); SEGMENTED NEUTROPHILS % (AUTO) 73.3 % (42-78); TOTAL CELLS COUNTED % (AUTO) 100 %; WHITE BLOOD COUNT 8.7 10^3/uL (4.0-10.5)
[2020-03-14 15:59] LABS: VENOUS BLOOD PH 7.19 (7.30-7.42)
[2020-03-14] MEDS ORDERED: SODIUM BICARBONATE 8.4% INJ 50 MEQ/50 ML DISP.SYRIN IV ONE (16:30)
[2020-03-14 17:25] LABS: ALBUMIN 3.6 g/dL (3.5-5.0); ALKALINE PHOSPHATASE 110 U/L (38-126); ANION GAP 14 (5-19); ASPARTATE AMINO TRANSFERASE 19 U/L (14-36); BILIRUBIN,DIRECT 0.1 mg/dL (0.0-0.4); BILIRUBIN,TOTAL 0.5 mg/dL (0.2-1.3); BLOOD UREA NITROGEN 119 mg/dL (7-20); CALCIUM 9.1 mg/dL (8.4-10.2); CARBON DIOXIDE 14 mmol/L (22-30); CHLORIDE 105 mmol/L (98-107); POTASSIUM 4.3 mmol/L (3.6-5.0); TOTAL PROTEIN 7.5 g/dL (6.3-8.2)
[2020-03-14 17:34] LABS: GLUCOSE 410 mg/dL (75-110)
[2020-03-14] MEDS ORDERED: INSULIN REG, HUMAN 100 UNIT/ML 3 ML VIAL (PYX) IV ONE (19:22)
--- NOTE | 2020-03-14 20:15 | RADIOLOGY REPORT (SQ) ---
XR CHEST 1 VIEW HISTORY: Shortness of breath. COMPARISON: 12/03/2019 FINDINGS: The heart size is within normal limits. There is no pulmonary vascular congestion. No consolidation, pleural effusion, or pneumothorax is seen. The bony structures are preserved. IMPRESSION: No evidence of acute cardiopulmonary disease.
[2020-03-14] MEDS ORDERED: NORMAL SALINE 1000 ML 1,000 ML IV ONE (20:45)
[2020-03-14] MEDS ORDERED: MAGNESIUM HYDROXIDE SUSP 30 ML UDCUP PO PRN (21:11)
[2020-03-14] MEDS ORDERED: ONDANSETRON HCL INJ/PF 4 MG/2 ML SDV IV PRN (21:11)
[2020-03-14] MEDS ORDERED: RINGERS SOLUTION,LACTATED 1,000 ML IV PRN (21:11)
[2020-03-14] MEDS ORDERED: MAG HYDROX/AL HYDROX/SIMETH SUSP 30 ML UDCUP PO PRN (21:11)
[2020-03-14] MEDS ORDERED: METOPROLOL TARTRATE PF/INJ 5 MG/5 ML SDV IV PRN (21:16)
[2020-03-14] MEDS ORDERED: INSULIN REG, HUMAN 100 UNIT/ML 3 ML VIAL (PYX) SUBCUT PRN (21:16)
[2020-03-14] MEDS ORDERED: ACETAMINOPHEN 325 MG TABLET PO PRN (21:16)
[2020-03-14] MEDS ORDERED: LORAZEPAM INJ 2 MG/1 ML VIAL IV PRN (21:16)
[2020-03-14] MEDS ORDERED: DEXTROSE 40% GEL 15 GM TUBE PO PRN ×2 (21:16)
[2020-03-14] MEDS ORDERED: MORPHINE SULFATE 10 MG/ML INJ IV PRN (21:16)
[2020-03-14] MEDS ORDERED: GLUCAGON,HUMAN RECOMB 1 MG INJ IM PRN (21:16)
[2020-03-14] MEDS ORDERED: GUAIFENESIN SYRP 200 MG/10 ML UDC PO PRN (21:16)
[2020-03-14] MEDS ORDERED: HYDRALAZINE HCL INJ/PF 20 MG/1 ML SDV IV PRN (21:16)
[2020-03-14] MEDS ORDERED: MELATONIN 5 MG TABLET PO PRN (21:16)
[2020-03-14] MEDS ORDERED: DEXTROSE 50%-WATER 25 GM/50 ML DISP.SYRIN IV PRN ×2 (21:16)
[2020-03-14 21:35] LABS: APPEARANCE,URINE CLEAR; BILIRUBIN,URINE NEGATIVE (NEGATIVE); COLOR,URINE YELLOW; GLUCOSE, URINE >=500 mg/dL (NEGATIVE); KETONES,URINE NEGATIVE (NEGATIVE); LEUKOCYTE ESTERASE,URINE NEGATIVE (NEGATIVE); NITRITE,URINE NEGATIVE (NEGATIVE); PROTEIN,URINE NEGATIVE (NEGATIVE); URINE SPECIFIC GRAVITY 1.012; UROBILINOGEN,URINE NEGATIVE mg/dL (<2.0)
[2020-03-14] MEDS: HEPARIN SOD (PORCINE) 5,000 UNIT/ML 1 ML VIAL SUBCUT SCH (22:32)
[2020-03-15 01:04] LABS: ANION GAP 11 (5-19); BLOOD UREA NITROGEN 114 mg/dL (7-20); CARBON DIOXIDE 19 mmol/L (22-30); CHLORIDE 109 mmol/L (98-107); GLUCOSE 126 mg/dL (75-110); POTASSIUM 3.5 mmol/L (3.6-5.0)
--- NOTE | 2020-03-15 02:02 | PDOC H&P ---
History of Present Illness Admission Date/PCP: 03/14/2020 20:52 KV John Wayne MD Patient complains of: Abnormal laboratory results History of Present Illness: CARMELO WHITTEN is a 64 year old female who presents the emergency room for evaluation of abnormal laboratory results. She admits being contacted by her clinical rehab liaison's office instructing her to come to the emergency room for eval uation of her abnormal laboratory values. She denies any acute signs or symptoms. She admits prior similar episodes. She has not identified any aggravating or ameliorating factors for her abnormal laboratory results. In the emergency room it was noted the patient had a blood sugar of 410 with a BUN of 119 and a creatinine of 3.85. She was treated with IV fluid and insulin in the emergency room resulting in significant improvement in her blood sugar. She was therefore admitted observation status for further evaluation and treatment. Past Medical History Cardiac Medical History: Reports: Hyperlipidema, Hypertension Denies: Coronary Artery Disease, Myocardial Infarction Pulmonary Medical History: Reports: Sleep Apnea Denies: Asthma, Chronic Obstructive Pulmonary Disease (COPD) EENT Medical History: Denies: Cataracts, Ears - Hearing aids Neurological Medical History: Denies: Hemorrhagic CVA, Ischemic CVA, Seizures Endocrine Medical History: Reports: Diabetes Mellitus Type 2, Obesity Denies: Diabetes Mellitus Type 1, Hyperthyroidism, Hypothyroidism Renal/ Medical History: Reports: Chronic Kidney Disease, End Stage Renal Disease - Has received a total of 3 dialysis treatments on a sporadic as needed basis Malignancy Medical History: Reports: None GI Medical History: Denies: Cirrhosis, Hepatitis Musculoskeltal Medical History: Denies: Arthritis, Fibromyalgia Skin Medical History: Denies: Eczema, Psoriasis Psychiatric Medical History: Denies: Alcohol Dependency, Depression, Substance Abuse, Tobacco Dependency Traumatic Medical History: Reports: None Hematology: Reports: Anemia - Chronic secondary to CKD Denies: Bleeding Tendencies Infectious Medical History: Reports: None Past Surgical History Past Surgical History: Reports: Hysterectomy, Other - Surgery to form a hemodialysis fistula in the left arm. Social History Information Source: Patient Lives with: Spouse/Significant other Smoking Status: Never Smoker Electronic Cigarette use?: No Frequency of Alcohol Use: None Hx Recreational Drug Use: No Drugs: None Hx Prescription Drug Abuse: No - Advance Directive Resuscitation Status: Full Code Surrogate healthcare decision maker:: Trae Baumann Family History Family History: DM, Hypertension Parental Family History Reviewed: Yes Children Family History Reviewed: No Sibling(s) Family History Reviewed.: Yes Medication/Allergy Home Medications: Ergocalciferol (Vitamin D2) [Drisdol 50,000 unit (1.25MG) Capsule] 50,000 unit PO LOAIZA@1000 90 Days #90 05/21/19 Pravastatin Sodium [Pravachol] 40 mg PO DAILY 90 Days #90 05/21/19 Ascorbic Acid [Vitamin C 500 mg Tablet] 500 mg PO DAILY 11/08/19 B Complex W-C No.20/Folic Acid [Virt-Caps Softgel] 1 mg PO DAILY 11/08/19 Ferrous Sulfate [Feosol 325 mg Tablet] 325 mg PO BID 11/08/19 Hum Insulin NPH/Reg Insulin Hm [Insulin 70-30 (NPH/Reg) 100 unit/mL] 22 unit SUBCUT BIDP PRN 11/08/19 Magnesium Oxide [Mag-Ox 400 mg Tablet] 400 mg PO DAILY 11/08/19 Atenolol [Tenormin 50 mg Tablet] 100 mg PO DAILY 12/03/19 Sodium Bicarbonate [Sodium Bicarbonate 650 mg Tablet] 650 mg PO BID 12/03/19 Sodium Zirconium Cyclosilicate [Lokelma] 1 packet PO BID 12/03/19 Bacitracin Zinc [Bacitracin Oint 15 gm] 1 applic TP BID tube 12/05/19 Docusate Sodium [Colace 100 mg Capsule] 100 mg PO BID capsule 12/05/19 Sulfamethoxazole/Trimethoprim [Sulfamethoxazole-Tmp Ds Tablet] 1 each PO BID 6 Days #12 tablet 12/05/19 Allergies/Adverse Reactions: oxycodone [Oxycodone] Adverse Reaction (Verified 03/14/20 12:45) oxycodone HCl [From Percocet] Adverse Reaction (Verified 03/14/20 12:45) Bradycardia Review of Systems Constitutional: ABSENT: chills, fever(s) Eyes: ABSENT: visual disturbances, other - Eye pain Ears: ABSENT: hearing changes, other - Ear pain Nose, Mouth, and Throat: ABSENT: headache(s), sore throat Cardiovascular: PRESENT: edema - Chronic in bilateral lower extremities. ABSENT: chest pain, palpitations Respiratory: ABSENT: cough, dyspnea Gastrointestinal: ABSENT: abdominal pain, constipation, diarrhea, nausea, vomiting Musculoskeletal: ABSENT: joint swelling, muscle weakness Integumentary: PRESENT: other - Chronic venous stasis eczema of bilateral lower extremities. ABSENT: pruritus, rash Neurological: ABSENT: confusion, convulsions, focal weakness, memory loss, syncope Psychiatric: ABSENT: anxiety, depression Endocrine: ABSENT: cold intolerance, heat intolerance Hematologic/Lymphatic: ABSENT: easy bleeding, easy bruising Allergic/Immunologic: ABSENT: seasonal rhinorrhea Physical Exam Vital Signs: Temp Pulse Resp BP Pulse Ox 98.8 F 78 14 106/60 100 03/14/20 12:48 03/14/20 12:48 03/14/20 20:01 03/14/20 20:01 03/14/20 20:01 Intake & Output 03/12/20 03/13/20 03/14/20 23:59 23:59 23:59 Intake Total 1000 Balance 1000 Weight 113.398 kg General appearance: PRESENT: no acute distress, cooperative, obese Head exam: PRESENT: atraumatic, normocephalic Eye exam: PRESENT: conjunctiva pink. ABSENT: conjunctival injection, scleral icterus Ear exam: PRESENT: normal external ear exam. ABSENT: bleeding, drainage Mouth exam: PRESENT: dry mucosa, neck supple Neck exam: ABSENT: thyromegaly, tracheal deviation Respiratory exam: PRESENT: clear to auscultation paulie, symmetrical, unlabored Cardiovascular exam: PRESENT: RRR. ABSENT: clicks, gallop, rubs Pulses: PRESENT: normal radial pulses, normal dorsalis pedis pul Vascular exam: PRESENT: normal capillary refill. ABSENT: pallor GI/Abdominal exam: PRESENT: normal bowel sounds, soft Rectal exam: PRESENT: deferred Extremities exam: PRESENT: pedal edema, other - 3+ edema of the bilateral lower extremities. ABSENT: joint swelling, tenderness Musculoskeletal exam: ABSENT: deformity, tenderness Neurological exam: PRESENT: alert, oriented to person, oriented to place, oriented to time, oriented to situation, CN II-XII grossly intact. ABSENT: motor sensory deficit Psychiatric exam: PRESENT: appropriate affect, normal mood Skin exam: PRESENT: dry, intact, warm, other - Chronic venous stasis eczematous skin changes of the bilateral lower extremities with vesicles, weeping and crusted superficial ulcerations.. ABSENT: jaundice, rash, urticaria Results Laboratory Results: 03/14/20 15:22 03/14/20 16:33 03/14/20 03/14/20 03/14/20 15:22 15:22 15:22 WBC 8.7 RBC 3.95 Hgb 11.2 L Hct 33.9 L MCV 86 MCH 28.4 MCHC 33.1 RDW 13.8 Plt Count 164 Seg Neutrophils % 73.3 VBG pH 7.19 L* VBG pCO2 51.1 VBG HCO3 19.2 L VBG Base Excess -9.2 Sodium Cancelled Potassium Cancelled Chloride Cancelled Carbon Dioxide Cancelled Anion Gap Cancelled BUN Cancelled Creatinine Cancelled Est GFR ( Amer) Cancelled Est GFR (Non-Af Amer) Cancelled Glucose Cancelled Calcium Cancelled Total Bilirubin Cancelled AST Cancelled Alkaline Phosphatase Cancelled Total Protein Cancelled Albumin Cancelled 03/14/20 16:33 WBC RBC Hgb Hct MCV MCH MCHC RDW Plt Count Seg Neutrophils % VBG pH VBG pCO2 VBG HCO3 VBG Base Excess Sodium 133.1 L Potassium 4.3 Chloride 105 Carbon Dioxide 14 L Anion Gap 14 BUN 119 H Creatinine 3.85 H Est GFR ( Amer) 14 L Est GFR (Non-Af Amer) Glucose 410 H* Calcium 9.1 Total Bilirubin 0.5 AST 19 Alkaline Phosphatase 110 Total Protein 7.5 Albumin 3.6 Impressions: Chest X-Ray 03/14/20 19:22 IMPRESSION: No evidence of acute cardiopulmonary disease. Assessment and Plan - Diagnosis (1) Acute kidney injury superimposed on chronic kidney disease Is this a current diagnosis for this admission?: Yes (2) Metabolic acidosis Is this a current diagnosis for this admission?: Yes (3) Hyperglycemia due to type 2 diabetes mellitus Qualifiers: Diabetes mellitus vermin exterminator insulin use: unspecified halfway insulin use status Qualified Code(s): E11.65 - Type 2 diabetes mellitus with hyperglycemia Is this a current diagnosis for this admission?: Yes (4) Diabetes mellitus type 2 in obese Is this a current diagnosis for this admission?: Yes (5) Benign essential hypertension Is this a current diagnosis for this admission?: Yes (6) Hyperlipidemia Qualifiers: Hyperlipidemia type: mixed hyperlipidemia Qualified Code(s): E78.2 - Mixed hyperlipidemia Is this a current diagnosis for this admission?: Yes (7) Anemia of chronic renal failure, stage 4 (severe) Is this a current diagnosis for this admission?: Yes (8) Obstructive sleep apnea of adult Is this a current diagnosis for this admission?: Yes (9) Obesity (BMI 30-39.9) Is this a current diagnosis for this admission?: Yes (10) Venous stasis dermatitis of both lower extremities Is this a current diagnosis for this admission?: Yes - Plan Summary Summary: The patient will be admitted observation status on the medical floor where she will receive routine supportive and symptomatic cares. She will be rehydrated with lactated Ringer solution and her glucose, acid-base status and electrolytes will be followed closely with every 6 hour metabolic profiles. She will be maintained on a cardiac and diabetic restricted diet. She will use Ativan 1 mg IV every 4 hours as needed for anxiety or restlessness. She will use morphine sulfate 2 to 4 mg IV every 2 hours as needed for pain. She will have available nocturnal CPAP for treatment of her chronic obstructive sleep apnea. Her usual home medications will be reinstated, as appropriate, as soon as her medication list can be verified and reconciled. Unna boots will be applied to the bilateral lower extremities. - Time Time Spent with patient: 15-24 minutes Medications reviewed and adjusted accordingly: Yes Anticipated discharge: Home Within: within 48 hours - Inpatient Certification Based on my medical assessment, after consideration of the patient's comorbidities, presenting symptoms, or acuity I expect that the services needed warrant INPATIENT care.: No I certify that my determination is in accordance with my understanding of Medicare's requirements for reasonable and necessary INPATIENT services [42 CFR 412.3e].: No
[2020-03-15] MEDS: PANTOPRAZOLE SODIUM 40 MG TABLET.DR PO SCH (05:49)
[2020-03-15] MEDS: HEPARIN SOD (PORCINE) 5,000 UNIT/ML 1 ML VIAL SUBCUT SCH ×3 (05:50→21:26)
[2020-03-15 08:30] LABS: VENOUS BLOOD BASE EXCESS -6.7 mmol/L; VENOUS BLOOD HCO3 18.8 mmol/L (20-32); VENOUS BLOOD PCO2 37.6 mmHg (35-63); VENOUS BLOOD PH 7.32 (7.30-7.42)
[2020-03-15 08:31] LABS: HEMATOCRIT 29.6 % (36.0-47.0); HEMOGLOBIN 9.9 g/dL (12.0-15.5); MEAN CORPUSCULAR HEMOGLOBIN 28.3 pg (27.0-33.4); MEAN CORPUSCULAR HGB CONC 33.4 g/dL (32.0-36.0); MEAN CORPUSCULAR VOLUME 85 fl (80-97); PLATELET COUNT 150 10^3/uL (150-450); RED CELL DISTRIBUTION WIDTH 13.6 % (11.5-14.0); WHITE BLOOD COUNT 8.4 10^3/uL (4.0-10.5)
[2020-03-15 08:47] LABS: ANION GAP 7 (5-19); BLOOD UREA NITROGEN 106 mg/dL (7-20); CALCIUM 8.9 mg/dL (8.4-10.2); CARBON DIOXIDE 19 mmol/L (22-30); CHLORIDE 112 mmol/L (98-107); GLUCOSE 168 mg/dL (75-110); POTASSIUM 3.6 mmol/L (3.6-5.0)
[2020-03-15] MEDS: DOCUSATE SODIUM 100 MG CAPSULE PO SCH ×2 (11:19→18:01)
--- NOTE | 2020-03-15 12:43 | PDOC PROGRESS REPORT ---
Subjective Progress Note for:: 03/15/20 Subjective:: Patient states that she currently feels well. Prior to arriving at the hospital she reports that she felt "unusual" and knew that she was probably "dehydrated" however, this feeling has resolved Reason For Visit: ACUTE KIDNEY INJURY SUPERIMPOSED ON CHRONIC RENAL Physical Exam Vital Signs: Temp Pulse Resp BP Pulse Ox 98.2 F 75 18 114/52 L 100 03/15/20 07:57 03/15/20 07:57 03/15/20 07:57 03/15/20 07:57 03/15/20 07:57 Intake & Output 03/14/20 03/15/20 03/16/20 06:59 06:59 06:59 Intake Total 1100 Balance 1100 Weight 119.8 kg General appearance: PRESENT: no acute distress, cooperative, well-developed, well-nourished Head exam: PRESENT: atraumatic, normocephalic Eye exam: PRESENT: conjunctiva pink Mouth exam: PRESENT: moist, tongue midline Neck exam: PRESENT: full ROM, JVD Respiratory exam: PRESENT: clear to auscultation paulie, symmetrical, unlabored. ABSENT: accessory muscle use, crackles, rales, wheezes Cardiovascular exam: PRESENT: RRR, +S1, +S2 GI/Abdominal exam: PRESENT: normal bowel sounds, soft. ABSENT: distended, tenderness Rectal exam: PRESENT: deferred Extremities exam: PRESENT: full ROM. ABSENT: pedal edema Musculoskeletal exam: PRESENT: full ROM Neurological exam: PRESENT: alert, awake, oriented to person, oriented to place, oriented to time, oriented to situation Psychiatric exam: PRESENT: appropriate affect, normal mood. ABSENT: agitated, anxious Skin exam: PRESENT: dry, warm Results Laboratory Results: 03/15/20 08:15 03/15/20 08:15 03/14/20 03/14/20 03/14/20 15:22 15:22 15:22 WBC 8.7 RBC 3.95 Hgb 11.2 L Hct 33.9 L MCV 86 MCH 28.4 MCHC 33.1 RDW 13.8 Plt Count 164 Seg Neutrophils % 73.3 VBG pH 7.19 L* VBG pCO2 51.1 VBG HCO3 19.2 L VBG Base Excess -9.2 Sodium Cancelled Potassium Cancelled Chloride Cancelled Carbon Dioxide Cancelled Anion Gap Cancelled BUN Cancelled Creatinine Cancelled Est GFR ( Amer) Cancelled Est GFR (Non-Af Amer) Cancelled Glucose Cancelled Calcium Cancelled Magnesium Total Bilirubin Cancelled AST Cancelled Alkaline Phosphatase Cancelled Total Protein Cancelled Albumin Cancelled Urine Color Urine Appearance Urine pH Ur Specific Philipp Urine Protein Urine Glucose (UA) Urine Ketones Urine Blood Urine Nitrite Ur Leukocyte Esterase Urine WBC (Auto) Urine RBC (Auto) 03/14/20 03/14/20 03/15/20 16:33 20:55 00:34 WBC RBC Hgb Hct MCV MCH MCHC RDW Plt Count Seg Neutrophils % VBG pH VBG pCO2 VBG HCO3 VBG Base Excess Sodium 133.1 L 139.2 Potassium 4.3 3.5 L Chloride 105 109 H Carbon Dioxide 14 L 19 L Anion Gap 14 11 BUN 119 H 114 H Creatinine 3.85 H 3.33 H Est GFR ( Amer) 14 L 17 L Est GFR (Non-Af Amer) Glucose 410 H* 126 H Calcium 9.1 9.0 Magnesium Total Bilirubin 0.5 AST 19 Alkaline Phosphatase 110 Total Protein 7.5 Albumin 3.6 Urine Color YELLOW Urine Appearance CLEAR Urine pH 5.0 Ur Specific Philipp 1.012 Urine Protein NEGATIVE Urine Glucose (UA) >=500 H Urine Ketones NEGATIVE Urine Blood NEGATIVE Urine Nitrite NEGATIVE Ur Leukocyte Esterase NEGATIVE Urine WBC (Auto) 1 Urine RBC (Auto) 1 03/15/20 03/15/20 03/15/20 08:15 08:15 08:15 WBC 8.4 RBC 3.50 L Hgb 9.9 L Hct 29.6 L MCV 85 MCH 28.3 MCHC 33.4 RDW 13.6 Plt Count 150 Seg Neutrophils % VBG pH 7.32 VBG pCO2 37.6 VBG HCO3 18.8 L VBG Base Excess -6.7 Sodium 138.0 Potassium 3.6 Chloride 112 H Carbon Dioxide 19 L Anion Gap 7 BUN 106 H Creatinine 2.85 H Est GFR ( Amer) 20 L Est GFR (Non-Af Amer) Glucose 168 H Calcium 8.9 Magnesium 2.6 H Total Bilirubin AST Alkaline Phosphatase Total Protein Albumin Urine Color Urine Appearance Urine pH Ur Specific Philipp Urine Protein Urine Glucose (UA) Urine Ketones Urine Blood Urine Nitrite Ur Leukocyte Esterase Urine WBC (Auto) Urine RBC (Auto) Impressions: Chest X-Ray 03/14/20 19:22 IMPRESSION: No evidence of acute cardiopulmonary disease. Assessment and Plan - Diagnosis (1) Acute kidney injury superimposed on chronic kidney disease Is this a current diagnosis for this admission?: Yes Plan: Patient reports that she was called by her doctor and told that her lab values were abnormal and that she needed to present to the ED Patient has advanced CKD (stage IV/V) Patient has received intermittent dialysis in the past but currently is not being dialyzed Continue current IV fluids but decrease rate to 100 cc/h Avoid nephrotoxins Monitor closely (2) Hyperglycemia due to type 2 diabetes mellitus Qualifiers: Diabetes mellitus predatory animal exterminator insulin use: unspecified predatory animal exterminator insulin use status Qualified Code(s): E11.65 - Type 2 diabetes mellitus with hyperglycemia Is this a current diagnosis for this admission?: Yes Plan: Patient seems very unclear about her insulin regimen. When asked her dose of 70/30 insulin she states that she is supposed to take it 2 times daily. When asked what the dose is she states that it is based on her blood sugar. I asked the patient if she has a sliding scale with specific numbers that guides her in the dose of insulin which she is supposed to take and she states that she does not have a scale. She states that her insulin dose is based on her blood sugars and that she just decides how much insulin she needs based on the number that she gets when she checks her blood sugar. Continue FSBS with SSI correction scale Monitor FSBS to identify insulin needs Add scheduled 70/30 insulin tomorrow Diabetic education consult (3) Acidosis Is this a current diagnosis for this admission?: Yes Plan: Multifactorial, likely related to CKD as well as hyperglycemia -anion gap has been remained closed throughout hospitalization Continue IV hydration Monitor (4) Hypertension Qualifiers: Hypertension type: essential hypertension Qualified Code(s): I10 - Essential (primary) hypertension Is this a current diagnosis for this admission?: Yes Plan: Restart patient's home antihypertensive medication (atenolol 50 mg p.o. daily) Stop metoprolol tartrate IV Continue hydralazine 20 mg IV every 4 hours as needed systolic blood pressure greater than 160 (5) Dyslipidemia Is this a current diagnosis for this admission?: Yes Plan: Resume pravastatin 40 mg p.o. daily (6) Anemia of chronic renal failure, stage 4 (severe) Is this a current diagnosis for this admission?: Yes Plan: No treatment indicated at this time H/H drop likely dilutional Monitor (7) Morbid obesity Is this a current diagnosis for this admission?: Yes Plan: Discussed importance of weight management in control of diabetes Nutritional counseling Discussed importance of carb controlled diet and increased exercise/activity (8) Obstructive sleep apnea of adult Is this a current diagnosis for this admission?: Yes Plan: Patient states that she has been tested and does not require CPAP - Plan Summary Summary: Continue IV fluids and close monitoring of patient's BMP - Time Time Spent with patient: 25-34 minutes Anticipated discharge: Home
[2020-03-15 14:19] LABS: ANION GAP 9 (5-19); BLOOD UREA NITROGEN 105 mg/dL (7-20); CALCIUM 8.5 mg/dL (8.4-10.2); CARBON DIOXIDE 17 mmol/L (22-30); CHLORIDE 108 mmol/L (98-107); GLUCOSE 378 mg/dL (75-110); POTASSIUM 4.1 mmol/L (3.6-5.0)
[2020-03-15] MEDS: INSULIN LISPRO 100 UNIT/ML 3 ML VIAL SUBCUT SCH ×2 (17:00→21:26)
[2020-03-15] MEDS: FERROUS SULFATE 325 MG TABLET PO SCH (18:01)
[2020-03-15] MEDS: SENNOSIDES/DOCUSATE 8.6-50 MG 1 EACH TABLET PO SCH (18:01)
[2020-03-15] MEDS: RINGERS SOLUTION,LACTATED 1,000 ML IV PRN (18:05)
[2020-03-15] MEDS: ATORVASTATIN CALCIUM 10 MG TABLET PO SCH (21:26)
[2020-03-16] MEDS: PANTOPRAZOLE SODIUM 40 MG TABLET.DR PO SCH (06:23)
[2020-03-16] MEDS: HEPARIN SOD (PORCINE) 5,000 UNIT/ML 1 ML VIAL SUBCUT SCH ×3 (06:23→21:08)
[2020-03-16] MEDS: RINGERS SOLUTION,LACTATED 1,000 ML IV PRN ×2 (06:26→13:56)
[2020-03-16] MEDS: INSULIN LISPRO 100 UNIT/ML 3 ML VIAL SUBCUT SCH ×4 (08:17→21:08)
[2020-03-16 08:48] LABS: ANION GAP 9 (5-19); BLOOD UREA NITROGEN 94 mg/dL (7-20); CALCIUM 8.5 mg/dL (8.4-10.2); CARBON DIOXIDE 16 mmol/L (22-30); CHLORIDE 111 mmol/L (98-107); GLUCOSE 254 mg/dL (75-110); POTASSIUM 3.9 mmol/L (3.6-5.0)
[2020-03-16] MEDS ORDERED: (PENDING PHARMACY ID) (Pravastatin Sodium [Pravachol] 40 MG) PO SCH (10:00)
[2020-03-16] MEDS: DOCUSATE SODIUM 100 MG CAPSULE PO SCH ×2 (10:55→17:50)
[2020-03-16] MEDS: SENNOSIDES/DOCUSATE 8.6-50 MG 1 EACH TABLET PO SCH ×2 (10:55→17:50)
[2020-03-16] MEDS: FERROUS SULFATE 325 MG TABLET PO SCH ×2 (10:55→17:50)
[2020-03-16] MEDS: ATENOLOL 50 MG TABLET PO SCH (11:12)
[2020-03-16] MEDS: HUM INSULIN NPH/REG INSULIN HM 100 UNIT/1 ML 3 ML SUBCUT SCH ×2 (12:35→17:50)
--- NOTE | 2020-03-16 12:50 | PDOC PROGRESS REPORT ---
Subjective Progress Note for:: 03/16/20 Subjective:: No complaints Reason For Visit: ACUTE KIDNEY INJURY SUPERIMPOSED ON CHRONIC RENAL Physical Exam Vital Signs: Temp Pulse Resp BP Pulse Ox 98.3 F 76 16 115/58 L 98 03/16/20 11:03 03/16/20 11:03 03/16/20 11:03 03/16/20 11:03 03/16/20 11:03 Intake & Output 03/15/20 03/16/20 03/17/20 06:59 06:59 06:59 Intake Total 1100 2770 Balance 1100 2770 Weight 119.8 kg 118.8 kg General appearance: PRESENT: no acute distress, cooperative, morbidly obese Head exam: PRESENT: atraumatic, normocephalic Eye exam: PRESENT: conjunctiva pink Mouth exam: PRESENT: moist, tongue midline Neck exam: ABSENT: JVD Respiratory exam: PRESENT: clear to auscultation paulie, symmetrical, unlabored. ABSENT: accessory muscle use Cardiovascular exam: PRESENT: RRR, +S1, +S2 GI/Abdominal exam: PRESENT: normal bowel sounds, soft. ABSENT: tenderness Rectal exam: PRESENT: deferred Extremities exam: ABSENT: calf tenderness, pedal edema Musculoskeletal exam: PRESENT: full ROM Neurological exam: PRESENT: alert, awake, oriented to person, oriented to place, oriented to time, oriented to situation, CN II-XII grossly intact Psychiatric exam: PRESENT: appropriate affect, normal mood. ABSENT: agitated, anxious Skin exam: PRESENT: dry, normal color, warm Results Laboratory Results: 03/15/20 08:15 03/16/20 07:59 03/15/20 03/16/20 13:26 07:59 Sodium 133.7 L 135.8 L Potassium 4.1 3.9 Chloride 108 H 111 H Carbon Dioxide 17 L 16 L Anion Gap 9 9 BUN 105 H 94 H Creatinine 2.69 H 2.54 H Est GFR ( Amer) 21 L 23 L Glucose 378 H 254 H Calcium 8.5 8.5 Impressions: Chest X-Ray 03/14/20 19:22 IMPRESSION: No evidence of acute cardiopulmonary disease. Assessment and Plan - Diagnosis (1) Acute kidney injury superimposed on chronic kidney disease Is this a current diagnosis for this admission?: Yes Plan: Patient has advanced CKD (stage IV/V) Patient has received intermittent dialysis in the past but currently is not being dialyzed It is difficult to determine what patient's baseline renal function is given wide historic vacillation in renal function IVF rate to 75 cc/h Continue to avoid nephrotoxins Monitor (2) Hyperglycemia due to type 2 diabetes mellitus Qualifiers: Diabetes mellitus mcc insulin use: unspecified assistant terminal manager insulin use status Qualified Code(s): E11.65 - Type 2 diabetes mellitus with hyperglycemia Is this a current diagnosis for this admission?: Yes Plan: Patient seems very unclear about her insulin regimen. When asked her dose of 70/30 insulin she states that she is supposed to take it 2 times daily. When asked what the dose is she states that it is based on her blood sugar. I asked the patient if she has a sliding scale with specific numbers that guides her in the dose of insulin which she is supposed to take and she states that she does not have a scale. She states that her insulin dose is based on her blood sugars and that she just decides how much insulin she needs based on the number that she gets when she checks her blood sugar. Add insulin 70/30 10 units subcutaneous twice daily Continue FSBS with SSI correction scale Diabetic education consult (3) Acidosis Is this a current diagnosis for this admission?: Yes Plan: Likely related to CKD -anion gap has been remained closed throughout hospitalization Monitor (4) Hypertension Qualifiers: Hypertension type: essential hypertension Qualified Code(s): I10 - Essential (primary) hypertension Is this a current diagnosis for this admission?: Yes Plan: Tinea atenolol 50 mg p.o. daily Continue hydralazine 20 mg IV every 4 hours as needed systolic blood pressure greater than 160 (5) Dyslipidemia Is this a current diagnosis for this admission?: Yes Plan: Continue atorvastatin 10 mg p.o. daily (product substitution) (6) Anemia of chronic renal failure, stage 4 (severe) Is this a current diagnosis for this admission?: Yes Plan: No treatment indicated at this time H/H drop likely dilutional Check CBC in a.m. (7) Morbid obesity Is this a current diagnosis for this admission?: Yes Plan: Discussed importance of weight management in control of diabetes Nutritional counseling reinforced Reinforced importance of carb controlled diet and increased exercise/activity (8) Obstructive sleep apnea of adult Is this a current diagnosis for this admission?: Yes Plan: Patient states that she has been tested and does not require CPAP - Plan Summary Summary: Continue IV fluids and close monitoring of patient's BMP - Time Time Spent with patient: 25-34 minutes Anticipated discharge: Home
[2020-03-16] MEDS: ATORVASTATIN CALCIUM 10 MG TABLET PO SCH (21:08)
[2020-03-17] MEDS: HEPARIN SOD (PORCINE) 5,000 UNIT/ML 1 ML VIAL SUBCUT SCH (06:35)
[2020-03-17] MEDS: PANTOPRAZOLE SODIUM 40 MG TABLET.DR PO SCH (06:35)
[2020-03-17] MEDS: RINGERS SOLUTION,LACTATED 1,000 ML IV PRN (06:39)
[2020-03-17 06:51] LABS: HEMATOCRIT 28.3 % (36.0-47.0); HEMOGLOBIN 9.5 g/dL (12.0-15.5); MEAN CORPUSCULAR HEMOGLOBIN 28.7 pg (27.0-33.4); MEAN CORPUSCULAR HGB CONC 33.4 g/dL (32.0-36.0); MEAN CORPUSCULAR VOLUME 86 fl (80-97); PLATELET COUNT 138 10^3/uL (150-450); RED BLOOD COUNT 3.29 10^6/uL (3.72-5.28); RED CELL DISTRIBUTION WIDTH 13.6 % (11.5-14.0)
[2020-03-17 07:17] LABS: ANION GAP 7 (5-19); BLOOD UREA NITROGEN 79 mg/dL (7-20); CALCIUM 8.5 mg/dL (8.4-10.2); CARBON DIOXIDE 20 mmol/L (22-30); CHLORIDE 112 mmol/L (98-107); GLUCOSE 209 mg/dL (75-110); POTASSIUM 3.8 mmol/L (3.6-5.0)
[2020-03-17] MEDS: FERROUS SULFATE 325 MG TABLET PO SCH (09:29)
[2020-03-17] MEDS: SENNOSIDES/DOCUSATE 8.6-50 MG 1 EACH TABLET PO SCH (09:29)
[2020-03-17] MEDS: DOCUSATE SODIUM 100 MG CAPSULE PO SCH (09:29)
[2020-03-17] MEDS: HUM INSULIN NPH/REG INSULIN HM 100 UNIT/1 ML 3 ML SUBCUT SCH (09:29)
[2020-03-17] MEDS: INSULIN LISPRO 100 UNIT/ML 3 ML VIAL SUBCUT SCH ×2 (09:30→12:22)
[2020-03-17] MEDS: ATENOLOL 50 MG TABLET PO SCH (09:53)
[2020-03-17] MEDS ORDERED: CALCITRIOL 0.25 MCG CAPSULE PO SCH (12:26)
[2020-03-17 15:54] VITALS: BP 123/59
[2020-03-17] MEDS ORDERED: HUM INSULIN NPH/REG INSULIN HM 100 UNIT/1 ML 3 ML SUBCUT SCH (16:00)
--- NOTE | 2020-03-17 16:56 | PDOC DISCHARGE SUMMARY ---
Impression - Admit/DC Date/PCP Admission Date/Primary Care Provider: 03/14/20 21:05 AQUILINO LIPSCOMB Discharge Date: 03/17/20 - Discharge Diagnosis (1) Acute kidney injury superimposed on chronic kidney disease Is this a current diagnosis for this admission?: Yes (2) Hyperglycemia due to type 2 diabetes mellitus Is this a current diagnosis for this admission?: Yes (3) Acidosis Is this a current diagnosis for this admission?: Yes (4) Hypertension Is this a current diagnosis for this admission?: Yes (5) Dyslipidemia Is this a current diagnosis for this admission?: Yes (6) Anemia of chronic renal failure, stage 4 (severe) Is this a current diagnosis for this admission?: Yes (7) Morbid obesity Is this a current diagnosis for this admission?: Yes (8) Obstructive sleep apnea of adult Is this a current diagnosis for this admission?: Yes - Assessment Summary: Continue IV fluids and close monitoring of patient's BMP - Additional Information Resuscitation Status: Full Code Discharge Diet: Diabetic, Other (Comments) - Renal Discharge Activity: Activity As Tolerated, Weigh Daily Referrals: AQUILINO LIPSCOMB MD [Primary Care Provider] - 03/19/20 1:00 pm () Home Medications: Ergocalciferol (Vitamin D2) [Drisdol 50,000 unit (1.25MG) Capsule] 50,000 unit PO LOAIZA@1000 90 Days #90 05/21/19 Pravastatin Sodium [Pravachol] 40 mg PO DAILY 90 Days #90 05/21/19 Ascorbic Acid [Vitamin C 500 mg Tablet] 500 mg PO DAILY 11/08/19 B Complex W-C No.20/Folic Acid [Virt-Caps Softgel] 1 mg PO DAILY 11/08/19 Ferrous Sulfate [Feosol 325 mg Tablet] 325 mg PO BID 11/08/19 Magnesium Oxide [Mag-Ox 400 mg Tablet] 400 mg PO DAILY 11/08/19 Atenolol [Tenormin 50 mg Tablet] 50 mg PO DAILY 12/03/19 Calcitriol [Rocaltrol 0.25 mcg Capsule] 0.25 mcg PO MOWEFR 03/15/20 Sennosides/Docusate Sodium [Docusate Sodium-Sennosides Tab] 1 tab PO BID 03/15/20 Acetaminophen [Tylenol 325 mg Tablet] 650 mg PO Q4HP PRN tablet 03/17/20 Hum Insulin NPH/Reg Insulin Hm [Insulin 70-30 (NPH/Reg) 100 unit/mL] 15 unit SQ BIDACBS #0 03/17/20 History of Present Illiness History of Present Illness: CARMELO WHITTEN is a 64 year old female who presented to the ED at the request of her outpatient physician. According to the patient she had labs drawn and was called by her session and requested to report to the emergency department for further evaluation and treatment 2/2 abnormal lab values. Of note, the patient has had prior episodes in the past where this has happened. In the ED she was found to have a blood sugar of 410 as well as a BUN of 119 and a creatinine of 3.85. IV fluids were initiated and the patient was admitted for further evaluation and treatment. Hospital Course Hospital Course: In the initial hospital phase the patient was aggressively hydrated and treated with short acting subcutaneous insulin. Over subsequent days patient's IV fluid rate was decreased and she was transitioned back to her home insulin of NPH/regular 70/30. After initially starting her home insulin regimen the insulin dose required titration. Of note, the patient was very unclear on how she was taking her insulin and it was felt that she needed diabetic education prior to discharge. On 03/17/2020 the patient was seen by the clinical document improvement educator. Additionally, home health was requested for the patient for further diabetic education as well as assistance in medication management. At the time of discharge, her blood sugars were in the low to mid 200 range and she was instructed that she will need to follow-up with her PCP in not longer than 1 week. It is likely that she will require further insulin titration to achieve glucose within goal range. The patient stated that she has never used prandial correction scale and this was not initiated at discharge given her less than ideal understanding of her existing insulin regimen. Ideally this is something that can be addressed by her PCP in order to achieve tight glucose control. Physical Exam Vital Signs: Temp Pulse Resp BP Pulse Ox 97.8 F 62 18 123/59 L 100 03/17/20 15:53 03/17/20 15:53 03/17/20 15:53 03/17/20 15:53 03/17/20 15:53 Intake & Output 03/16/20 03/17/20 03/18/20 06:59 06:59 06:59 Intake Total 2770 2932 1240 Balance 2770 2932 1240 Weight 118.8 kg 118 kg 120.1 kg General appearance: PRESENT: no acute distress, cooperative, morbidly obese, well-nourished Head exam: PRESENT: atraumatic, normocephalic Eye exam: PRESENT: conjunctiva pink Mouth exam: PRESENT: moist, neck supple, tongue midline Neck exam: ABSENT: JVD Respiratory exam: PRESENT: clear to auscultation paulie, symmetrical, unlabored. ABSENT: accessory muscle use Cardiovascular exam: PRESENT: RRR, +S1, +S2 Vascular exam: PRESENT: normal capillary refill GI/Abdominal exam: PRESENT: normal bowel sounds, soft. ABSENT: distended, tenderness Rectal exam: PRESENT: deferred Extremities exam: PRESENT: full ROM. ABSENT: calf tenderness Musculoskeletal exam: PRESENT: full ROM Neurological exam: PRESENT: alert, awake, oriented to person, oriented to place, oriented to time, oriented to situation, CN II-XII grossly intact Psychiatric exam: PRESENT: appropriate affect, normal mood. ABSENT: agitated, anxious Skin exam: PRESENT: dry, intact, warm Results Laboratory Results: WBC 7.0 10^3/uL (4.0-10.5) 03/17/20 06:12 RBC 3.29 10^6/uL (3.72-5.28) L 03/17/20 06:12 Hgb 9.5 g/dL (12.0-15.5) L 03/17/20 06:12 Hct 28.3 % (36.0-47.0) L 03/17/20 06:12 MCV 86 fl (80-97) 03/17/20 06:12 MCH 28.7 pg (27.0-33.4) 03/17/20 06:12 MCHC 33.4 g/dL (32.0-36.0) 03/17/20 06:12 RDW 13.6 % (11.5-14.0) 03/17/20 06:12 Plt Count 138 10^3/uL (150-450) L 03/17/20 06:12 Lymph % (Auto) 15.9 % (13-45) 03/14/20 15:22 [place] % (Auto) 8.3 % (3-13) 03/14/20 15:22 Eos % (Auto) 1.4 % (0-6) 03/14/20 15:22 Baso % (Auto) 1.1 % (0-2) 03/14/20 15:22 Absolute Neuts (auto) 6.3 10^3/uL (1.7-8.2) 03/14/20 15:22 Absolute Lymphs (auto) 1.4 10^3/uL (0.5-4.7) 03/14/20 15:22 Absolute Monos (auto) 0.7 10^3/uL (0.1-1.4) 03/14/20 15:22 Absolute Eos (auto) 0.1 10^3/uL (0.0-0.6) 03/14/20 15: Absolute Basos (auto) 0.1 10^3/uL (0.0-0.2) 03/14/20 15:22 Seg Neutrophils % 73.3 % (42-78) 03/14/20 15:22 VBG pH 7.32 (7.30-7.42) 03/15/20 08:15 VBG pCO2 37.6 mmHg (35-63) 03/15/20 08:15 VBG HCO3 18.8 mmol/L (20-32) L 03/15/20 08:15 VBG Base Excess -6.7 mmol/L 03/15/20 08:15 Sodium 138.9 mmol/L (137-145) 03/17/20 06:12 Potassium 3.8 mmol/L (3.6-5.0) 03/17/20 06:12 Chloride 112 mmol/L (98-107) H 03/17/20 06:12 Carbon Dioxide 20 mmol/L (22-30) L 03/17/20 06:12 Anion Gap 7 (5-19) 03/17/20 06:12 BUN 79 mg/dL (7-20) H 03/17/20 06:12 Creatinine 2.45 mg/dL (0.52-1.25) H 03/17/20 06:12 Est GFR ( Amer) 24 (>60) L 03/17/20 06:12 Est GFR (Non-Af Amer) Cancelled 03/14/20 15:22 Est GFR (MDRD) Non-Af 20 (>60) L 03/17/20 06:12 Glucose 209 mg/dL (75-110) H 03/17/20 06:12 POC Glucose 273 mg/dL (70-110) H 03/17/20 11:18 Calcium 8.5 mg/dL (8.4-10.2) 03/17/20 06:12 Magnesium 2.6 mg/dL (1.6-2.3) H 03/15/20 08:15 Total Bilirubin 0.5 mg/dL (0.2-1.3) 03/14/20 16:33 Direct Bilirubin 0.1 mg/dL (0.0-0.4) 03/14/20 16:33 Neonat Total Bilirubin Not Reportable 03/14/20 16:33 Neonat Direct Bilirubin Not Reportable 03/14/20 16:33 Neonat Indirect Bili Not Reportable 03/14/20 16:33 AST 19 U/L (14-36) 03/14/20 16:33 ALT 10 U/L (<35) 03/14/20 16:33 Alkaline Phosphatase 110 U/L (38-126) 03/14/20 16:33 Total Protein 7.5 g/dL (6.3-8.2) 03/14/20 16:33 Albumin 3.6 g/dL (3.5-5.0) 03/14/20 16:33 EGFR Cancelled 03/14/20 15:22 Urine Color YELLOW 03/14/20 20:55 Urine Appearance CLEAR 03/14/20 20:55 Urine pH 5.0 (5.0-9.0) 03/14/20 20:55 Ur Specific [place] 1.012 03/14/20 20:55 Urine Protein NEGATIVE mg/dL (NEGATIVE) 03/14/20 20:55 Urine Glucose (UA) >=500 mg/dL (NEGATIVE) H 03/14/20 20:55 Urine Ketones NEGATIVE mg/dL (NEGATIVE) 03/14/20 20:55 Urine Blood NEGATIVE (NEGATIVE) 03/14/20 20:55 Urine Nitrite NEGATIVE (NEGATIVE) 03/14/20 20:55 Urine Bilirubin NEGATIVE (NEGATIVE) 03/14/20 20:55 Urine Urobilinogen NEGATIVE mg/dL (<2.0) 03/14/20 20:55 Ur Leukocyte Esterase NEGATIVE (NEGATIVE) 03/14/20 20:55 Urine WBC (Auto) 1 /HPF 03/14/20 20:55 Urine RBC (Auto) 1 /HPF 03/14/20 20:55 Urine Bacteria (Auto) TRACE /HPF 03/14/20 20:55 Squamous Epi Cells Auto <1 /HPF 03/14/20 20:55 Urine Mucus (Auto) RARE /LPF 03/14/20 20:55 Urine Ascorbic Acid 40 (NEGATIVE) H 03/14/20 20:55 Impressions: Chest X-Ray 03/14/20 19:22 IMPRESSION: No evidence of acute cardiopulmonary disease. Plan Plan of Treatment: Patient is to follow-up with her PCP no later than 1 week from the time of discharge Patient was instructed to monitor her FS BS and to report to her PCP any signs of hypoglycemia or abnormally high glucose Patient asked to follow-up with her care management coordinator Goals: Improved glucose control Improve compliance with ADA diet Time Spent: Greater than 30 Minutes Stroke Is this a Stroke Patient?: No Acute Heart Failure - Is this a Heart Failure Patient?: No
== END 2020-03-17 17:20 | disposition home or self-care (01) | DRG 683 ==
LOC: ER 12:31 → OBSVTOIN 21:05 → EH 21:05 → 4S 03-15 00:02
PROVIDERS: ADMIT Emergency Medicine; ATTEND Nurse Practitioner
DX: N17.9 Acute kidney failure, unspecified (principal); I12.0 Hypertensive chronic kidney disease with stage 5 chronic kidney disease or end stage renal disease; E87.2 Acidosis; E11.65 Type 2 diabetes mellitus with hyperglycemia; N18.4 Chronic kidney disease, stage 4 (severe); E66.01 Morbid (severe) obesity due to excess calories; D63.1 Anemia in chronic kidney disease; E11.22 Type 2 diabetes mellitus with diabetic chronic kidney disease; E78.5 Hyperlipidemia, unspecified; G47.33 Obstructive sleep apnea (adult) (pediatric); I87.8 Other specified disorders of veins; Z83.3 Family history of diabetes mellitus; Z82.49 Family history of ischemic heart disease and other diseases of the circulatory system; Z88.5 Allergy status to narcotic agent; Z79.84 Long term (current) use of oral hypoglycemic drugs; Z79.4 Long term (current) use of insulin
CPT/HCPCS: 36415; 71045; 80048; 80053; 81001; 82803; 82962; 83735; 85025; 85027; 94660; 96361; 96374; 99284; G0378; J1644; J1815; J3490; J7030; J7120

== ENCOUNTER 2020-06-16 20:05 | Inpatient (IN) | payer MEDICARE ==
[2020-06-16] MEDS ORDERED: HYDROCODONE/ACETAMINOPHEN 5-325 MG TABLET PO ONE (21:08)
--- NOTE | 2020-06-16 21:17 | ER Document Report ---
ED Medical Screen (RME) - General Chief Complaint: Leg Pain Stated Complaint: LEG PAIN Time Seen by Provider: 06/16/20 21:06 Primary Care Provider: AQUILINO LIPSCOMB MD [Primary Care Provider] - Follow up as needed Mode of Arrival: Wheelchair Information source: Patient Notes: 65-year-old -Italian female with history of lymphedema bilateral lower extremities coming in with worsening lymphedema bilateral lower extremities. Increased pain. No fevers or chills. Having some mild chest pain shortness of breath. General exam: Nontoxic Pulmonary no respiratory distress Cardiac regular rate and rhythm Musculoskeletal bilateral lower extremity edema. Bandages not removed in PIT I have greeted and performed a rapid initial assessment of this patient. A comprehensive ED assessment and evaluation of the patient, analysis of test results and completion of the medical decision making process will be conducted by additional ED providers. TRAVEL OUTSIDE OF THE [place] IN LAST 30 DAYS: No - Related Data Allergies/Adverse Reactions: oxycodone [Oxycodone] Adverse Reaction (Verified 03/14/20 12:45) oxycodone HCl [From Percocet] Adverse Reaction (Verified 03/14/20 12:45) Bradycardia Past Medical History - Past Medical History Cardiac Medical History: Reports: Hx Hypercholesterolemia, Hx Hypertension Denies: Hx Coronary Artery Disease, Hx Heart Attack Pulmonary Medical History: Reports: Hx Sleep Apnea Denies: Hx Asthma, Hx COPD Neurological Medical History: Denies: Hx Seizures Endocrine Medical History: Reports: Hx Diabetes Mellitus Type 2. Denies: Hx Diabetes Mellitus Type 1, Hx Hyperthyroidism, Hx Hypothyroidism Renal/ Medical History: Reports: Hx End Stage Renal Disease - Has received a total of 3 dialysis treatments on a sporadic as needed basis, Hx Renal Insufficiency. Denies: Hx Peritoneal Dialysis GI Medical History: Denies: Hx Cirrhosis, Hx Hepatitis Musculoskeltal Medical History: Denies Hx Arthritis, Denies Hx Fibromyalgia Skin Medical History: Reports Hx Cellulitis, Denies Hx Eczema, Denies Hx Psoriasis Psychiatric Medical History: Denies: Hx Depression Infectious Medical History: Denies: Hx Hepatitis Past Surgical History: Reports: Hx Hysterectomy, Other - Surgery to form a hemodialysis fistula in the left arm. - Immunizations Hx Diphtheria, Pertussis, Tetanus Vaccination: No Physical Exam - Vital signs Vitals: Temp Pulse Resp BP Pulse Ox 98.1 F 99 20 117/63 98 06/16/20 21:10 06/16/20 21:10 06/16/20 21:10 06/16/20 21:10 06/16/20 21:10 Course - Vital Signs Vital signs: Temp Pulse Resp BP Pulse Ox 98.1 F 99 20 117/63 98 06/16/20 21:10 06/16/20 21:10 06/16/20 21:10 06/16/20 21:10 06/16/20 21:10 Doctor's Discharge - Discharge Referrals: AQUILINO LIPSCOMB MD [Primary Care Provider] - Follow up as needed
--- NOTE | 2020-06-16 22:40 | RADIOLOGY REPORT (SQ) ---
EXAM DESCRIPTION: X-ray, single view of the chest CLINICAL HISTORY: 65 years Female, swollen legs, cp, sob COMPARISON: Single view of the chest March 14, 2020 FINDINGS: Lungs: Lung volumes and aeration have improved when compared to the previous exam. There is no focal consolidation. No pneumothorax or pleural effusion. Mediastinum: Cardiac and mediastinal silhouette are within normal limits. There is trace vascular calcification in the thoracic aorta. Bones: Osseous structures are stable IMPRESSION: Improvement in lung volumes and aeration. No acute process. No pneumonia or edema.
[2020-06-17] MEDS ORDERED: MORPHINE SULFATE 10 MG/ML INJ IV ONE (01:52)
--- NOTE | 2020-06-17 01:53 | ER Document Report ---
ED Extremity Problem, Lower - General Chief Complaint: Leg Pain Stated Complaint: LEG PAIN Time Seen by Provider: 06/16/20 21:06 Mode of Arrival: Wheelchair Notes: Patient is a 65-year-old female that comes emergency department for chief complaint of swelling to the bilateral extremities, especially on the left. She states she has chronic lymphedema and they always leak, however she states that she started to have increased pain and started having chills since yesterday. She states that over the past couple days it is also become much more difficult to walk. She denies any other symptoms to me including chest pain, cough, nausea, vomiting, shortness of breath. Based on the triage note I clarified this but patient again confirms no other symptoms. She does have a history of insulin-dependent diabetes, chronic kidney disease, obstructive sleep apnea. TRAVEL OUTSIDE OF THE [place] IN LAST 30 DAYS: No - Related Data Allergies/Adverse Reactions: oxycodone [Oxycodone] Adverse Reaction (Verified 03/14/20 12:45) oxycodone HCl [From Percocet] Adverse Reaction (Verified 03/14/20 12:45) Bradycardia Past Medical History - General Information source: Patient - Social History Smoking Status: Never Smoker Frequency of alcohol use: None Drug Abuse: None Lives with: Alone Family History: DM, Hypertension - Past Medical History Cardiac Medical History: Reports: Hx Hypercholesterolemia, Hx Hypertension Denies: Hx Coronary Artery Disease, Hx Heart Attack Pulmonary Medical History: Reports: Hx Sleep Apnea Denies: Hx Asthma, Hx COPD Neurological Medical History: Denies: Hx Seizures Endocrine Medical History: Reports: Hx Diabetes Mellitus Type 2. Denies: Hx Diabetes Mellitus Type 1, Hx Hyperthyroidism, Hx Hypothyroidism Renal/ Medical History: Reports: Hx End Stage Renal Disease - Has received a total of 3 dialysis treatments on a sporadic as needed basis, Hx Renal Insufficiency. Denies: Hx Peritoneal Dialysis GI Medical History: Denies: Hx Cirrhosis, Hx Hepatitis Musculoskeletal Medical History: Denies Hx Arthritis, Denies Hx Fibromyalgia Skin Medical History: Reports Hx Cellulitis, Denies Hx Eczema, Denies Hx Psoriasis Psychiatric Medical History: Denies: Hx Depression Infectious Medical History: Denies: Hx Hepatitis Past Surgical History: Reports: Hx Hysterectomy, Other - Surgery to form a hemodialysis fistula in the left arm. - Immunizations Hx Diphtheria, Pertussis, Tetanus Vaccination: No Hx Pneumococcal Vaccination: 09/05/16 Review of Systems - Review of Systems Constitutional: See HPI EENT: No symptoms reported Cardiovascular: No symptoms reported Respiratory: No symptoms reported Gastrointestinal: No symptoms reported Genitourinary: No symptoms reported Female Genitourinary: No symptoms reported Musculoskeletal: See HPI Skin: See HPI Hematologic/Lymphatic: No symptoms reported Neurological/Psychological: No symptoms reported Physical Exam - Vital signs Vitals: Temp Pulse BP Pulse Ox 98.1 F 79 117/63 100 06/16/20 21:09 06/16/20 21:09 06/16/20 21:09 06/16/20 21:09 - Notes Notes: GENERAL: Alert, interacts well. No acute distress. HEAD: Normocephalic, atraumatic. EYES: Pupils equal, round, and reactive to light. Extraocular movements intact. ENT: Oral mucosa moist, tongue midline. Oropharynx unremarkable. Airway patent. LUNGS: Clear to auscultation bilaterally, no wheezes, rales, or rhonchi. No respiratory distress. Non-tender chest wall. HEART: Regular rate and rhythm. No murmur ABDOMEN: Soft, non-tender. Non-distended. EXTREMITIES: Bilateral lower extremity lymphedema. Left lower extremity is very swollen compared to the right with erythema, weeping fluid, generalized tender ness, swelling is from the toes all the way up to middle of the distal leg. No purulent drainage or blisters are noted, no induration or fluctuance. Distal sensation is intact. Difficult to evaluate pulses because of severe lymphedema but capillary refill is intact distally. Upper extremities unremarkable. BACK: no cervical, thoracic, lumbar midline tenderness. No saddle anesthesia, normal distal neurovascular exam. NEUROLOGICAL: Alert and oriented x3. Normal speech. Cranial nerves II through XII grossly intact. Strength 5/5 in all extremities. PSYCH: Normal affect, normal mood. SKIN: Warm, dry, normal turgor. No rashes or lesions noted. Course - Re-evaluation Re-evalutation: Patient is not toxic in appearance but she does have impressive lymphedema with secondary cellulitis and swelling of the left leg. There is clear drainage but no purulent drainage noted but there is a foul smell and tenderness with warmth suggesting cellulitis as well. No hypotension, tachycardia, or fever. Patient is reported chills at home. Started on cefepime antibiotics, giving IV fluids, work-up pending. Blood cultures pending. CBC shows leukocytosis at 29,000 with elevation of neutrophils but no bandemia. There is some chronic normocytic anemia. Chemistry shows acute renal failure with creatinine of greater than 12, bicarbonate is 11, anion gap and potassium are unremarkable. EKG nonspecific. Called and spoke with Dr. Friedman, he requests I speak to nephrology first. 06/17/20 03:[address] Reid, nephrology conveyor man. I discussed patient's presentation, laboratory work-up. She states that patient can be admitted with nephrology consult, she states that if patient did need emergent dialysis that we would be able to perform this at this facility. 06/17/20 04:12 Dr. Friedman did evaluate the patient, he requests that I speak to general surgery for consultation for the patient. I called and spoke with general surgery on- call, Dr. Santos, he states that he will evaluate the patient and requests a surgical consult be placed. 06/17/20 Venous blood gas shows pH of 7.12, metabolic acidosis. We will give bicarbonate bolus and started on a drip. I spoke to Dr. Friedman again, he requests I speak to the air turning machine feeder/ICU for possible admission there. I spoke with Oliver Armas, he states he will evaluate the patient. Unfortunately we are still having trouble getting any additional IV access, we have a single 22-gauge IV, I was unable to get additional ultrasound-guided peripheral IV access, patient has a restricted left-sided extremity. Patient consents to central line, this was placed, confirmed with chest x-ray. 06/17/20 Patient has been evaluated by ICU, they recommend IMCU admission, Dr. Friedman accepts to IMCU full admission. Patient states appreciation and agreement. - Vital Signs Vital signs: Temp Pulse Resp BP Pulse Ox 97.5 F 87 20 102/50 L 99 06/17/20 03:56 06/17/20 05:05 06/17/20 05:05 06/17/20 04:09 06/17/20 05:05 - Laboratory Result Diagrams: 06/17/20 02:10 06/17/20 02:10 Laboratory results interpreted by me: 06/17/20 06/17/20 06/17/20 02:10 02:10 02:10 WBC 29.3 H Hgb 10.3 L Hct 31.4 L RDW 15.5 H Seg Neuts % (Manual) 97 H Lymphocytes % (Manual) 2 L Monocytes % (Manual) 1 L Abs Neuts (Manual) 28.4 H VBG pH VBG pCO2 VBG HCO3 Carbon Dioxide 11 L Anion Gap 24 H BUN 210 H Creatinine 12.35 H Est GFR ( Amer) 4 L Est GFR (MDRD) Non-Af 3 L Glucose 151 H Direct Bilirubin 0.5 H NT-Pro-B Natriuret Pep 1020 H Ur Leukocyte Esterase Urine Ascorbic Acid 06/17/20 06/17/20 03:54 04:18 WBC Hgb Hct RDW Seg Neuts % (Manual) Lymphocytes % (Manual) Monocytes % (Manual) Abs Neuts (Manual) VBG pH 7.19 L* VBG pCO2 34.2 L VBG HCO3 12.9 L Carbon Dioxide Anion Gap BUN Creatinine Est GFR ( Amer) Est GFR (MDRD) Non-Af Glucose Direct Bilirubin NT-Pro-B Natriuret Pep Ur Leukocyte Esterase TRACE H Urine Ascorbic Acid 40 H - EKG Interpretation by Me Additional EKG results interpreted by me: EKG shows sinus rhythm at a rate of 81, normal axis, no T wave inversions ST segment changes in consecutive leads, QTC 446 Procedures - Central Line Right Internal jugular Consent obtained: Yes Central line pre-insertion: Sterile PPE donned, Chloraprep applied, Sterile drapes applied Central line lumen type: Triple Anesthetic type: 1% Lidocaine mL's of anesthesia: 4 Ultrasound guided: Yes CM at insertion site: 15 Line secured with sutures: Yes Central line post-insertion: Blood return from lumens, Biopatch applied, Sutured, Sterile dressing applied, Position confirmed w/ CXR Complications: No Notes: First attempted in the right femoral location, however even though the femoral vein to be accessed this quickly lost blood flow and we could not introduce the wire. No complications secondary to this. Patient tolerated this well before consenting to right IJ which was performed without difficulty. Critical Care Note - Critical Care Note Total time excluding time spent on procedures (mins): 45 - Diabetic cellulitis of the lower extremity, acute renal failure, metabolic acidosis Comments: Please allow 45 minutes of critical care time for evaluation and management of this critically ill patient. Interventions included IV fluids, IV antibiotics, bicarbonate bolus and drip, time spent discussing with nephrology, surgery, ICU care, and hospitalist. Time spent performing multiple re-evaluations. Discharge - Discharge Clinical Impression: Lymphedema, Metabolic acidosis Cellulitis Qualifiers: Site of cellulitis: extremity Site of cellulitis of extremity: lower extremity Laterality: left Qualified Code(s): L03.116 - Cellulitis of left lower limb Acute on chronic renal failure Qualifiers: Acute renal failure type: unspecified Chronic kidney disease stage: stage 4 (severe) Qualified Code(s): N17.9 - Acute kidney failure, unspecified Condition: Serious Disposition: ADMITTED INPATIENT Admitting Provider: Idalia (Hospitalist) Unit Admitted: [facility]
[2020-06-17 02:38] LABS: ALBUMIN 3.8 g/dL (3.5-5.0); ALKALINE PHOSPHATASE 68 U/L (38-126); ASPARTATE AMINO TRANSFERASE 23 U/L (14-36); BILIRUBIN,DIRECT 0.5 mg/dL (0.0-0.4); BILIRUBIN,TOTAL 0.6 mg/dL (0.2-1.3); CARBON DIOXIDE 11 mmol/L (22-30); GLUCOSE 151 mg/dL (75-110); TOTAL PROTEIN 7.7 g/dL (6.3-8.2)
[2020-06-17 02:44] LABS: CHLORIDE 103 mmol/L (98-107)
[2020-06-17 02:45] LABS: ANION GAP 24 (5-19); HEMATOCRIT 31.4 % (36.0-47.0); HEMOGLOBIN 10.3 g/dL (12.0-15.5); MEAN CORPUSCULAR HEMOGLOBIN 27.7 pg (27.0-33.4); MEAN CORPUSCULAR HGB CONC 32.9 g/dL (32.0-36.0); MEAN CORPUSCULAR VOLUME 84 fl (80-97); PLATELET COUNT 173 10^3/uL (150-450); RED BLOOD COUNT 3.73 10^6/uL (3.72-5.28); RED CELL DISTRIBUTION WIDTH 15.5 % (11.5-14.0); WHITE BLOOD COUNT 29.3 10^3/uL (4.0-10.5)
[2020-06-17 02:46] LABS: BLOOD UREA NITROGEN 210 mg/dL (7-20)
[2020-06-17] MEDS ORDERED: NORMAL SALINE 1000 ML 1,000 ML IV ONE (02:49)
[2020-06-17] MEDS ORDERED: CEFEPIME 2 GM/D5W RTU 2 GM/50 ML RTUPB IV ONE (02:50)
[2020-06-17 03:14] LABS: ABSOLUTE LYMPHOCYTES# (MANUAL) 0.6 10^3/uL (0.5-4.7); ABSOLUTE MONOCYTES # (MANUAL) 0.3 10^3/uL (0.1-1.4); BASOPHILS % (MANUAL) 0 % (0-2); EOSINOPHILS % (MANUAL) 0 % (0-6); LYMPHOCYTES % (MANUAL) 2 % (13-45); MONOCYTES % (MANUAL) 1 % (3-13); SEGMENTED NEUTROPHILS % (MAN) 97 % (42-78); TOTAL CELLS COUNTED 100
[2020-06-17 03:15] LABS: ANISOCYTOSIS SLIGHT; PLATELET COMMENT ADEQUATE; POIKILOCYTOSIS SLIGHT; TEAR DROP CELLS SLIGHT; TOXIC GRANULATION 1+; TOXIC VACUOLATION PRESENT
[2020-06-17 04:13] LABS: VENOUS BLOOD BASE EXCESS -14.2 mmol/L; VENOUS BLOOD HCO3 12.9 mmol/L (20-32); VENOUS BLOOD PCO2 34.2 mmHg (35-63)
[2020-06-17 04:19] LABS: VENOUS BLOOD PH 7.19 (7.30-7.42)
[2020-06-17] MEDS ORDERED: DEXTROSE 5%-WATER 1000 ML 1,000 ML with SODIUM BICARBONATE 150 MEQ IV PRN ×8 (04:21→06:08)
[2020-06-17] MEDS ORDERED: SODIUM BICARBONATE 8.4% INJ 50 MEQ/50 ML DISP.SYRIN IV ONE (04:26)
[2020-06-17] MEDS ORDERED: SODIUM BICARBONATE 8.4% INJ 50 MEQ/50 ML DISP.SYRIN ONE (04:36)
[2020-06-17 05:02] LABS: APPEARANCE,URINE SLIGHTLY-CLOUDY; BILIRUBIN,URINE NEGATIVE (NEGATIVE); COLOR,URINE YELLOW; GLUCOSE, URINE NEGATIVE (NEGATIVE); KETONES,URINE NEGATIVE (NEGATIVE); LEUKOCYTE ESTERASE,URINE TRACE (NEGATIVE); NITRITE,URINE NEGATIVE (NEGATIVE); PROTEIN,URINE NEGATIVE (NEGATIVE); URINE SPECIFIC GRAVITY 1.014; UROBILINOGEN,URINE NEGATIVE mg/dL (<2.0)
[2020-06-17] MEDS ORDERED: LIDOCAINE 1% INJ-PF (10 MG/ML) 30 ML SDV ONE (05:24)
[2020-06-17] MEDS ORDERED: DEXTROSE 5% IV ONE ×2 (05:45)
[2020-06-17] MEDS ORDERED: SODIUM BICARBONATE IV ONE ×2 (05:45)
[2020-06-17] MEDS ORDERED: WATER IV ONE ×2 (05:45)
[2020-06-17] MEDS ORDERED: ONDANSETRON HCL INJ/PF 4 MG/2 ML SDV IV PRN (05:46)
[2020-06-17] MEDS ORDERED: GLUCAGON,HUMAN RECOMB 1 MG INJ IM PRN (06:01)
[2020-06-17] MEDS ORDERED: DEXTROSE 50%-WATER 25 GM/50 ML DISP.SYRIN IV PRN ×2 (06:01)
[2020-06-17] MEDS ORDERED: DEXTROSE 40% GEL 15 GM TUBE PO PRN ×2 (06:01)
[2020-06-17] MEDS ORDERED: VANCOMYCIN HCL INJ 500 MG VIAL IV PRN (06:04)
[2020-06-17] MEDS ORDERED: RINGERS SOLUTION,LACTATED 1,000 ML IV PRN (06:06)
--- NOTE | 2020-06-17 06:14 | RADIOLOGY REPORT (SQ) ---
EXAM DESCRIPTION: XR CHEST 1 VIEW COMPLETED DATE/TME: 06/17/2020 00:00 CLINICAL HISTORY: 65 years, Female, central line placement verification COMPARISON: 06/16/2020 chest NUMBER OF VIEWS: 1 TECHNIQUE: Portable chest LIMITATIONS: None. FINDINGS: Central venous catheter with the tip in the cavoatrial junction. No pneumothorax. Heart size normal. Lungs clear. IMPRESSION: Tip of the central line in the cavoatrial junction copyright 2010 [employer]- All Rights Reserved
[2020-06-17] MEDS ORDERED: VANCOMYCIN HCL 750 MG in DEXTROSE 5%-WATER 250 ML IV ONE (06:15)
--- NOTE | 2020-06-17 06:25 | PDOC H&P ---
History of Present Illness Admission Date/PCP: AQUILINO LIPSCOMB Patient complains of: leg pain and drainage History of Present Illness: CARMELO WHITTEN is a 65 year old female with history of diabetes mellitus, lymphedema, CKD stage IV, hypertension, who presents to the hospital for evaluation of worsening pain in her lower extremities. Patient has also complained of increased drainage from both legs especially her left leg. She does follow-up at the wound clinic. She states that she has seen a vascular surgeon before in [place] a while back. She denies any fevers but admits to chills. Denies nausea or vomiting. In the ER, work-up reveals significant leukocytosis, LEDA with creatinine of 12 and venous blood gas revealing pH of 7.19. Patient denies inadequate fluid intake but states that she feels that she loses a lot of fluid in form of drainage from her legs. Patient has been evaluated by retail visual merchandiser who recommends that patient does not need ICU admission at this time. Past Medical History Cardiac Medical History: Reports: Hyperlipidema, Hypertension Denies: Coronary Artery Disease, Myocardial Infarction Pulmonary Medical History: Reports: Sleep Apnea Denies: Asthma, Chronic Obstructive Pulmonary Disease (COPD) Neurological Medical History: Denies: Seizures Endocrine Medical History: Reports: Diabetes Mellitus Type 2 Denies: Diabetes Mellitus Type 1, Hyperthyroidism, Hypothyroidism Renal/ Medical History: Reports: Chronic Kidney Disease GI Medical History: Denies: Cirrhosis, Hepatitis Musculoskeltal Medical History: Denies: Arthritis, Fibromyalgia Skin Medical History: Denies: Eczema, Psoriasis Psychiatric Medical History: Denies: Depression Hematology: Reports: Anemia - Chronic secondary to CKD Denies: Bleeding Tendencies Past Surgical History Past Surgical History: Reports: Hysterectomy, Other - Surgery to form a hemodialysis fistula in the left arm. Social History Information Source: Patient Smoking Status: Never Smoker Frequency of Alcohol Use: None Hx Recreational Drug Use: No Drugs: None Hx Prescription Drug Abuse: No - Advance Directive Resuscitation Status: Full Code Family History Family History: DM, Hypertension Parental Family History Reviewed: Yes Children Family History Reviewed: NA Sibling(s) Family History Reviewed.: NA Medication/Allergy Home Medications: Ergocalciferol (Vitamin D2) [Drisdol 50,000 unit (1.25MG) Capsule] 50,000 unit PO LOAIZA@1000 90 Days #05/21/19 Pravastatin Sodium [Pravachol] 40 mg PO DAILY 90 Days #05/21/19 Ascorbic Acid [Vitamin C 500 mg Tablet] 500 mg PO DAILY 11/08/19 B Complex W-C No.20/Folic Acid [Virt-Caps Softgel] 1 mg PO DAILY 11/08/19 Ferrous Sulfate [Feosol 325 mg Tablet] 325 mg PO BID 11/08/19 Magnesium Oxide [Mag-Ox 400 mg Tablet] 400 mg PO DAILY 11/08/19 Atenolol [Tenormin 50 mg Tablet] 50 mg PO DAILY 12/03/19 Calcitriol [Rocaltrol 0.25 mcg Capsule] 0.25 mcg PO MOWEFR 03/15/20 Sennosides/Docusate Sodium [Docusate Sodium-Sennosides Tab] 1 tab PO BID 03/15/20 Acetaminophen [Tylenol 325 mg Tablet] 650 mg PO Q4HP PRN tablet 03/17/20 Hum Insulin NPH/Reg Insulin Hm [Insulin 70-30 (NPH/Reg) 100 unit/mL] 15 unit SQ BIDACBS #0 03/17/20 Allergies/Adverse Reactions: oxycodone [Oxycodone] Adverse Reaction (Verified 03/14/20 12:45) oxycodone HCl [From Percocet] Adverse Reaction (Verified 03/14/20 12:45) Bradycardia Review of Systems Constitutional: PRESENT: chills. ABSENT: fever(s) Eyes: ABSENT: visual disturbances Nose, Mouth, and Throat: ABSENT: headache(s) Cardiovascular: ABSENT: chest pain Respiratory: ABSENT: dyspnea Gastrointestinal: ABSENT: nausea, vomiting Genitourinary: ABSENT: dysuria Musculoskeletal: ABSENT: back pain Integumentary: ABSENT: diaphoresis Neurological: ABSENT: dizziness Endocrine: PRESENT: other - Still able to make urine. ABSENT: polyuria Physical Exam Vital Signs: Temp Pulse Resp BP Pulse Ox 97.5 F 87 20 102/50 L 99 06/17/20 03:56 06/17/20 05:05 06/17/20 05:05 06/17/20 04:09 06/17/20 05:05 Intake & Output 06/15/20 06/16/20 06/17/20 06:59 06:59 06:59 Intake Total 67 Balance 67 Weight 119.748 kg General appearance: PRESENT: no acute distress, cooperative Neck exam: ABSENT: JVD Respiratory exam: PRESENT: clear to auscultation paulie, symmetrical, unlabored. ABSENT: tachypnea, wheezes Cardiovascular exam: PRESENT: RRR, +S1, +S2. ABSENT: tachycardia GI/Abdominal exam: PRESENT: soft. ABSENT: rebound, rigid, tenderness Extremities exam: PRESENT: other - Significant lymphedema 3+ swelling in both lower extremities left leg is greater than right leg. Notable significant serous drainage, purulence, crusting and lymphedema stasis dermatitis. Neurological exam: PRESENT: alert, awake, oriented to person, oriented to place, oriented to time, oriented to situation Psychiatric exam: ABSENT: agitated, anxious Skin exam: ABSENT: intact Results Laboratory Results: 06/17/20 02:10 06/17/20 02:10 06/17/20 06/17/20 06/17/20 02:10 02:10 03:54 WBC 29.3 H RBC 3.73 Hgb 10.3 L Hct 31.4 L MCV 84 MCH 27.7 MCHC 32.9 RDW 15.5 H Plt Count 173 Seg Neutrophils % Not Reportable VBG pH 7.19 L* VBG pCO2 34.2 L VBG HCO3 12.9 L VBG Base Excess -14.2 Sodium 138.0 Potassium 5.0 Chloride 103 Carbon Dioxide 11 L Anion Gap 24 H BUN 210 H Creatinine 12.35 H Est GFR ( Amer) 4 L Glucose 151 H Calcium 9.0 Total Bilirubin 0.6 AST 23 Alkaline Phosphatase 68 Total Protein 7.7 Albumin 3.8 Urine Color Urine Appearance Urine pH Ur Specific [place] Urine Protein Urine Glucose (UA) Urine Ketones Urine Blood Urine Nitrite Ur Leukocyte Esterase Urine WBC (Auto) Urine RBC (Auto) 06/17/20 04:18 WBC RBC Hgb Hct MCV MCH MCHC RDW Plt Count Seg Neutrophils % VBG pH VBG pCO2 VBG HCO3 VBG Base Excess Sodium Potassium Chloride Carbon Dioxide Anion Gap BUN Creatinine Est GFR ( Amer) Glucose Calcium Total Bilirubin AST Alkaline Phosphatase Total Protein Albumin Urine Color YELLOW Urine Appearance SLIGHTLY-CLOUDY Urine pH 5.0 Ur Specific [place] 1.014 Urine Protein NEGATIVE Urine Glucose (UA) NEGATIVE Urine Ketones NEGATIVE Urine Blood NEGATIVE Urine Nitrite NEGATIVE Ur Leukocyte Esterase TRACE H Urine WBC (Auto) 3 Urine RBC (Auto) 1 06/17/20 02:10 NT-Pro-B Natriuret Pep 1020 H Assessment and Plan - Diagnosis (1) Infection associated with lymphedema Is this a current diagnosis for this admission?: Yes Plan: Patient has significant bilateral lymphedema seems worse on the left leg with associated malodorous drainage from the left leg, infected ulcerations, likely overlying cellulitis and venous stasis dermatitis Leukocytosis of 29,[address] patient on vancomycin and cefepime Surgery has been consulted Patient will need compressive bandaging, PT/OT Pain control Blood cultures obtained (2) [id number] kidney injury Qualifiers: Acute renal failure type: unspecified Chronic kidney disease stage: stage 4 (severe) Qualified Code(s): N17.9 - Acute kidney failure, unspecified; N18.4 - Chronic kidney disease, stage 4 (severe) Is this a current diagnosis for this admission?: Yes Plan: Patient seems to be stage IV CKD at baseline with creatinine of 4 ranging between 2.5 and 3.5 However currently creatinine is over 12 with BUN over 200 Nephrology has been consulted Urinalysis is unremarkable Strict monitoring of urine output Trial of IV fluids with lactated Ringer's and sodium bicarbonate drip Ultimately, patient very well will likely require dialysis Check coags Continue calcitriol (3) High anion gap metabolic acidosis Is this a current diagnosis for this admission?: Yes Plan: Secondary to acute renal failure Will give patient a bolus of 500 cc bicarb 150 M EQ then continue on bicarb drip at 80 cc/h Repeat venous blood gas in 3 hours (4) Diabetes Qualifiers: Diabetes mellitus type: type 2 Diabetes mellitus longitudinal float operator insulin use: with longitudinal float operator use Diabetes mellitus complication status: with skin complications Diabetes mellitus complication detail: with other skin complication Qualified Code(s): E11.628 - Type 2 diabetes mellitus with other skin complications; Z79.4 - senior care (current) use of insulin; Z79.4 - senior care (current) use of insulin; Z79.4 - senior care (current) use of insulin; Z79.4 - vermin exterminator (current) use of insulin Is this a current diagnosis for this admission?: Yes Plan: Patient takes 15-20u of 70/30 premixed insulin bid at home. In light of renal failure, I will place patient on sliding scale and Accu-Cheks for now (5) Morbid obesity with BMI of 40.0-44.9, adult Is this a current diagnosis for this admission?: Yes - Time Time Spent with patient: 35 or more minutes Anticipated Discharge Disposition: Home, Self Care Anticipated Discharge Timeframe: undetermined
[2020-06-17] MEDS: HEPARIN SOD (PORCINE) 5,000 UNIT/ML 1 ML VIAL SUBCUT SCH ×3 (06:31→22:04)
--- NOTE | 2020-06-17 06:53 | PDOC CONSULTATION ---
Consultation Consult Date: 06/17/20 Provider Consulted: SURGICAL SURGICALIST MD Consult reason:: chronic venous insufficiency History of Present Illness Admission Date/PCP: 06/17/20 06:01 AQUILINO LIPSCOMB History of Present Illness: CARMELO WHITTEN is a 65 year old female seen in consultation at the request of the hospitalist service. This is a patient with chronic venous insufficiency, who has been seen by surgery before. She does not wear compression stockings. She is a diabetic. She reports swelling and weeping of the left leg. She also reports pain in the left leg. She denies any fevers, chills, palpitations, chest pain, shortness of breath. She does report malaise and fatigue. She is currently in renal failure, and is being admitted for further treatment by the hospitalist. Past Medical History Cardiac Medical History: Reports: Hyperlipidema, Hypertension Denies: Coronary Artery Disease, Myocardial Infarction Pulmonary Medical History: Reports: Sleep Apnea Denies: Asthma, Chronic Obstructive Pulmonary Disease (COPD) Neurological Medical History: Denies: Seizures Endocrine Medical History: Reports: Diabetes Mellitus Type 2 Denies: Diabetes Mellitus Type 1, Hyperthyroidism, Hypothyroidism Renal/ Medical History: Reports: Chronic Kidney Disease, End Stage Renal Disease - Has received a total of 3 dialysis treatments on a sporadic as needed basis GI Medical History: Denies: Cirrhosis, Hepatitis Musculoskeltal Medical History: Denies: Arthritis, Fibromyalgia Skin Medical History: Denies: Eczema, Psoriasis Psychiatric Medical History: Denies: Depression Hematology: Reports: Anemia - Chronic secondary to CKD Denies: Bleeding Tendencies Past Surgical History Past Surgical History: Reports: Hysterectomy, Other - Surgery to form a hemodialysis fistula in the left arm. Social History Smoking Status: Never Smoker Frequency of Alcohol Use: None Hx Recreational Drug Use: No Drugs: None Hx Prescription Drug Abuse: No - Advance Directive Resuscitation Status: Full Code Family History Family History: DM, Hypertension Parental Family History Reviewed: Yes Children Family History Reviewed: Yes Sibling(s) Family History Reviewed.: Yes Medication/Allergy Home Medications: Ergocalciferol (Vitamin D2) [Drisdol 50,000 unit (1.25MG) Capsule] 50,000 unit PO LOAIZA@1000 90 Days #05/21/19 Pravastatin Sodium [Pravachol] 40 mg PO DAILY 90 Days #05/21/19 Ascorbic Acid [Vitamin C 500 mg Tablet] 500 mg PO DAILY 11/08/19 B Complex W-C No.20/Folic Acid [Virt-Caps Softgel] 1 mg PO DAILY 11/08/19 Ferrous Sulfate [Feosol 325 mg Tablet] 325 mg PO BID 11/08/19 Magnesium Oxide [Mag-Ox 400 mg Tablet] 400 mg PO DAILY 11/08/19 Atenolol [Tenormin 50 mg Tablet] 50 mg PO DAILY 12/03/19 Calcitriol [Rocaltrol 0.25 mcg Capsule] 0.25 mcg PO MOWEFR 03/15/20 Sennosides/Docusate Sodium [Docusate Sodium-Sennosides Tab] 1 tab PO BID 03/15/20 Acetaminophen [Tylenol 325 mg Tablet] 650 mg PO Q4HP PRN tablet 03/17/20 Hum Insulin NPH/Reg Insulin Hm [Insulin 70-30 (NPH/Reg) 100 unit/mL] 15 unit SQ BIDACBS #0 03/17/20 Allergies/Adverse Reactions: oxycodone [Oxycodone] Adverse Reaction (Verified 03/14/20 12:45) oxycodone HCl [From Percocet] Adverse Reaction (Verified 03/14/20 12:45) Bradycardia Review of Systems Constitutional: PRESENT: fatigue, weakness. ABSENT: chills, fever(s), headache(s) Eyes: ABSENT: visual disturbances Ears: ABSENT: hearing changes Nose, Mouth, and Throat: ABSENT: sore throat Cardiovascular: ABSENT: chest pain Respiratory: ABSENT: cough Gastrointestinal: ABSENT: abdominal pain, bloating Musculoskeletal: ABSENT: back pain Integumentary: PRESENT: other - Swelling of the left lower extremity with "weeping" Neurological: ABSENT: confusion, convulsions, dizziness Psychiatric: ABSENT: anxiety, depression Endocrine: ABSENT: cold intolerance, heat intolerance Hematologic/Lymphatic: ABSENT: easy bleeding, easy bruising Physical Exam Vital Signs: Temp Pulse Resp BP Pulse Ox 97.5 F 87 20 102/50 L 99 06/17/20 03:56 06/17/20 05:05 06/17/20 05:05 06/17/20 04:09 06/17/20 05:05 Intake & Output 06/15/20 06/16/20 06/17/20 06:59 06:59 06:59 Intake Total 1050 Balance 1050 Weight 119.748 kg General appearance: PRESENT: no acute distress, cooperative Head exam: PRESENT: atraumatic, normocephalic Eye exam: PRESENT: EOMI, PERRLA. ABSENT: scleral icterus Mouth exam: PRESENT: moist, neck supple Neck exam: ABSENT: meningismus, tenderness, thyromegaly, tracheal deviation Respiratory exam: PRESENT: unlabored. ABSENT: tachypnea, wheezes Cardiovascular exam: ABSENT: tachycardia GI/Abdominal exam: PRESENT: soft. ABSENT: distended, tenderness Rectal exam: PRESENT: deferred Extremities exam: PRESENT: other - Brawny/woody changes to bilateral lower extremities (left greater than right). Severe edema of the left lower extremity, below the knee. Mild erythema throughout. Serous drainage from entire left lower extremity, below the knee. No obviously drainable fluid collection or fluctuance. Musculoskeletal exam: ABSENT: deformity Neurological exam: PRESENT: alert, awake, oriented to person, oriented to place, oriented to time, oriented to situation, CN II-XII grossly intact. ABSENT: motor sensory deficit Psychiatric exam: ABSENT: agitated, anxious, depressed Focused psych exam: ABSENT: delusional Skin exam: PRESENT: erythema - Mild erythema of the left lower extremity. ABSENT: jaundice Results Laboratory Results: 06/17/20 02:10 06/17/20 02:10 06/17/20 06/17/20 06/17/20 02:10 02:10 03:54 WBC 29.3 H RBC 3.73 Hgb 10.3 L Hct 31.4 L MCV 84 MCH 27.7 MCHC 32.9 RDW 15.5 H Plt Count 173 Seg Neutrophils % Not Reportable VBG pH 7.19 L* VBG pCO2 34.2 L VBG HCO3 12.9 L VBG Base Excess -14.2 Sodium 138.0 Potassium 5.0 Chloride 103 Carbon Dioxide 11 L Anion Gap 24 H BUN 210 H Creatinine 12.35 H Est GFR ( Amer) 4 L Glucose 151 H Lactic Acid Calcium 9.0 Total Bilirubin 0.6 AST 23 Alkaline Phosphatase 68 Total Protein 7.7 Albumin 3.8 Urine Color Urine Appearance Urine pH Ur Specific [place] Urine Protein Urine Glucose (UA) Urine Ketones Urine Blood Urine Nitrite Ur Leukocyte Esterase Urine WBC (Auto) Urine RBC (Auto) 06/17/20 06/17/20 04:18 06:04 WBC RBC Hgb Hct MCV MCH MCHC RDW Plt Count Seg Neutrophils % VBG pH VBG pCO2 VBG HCO3 VBG Base Excess Sodium Potassium Chloride Carbon Dioxide Anion Gap BUN Creatinine Est GFR ( Amer) Glucose Lactic Acid 0.6 L Calcium Total Bilirubin AST Alkaline Phosphatase Total Protein Albumin Urine Color YELLOW Urine Appearance SLIGHTLY-CLOUDY Urine pH 5.0 Ur Specific [place] 1.014 Urine Protein NEGATIVE Urine Glucose (UA) NEGATIVE Urine Ketones NEGATIVE Urine Blood NEGATIVE Urine Nitrite NEGATIVE Ur Leukocyte Esterase TRACE H Urine WBC (Auto) 3 Urine RBC (Auto) 1 06/17/20 02:10 NT-Pro-B Natriuret Pep 1020 H Impressions: Chest X-Ray 06/17/20 00:00 IMPRESSION: Tip of the central line in the cavoatrial junction copyright 2011 [employer]- All Rights Reserved Assessment & Plan - Diagnosis (1) Cellulitis Qualifiers: Site of cellulitis: extremity Site of cellulitis of extremity: lower extremity Laterality: left Qualified Code(s): L03.116 - Cellulitis of left lower limb Is this a current diagnosis for this admission?: Yes (2) Venous stasis dermatitis of both lower extremities Is this a current diagnosis for this admission?: Yes - Plan Summary Plan Summary: This is a 65-year-old female with chronic venous insufficiency, who is by her own admission noncompliant. She does not wear compression stockings. She does not keep her legs elevated. She has developed severe edema of the left lower extremity. She is now weeping fluid through the skin. There is a mild amount of erythema present, but I do not see any obvious necrotic tissue, drainable abscess, or areas of fluctuance (bulla formation or other concerning finding). I have recommended elevation of the left lower extremity with compression stockings. I do not believe surgical intervention will be helpful for her at this time. Surgery will follow with you. Continue with antibiotics, com pression, and elevation.
[2020-06-17] MEDS: SENNOSIDES/DOCUSATE 8.6-50 MG 1 EACH TABLET PO SCH (09:35)
[2020-06-17] MEDS: TRAMADOL HCL 50 MG TABLET PO PRN (09:36)
[2020-06-17] MEDS: FERROUS SULFATE 325 MG TABLET PO SCH (09:37)
[2020-06-17] MEDS: ATENOLOL 50 MG TABLET PO SCH (09:39)
[2020-06-17] MEDS ORDERED: CEFEPIME 1 GM/D5W RTU 1 GM/50 ML RTUPB IV SCH (10:00)
[2020-06-17] MEDS ORDERED: VANCOMYCIN HCL INJ 1000 MG VIAL IV SCH (10:00)
[2020-06-17] MEDS ORDERED: CEFEPIME HCL 0.5 GM in DEXTROSE 5%-WATER 25 ML IV SCH (10:00)
[2020-06-17 10:22] LABS: VENOUS BLOOD BASE EXCESS -8.8 mmol/L; VENOUS BLOOD HCO3 16.8 mmol/L (20-32); VENOUS BLOOD PCO2 35.7 mmHg (35-63); VENOUS BLOOD PH 7.29 (7.30-7.42)
[2020-06-17 10:42] LABS: GLUCOSE 265 mg/dL (75-110); POTASSIUM 4.2 mmol/L (3.6-5.0)
[2020-06-17 10:50] LABS: CARBON DIOXIDE 13 mmol/L (22-30); CHLORIDE 100 mmol/L (98-107)
[2020-06-17 10:51] LABS: INTERNATIONAL RATION (INR) 1.41; PARTIAL THROMBOPLASTIN TIME 29.1 SEC (23.5-35.8); PROTHROMBIN TIME 17.4 SEC (11.4-15.4)
[2020-06-17 10:55] LABS: ANION GAP 22 (5-19); BLOOD UREA NITROGEN 203 mg/dL (7-20)
[2020-06-17] MEDS: INSULIN LISPRO 100 UNIT/ML 3 ML VIAL SUBCUT SCH ×4 (11:04→21:36)
--- NOTE | 2020-06-17 11:20 | PDOC CONSULTATION ---
Consultation Consult Date: 06/17/20 Provider Consulted: PEDRO CHAN Consult reason:: LEDA on CKD5 History of Present Illness Admission Date/PCP: 06/17/20 06:01 AQUILINO LIPSCOMB History of Present Illness: CARMELO WHITTEN is a 65 year old female with history of diabetes mellitus, lymphedema, CKD stage IV following with Dr. Wayne, hypertension, came to the ER for worsening pain and drainage in her lower extremities. She currently follows with wound care. She also admits to a couple of days of diarrhea. She denies fevers, chills, n/v. She also denies chest pain or SOB. She claims her appetite has been normal and she claims to be hydrating well. In the ER, labs were drawn that showed a creatinine of 12.35, bun of 210, bicarb of 11, white count of 29.3. Chest x-ray was clear. A central line was placed, she was started on vanc and cefepime. She also has been receiving IV fluids and sodium bicarb. She was seen by surgery and determined that no surgical intervention was needed. Urine output continues to be well according to the patient. Past Medical History Cardiac Medical History: Reports: Hyperlipidemia, Hypertension-primary Denies: Coronary Artery Disease, Myocardial Infarction Pulmonary Medical History: Reports: Sleep Apnea Denies: Asthma, Chronic Obstructive Pulmonary Disease (COPD) Neurological Medical History: Denies: Seizures Endocrine Medical History: Reports: Diabetes Mellitus Type 2 Denies: Diabetes Mellitus Type 1, Hyperthyroidism, Hypothyroidism Renal/ Medical History: Reports: Chronic Kidney Disease Stage III, Chronic Kidney Disease Stage IV, End Stage Renal Disease - Has received a total of 3 dialysis treatments on a sporadic as needed basis GI Medical History: Denies: Cirrhosis, Hepatitis Musculoskeltal Medical History: Denies: Arthritis, Fibromyalgia Skin Medical History: Denies: Eczema, Psoriasis Psychiatric Medical History: Denies: Depression Past Surgical History Past Surgical History: Reports: Hysterectomy, Other - Surgery to form a hemodialysis fistula in the left arm. Social History Lives with: Alone Smoking Status: Never Smoker Frequency of Alcohol Use: None Hx Recreational Drug Use: No Drugs: None Hx Prescription Drug Abuse: No - Advance Directive Resuscitation Status: Full Code Family History Parental Family History Reviewed: Yes Children Family History Reviewed: Unknown Sibling(s) Family History Reviewed.: Unknown Medication/Allergy Home Medications: Ergocalciferol (Vitamin D2) [Drisdol 50,000 unit (1.25MG) Capsule] 50,000 unit PO LOAIZA@1000 90 Days #90 05/21/19 Pravastatin Sodium [Pravachol] 40 mg PO DAILY 90 Days #90 05/21/19 Ascorbic Acid [Vitamin C 500 mg Tablet] 500 mg PO DAILY 11/08/19 B Complex W-C No.20/Folic Acid [Virt-Caps Softgel] 1 mg PO DAILY 11/08/19 Ferrous Sulfate [Feosol 325 mg Tablet] 325 mg PO BID 11/08/19 Atenolol [Tenormin 50 mg Tablet] 100 mg PO DAILY 12/03/19 Calcitriol [Rocaltrol 0.25 mcg Capsule] 0.25 mcg PO MOWEFR 03/15/20 Docusate Sodium [Colace 100 mg Capsule] 100 mg PO BID 06/17/20 Furosemide [Lasix 20 mg Tablet] 20 mg PO MOWEFR 06/17/20 Hum Insulin NPH/Reg Insulin Hm [Insulin 70-30 (NPH/Reg) 100 unit/mL] 20 unit SQ BIDACBS 06/17/20 Sodium Bicarbonate [Sodium Bicarbonate 650 mg Tablet] 1,300 mg PO BID 06/17/20 Allergies/Adverse Reactions: oxycodone [Oxycodone] Adverse Reaction (Verified 06/17/20 12:34) oxycodone HCl [From Percocet] Adverse Reaction (Verified 06/17/20 12:34) Bradycardia Review of Systems Constitutional: PRESENT: weakness. ABSENT: anorexia, chills, fever(s) Eyes: ABSENT: visual disturbances Nose, Mouth, and Throat: ABSENT: headache(s) Cardiovascular: PRESENT: edema. ABSENT: chest pain, dyspnea on exertion, orthropnea, palpitations Respiratory: ABSENT: cough, dyspnea, sputum Gastrointestinal: PRESENT: diarrhea. ABSENT: constipation, nausea, vomiting Genitourinary: ABSENT: difficulty urinating, dysuria Musculoskeletal: PRESENT: muscle weakness Integumentary: PRESENT: erythema Neurological: PRESENT: weakness. ABSENT: confusion Endocrine: PRESENT: polydipsia Physical Exam Vital Signs: Temp Pulse Resp BP Pulse Ox 97.5 F 87 20 102/50 L 98 06/17/20 03:56 06/17/20 05:05 06/17/20 05:05 06/17/20 04:09 06/17/20 07:28 Intake & Output 06/16/20 06/17/20 06/18/20 06:59 06:59 06:59 Intake Total 1050 Balance 1050 Weight 119.748 kg General appearance: PRESENT: no acute distress, well-developed, well-nourished Mouth exam: PRESENT: dry mucosa, neck supple Neck exam: ABSENT: JVD, tracheal deviation Respiratory exam: PRESENT: clear to auscultation paulie. ABSENT: crackles, rales, rhonchi, wheezes Cardiovascular exam: PRESENT: +S1, +S2 GI/Abdominal exam: PRESENT: soft. ABSENT: distended, guarding, tenderness Extremities exam: PRESENT: other - lymphedema with weepng Musculoskeletal exam: PRESENT: tenderness. ABSENT: normal inspection Neurological exam: PRESENT: alert, awake, oriented to person, oriented to place, oriented to time, oriented to situation Psychiatric exam: PRESENT: appropriate affect, normal mood Skin exam: PRESENT: rash, skin tears, warm. ABSENT: cyanosis, dry, intact Results Laboratory Results: 06/17/20 02:10 06/17/20 06/17/20 06/17/20 02:10 02:10 03:54 WBC 29.3 H RBC 3.73 Hgb 10.3 L Hct 31.4 L MCV 84 MCH 27.7 MCHC 32.9 RDW 15.5 H Plt Count 173 Seg Neutrophils % Not Reportable VBG pH 7.19 L* VBG pCO2 34.2 L VBG HCO3 12.9 L VBG Base Excess -14.2 Sodium 138.0 Potassium 5.0 Chloride 103 Carbon Dioxide 11 L Anion Gap 24 H BUN 210 H Creatinine 12.35 H Est GFR ( Amer) 4 L Glucose 151 H Lactic Acid Calcium 9.0 Total Bilirubin 0.6 AST 23 Alkaline Phosphatase 68 Total Protein 7.7 Albumin 3.8 Urine Color Urine Appearance Urine pH Ur Specific Hilger Urine Protein Urine Glucose (UA) Urine Ketones Urine Blood Urine Nitrite Ur Leukocyte Esterase Urine WBC (Auto) Urine RBC (Auto) 06/17/20 06/17/20 06/17/20 04:18 06:04 09:55 WBC RBC Hgb Hct MCV MCH MCHC RDW Plt Count Seg Neutrophils % VBG pH 7.29 L VBG pCO2 35.7 VBG HCO3 16.8 L VBG Base Excess -8.8 Sodium Potassium Chloride Carbon Dioxide Anion Gap BUN Creatinine Est GFR ( Amer) Glucose Lactic Acid 0.6 L Calcium Total Bilirubin AST Alkaline Phosphatase Total Protein Albumin Urine Color YELLOW Urine Appearance SLIGHTLY-CLOUDY Urine pH 5.0 Ur Specific Hilger 1.014 Urine Protein NEGATIVE Urine Glucose (UA) NEGATIVE Urine Ketones NEGATIVE Urine Blood NEGATIVE Urine Nitrite NEGATIVE Ur Leukocyte Esterase TRACE H Urine WBC (Auto) 3 Urine RBC (Auto) 1 06/17/20 06/17/20 02:10 09:55 Creatine Kinase 157 H NT-Pro-B Natriuret Pep 1020 H Impressions: Chest X-Ray 06/17/20 00:00 IMPRESSION: Tip of the central line in the cavoatrial junction copyright 2010 [employer]- All Rights Reserved Assessment & Plan - Diagnosis (1) Poysj-kh-gggwvbe kidney injury Qualifiers: Acute renal failure type: unspecified Chronic kidney disease stage: stage 4 (severe) Qualified Code(s): N17.9 - Acute kidney failure, unspecified; N18.4 - Chronic kidney disease, stage 4 (severe) Is this a current diagnosis for this admission?: Yes Plan: nonoliguric, likely due to dehydration with other factors including ATN from the infection. Patient has a significant history of severe dehydration. A few times over the past two years she has required dialysis. Will look to get a renal ultrasound and a new set of labs since she has been receiving the ringers and bicarb. May need to switch off the ringers due to her history of severe hyperkalemia. As of right now she does not need MANAGER ENGAGEMENT. If she does, she will need to have a catheter placed. She previously had a fistula placed that failed to take. Baseline creatinine is around the mid 2s. (2) High anion gap metabolic acidosis Is this a current diagnosis for this admission?: Yes Plan: likely due to LEDA, less likely the infection since her lactic acid was 0.6. Waiting on pending labs. If bicarb is not trending up then I will look to increase the concentration of bicarb she is receiving. (3) Cellulitis Qualifiers: Site of cellulitis: extremity Site of cellulitis of extremity: lower extremity Laterality: left Qualified Code(s): L03.116 - Cellulitis of left l ower limb Is this a current diagnosis for this admission?: Yes Plan: on vanc and cefepime, will make sure the antibiotics are adjusted per her kidney function (4) Dehydration Plan: giving ringers and bicarb, will look to continue to rehydrate. (5) Infection associated with lymphedema Is this a current diagnosis for this admission?: Yes Plan: on vanc and cefepime (6) Leukocytosis Qualifiers: Leukocytosis type: unspecified Qualified Code(s): D72.829 - Elevated white blood cell count, unspecified Plan: likely due to her infection, continue on vanc and cefepime. Blood cultures are currently pending. (7) Benign essential hypertension Plan: low end of normal (8) Anemia of chronic renal failure, stage 4 (severe) Plan: follow up with labs (10) Lymphedema Plan: follows with wound care (11) DEEPA (renal osteodystrophy) Plan: will look to increase calcitriol to 0.5mcg qd (12) Hyperphosphatemia Plan: starting on calcium acetate 2 with meals
[2020-06-17 12:10] LABS: ALBUMIN 2.8 g/dL (3.5-5.0); PHOSPHORUS 8.5 mg/dL (2.5-4.5)
[2020-06-17] MEDS ORDERED: VANCOMYCIN HCL 500 MG in DEXTROSE 5%-WATER 100 ML IV ONE ×2 (16:00→19:30)
[2020-06-17] MEDS: CALCIUM ACETATE 667 MG CAPSULE PO SCH (18:42)
[2020-06-17] MEDS: RINGERS SOLUTION,LACTATED 1,000 ML IV PRN (19:52)
--- NOTE | 2020-06-17 19:54 | EKG REPORT ---
SEVERITY:- NORMAL ECG - SINUS RHYTHM : Confirmed by: Cherie Morris 17-Jun-2020 19:53:45
[2020-06-17] MEDS: ATORVASTATIN CALCIUM 10 MG TABLET PO SCH (21:33)
[2020-06-17] MEDS ORDERED: CEFEPIME HCL 0.5 GM in NORMAL SALINE 25 ML IV SCH (22:00)
[2020-06-18] MEDS ORDERED: SODIUM BICARBONATE 8.4% INJ 50 MEQ/50 ML DISP.SYRIN ONE (02:35)
--- NOTE | 2020-06-18 02:38 | RADIOLOGY REPORT (SQ) ---
RENAL ULTRASOUND: 06/18/2020 1:35 AM CDT HISTORY: 65-year old with acute kidney injury, chronic kidney disease. COMPARISON: Renal ultrasound from 04/09/2019 TECHNIQUE: Limited sonographic evaluation of the kidneys was performed. FINDINGS: Both kidneys demonstrate diffusely increased cortical echogenicity. The right kidney measures up to 11.3 cm in length. The left kidney measures up to 9.6 cm in length. No hydronephrosis is noted in either kidney. There is mild prominence of the right renal pelvis without caliectasis, likely from an extrarenal pelvis. No free intraperitoneal fluid is seen. The urinary bladder is decompressed by a Ritter catheter. The abdominal aorta and inferior vena cava are not well visualized. IMPRESSION: There is no evidence of hydronephrosis. Both kidneys demonstrate increased cortical echogenicity, suggestive of chronic medical renal disease. There is mild prominence of the right renal pelvis without caliectasis, likely from an extrarenal pelvis.
[2020-06-18] MEDS: DEXTROSE 5%-WATER 1000 ML 1,000 ML with SODIUM BICARBONATE 150 MEQ IV PRN ×2 (02:59)
[2020-06-18] MEDS: HEPARIN SOD (PORCINE) 5,000 UNIT/ML 1 ML VIAL SUBCUT SCH ×3 (05:18→21:12)
[2020-06-18] MEDS ORDERED: CALCITRIOL 0.25 MCG CAPSULE PO SCH (05:58)
[2020-06-18 06:20] LABS: HEMATOCRIT 24.2 % (36.0-47.0); MEAN CORPUSCULAR HEMOGLOBIN 27.2 pg (27.0-33.4); MEAN CORPUSCULAR VOLUME 83 fl (80-97); PLATELET COUNT 128 10^3/uL (150-450); RED BLOOD COUNT 2.93 10^6/uL (3.72-5.28); WHITE BLOOD COUNT 16.2 10^3/uL (4.0-10.5)
[2020-06-18 06:30] LABS: ANION GAP 17 (5-19); CALCIUM 7.4 mg/dL (8.4-10.2); CARBON DIOXIDE 19 mmol/L (22-30); CHLORIDE 100 mmol/L (98-107); GLUCOSE 165 mg/dL (75-110); PHOSPHORUS 6.8 mg/dL (2.5-4.5)
[2020-06-18 06:43] LABS: BLOOD UREA NITROGEN 191 mg/dL (7-20)
[2020-06-18 07:09] LABS: ABSOLUTE LYMPHOCYTES# (MANUAL) 0.2 10^3/uL (0.5-4.7); ABSOLUTE MONOCYTES # (MANUAL) 0.6 10^3/uL (0.1-1.4); BASOPHILS % (MANUAL) 1 % (0-2); EOSINOPHILS % (MANUAL) 0 % (0-6); LYMPHOCYTES % (MANUAL) 1 % (13-45); MONOCYTES % (MANUAL) 4 % (3-13); SEGMENTED NEUTROPHILS % (MAN) 94 % (42-78); TOTAL CELLS COUNTED 100
[2020-06-18 07:10] LABS: ANISOCYTOSIS SLIGHT; OVALOCYTES SLIGHT; PLATELET COMMENT DECREASED; POIKILOCYTOSIS SLIGHT; TOXIC GRANULATION SLIGHT
[2020-06-18] MEDS: CALCIUM ACETATE 667 MG CAPSULE PO SCH ×3 (08:22→17:37)
[2020-06-18] MEDS: INSULIN LISPRO 100 UNIT/ML 3 ML VIAL SUBCUT SCH ×4 (08:22→21:14)
--- NOTE | 2020-06-18 08:48 | PDOC PROGRESS REPORT ---
Subjective Progress Note for:: 06/18/20 Subjective:: 65-year-old female with bilateral lower extremity edema. Her left side worse than her right. She reports that her pain is improving. She denies any chest pain, shortness of breath, fevers, chills, nausea, vomiting, dizziness, orthostasis, or blurry vision. Reason For Visit: LEDA ON CKD, UREMIA, INFECTED LYMPHEDEMA Physical Exam Vital Signs: Temp Pulse Resp BP Pulse Ox 98.5 F 79 16 99/68 L 98 06/18/20 02:59 06/18/20 07:00 06/18/20 02:59 06/18/20 02:59 06/18/20 02:59 Intake & Output 06/17/20 06/18/20 06/19/20 06:59 06:59 06:59 Intake Total 1050 1650 Output Total 1250 Balance 1050 400 Weight 119.748 kg 123.5 kg General appearance: PRESENT: no acute distress, cooperative, obese Head exam: PRESENT: atraumatic, normocephalic Eye exam: PRESENT: EOMI, PERRLA. ABSENT: scleral icterus Mouth exam: PRESENT: moist, neck supple Neck exam: ABSENT: meningismus, tenderness, thyromegaly, tracheal deviation Respiratory exam: PRESENT: unlabored. ABSENT: tachypnea, wheezes Cardiovascular exam: ABSENT: tachycardia GI/Abdominal exam: PRESENT: soft. ABSENT: distended, tenderness Rectal exam: PRESENT: deferred Extremities exam: PRESENT: other - Significant edema with bilateral gaiter sign. Much less draining/oozing to left lower extremity. Compression wrap taken down, and replaced today. No evidence of abscess or purulent drainage. Neurological exam: PRESENT: alert, awake, oriented to person, oriented to place, oriented to time, oriented to situation Psychiatric exam: ABSENT: agitated, anxious, depressed Focused psych exam: ABSENT: delusional Skin exam: ABSENT: cyanosis, jaundice Results Laboratory Results: 06/18/20 05:30 06/18/20 05:30 06/17/20 06/17/20 06/17/20 09:55 09:55 09:55 WBC RBC Hgb Hct MCV MCH MCHC RDW Plt Count Seg Neutrophils % VBG pH 7.29 L VBG pCO2 35.7 VBG HCO3 16.8 L VBG Base Excess -8.8 Sodium 135.4 L Potassium 4.2 Chloride 100 Carbon Dioxide 13 L Anion Gap 22 H BUN 203 H Creatinine 10.64 H Est GFR ( Amer) 4 L Glucose 265 H Calcium 8.0 L Phosphorus 8.5 H Magnesium Albumin 2.8 L PTH Intact 06/17/20 06/18/20 06/18/20 12:06 05:30 05:30 WBC 16.2 H RBC 2.93 L Hgb 8.0 L D Hct 24.2 L MCV 83 MCH 27.2 MCHC 33.0 RDW 15.0 H Plt Count 128 L Seg Neutrophils % Not Reportable VBG pH VBG pCO2 VBG HCO3 VBG Base Excess Sodium 136.3 L Potassium 4.0 Chloride 100 Carbon Dioxide 19 L Anion Gap 17 BUN 191 H Creatinine 9.18 H Est GFR ( Amer) 5 L Glucose 165 H Calcium 7.4 L Phosphorus 6.8 H Magnesium 1.6 Albumin PTH Intact 825.3 H 06/17/20 06/17/20 02:10 09:55 Creatine Kinase 157 H NT-Pro-B Natriuret Pep 1020 H Impressions: Chest X-Ray 06/17/20 00:00 IMPRESSION: Tip of the central line in the cavoatrial junction copyright 2011 [employer]- All Rights Reserved Renal Ultrasound 06/17/20 00:00 IMPRESSION: There is no evidence of hydronephrosis. Both kidneys demonstrate increased cortical echogenicity, suggestive of chronic medical renal disease. There is mild prominence of the right renal pelvis without caliectasis, likely from an extrarenal pelvis. Assessment & Plan - Diagnosis (1) Cellulitis Qualifiers: Site of cellulitis: extremity Site of cellulitis of extremity: lower extremity Laterality: left Qualified Code(s): L03.116 - Cellulitis of left lower limb Is this a current diagnosis for this admission?: Yes (2) Venous stasis dermatitis of both lower extremities Is this a current diagnosis for this admission?: Yes - Time Anticipated Discharge Disposition: unknown Anticipated Discharge Timeframe: unknown - Plan Summary Plan Summary: 65-year-old female with severe, chronic venous disease of bilateral lower extremities. Her left side had evidence of some cellulitis. With elevation and mild compression, her physical exam is much improved. I have removed the dressing and replaced it today. There is no abscess, necrotic tissue, or other sign of ongoing/worsening infection. I have left instructions with the nurses. They are to leave a compression stocking on the right leg. They are to place graduated compression Kosta wrap on the left foot from toes to knee. They are to change this daily. I do not believe the patient will require any surgical intervention. Continue antibiotics. Surgery will sign off at this time. Please renotify with any questions or concerns.
[2020-06-18] MEDS: ATENOLOL 50 MG TABLET PO SCH (09:34)
[2020-06-18] MEDS: CEFEPIME HCL 0.5 GM in NORMAL SALINE 25 ML IV SCH (09:34)
[2020-06-18] MEDS: SENNOSIDES/DOCUSATE 8.6-50 MG 1 EACH TABLET PO SCH (09:35)
[2020-06-18] MEDS: CALCITRIOL 0.25 MCG CAPSULE PO SCH (09:36)
[2020-06-18] MEDS: FERROUS SULFATE 325 MG TABLET PO SCH (09:37)
--- NOTE | 2020-06-18 12:52 | PDOC PROGRESS REPORT ---
Subjective Progress Note for:: 06/18/20 Subjective:: She was seen sitting up in her bed this morning. She claims to be feeling much better from yesterday. Her legs are still in pain some. She has had good urine output. She denies any chest pain, SOB, n/v/d/c. Appetite is good according to her. Reason For Visit: LEDA ON CKD, UREMIA, INFECTED LYMPHEDEMA Physical Exam Vital Signs: Temp Pulse Resp BP Pulse Ox 98.5 F 79 16 99/68 L 98 06/18/20 09:13 06/18/20 07:00 06/18/20 02:59 06/18/20 02:59 06/18/20 02:59 Intake & Output 06/17/20 06/18/20 06/19/20 06:59 06:59 06:59 Intake Total 1050 1650 Output Total 1250 Balance 1050 400 Weight 119.748 kg 123.5 kg General appearance: PRESENT: no acute distress, well-developed, well-nourished Mouth exam: PRESENT: dry mucosa, neck supple Neck exam: ABSENT: JVD, tracheal deviation Respiratory exam: PRESENT: clear to auscultation paulie. ABSENT: accessory muscle use, crackles, rales, rhonchi, wheezes Cardiovascular exam: PRESENT: +S1, +S2 GI/Abdominal exam: PRESENT: soft. ABSENT: distended, guarding, tenderness Extremities exam: PRESENT: tenderness, other - lymphedema. ABSENT: +1 edema, +2 edema Musculoskeletal exam: PRESENT: tenderness. ABSENT: normal inspection Neurological exam: PRESENT: alert, awake, oriented to person, oriented to place, oriented to time, oriented to situation Psychiatric exam: PRESENT: appropriate affect, normal mood Skin exam: PRESENT: dry, intact, warm. ABSENT: cyanosis, rash Results Laboratory Results: 06/18/20 05:30 06/18/20 05:30 06/17/20 06/18/20 06/18/20 12:06 05:30 05:30 WBC 16.2 H RBC 2.93 L Hgb 8.0 L D Hct 24.2 L MCV 83 MCH 27.2 MCHC 33.0 RDW 15.0 H Plt Count 128 L Seg Neutrophils % Not Reportable Sodium 136.3 L Potassium 4.0 Chloride 100 Carbon Dioxide 19 L Anion Gap 17 BUN 191 H Creatinine 9.18 H Est GFR ( Amer) 5 L Glucose 165 H Calcium 7.4 L Phosphorus 6.8 H Magnesium 1.6 PTH Intact 825.3 H 06/17/20 06/17/20 02:10 09:55 Creatine Kinase 157 H NT-Pro-B Natriuret Pep 1020 H Impressions: Chest X-Ray 06/17/20 00:00 IMPRESSION: Tip of the central line in the cavoatrial junction copyright 2011 [employer]- All Rights Reserved Renal Ultrasound 06/17/20 00:00 IMPRESSION: There is no evidence of hydronephrosis. Both kidneys demonstrate increased cortical echogenicity, suggestive of chronic medical renal disease. There is mild prominence of the right renal pelvis without caliectasis, likely from an extrarenal pelvis. Assessment & Plan - Diagnosis (1) Gmgaa-td-nncolag kidney injury Qualifiers: Acute renal failure type: unspecified Chronic kidney disease stage: stage 4 (severe) Qualified Code(s): N17.9 - Acute kidney failure, unspecified; N18.4 - Chronic kidney disease, stage 4 (severe) Is this a current diagnosis for this admission?: Yes Plan: nonoliguric, likely due to dehydration with other factors including ATN from the infection. Patient has a significant history of severe dehydration. Looks to be improving, will continue with the everett catheter, the LR and bicarb. Will look to follow up with labs this PM to see if the sodium bicarb needs to be stopped. (2) High anion gap metabolic acidosis Is this a current diagnosis for this admission?: Yes Plan: likely due to LEDA, less likely the infection since her lactic acid was 0.6. Impr oving, will look to retest this afternoon and stop the sodium bicarb pending labs. (3) Cellulitis Qualifiers: Site of cellulitis: extremity Site of cellulitis of extremity: lower extremity Laterality: left Qualified Code(s): L03.116 - Cellulitis of left lower limb Is this a current diagnosis for this admission?: Yes Plan: on vanc and cefepime, will make sure the antibiotics are adjusted per her kidney function (4) Dehydration Plan: giving ringers and bicarb, will look to continue to rehydrate. (5) Infection associated with lymphedema Is this a current diagnosis for this admission?: Yes Plan: on vanc and cefepime (6) Leukocytosis Qualifiers: Leukocytosis type: unspecified Qualified Code(s): D72.829 - Elevated white blood cell count, unspecified Plan: likely due to her infection, continue on vanc and cefepime. Blood cultures are currently pending. (7) Benign essential hypertension Plan: low end of normal, will switch to normal saline once the bicarb is done (8) Anemia of chronic renal failure, stage 4 (severe) Plan: Patient is over due for a retacrit shot, will give her one here. (10) Lymphedema Plan: follows with wound care (11) DEEPA (renal osteodystrophy) Plan: will look to increase calcitriol to 0.5mcg qd (12) Hyperphosphatemia Plan: starting on calcium acetate 2 with meals
[2020-06-18] MEDS ORDERED: EPOETIN ALFA-EPBX 10,000 UNIT/ML VIAL (NON-ESRD) SUBCUT ONE (14:30)
[2020-06-18] MEDS: RINGERS SOLUTION,LACTATED 1,000 ML IV PRN (16:07)
--- NOTE | 2020-06-18 16:52 | PDOC PROGRESS REPORT ---
Subjective Progress Note for:: 06/18/20 Subjective:: No adverse events overnight. No new complaints. No fevers. She is fatigued and is napping a lot during the day. She appears comfortable. Reason For Visit: LEDA ON CKD, UREMIA, INFECTED LYMPHEDEMA Physical Exam Vital Signs: Temp Pulse Resp BP Pulse Ox 99.0 F 87 18 110/51 L 98 06/18/20 15:14 06/18/20 15:14 06/18/20 15:14 06/18/20 15:14 06/18/20 15:14 Intake & Output 06/17/20 06/18/20 06/19/20 06:59 06:59 06:59 Intake Total 1050 1650 1790 Output Total 1250 500 Balance 6095 306 6288 Weight 119.748 kg 123.5 kg General appearance: PRESENT: no acute distress, cooperative Neck exam: ABSENT: JVD Respiratory exam: PRESENT: clear to auscultation paulie, symmetrical, unlabored. ABSENT: tachypnea, wheezes Cardiovascular exam: PRESENT: RRR, +S1, +S2. ABSENT: tachycardia GI/Abdominal exam: PRESENT: soft. ABSENT: rebound, rigid, tenderness Extremities exam: PRESENT: other - Significant lymphedema, compression wraps on both legs Neurological exam: PRESENT: alert, awake, oriented to person, oriented to place, oriented to time, oriented to situation Results Laboratory Results: 06/18/20 05:30 06/18/20 06/18/20 05:30 05:30 WBC 16.2 H RBC 2.93 L Hgb 8.0 L D Hct 24.2 L MCV 83 MCH 27.2 MCHC 33.0 RDW 15.0 H Plt Count 128 L Seg Neutrophils % Not Reportable Sodium 136.3 L Potassium 4.0 Chloride 100 Carbon Dioxide 19 L Anion Gap 17 BUN 191 H Creatinine 9.18 H Est GFR ( Amer) 5 L Glucose 165 H Calcium 7.4 L Phosphorus 6.8 H Magnesium 1.6 06/17/20 06/17/20 02:10 09:55 Creatine Kinase 157 H NT-Pro-B Natriuret Pep 1020 H Impressions: Chest X-Ray 06/17/20 00:00 IMPRESSION: Tip of the central line in the cavoatrial junction copyright 2011 [employer]- All Rights Reserved Renal Ultrasound 06/17/20 00:00 IMPRESSION: There is no evidence of hydronephrosis. Both kidneys demonstrate increased cortical echogenicity, suggestive of chronic medical renal disease. There is mild prominence of the right renal pelvis without caliectasis, likely from an extrarenal pelvis. Assessment and Plan - Diagnosis (1) Bikfq-po-xshfcxd kidney injury Qualifiers: Acute renal failure type: unspecified Chronic kidney disease stage: stage 4 (severe) Qualified Code(s): N17.9 - Acute kidney failure, unspecified; N18.4 - Chronic kidney disease, stage 4 (severe) Is this a current diagnosis for this admission?: Yes (2) Cellulitis Qualifiers: Site of cellulitis: extremity Site of cellulitis of extremity: lower extremity Laterality: left Qualified Code(s): L03.116 - Cellulitis of left lower limb Is this a current diagnosis for this admission?: Yes (3) High anion gap metabolic acidosis Is this a current diagnosis for this admission?: Yes (4) Hyperphosphatemia Is this a current diagnosis for this admission?: Yes (5) Infection associated with lymphedema Is this a current diagnosis for this admission?: Yes (6) Lymphedema Is this a current diagnosis for this admission?: Yes (7) Morbid obesity with BMI of 40.0-44.9, adult Is this a current diagnosis for this admission?: Yes (8) DEEPA (renal osteodystrophy) Is this a current diagnosis for this admission?: Yes (9) Benign essential hypertension Is this a current diagnosis for this admission?: Yes (10) Hyperglycemia due to type 2 diabetes mellitus Qualifiers: Diabetes mellitus chcf insulin use: 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 Santos's instructions. Continue antibiotics dosed for her renal function. Nephrology following, creatinine seems to be responding to IV fluids. We will continue to monitor creatinine trend, overall volume status, and urine output. We will continue treatments for her other comorbid conditions with medications as dosed according to her renal function. - Time Time Spent with patient: 15-24 minutes Anticipated Discharge Disposition: Home with Home Health Anticipated Discharge Timeframe: Pending clinical course
[2020-06-18 17:00] LABS: ANION GAP 16 (5-19); CALCIUM 7.5 mg/dL (8.4-10.2); CARBON DIOXIDE 22 mmol/L (22-30); CHLORIDE 99 mmol/L (98-107); GLUCOSE 227 mg/dL (75-110)
[2020-06-18 17:12] LABS: BLOOD UREA NITROGEN 180 mg/dL (7-20)
[2020-06-18] MEDS: TRAMADOL HCL 50 MG TABLET PO PRN (17:41)
--- NOTE | 2020-06-18 19:30 | CDI QUERY ---
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 Cellulitis of left lower extremity related to / due to DM 2 Cellulitis of left lower extremity not related to / due to DM 2 Unable to determine Other Thank you for your consideration. YANELY Rosenthal RN Clinical Carbonation Equipment Operator Physician Advisor [email or web address]
[2020-06-18] MEDS: ATORVASTATIN CALCIUM 10 MG TABLET PO SCH (21:14)
[2020-06-19] MEDS: DEXTROSE 5%-WATER 1000 ML 1,000 ML with SODIUM BICARBONATE 150 MEQ IV PRN ×2 (02:18)
[2020-06-19] MEDS: HEPARIN SOD (PORCINE) 5,000 UNIT/ML 1 ML VIAL SUBCUT SCH ×3 (05:35→21:27)
[2020-06-19 06:22] LABS: ABSOLUTE EOSINOPHILS # (AUTO) 0.3 10^3/uL (0.0-0.6); ABSOLUTE LYMPHOCYTES (AUTO) 0.8 10^3/uL (0.5-4.7); ABSOLUTE MONOCYTES (AUTO) 1.3 10^3/uL (0.1-1.4); ABSOLUTE NEUT (AUTO) 11.1 10^3/uL (1.7-8.2); BASOPHILS % (AUTO) 0.3 % (0-2); EOSINOPHILS % (AUTO) 2.3 % (0-6); HEMATOCRIT 24.1 % (36.0-47.0); LYMPHOCYTES % (AUTO) 5.8 % (13-45); MEAN CORPUSCULAR HEMOGLOBIN 27.2 pg (27.0-33.4); MEAN CORPUSCULAR HGB CONC 32.7 g/dL (32.0-36.0); MEAN CORPUSCULAR VOLUME 83 fl (80-97); MONOCYTES % (AUTO) 9.5 % (3-13); PLATELET COUNT 128 10^3/uL (150-450); RED CELL DISTRIBUTION WIDTH 14.7 % (11.5-14.0); SEGMENTED NEUTROPHILS % (AUTO) 82.1 % (42-78); TOTAL CELLS COUNTED % (AUTO) 100 %; WHITE BLOOD COUNT 13.5 10^3/uL (4.0-10.5)
[2020-06-19 06:24] LABS: HEMOGLOBIN 7.9 g/dL (12.0-15.5)
[2020-06-19 06:34] LABS: ANION GAP 13 (5-19); CALCIUM 7.2 mg/dL (8.4-10.2); CARBON DIOXIDE 23 mmol/L (22-30); CHLORIDE 102 mmol/L (98-107); GLUCOSE 181 mg/dL (75-110); PHOSPHORUS 5.1 mg/dL (2.5-4.5); POTASSIUM 3.9 mmol/L (3.6-5.0)
[2020-06-19 06:41] LABS: BLOOD UREA NITROGEN 180 mg/dL (7-20)
[2020-06-19] MEDS ORDERED: MAGNESIUM SULFATE/D5W 1 GM/100 ML RTUPB IV ONE (09:00)
[2020-06-19] MEDS: INSULIN LISPRO 100 UNIT/ML 3 ML VIAL SUBCUT SCH ×4 (09:24→21:26)
[2020-06-19] MEDS: CALCITRIOL 0.25 MCG CAPSULE PO SCH (09:25)
[2020-06-19] MEDS: CALCIUM ACETATE 667 MG CAPSULE PO SCH ×3 (09:26→17:39)
[2020-06-19] MEDS: SENNOSIDES/DOCUSATE 8.6-50 MG 1 EACH TABLET PO SCH (09:27)
[2020-06-19] MEDS: FERROUS SULFATE 325 MG TABLET PO SCH (09:27)
[2020-06-19] MEDS: ATENOLOL 50 MG TABLET PO SCH ×2 (09:28→10:02)
[2020-06-19] MEDS: CEFEPIME HCL 0.5 GM in NORMAL SALINE 25 ML IV SCH (10:59)
[2020-06-19] MEDS: RINGERS SOLUTION,LACTATED 1,000 ML IV PRN (15:02)
--- NOTE | 2020-06-19 17:08 | PDOC PROGRESS REPORT ---
Subjective Progress Note for:: 06/19/20 Subjective:: No adverse events overnight. No new complaints. She still pretty fatigued and is napping a lot. She is got good urine output. Appetite is slowly improving. Reason For Visit: LEDA ON CKD, UREMIA, INFECTED LYMPHEDEMA Physical Exam Vital Signs: Temp Pulse Resp BP Pulse Ox 98.0 F 72 18 110/52 L 97 06/19/20 12:00 06/19/20 14:00 06/19/20 12:00 06/19/20 12:00 06/19/20 03:34 Intake & Output 06/18/20 06/19/20 06/20/20 06:59 06:59 06:59 Intake Total 1650 2940 1000 Output Total 1250 1100 Balance 400 1840 1000 Weight 123.5 kg 119.4 kg General appearance: PRESENT: no acute distress, cooperative Neck exam: ABSENT: JVD Respiratory exam: PRESENT: clear to auscultation paulie, symmetrical, unlabored. ABSENT: tachypnea, wheezes Cardiovascular exam: PRESENT: RRR, +S1, +S2. ABSENT: tachycardia GI/Abdominal exam: PRESENT: soft. ABSENT: rebound, rigid, tenderness Extremities exam: PRESENT: other - Significant lymphedema, compression wraps on both legs Neurological exam: PRESENT: alert, awake, oriented to person, oriented to place, oriented to time, oriented to situation Results Laboratory Results: 06/19/20 06:00 06/19/20 06:00 06/18/20 06/19/20 06/19/20 15:50 06:00 06:00 WBC 13.5 H RBC 2.90 L Hgb 7.9 L Hct 24.1 L MCV 83 MCH 27.2 MCHC 32.7 RDW 14.7 H Plt Count 128 L Seg Neutrophils % 82.1 H Sodium 137.0 137.6 Potassium 4.0 3.9 Chloride 99 102 Carbon Dioxide 22 23 Anion Gap 16 13 BUN 180 H 180 H Creatinine 8.72 H 7.88 H Est GFR ( Amer) 5 L 6 L Glucose 227 H 181 H Calcium 7.5 L 7.2 L Phosphorus 5.1 H Magnesium 1.5 L 06/17/20 06:04 Blood Blood Culture (PCR) - Final 06/17/20 06/17/20 02:10 09:55 Creatine Kinase 157 H NT-Pro-B Natriuret Pep 1020 H Impressions: Chest X-Ray 06/17/20 00:00 IMPRESSION: Tip of the central line in the cavoatrial junction copyright 2010 [employer]- All Rights Reserved Renal Ultrasound 06/17/20 00:00 IMPRESSION: There is no evidence of hydronephrosis. Both kidneys demonstrate increased cortical echogenicity, suggestive of chronic medical renal disease. There is mild prominence of the right renal pelvis without caliectasis, likely from an extrarenal pelvis. Assessment and Plan - Diagnosis (1) [id number] kidney injury Qualifiers: Acute renal failure type: unspecified Chronic kidney disease stage: stage 4 (severe) Qualified Code(s): N17.9 - Acute kidney failure, unspecified; N18.4 - Chronic kidney disease, stage 4 (severe) Is this a current diagnosis for this admission?: Yes (2) Cellulitis Qualifiers: Site of cellulitis: extremity Site of cellulitis of extremity: lower extremity Laterality: left Qualified Code(s): L03.116 - Cellulitis of left lower limb Is this a current diagnosis for this admission?: Yes Plan: Associated with lymphedema, not associated or as a result of diabetes (3) High anion gap metabolic acidosis Is this a current diagnosis for this admission?: Yes (4) Hyperphosphatemia Is this a current diagnosis for this admission?: Yes (5) Infection associated with lymphedema Is this a current diagnosis for this admission?: Yes (6) Lymphedema Is this a current diagnosis for this admission?: Yes (7) Morbid obesity with BMI of 40.0-44.9, adult Is this a current diagnosis for this admission?: Yes (8) DEEPA (renal osteodystrophy) Is this a current diagnosis for this admission?: Yes (9) Benign essential hypertension Is this a current diagnosis for this admission?: Yes (10) Hyperglycemia due to type 2 diabetes mellitus Qualifiers: Diabetes mellitus shelter insulin use: unspecified termination clerk insulin use status Qualified Code(s): E11.65 - Type 2 diabetes mellitus with hyperglycemia Is this a current diagnosis for this admission?: Yes (11) Obstructive sleep apnea of adult Is this a current diagnosis for this admission?: Yes - Plan Summary Summary: Compression wrappings per Dr. Santos's instructions. Continue antibiotics dosed for her renal function. Nephrology following, creatinine seems to be responding to IV fluids. We will continue to monitor creatinine trend, overall volume status, and urine output. We will continue treatments for her other comorbid conditions with medications as dosed according to her renal function. - Time Time Spent with patient: 15-24 minutes Anticipated Discharge Disposition: Pending clinical course Anticipated Discharge Timeframe: Pending clinical course
--- NOTE | 2020-06-19 19:20 | PDOC PROGRESS REPORT ---
Subjective Progress Note for:: 06/19/20 Subjective:: Patient states that she still feeling tired. She gets full fast when she eats. She denies any nausea or vomiting or tremors. No other complaints. She made about 1100 mL of urine output for the last 24 hours. Reason For Visit: LEDA ON CKD, UREMIA, INFECTED LYMPHEDEMA Physical Exam Vital Signs: Temp Pulse Resp BP Pulse Ox 97.5 F 77 20 107/55 L 97 06/19/20 03:34 06/19/20 07:00 06/19/20 03:34 06/19/20 03:34 06/19/20 03:34 Intake & Output 06/18/20 06/19/20 06/20/20 06:59 06:59 06:59 Intake Total 1650 2940 Output Total 1250 1100 Balance 400 1840 Weight 123.5 kg 119.4 kg Exam: General appearance: PRESENT: no acute distress, cooperative, well-developed, well-nourished Head exam: PRESENT: atraumatic, normocephalic Eye exam: PRESENT: conjunctiva pink, PERRLA. ABSENT: scleral icterus Neck exam: ABSENT: JVD Respiratory exam: PRESENT: Normal breath sounds. ABSENT: crackles, rales, rhonchi, unlabored, wheezes Cardiovascular exam: PRESENT: Regular rate rhythm -+S1, +S2. ABSENT: diastolic murmur, systolic murmur GI/Abdominal exam: PRESENT: normal bowel sounds, soft. ABSENT: guarding, mass, tenderness Extremities exam: Left lower extremities wrapped up in an [place] wrap where she has cellulitis. Left leg is more swollen than the right leg. She has chronic lymphedema. Neurological exam: PRESENT: alert, awake, oriented to person, place and time. Skin exam: PRESENT: dry, warm, Cardiovascular exam: PRESENT: +S1, +S2 GI/Abdominal exam: PRESENT: soft. ABSENT: distended, guarding, tenderness Results Laboratory Results: 06/19/20 06:00 06/19/20 06:00 06/18/20 06/19/20 06/19/20 15:50 06:00 06:00 WBC 13.5 H RBC 2.90 L Hgb 7.9 L Hct 24.1 L MCV 83 MCH 27.2 MCHC 32.7 RDW 14.7 H Plt Count 128 L Seg Neutrophils % 82.1 H Sodium 137.0 137.6 Potassium 4.0 3.9 Chloride 99 102 Carbon Dioxide 22 23 Anion Gap 16 13 BUN 180 H 180 H Creatinine 8.72 H 7.88 H Est GFR ( Amer) 5 L 6 L Glucose 227 H 181 H Calcium 7.5 L 7.2 L Phosphorus 5.1 H Magnesium 1.5 L 06/17/20 06:04 Blood Blood Culture (PCR) - Final 06/17/20 06/17/20 02:10 09:55 Creatine Kinase 157 H NT-Pro-B Natriuret Pep 1020 H Impressions: Chest X-Ray 06/17/20 00:00 IMPRESSION: Tip of the central line in the cavoatrial junction copyright 2011 [employer]- All Rights Reserved Renal Ultrasound 06/17/20 00:00 IMPRESSION: There is no evidence of hydronephrosis. Both kidneys demonstrate increased cortical echogenicity, suggestive of chronic medical renal disease. There is mild prominence of the right renal pelvis without caliectasis, likely from an extrarenal pelvis. Assessment & Plan - Diagnosis (1) Acute kidney injury superimposed on chronic kidney disease Is this a current diagnosis for this admission?: Yes Plan: Currently nonoliguric. Kidney function continues to improve daily. No uremic symptoms. No indication for any acute renal replacement therapy. Continue to monitor kidney function. Discussed with the patient today regarding possibility of worsening kidney fu nction and baseline every time she goes into acute kidney injury episode. At one point her kidney function is down to progress into ESRD requiring renal replacement therapy. Patient understood as was previously discussed with her by Dr. Wayne who is her primary stocking inspector. (2) Cellulitis of leg, left Is this a current diagnosis for this admission?: Yes Plan: On cefepime and vancomycin. (3) Lymphedema Is this a current diagnosis for this admission?: Yes Plan: Chronic. (4) High anion gap metabolic acidosis Is this a current diagnosis for this admission?: Yes Plan: Resolved. Discontinue bicarb drip. (5) Anemia of chronic renal failure, stage 4 (severe) Is this a current diagnosis for this admission?: Yes Plan: Receiving Epogen on 06/18/2020. (6) Chronic kidney disease-mineral and bone disorder Is this a current diagnosis for this admission?: Yes Plan: Phosphorus currently at 5.1, PTH 125.3 and calcium corrected at 8.16. Currently on calcitriol and calcium acetate. (7) Diabetes mellitus type 2 in obese Is this a current diagnosis for this admission?: Yes Plan: Suboptimally controlled. (8) Hypertension Qualifiers: Hypertension type: essential hypertension Qualified Code(s): I10 - Essential (primary) hypertension Is this a current diagnosis for this admission?: Yes Plan: Controlled. (9) Hyperkalemia Is this a current diagnosis for this admission?: Yes Plan: Resolved. - Time Time with patient: 15-25 minutes
[2020-06-19] MEDS: ATORVASTATIN CALCIUM 10 MG TABLET PO SCH (21:27)
[2020-06-19] MEDS ORDERED: DOCUSATE SODIUM 100 MG CAPSULE PO ONE (23:00)
[2020-06-20] MEDS: HEPARIN SOD (PORCINE) 5,000 UNIT/ML 1 ML VIAL SUBCUT SCH ×3 (06:08→22:03)
[2020-06-20 06:45] LABS: ABSOLUTE EOSINOPHILS # (AUTO) 0.3 10^3/uL (0.0-0.6); ABSOLUTE LYMPHOCYTES (AUTO) 0.9 10^3/uL (0.5-4.7); ABSOLUTE MONOCYTES (AUTO) 1.1 10^3/uL (0.1-1.4); ABSOLUTE NEUT (AUTO) 8.3 10^3/uL (1.7-8.2); BASOPHILS % (AUTO) 0.3 % (0-2); EOSINOPHILS % (AUTO) 3.1 % (0-6); HEMATOCRIT 25.4 % (36.0-47.0); HEMOGLOBIN 8.5 g/dL (12.0-15.5); LYMPHOCYTES % (AUTO) 8.1 % (13-45); MEAN CORPUSCULAR HEMOGLOBIN 27.8 pg (27.0-33.4); MEAN CORPUSCULAR HGB CONC 33.3 g/dL (32.0-36.0); MEAN CORPUSCULAR VOLUME 83 fl (80-97); MONOCYTES % (AUTO) 10.2 % (3-13); PLATELET COUNT 127 10^3/uL (150-450); RED BLOOD COUNT 3.05 10^6/uL (3.72-5.28); RED CELL DISTRIBUTION WIDTH 14.9 % (11.5-14.0); SEGMENTED NEUTROPHILS % (AUTO) 78.3 % (42-78); TOTAL CELLS COUNTED % (AUTO) 100 %; WHITE BLOOD COUNT 10.6 10^3/uL (4.0-10.5)
[2020-06-20 07:10] LABS: ANION GAP 15 (5-19); CALCIUM 7.9 mg/dL (8.4-10.2); CARBON DIOXIDE 24 mmol/L (22-30); CHLORIDE 102 mmol/L (98-107); GLUCOSE 158 mg/dL (75-110); POTASSIUM 3.7 mmol/L (3.6-5.0)
[2020-06-20 07:20] LABS: BLOOD UREA NITROGEN 167 mg/dL (7-20)
[2020-06-20] MEDS: CALCIUM ACETATE 667 MG CAPSULE PO SCH ×3 (08:08→17:41)
[2020-06-20] MEDS: INSULIN LISPRO 100 UNIT/ML 3 ML VIAL SUBCUT SCH ×4 (08:09→22:03)
[2020-06-20] MEDS: SENNOSIDES/DOCUSATE 8.6-50 MG 1 EACH TABLET PO SCH (09:29)
[2020-06-20] MEDS: CALCITRIOL 0.25 MCG CAPSULE PO SCH (09:29)
[2020-06-20] MEDS: FERROUS SULFATE 325 MG TABLET PO SCH (09:30)
[2020-06-20] MEDS: DOCUSATE SODIUM 100 MG CAPSULE PO SCH ×2 (09:30→17:41)
[2020-06-20] MEDS: ATENOLOL 50 MG TABLET PO SCH (09:30)
[2020-06-20] MEDS: CEFEPIME HCL 0.5 GM in NORMAL SALINE 25 ML IV SCH (09:30)
[2020-06-20 09:53] LABS: VANCOMYCIN,TROUGH 7.2 ug/mL (5.0-20.0)
[2020-06-20] MEDS ORDERED: VANCOMYCIN HCL 750 MG in DEXTROSE 5%-WATER 250 ML IV SCH (10:00)
[2020-06-20] MEDS ORDERED: VANCOMYCIN HCL 1,250 MG in DEXTROSE 5%-WATER 250 ML IV SCH (10:00)
--- NOTE | 2020-06-20 11:35 | PDOC PROGRESS REPORT ---
Subjective Progress Note for:: 06/20/20 Subjective:: Patient states that she is feeling better. However she is constipated. She is to being given medications per hospitalist. She passed 1325 mL of urine output for the past 24 hours. No other complaints. Reason For Visit: LEDA ON CKD, UREMIA, INFECTED LYMPHEDEMA Physical Exam Vital Signs: Temp Pulse Resp BP Pulse Ox 98.0 F 73 19 107/50 L 97 06/20/20 08:35 06/20/20 07:35 06/20/20 03:38 06/20/20 07:35 06/20/20 07:35 Intake & Output 06/19/20 06/20/20 06/21/20 06:59 06:59 06:59 Intake Total 2940 2263 Output Total 1100 1325 Balance 1840 938 Weight 119.4 kg 120.7 kg Exam: General appearance: PRESENT: no acute distress, cooperative, well-developed, well-nourished Head exam: PRESENT: atraumatic, normocephalic Eye exam: PRESENT: conjunctiva pale, PERRLA. ABSENT: scleral icterus Neck exam: ABSENT: JVD Respiratory exam: PRESENT: Normal breath sounds. ABSENT: crackles, rales, rhonchi, unlabored, wheezes Cardiovascular exam: PRESENT: Regular rate rhythm -+S1, +S2. ABSENT: diastolic murmur, systolic murmur GI/Abdominal exam: PRESENT: normal bowel sounds, soft. ABSENT: guarding, mass, tenderness Extremities exam: Improving bilateral lower extremity pitting edema; left leg in [place] wrap with cellulitis associated with some foul odor likely due to the infection Neurological exam: PRESENT: alert, awake, oriented to person, place and time. Skin exam: PRESENT: dry, warm, Cardiovascular exam: PRESENT: +S1, +S2 GI/Abdominal exam: PRESENT: soft. ABSENT: distended, guarding, tenderness Results Laboratory Results: 06/20/20 05:43 06/20/20 05:43 06/20/20 06/20/20 05:43 05:43 WBC 10.6 H RBC 3.05 L Hgb 8.5 L Hct 25.4 L MCV 83 MCH 27.8 MCHC 33.3 RDW 14.9 H Plt Count 127 L Seg Neutrophils % 78.3 H Sodium 140.9 Potassium 3.7 Chloride 102 Carbon Dioxide 24 Anion Gap 15 BUN 167 H Creatinine 7.01 H Est GFR ( Amer) 7 L Glucose 158 H Calcium 7.9 L Phosphorus 5.0 H Magnesium 1.7 06/17/20 06:04 Blood Blood Culture (PCR) - Final 06/17/20 06/17/20 02:10 09:55 Creatine Kinase 157 H NT-Pro-B Natriuret Pep 1020 H Impressions: Chest X-Ray 06/17/20 00:00 IMPRESSION: Tip of the central line in the cavoatrial junction copyright 2011 [employer]- All Rights Reserved Renal Ultrasound 06/17/20 00:00 IMPRESSION: There is no evidence of hydronephrosis. Both kidneys demonstrate increased cortical echogenicity, suggestive of chronic medical renal disease. There is mild prominence of the right renal pelvis without caliectasis, likely from an extrarenal pelvis. Assessment & Plan - Diagnosis (1) Acute kidney injury superimposed on chronic kidney disease Is this a current diagnosis for this admission?: Yes Plan: Currently non-oliguric. Kidney function continues to improve daily. No uremic symptoms. No indication for any acute renal replacement therapy. Continue to monitor kidney function. Continue current IV fluids. Discussed with the patient today regarding possibility of worsening kidney function and baseline every time she goes into acute kidney injury episode. At one point her kidney function is down to progress into ESRD requiring renal replacement therapy. Patient understood as was previously discussed with her by Dr. Wayne who is her primary online marketing director. (2) Cellulitis of leg, left Is this a current diagnosis for this admission?: Yes Plan: On cefepime and vancomycin. (3) Lymphedema Is this a current diagnosis for this admission?: Yes Plan: Chronic. (4) High anion gap metabolic acidosis Is this a current diagnosis for this admission?: Yes Plan: Resolved. Discontinued bicarb drip. (5) Anemia of chronic renal failure, stage 4 (severe) Is this a current diagnosis for this admission?: Yes Plan: Received Epogen on 06/18/2020. (6) Chronic kidney disease-mineral and bone disorder Is this a current diagnosis for this admission?: Yes Plan: Phosphorus currently at 5.0, PTH 125.3 and calcium corrected at 8.86. Currently on calcitriol and calcium acetate. (7) Diabetes mellitus type 2 in obese Is this a current diagnosis for this admission?: Yes Plan: Suboptimally controlled. (8) Hypertension Qualifiers: Hypertension type: essential hypertension Qualified Code(s): I10 - Essential (primary) hypertension Is this a current diagnosis for this admission?: Yes Plan: Controlled. (9) Hyperkalemia Is this a current diagnosis for this admission?: Yes Plan: Resolved. - Time Time with patient: 15-25 minutes
--- NOTE | 2020-06-20 15:59 | PDOC PROGRESS REPORT ---
Subjective Progress Note for:: 06/20/20 Subjective:: No adverse events overnight. No new complaints. She has had good urine output overnight. She states she is eating a little bit. Reason For Visit: LEDA ON CKD, UREMIA, INFECTED LYMPHEDEMA Physical Exam Vital Signs: Temp Pulse Resp BP Pulse Ox 98.1 F 76 16 123/61 97 06/20/20 12:00 06/20/20 12:00 06/20/20 12:00 06/20/20 12:00 06/20/20 07:35 Intake & Output 06/19/20 06/20/20 06/21/20 06:59 06:59 06:59 Intake Total 2940 2263 Output Total 1100 1325 Balance 1840 938 Weight 119.4 kg 120.7 kg General appearance: PRESENT: no acute distress, cooperative Neck exam: ABSENT: JVD Respiratory exam: PRESENT: clear to auscultation paulie, symmetrical, unlabored. ABSENT: tachypnea, wheezes Cardiovascular exam: PRESENT: RRR, +S1, +S2. ABSENT: tachycardia GI/Abdominal exam: PRESENT: soft. ABSENT: rebound, rigid, tenderness Extremities exam: PRESENT: other - Significant lymphedema, compression wraps on both legs Neurological exam: PRESENT: alert, awake, oriented to person, oriented to place, oriented to time, oriented to situation Results Laboratory Results: 06/20/20 05:43 06/20/20 05:43 06/20/20 06/20/20 05:43 05:43 WBC 10.6 H RBC 3.05 L Hgb 8.5 L Hct 25.4 L MCV 83 MCH 27.8 MCHC 33.3 RDW 14.9 H Plt Count 127 L Seg Neutrophils % 78.3 H Sodium 140.9 Potassium 3.7 Chloride 102 Carbon Dioxide 24 Anion Gap 15 BUN 167 H Creatinine 7.01 H Est GFR ( Amer) 7 L Glucose 158 H Calcium 7.9 L Phosphorus 5.0 H Magnesium 1.7 06/17/20 06:04 Blood Blood Culture (PCR) - Final 06/17/20 06:04 Blood Blood Culture - Final Corynebacterium Species 06/17/20 06/17/20 02:10 09:55 Creatine Kinase 157 H NT-Pro-B Natriuret Pep 1020 H Impressions: Chest X-Ray 06/17/20 00:00 IMPRESSION: Tip of the central line in the cavoatrial junction copyright 2011 [employer]- All Rights Reserved Renal Ultrasound 06/17/20 00:00 IMPRESSION: There is no evidence of hydronephrosis. Both kidneys demonstrate increased cortical echogenicity, suggestive of chronic medical renal disease. There is mild prominence of the right renal pelvis without caliectasis, likely from an extrarenal pelvis. Assessment and Plan - Diagnosis (1) Lvzuy-gw-zsgnfuh kidney injury Qualifiers: Acute renal failure type: unspecified Chronic kidney disease stage: stage 4 (severe) Qualified Code(s): N17.9 - Acute kidney failure, unspecified; N18.4 - Chronic kidney disease, stage 4 (severe) Is this a current diagnosis for this admission?: Yes (2) Cellulitis Qualifiers: Site of cellulitis: extremity Site of cellulitis of extremity: lower extremity Laterality: left Qualified Code(s): L03.116 - Cellulitis of left lower limb Is this a current diagnosis for this admission?: Yes (3) High anion gap metabolic acidosis Is this a current diagnosis for this admission?: Yes (4) Hyperphosphatemia Is this a current diagnosis for this admission?: Yes (5) Infection associated with lymphedema Is this a current diagnosis for this admission?: Yes (6) Lymphedema Is this a current diagnosis for this admission?: Yes (7) Morbid obesity with BMI of 40.0-44.9, adult Is this a current diagnosis for this admission?: Yes (8) DEEPA (renal osteodystrophy) Is this a current diagnosis for this admission?: Yes (9) Benign essential hypertension Is this a current diagnosis for this admission?: Yes (10) Hyperglycemia due to type 2 diabetes mellitus Qualifiers: Diabetes mellitus intermodal owner operator truck driver insulin use: unspecified mcc insulin use status Qualified Code(s): E11.65 - Type 2 diabetes mellitus with hyperglycemia Is this a current diagnosis for this admission?: Yes (11) Obstructive sleep apnea of adult Is this a current diagnosis for this admission?: Yes - Plan Summary Summary: Compression wrappings per Dr. Santos's instructions. Continue antibiotics dosed for her renal function. Nephrology recommends continuing IV fluids and current treatment. I have discussed with her the situation she puts herself and re garding her noncompliance with Dr. Wayne's recommendations and her recurrent episodes of acute renal failure. We will continue treatments for her other comorbid conditions with medications as dosed according to her renal function. - Time Time Spent with patient: 15-24 minutes Anticipated Discharge Disposition: Home with Home Health Anticipated Discharge Timeframe: Pending clinical course
[2020-06-20] MEDS: ATORVASTATIN CALCIUM 10 MG TABLET PO SCH (22:03)
[2020-06-21] MEDS: HEPARIN SOD (PORCINE) 5,000 UNIT/ML 1 ML VIAL SUBCUT SCH ×3 (05:05→22:38)
[2020-06-21] MEDS: RINGERS SOLUTION,LACTATED 1,000 ML IV PRN (05:33)
[2020-06-21] MEDS: CALCIUM ACETATE 667 MG CAPSULE PO SCH ×3 (08:20→19:12)
[2020-06-21] MEDS: INSULIN LISPRO 100 UNIT/ML 3 ML VIAL SUBCUT SCH ×4 (08:21→21:26)
[2020-06-21 10:01] LABS: ANION GAP 10 (5-19); CALCIUM 8.6 mg/dL (8.4-10.2); CARBON DIOXIDE 26 mmol/L (22-30); CHLORIDE 105 mmol/L (98-107); GLUCOSE 278 mg/dL (75-110); POTASSIUM 4.1 mmol/L (3.6-5.0)
[2020-06-21 10:15] LABS: BLOOD UREA NITROGEN 155 mg/dL (7-20)
[2020-06-21] MEDS: CEFEPIME HCL 0.5 GM in NORMAL SALINE 25 ML IV SCH (10:34)
[2020-06-21] MEDS: SENNOSIDES/DOCUSATE 8.6-50 MG 1 EACH TABLET PO SCH (10:35)
[2020-06-21] MEDS: CALCITRIOL 0.25 MCG CAPSULE PO SCH (10:35)
[2020-06-21] MEDS: ATENOLOL 50 MG TABLET PO SCH (10:36)
[2020-06-21] MEDS: FERROUS SULFATE 325 MG TABLET PO SCH (10:36)
[2020-06-21] MEDS: DOCUSATE SODIUM 100 MG CAPSULE PO SCH ×2 (10:36→19:18)
[2020-06-21] MEDS ORDERED: CEFTRIAXONE 2 GM/D5W RTU 2 GM/50 ML RTUPB IV SCH (11:45)
[2020-06-21] MEDS: VANCOMYCIN HCL 1,500 MG in DEXTROSE 5%-WATER 250 ML IV SCH (11:55)
--- NOTE | 2020-06-21 15:19 | PDOC PROGRESS REPORT ---
Subjective Progress Note for:: 06/21/20 Subjective:: No adverse events overnight. No new complaints. She has had good urine output overnight. She states she is eating a little bit, but her appetite is not really improving. Her energy level is still pretty low. Reason For Visit: LEDA ON CKD, UREMIA, INFECTED LYMPHEDEMA Physical Exam Vital Signs: Temp Pulse Resp BP Pulse Ox 98.4 F 78 17 104/51 L 98 06/21/20 03:43 06/21/20 07:00 06/21/20 03:43 06/21/20 03:43 06/21/20 03:43 Intake & Output 06/20/20 06/21/20 06/22/20 06:59 06:59 06:59 Intake Total 2263 1457 Output Total 1325 1450 Balance 938 7 Weight 120.7 kg 121.1 kg General appearance: PRESENT: no acute distress, cooperative Neck exam: ABSENT: JVD Respiratory exam: PRESENT: clear to auscultation paulie, symmetrical, unlabored. ABSENT: tachypnea, wheezes Cardiovascular exam: PRESENT: RRR, +S1, +S2. ABSENT: tachycardia GI/Abdominal exam: PRESENT: soft. ABSENT: rebound, rigid, tenderness Extremities exam: PRESENT: other - Significant lymphedema, compression wrap on left leg Neurological exam: PRESENT: alert, awake, oriented to person, oriented to place, oriented to time, oriented to situation Results Laboratory Results: 06/20/20 05:43 06/21/20 09:07 06/21/20 09:07 Sodium 140.5 Potassium 4.1 Chloride 105 Carbon Dioxide 26 Anion Gap 10 BUN 155 H Creatinine 6.01 H Est GFR ( Amer) 8 L Glucose 278 H Calcium 8.6 06/17/20 06:04 Blood Blood Culture (PCR) - Final 06/17/20 06:04 Blood Blood Culture - Final Corynebacterium Species 06/17/20 06/17/20 02:10 09:55 Creatine Kinase 157 H NT-Pro-B Natriuret Pep 1020 H Impressions: Chest X-Ray 06/17/20 00:00 IMPRESSION: Tip of the central line in the cavoatrial junction copyright 2011 [employer]- All Rights Reserved Renal Ultrasound 06/17/20 00:00 IMPRESSION: There is no evidence of hydronephrosis. Both kidneys demonstrate increased cortical echogenicity, suggestive of chronic medical renal disease. There is mild prominence of the right renal pelvis without caliectasis, likely from an extrarenal pelvis. Assessment and Plan - Diagnosis (1) Fstiw-hk-jayqgys kidney injury Qualifiers: Acute renal failure type: unspecified Chronic kidney disease stage: stage 4 (severe) Qualified Code(s): N17.9 - Acute kidney failure, unspecified; N18.4 - Chronic kidney disease, stage 4 (severe) Is this a current diagnosis for this admission?: Yes (2) Cellulitis Qualifiers: Site of cellulitis: extremity Site of cellulitis of extremity: lower extremity Laterality: left Qualified Code(s): L03.116 - Cellulitis of left lower limb Is this a current diagnosis for this admission?: Yes (3) High anion gap metabolic acidosis Is this a current diagnosis for this admission?: Yes (4) Hyperphosphatemia Is this a current diagnosis for this admission?: Yes (5) Infection associated with lymphedema Is this a current diagnosis for this admission?: Yes (6) Lymphedema Is this a current diagnosis for this admission?: Yes (7) Morbid obesity with BMI of 40.0-44.9, adult Is this a current diagnosis for this admission?: Yes (8) DEEPA (renal osteodystrophy) Is this a current diagnosis for this admission?: Yes (9) Benign essential hypertension Is this a current diagnosis for this admission?: Yes (10) Hyperglycemia due to type 2 diabetes mellitus Qualifiers: Diabetes mellitus terminal supervisor insulin use: unspecified terminal supervisor insulin use status Qualified Code(s): E11.65 - Type 2 diabetes mellitus with hyperglycemia Is this a current diagnosis for this admission?: Yes (11) Obstructive sleep apnea of adult Is this a current diagnosis for this admission?: Yes - Plan Summary Summary: Compression wrappings per Dr. Santos's instructions. Continue antibiotics dosed for her renal function. Nephrology recommends continuing IV fluids and current treatment. I have discussed with her the situation she puts herself and regarding her noncompliance with Dr. Wayne's recommendations and her recurrent episodes of acute renal failure. We will continue treatments for her other comorbid conditions with medications as dosed according to her renal function. - Time Time Spent with patient: 15-24 minutes Anticipated Discharge Disposition: Home with Home Health Anticipated Discharge Timeframe: within 72 hours
[2020-06-21] MEDS: ATORVASTATIN CALCIUM 10 MG TABLET PO SCH (21:27)
[2020-06-22] MEDS: HEPARIN SOD (PORCINE) 5,000 UNIT/ML 1 ML VIAL SUBCUT SCH ×3 (06:43→21:51)
[2020-06-22 07:15] LABS: ANION GAP 10 (5-19); CALCIUM 8.8 mg/dL (8.4-10.2); CARBON DIOXIDE 25 mmol/L (22-30); CHLORIDE 105 mmol/L (98-107); GLUCOSE 212 mg/dL (75-110); POTASSIUM 4.2 mmol/L (3.6-5.0)
[2020-06-22 07:24] LABS: BLOOD UREA NITROGEN 152 mg/dL (7-20)
[2020-06-22] MEDS: CALCIUM ACETATE 667 MG CAPSULE PO SCH ×3 (07:55→17:19)
[2020-06-22] MEDS: INSULIN LISPRO 100 UNIT/ML 3 ML VIAL SUBCUT SCH ×4 (07:58→21:51)
[2020-06-22] MEDS ORDERED: VANCOMYCIN HCL 1,250 MG in DEXTROSE 5%-WATER 250 ML IV SCH (10:00)
[2020-06-22] MEDS ORDERED: VANCOMYCIN HCL 1,000 MG in DEXTROSE 5%-WATER 250 ML IV SCH (10:00)
[2020-06-22] MEDS: CEFEPIME HCL 0.5 GM in NORMAL SALINE 25 ML IV SCH (10:58)
[2020-06-22] MEDS: SENNOSIDES/DOCUSATE 8.6-50 MG 1 EACH TABLET PO SCH (11:01)
[2020-06-22] MEDS: DOCUSATE SODIUM 100 MG CAPSULE PO SCH ×2 (11:01→17:28)
[2020-06-22] MEDS: FERROUS SULFATE 325 MG TABLET PO SCH (11:01)
[2020-06-22] MEDS: CALCITRIOL 0.25 MCG CAPSULE PO SCH (11:02)
[2020-06-22] MEDS: ATENOLOL 50 MG TABLET PO SCH (11:03)
--- NOTE | 2020-06-22 13:40 | PDOC PROGRESS REPORT ---
Subjective Progress Note for:: 06/22/20 Subjective:: No adverse events overnight. No new complaints. She has had good urine output overnight. She feels like she has little bit more energy today. Reason For Visit: LEDA ON CKD, UREMIA, INFECTED LYMPHEDEMA Physical Exam Vital Signs: Temp Pulse Resp BP Pulse Ox 98.7 F 73 14 117/56 L 97 06/22/20 11:19 06/22/20 11:19 06/22/20 11:19 06/22/20 11:19 06/22/20 11:19 Intake & Output 06/21/20 06/22/20 06/23/20 06:59 06:59 06:59 Intake Total 1457 1729 Output Total 1450 1275 Balance 7 454 Weight 121.1 kg 122.5 kg General appearance: PRESENT: no acute distress, cooperative Neck exam: ABSENT: JVD Respiratory exam: PRESENT: clear to auscultation paulie, symmetrical, unlabored. ABSENT: tachypnea, wheezes Cardiovascular exam: PRESENT: RRR, +S1, +S2. ABSENT: tachycardia GI/Abdominal exam: PRESENT: soft. ABSENT: rebound, rigid, tenderness Extremities exam: PRESENT: other - Significant lymphedema, compression wrap on left leg Neurological exam: PRESENT: alert, awake, oriented to person, oriented to place, oriented to time, oriented to situation Results Laboratory Results: 06/20/20 05:43 06/22/20 05:40 06/22/20 05:40 Sodium 140.0 Potassium 4.2 Chloride 105 Carbon Dioxide 25 Anion Gap 10 BUN 152 H Creatinine 5.30 H Est GFR ( Amer) 10 L Glucose 212 H Calcium 8.8 06/17/20 02:10 Blood Blood Culture - Final NO GROWTH IN 5 DAYS 06/17/20 06/17/20 02:10 09:55 Creatine Kinase 157 H NT-Pro-B Natriuret Pep 1020 H Impressions: Chest X-Ray 06/17/20 00:00 IMPRESSION: Tip of the central line in the cavoatrial junction copyright 2011 [employer]- All Rights Reserved Renal Ultrasound 06/17/20 00:00 IMPRESSION: There is no evidence of hydronephrosis. Both kidneys demonstrate increased cortical echogenicity, suggestive of chronic medical renal disease. There is mild prominence of the right renal pelvis without caliectasis, likely from an extrarenal pelvis. Assessment and Plan - Diagnosis (1) Uvati-fc-vkiplup kidney injury Qualifiers: Acute renal failure type: unspecified Chronic kidney disease stage: stage 4 (severe) Qualified Code(s): N17.9 - Acute kidney failure, unspecified; N18.4 - Chronic kidney disease, stage 4 (severe) Is this a current diagnosis for this admission?: Yes (2) Cellulitis Qualifiers: Site of cellulitis: extremity Site of cellulitis of extremity: lower extremity Laterality: left Qualified Code(s): L03.116 - Cellulitis of left lower limb Is this a current diagnosis for this admission?: Yes (3) High anion gap metabolic acidosis Is this a current diagnosis for this admission?: Yes (4) Hyperphosphatemia Is this a current diagnosis for this admission?: Yes (5) Infection associated with lymphedema Is this a current diagnosis for this admission?: Yes (6) Lymphedema Is this a current diagnosis for this admission?: Yes (7) Morbid obesity with BMI of 40.0-44.9, adult Is this a current diagnosis for this admission?: Yes (8) DEEPA (renal osteodystrophy) Is this a current diagnosis for this admission?: Yes (9) Benign essential hypertension Is this a current diagnosis for this admission?: Yes (10) Hyperglycemia due to type 2 diabetes mellitus Qualifiers: Diabetes mellitus watermelon inspector insulin use: unspecified shelter insulin use status Qualified Code(s): E11.65 - Type 2 diabetes mellitus with hyperglycemia Is this a current diagnosis for this admission?: Yes (11) Obstructive sleep apnea of adult Is this a current diagnosis for this admission?: Yes - Plan Summary Summary: Compression wrappings per Dr. Santos's instructions. Continue antibiotics dosed for her renal function. Nephrology recommends continuing IV fluids and current treatment. I have discussed with her the situation she puts herself and regarding her noncompliance with Dr. Wayne's recommendations and her recurrent episodes of acute renal failure. We will continue treatments for her other comorbid conditions with medications as dosed according to her renal function. Nephrology will return to see her in the morning, and we will follow-up on recommendations for further treatment. - Time Time Spent with patient: 15-24 minutes Anticipated Discharge Disposition: Home with Home Health Anticipated Discharge Timeframe: within 72 hours
[2020-06-22] MEDS: ATORVASTATIN CALCIUM 10 MG TABLET PO SCH (21:51)
[2020-06-23] MEDS: RINGERS SOLUTION,LACTATED 1,000 ML IV PRN ×2 (03:31→12:13)
[2020-06-23 05:41] LABS: ANION GAP 11 (5-19); CALCIUM 8.9 mg/dL (8.4-10.2); CARBON DIOXIDE 24 mmol/L (22-30); CHLORIDE 107 mmol/L (98-107); GLUCOSE 177 mg/dL (75-110); POTASSIUM 4.1 mmol/L (3.6-5.0)
[2020-06-23 05:50] LABS: BLOOD UREA NITROGEN 135 mg/dL (7-20)
[2020-06-23] MEDS: HEPARIN SOD (PORCINE) 5,000 UNIT/ML 1 ML VIAL SUBCUT SCH ×3 (05:53→23:11)
[2020-06-23] MEDS: INSULIN LISPRO 100 UNIT/ML 3 ML VIAL SUBCUT SCH ×4 (09:04→23:11)
[2020-06-23] MEDS: CALCIUM ACETATE 667 MG CAPSULE PO SCH ×3 (09:05→17:26)
[2020-06-23] MEDS: SENNOSIDES/DOCUSATE 8.6-50 MG 1 EACH TABLET PO SCH (09:06)
[2020-06-23] MEDS: CALCITRIOL 0.25 MCG CAPSULE PO SCH (09:06)
[2020-06-23] MEDS: DOCUSATE SODIUM 100 MG CAPSULE PO SCH ×2 (09:07→17:26)
[2020-06-23] MEDS: CEFEPIME HCL 0.5 GM in NORMAL SALINE 25 ML IV SCH (09:08)
[2020-06-23] MEDS: ATENOLOL 50 MG TABLET PO SCH (09:08)
[2020-06-23] MEDS: FERROUS SULFATE 325 MG TABLET PO SCH (09:08)
--- NOTE | 2020-06-23 13:30 | PDOC PROGRESS REPORT ---
Subjective Progress Note for:: 06/23/20 Subjective:: No adverse events overnight. No new complaints. She continues to have good urine output. Clinically unchanged. Reason For Visit: LEDA ON CKD, UREMIA, INFECTED LYMPHEDEMA Physical Exam Vital Signs: Temp Pulse Resp BP Pulse Ox 98.1 F 79 20 140/62 H 99 06/23/20 11:46 06/23/20 11:46 06/23/20 11:46 06/23/20 11:46 06/23/20 11:46 Intake & Output 06/22/20 06/23/20 06/24/20 06:59 06:59 06:59 Intake Total 2729 1874 435 Output Total 1275 1450 Balance 1454 424 435 Weight 122.5 kg 121.8 kg General appearance: PRESENT: no acute distress, cooperative Neck exam: ABSENT: JVD Respiratory exam: PRESENT: clear to auscultation paulie, symmetrical, unlabored. ABSENT: tachypnea, wheezes Cardiovascular exam: PRESENT: RRR, +S1, +S2. ABSENT: tachycardia GI/Abdominal exam: PRESENT: soft. ABSENT: rebound, rigid, tenderness Extremities exam: PRESENT: other - Significant lymphedema, compression wrap on left leg Neurological exam: PRESENT: alert, awake, oriented to person, oriented to place, oriented to time, oriented to situation Results Laboratory Results: 06/20/20 05:43 06/23/20 04:49 06/23/20 04:49 Sodium 141.7 Potassium 4.1 Chloride 107 Carbon Dioxide 24 Anion Gap 11 BUN 135 H Creatinine 4.53 H Est GFR ( Amer) 12 L Glucose 177 H Calcium 8.9 06/17/20 06/17/20 02:10 09:55 Creatine Kinase 157 H NT-Pro-B Natriuret Pep 1020 H Impressions: Chest X-Ray 06/17/20 00:00 IMPRESSION: Tip of the central line in the cavoatrial junction copyright 2011 [employer] All Rights Reserved Renal Ultrasound 06/17/20 00:00 IMPRESSION: There is no evidence of hydronephrosis. Both kidneys demonstrate increased cortical echogenicity, suggestive of chronic medical renal disease. There is mild prominence of the right renal pelvis without caliectasis, likely from an extrarenal pelvis. Assessment and Plan - Diagnosis (1) Ttdjt-no-atyyfea kidney injury Qualifiers: Acute renal failure type: unspecified Chronic kidney disease stage: stage 4 (severe) Qualified Code(s): N17.9 - Acute kidney failure, unspecified; N18.4 - Chronic kidney disease, stage 4 (severe) Is this a current diagnosis for this admission?: Yes (2) Cellulitis Qualifiers: Site of cellulitis: extremity Site of cellulitis of extremity: lower extremity Laterality: left Qualified Code(s): L03.116 - Cellulitis of left lower limb Is this a current diagnosis for this admission?: Yes (3) High anion gap metabolic acidosis Is this a current diagnosis for this admission?: Yes (4) Hyperphosphatemia Is this a current diagnosis for this admission?: Yes (5) Infection associated with lymphedema Is this a current diagnosis for this admission?: Yes (6) Lymphedema Is this a current diagnosis for this admission?: Yes (7) Morbid obesity with BMI of 40.0-44.9, adult Is this a current diagnosis for this admission?: Yes (8) DEEPA (renal osteodystrophy) Is this a current diagnosis for this admission?: Yes (9) Benign essential hypertension Is this a current diagnosis for this admission?: Yes (10) Hyperglycemia due to type 2 diabetes mellitus Qualifiers: Diabetes mellitus shelter insulin use: unspecified shelter insulin use status Qualified Code(s): E11.65 - Type 2 diabetes mellitus with hyperglycemia Is this a current diagnosis for this admission?: Yes (11) Obstructive sleep apnea of adult Is this a current diagnosis for this admission?: Yes - Plan Summary Summary: Compression wrappings per Dr. Santos's instructions. Continue antibiotics dosed for her renal function. Nephrology recommends continuing IV fluids and current treatment. We will continue treatments for her other comorbid conditions with medications as dosed according to her renal function. Nephrology to see her today. We will follow up on their recommendations and hopefully get some guidance regarding discharge planning. She will probably need home health physical therapy because she only did about 10 feet with a walker with physical therapy. - Time Time Spent with patient: 15-24 minutes Anticipated Discharge Disposition: Home with Home Health Anticipated Discharge Timeframe: within 72 hours
[2020-06-23] MEDS: ACETAMINOPHEN 325 MG TABLET PO PRN (17:32)
[2020-06-23] MEDS: ATORVASTATIN CALCIUM 10 MG TABLET PO SCH (23:11)
--- NOTE | 2020-06-24 00:03 | PDOC PROGRESS REPORT ---
Subjective Progress Note for:: 06/23/20 Subjective:: Patient continues to do well clinically. She feels better every day. She makes a decent amount of urine output around 1450 mL for the past 24 hours. Her kidney function continues to improve. Reason For Visit: LEDA ON CKD, UREMIA, INFECTED LYMPHEDEMA Physical Exam Vital Signs: Temp Pulse Resp BP Pulse Ox 98.6 F 74 18 132/74 H 98 06/23/20 17:02 06/23/20 17:02 06/23/20 17:02 06/23/20 17:02 06/23/20 17:02 Intake & Output 06/22/20 06/23/20 06/24/20 06:59 06:59 06:59 Intake Total 2729 1874 1368 Output Total 1275 1450 775 Balance 1454 424 593 Weight 122.5 kg 121.8 kg Exam: General appearance: PRESENT: no acute distress, cooperative, well-developed, well-nourished Head exam: PRESENT: atraumatic, normocephalic Eye exam: PRESENT: conjunctiva slightly pale, PERRLA. ABSENT: scleral icterus Neck exam: ABSENT: JVD Respiratory exam: PRESENT: Normal breath sounds. ABSENT: crackles, rales, rhonchi, unlabored, wheezes Cardiovascular exam: PRESENT: Regular rate rhythm -+S1, +S2. ABSENT: diastolic murmur, systolic murmur GI/Abdominal exam: PRESENT: normal bowel sounds, soft. ABSENT: guarding, mass, tenderness Extremities exam: Grade 1 bilateral lower extremity chronic lymphedema with left leg cellulitis and K[place] wrap Neurological exam: PRESENT: alert, awake, oriented to person, place and time. Skin exam: PRESENT: dry, warm, Cardiovascular exam: PRESENT: +S1, +S2 GI/Abdominal exam: PRESENT: soft. ABSENT: distended, guarding, tenderness Results Laboratory Results: 06/20/20 05:43 06/23/20 04:49 06/23/20 04:49 Sodium 141.7 Potassium 4.1 Chloride 107 Carbon Dioxide 24 Anion Gap 11 BUN 135 H Creatinine 4.53 H Est GFR ( Amer) 12 L Glucose 177 H Calcium 8.9 06/17/20 06/17/20 02:10 09:55 Creatine Kinase 157 H NT-Pro-B Natriuret Pep 1020 H Impressions: Chest X-Ray 06/17/20 00:00 IMPRESSION: Tip of the central line in the cavoatrial junction copyright 2011 [employer]- All Rights Reserved Renal Ultrasound 06/17/20 00:00 IMPRESSION: There is no evidence of hydronephrosis. Both kidneys demonstrate increased cortical echogenicity, suggestive of chronic medical renal disease. There is mild prominence of the right renal pelvis without caliectasis, likely from an extrarenal pelvis. Assessment & Plan - Diagnosis (1) Acute kidney injury superimposed on chronic kidney disease Is this a current diagnosis for this admission?: Yes Plan: Currently non-oliguric. Kidney function continues to improve daily. No uremic symptoms. No indication for any acute renal replacement therapy. Continue to monitor kidney function. Continue current IV fluids. Baseline creatinine ranges from 2.5-3. Current creatinine is now 4.53. The patient's creatinine goes down to around 3 and BUN goes down below 100, I think she can be safely discharged home. Discussed with the patient regarding possibility of worsening kidney function and baseline every time she goes into acute kidney injury episode. At one point her kidney function will progress into ESRD requiring renal replacement therapy. Patient understood as was previously discussed with her by Dr. Wayne who is her primary rouge sifter and miller. She will need to be prepared for this eventuality as an outpatient once discharged. (2) Cellulitis of leg, left Is this a current diagnosis for this admission?: Yes Plan: On cefepime and vancomycin. (3) Lymphedema Is this a current diagnosis for this admission?: Yes Plan: Chronic. (4) High anion gap metabolic acidosis Is this a current diagnosis for this admission?: Yes Plan: Resolved. (5) Anemia of chronic renal failure, stage 4 (severe) Is this a current diagnosis for this admission?: Yes Plan: Received Epogen on 06/18/2020. (6) Chronic kidney disease-mineral and bone disorder Is this a current diagnosis for this admission?: Yes Plan: Phosphorus currently at 5.0, PTH 125.3 and calcium 8.9. Currently on calcitriol and calcium acetate. (7) Diabetes mellitus type 2 in obese Is this a current diagnosis for this admission?: Yes Plan: Suboptimally controlled. (8) Hypertension Qualifiers: Hypertension type: essential hypertension Qualified Code(s): I10 - Essential (primary) hypertension Is this a current diagnosis for this admission?: Yes Plan: Controlled. (9) Hyperkalemia Is this a current diagnosis for this admission?: Yes Plan: Resolved. - Time Time with patient: 15-25 minutes
[2020-06-24] MEDS: HEPARIN SOD (PORCINE) 5,000 UNIT/ML 1 ML VIAL SUBCUT SCH ×3 (06:14→21:41)
[2020-06-24 06:21] LABS: ANION GAP 8 (5-19); BLOOD UREA NITROGEN 117 mg/dL (7-20); CALCIUM 9.1 mg/dL (8.4-10.2); CARBON DIOXIDE 27 mmol/L (22-30); CHLORIDE 107 mmol/L (98-107); GLUCOSE 177 mg/dL (75-110)
[2020-06-24] MEDS: INSULIN LISPRO 100 UNIT/ML 3 ML VIAL SUBCUT SCH ×4 (08:08→22:10)
[2020-06-24] MEDS: CALCIUM ACETATE 667 MG CAPSULE PO SCH ×3 (08:10→17:08)
[2020-06-24] MEDS ORDERED: PHARMACY COMMUNICATION ORDER MC ONE (09:00)
[2020-06-24] MEDS: CALCITRIOL 0.25 MCG CAPSULE PO SCH (09:49)
[2020-06-24] MEDS: SENNOSIDES/DOCUSATE 8.6-50 MG 1 EACH TABLET PO SCH (09:50)
[2020-06-24] MEDS: FERROUS SULFATE 325 MG TABLET PO SCH (09:50)
[2020-06-24] MEDS: DOCUSATE SODIUM 100 MG CAPSULE PO SCH ×2 (09:50→17:08)
[2020-06-24] MEDS: ATENOLOL 50 MG TABLET PO SCH (09:50)
[2020-06-24 09:55] LABS: VANCOMYCIN,TROUGH 13.9 ug/mL (5.0-20.0)
[2020-06-24] MEDS: ACETAMINOPHEN 325 MG TABLET PO PRN (09:58)
[2020-06-24] MEDS: CEFEPIME HCL 0.5 GM in NORMAL SALINE 25 ML IV SCH (09:59)
[2020-06-24] MEDS: VANCOMYCIN HCL 1,500 MG in DEXTROSE 5%-WATER 250 ML IV SCH (11:06)
--- NOTE | 2020-06-24 12:13 | PDOC PROGRESS REPORT ---
Subjective Progress Note for:: 06/24/20 Reason For Visit: Patient is seen today in the hospital. She is quite cheerful and happy with the progress she is making. She is making good urine output. She denies any history of chest pain or shortness of breath. No history of nausea vomiting abdominal pains. Fairly decent appetite. Denies any history of GI bleeds. Labs and medications were reviewed that shows some drop in the hemoglobin and creatinine seems to be leveling out around 4.5 given the baseline is around 2.5- 3. Denies any history of fever or chills. Physical Exam Vital Signs: Temp Pulse Resp BP Pulse Ox 98.2 F 77 18 117/55 L 97 06/24/20 08:50 06/24/20 07:47 06/24/20 07:47 06/24/20 07:47 06/24/20 07:47 Intake & Output 06/23/20 06/24/20 06/25/20 06:59 06:59 06:59 Intake Total 1874 1628 Output Total 1450 1925 Balance 424 -297 Weight 121.8 kg 125.8 kg General appearance: PRESENT: no acute distress Respiratory exam: PRESENT: clear to auscultation paulie, decreased breath sounds. ABSENT: crackles Cardiovascular exam: PRESENT: +S1, +S2 GI/Abdominal exam: PRESENT: normal bowel sounds, soft. ABSENT: distended, guarding, organomegaly, tenderness Extremities exam: PRESENT: pedal edema Neurological exam: PRESENT: alert, awake, oriented to person, oriented to place Psychiatric exam: PRESENT: appropriate affect Skin exam: PRESENT: mottled - Lower extremities which are now wrapped up with the bandages from her cellulitis/lymphedema., rash. ABSENT: erythema Results Laboratory Results: 06/20/20 05:43 06/24/20 05:33 06/24/20 05:33 Sodium 141.7 Potassium 4.0 Chloride 107 Carbon Dioxide 27 Anion Gap 8 BUN 117 H Creatinine 4.63 H Est GFR ( Amer) 11 L Glucose 177 H Calcium 9.1 06/17/20 06/17/20 02:10 09:55 Creatine Kinase 157 H NT-Pro-B Natriuret Pep 1020 H Impressions: Chest X-Ray 06/17/20 00:00 IMPRESSION: Tip of the central line in the cavoatrial junction copyright 2011 [employer]- All Rights Reserved Renal Ultrasound 06/17/20 00:00 IMPRESSION: There is no evidence of hydronephrosis. Both kidneys demonstrate increased cortical echogenicity, suggestive of chronic medical renal disease. There is mild prominence of the right renal pelvis without caliectasis, likely from an extrarenal pelvis. Assessment & Plan - Diagnosis (1) Zzbvh-hl-ehuottw kidney injury Qualifiers: Acute renal failure type: unspecified Chronic kidney disease stage: stage 4 (severe) Qualified Code(s): N17.9 - Acute kidney failure, unspecified; N18.4 - Chronic kidney disease, stage 4 (severe) Is this a current diagnosis for this admission?: Yes Plan: Patient came in with a LEDA on CKD stage IV. Nonoliguric. Has been making quite good improvement in the current situation of likely ATN from her cellulitis of legs on top of her chronic lymphedema/venous stasis. Continue current guidelines. No indications for acute hemodialysis. However she is quite close to it and discussed the possibility. (2) Cellulitis Qualifiers: Site of cellulitis: extremity Site of cellulitis of extremity: lower extremity Laterality: left Qualified Code(s): L03.116 - Cellulitis of left lower limb Is this a current diagnosis for this admission?: Yes Plan: On antibiotics. Being managed by hospitalist. (3) Lymphedema Is this a current diagnosis for this admission?: Yes Plan: Chronic in association with venous stasis. (4) DEEPA (renal osteodystrophy) Is this a current diagnosis for this admission?: Yes Plan: Appropriate medications. Can be monitored as an outpatient. (5) Benign essential hypertension Is this a current diagnosis for this admission?: Yes Plan: Controlled to low normal. Monitor. Titrate down antihypertensives. (6) Morbid obesity Plan: Status quo. (7) Anemia of chronic renal failure, stage 4 (severe) Is this a current diagnosis for this admission?: Yes Plan: Patient was get receiving erythropoietin in office as an outpatient. Currently dropping likely from sepsis status ?. Check iron studies. (8) Diabetes mellitus type 2 in obese Is this a current diagnosis for this admission?: Yes Plan: Hospitalist. (9) Obstructive sleep apnea of adult Is this a current diagnosis for this admission?: Yes (10) Sepsis Qualifiers: Sepsis type: sepsis due to unspecified organism Sepsis acute organ dysfunction status: with acute organ dysfunction Severe sepsis acute organ dysfunction type: acute renal failure Acute renal failure type: unspecified Severe sepsis shock status: unspecified Qualified Code(s): A41.9 - Sepsis, unspecified organism; R65.20 - Severe sepsis without septic shock; N17.9 - Acute kidney failure, unspecified
--- NOTE | 2020-06-24 18:34 | PDOC PROGRESS REPORT ---
Subjective Progress Note for:: 06/24/20 Subjective:: CARMELO WHITTEN is a 65 year old female with history of diabetes mellitus, lymphedema, CKD stage IV, hypertension, hyperlipidemia, sleep apnea who was admitted 06/17/2020 for bilateral lower extremity cellulitis and acute on chronic kidney injury. Patient was seen on morning rounds. She was found resting in bed, comfortably, on room air preparing to eat her lunch. She reports that she is feeling well today. She tells me that her legs are improved with decreased erythema, edema, and discomfort. She admits to chronic edema to the left lower extremity but notes that this is improved from time of admission. She denies all complaints today; specifically no fever, chest pain, dyspnea, abdominal pain, nausea. She has no questions or concerns at this time. No concerns per nursing. Reason For Visit: LEDA ON CKD, UREMIA, INFECTED LYMPHEDEMA Physical Exam Vital Signs: Temp Pulse Resp BP Pulse Ox 97.8 F 78 19 139/71 H 96 06/24/20 16:59 06/24/20 16:59 06/24/20 16:59 06/24/20 16:59 06/24/20 16:59 Intake & Output 06/23/20 06/24/20 06/25/20 06:59 06:59 06:59 Intake Total 1874 1628 Output Total 1450 1925 Balance 424 -297 Weight 121.8 kg 125.8 kg General appearance: PRESENT: no acute distress, cooperative - Very pleasant, obese, well-developed, well-nourished Head exam: PRESENT: atraumatic, normocephalic Eye exam: PRESENT: conjunctiva pink, EOMI, PERRLA. ABSENT: scleral icterus Mouth exam: PRESENT: moist, tongue midline Respiratory exam: PRESENT: clear to auscultation paulie, symmetrical, unlabored, other - Room air. ABSENT: rales, rhonchi, wheezes Cardiovascular exam: PRESENT: RRR. ABSENT: diastolic murmur, rubs, systolic murmur Pulses: PRESENT: normal dorsalis pedis pul Vascular exam: PRESENT: normal capillary refill Gentrourinary exam: PRESENT: indwelling catheter Extremities exam: PRESENT: full ROM, +1 edema - Nonpitting, RLE, other - Compression wrap to left lower extremity; decreased edema per patient. ABSENT: calf tenderness, clubbing, pedal edema Neurological exam: PRESENT: alert, awake, oriented to person, oriented to place, oriented to time, oriented to situation, CN II-XII grossly intact. ABSENT: motor sensory deficit Psychiatric exam: PRESENT: appropriate affect, normal mood. ABSENT: homicidal ideation, suicidal ideation Skin exam: PRESENT: dry, intact, warm, other - Chronic bilateral lower extremity lymphedema with venous stasis changes.. ABSENT: cyanosis, rash Results Laboratory Results: 06/20/20 05:43 06/24/20 05:33 06/24/20 05:33 Sodium 141.7 Potassium 4.0 Chloride 107 Carbon Dioxide 27 Anion Gap 8 BUN 117 H Creatinine 4.63 H Est GFR ( Amer) 11 L Glucose 177 H Calcium 9.1 06/17/20 06/17/20 02:10 09:55 Creatine Kinase 157 H NT-Pro-B Natriuret Pep 1020 H Impressions: Chest X-Ray 06/17/20 00:00 IMPRESSION: Tip of the central line in the cavoatrial junction copyright 2011 [employer]- All Rights Reserved Renal Ultrasound 06/17/20 00:00 IMPRESSION: There is no evidence of hydronephrosis. Both kidneys demonstrate increased cortical echogenicity, suggestive of chronic medical renal disease. There is mild prominence of the right renal pelvis without caliectasis, likely from an extrarenal pelvis. Assessment and Plan - Diagnosis (1) Iolfu-uw-tppjqfr kidney injury Qualifiers: Acute renal failure type: unspecified Chronic kidney disease stage: stage 4 (severe) Qualified Code(s): N17.9 - Acute kidney failure, unspecified; N18.4 - Chronic kidney disease, stage 4 (severe) Is this a current diagnosis for this admission?: Yes Plan: Patient seems to be stage IV CKD at baseline with creatinine ranging between 2.5 and 3.5 Currently creatinine is 4.63 with BUN over 100; improved significantly from a creatinine of 12 and a BUN greater than 200 Nephrology has been consulted Strict monitoring of urine output Continue calcitriol Avoid nephrotoxic medications. Continue IV fluids. (2) Cellulitis Qualifiers: Site of cellulitis: extremity Site of cellulitis of extremity: lower extremity Laterality: left Qualified Code(s): L03.116 - Cellulitis of left lower limb Is this a current diagnosis for this admission?: Yes Plan: Associated with lymphedema, not associated or as a result of diabetes Blood culture (1/4 bottles) revealed corny bacterium; otherwise no growth at 5 days no history of MRSA Patient was empirically placed on IV vancomycin and cefepime. Has received a 4-day course of vancomycin and 7-day course of cefepime. Leukocytosis is significantly improved; 29->10. Patient has been afebrile > 48 hours. We will discontinue antibiotics. (3) Hyperphosphatemia Is this a current diagnosis for this admission?: Yes Plan: Improved. Secondary to acute on chronic renal failure. Phosphorus 8.5->5.0 Nephrology is consulted. (4) Lymphedema Is this a current diagnosis for this admission?: Yes Plan: Compression wraps as recommended by Dr. Santos. Outpatient follow-up. (5) Morbid obesity with BMI of 40.0-44.9, adult Is this a current diagnosis for this admission?: Yes Plan: Dietary discretion lifestyle modification encouraged. Patient continues on a Prerenal diet. Registered dietitian consulted. (6) DEEPA (renal osteodystrophy) Is this a current diagnosis for this admission?: Yes Plan: Primary management per nephrology. (7) Benign essential hypertension Is this a current diagnosis for this admission?: Yes Plan: Blood pressure slightly elevated but overall acceptable. Continue atenolol 25 mg daily. (8) Hyperglycemia due to type 2 diabetes mellitus Qualifiers: Diabetes mellitus residential insulin use: unspecified residential insulin use status Qualified Code(s): E11.65 - Type 2 diabetes mellitus with hyperglycemia Is this a current diagnosis for this admission?: Yes Plan: We will check A1c with a.m. lab work. Accu-Cheks before meals and at bedtime with Humalog for sliding scale coverage. Hypoglycemia protocol in place. Registered dietitian consulted. (9) Obstructive sleep apnea of adult Is this a current diagnosis for this admission?: Yes (10) High anion gap metabolic acidosis Is this a current diagnosis for this admission?: Yes Plan: Resolved. Secondary to acute renal failure (11) Infection associated with lymphedema Is this a current diagnosis for this admission?: Yes Plan: Management as above. - Time Time Spent with patient: 25-34 minutes Medications reviewed and adjusted accordingly: Yes Anticipated Discharge Disposition: Home with Home Health Anticipated Discharge Timeframe: undetermined
[2020-06-24] MEDS: ATORVASTATIN CALCIUM 10 MG TABLET PO SCH (22:10)
[2020-06-24] MEDS: RINGERS SOLUTION,LACTATED 1,000 ML IV PRN (23:16)
[2020-06-25] MEDS: HEPARIN SOD (PORCINE) 5,000 UNIT/ML 1 ML VIAL SUBCUT SCH ×3 (05:00→22:02)
[2020-06-25 06:45] LABS: ABSOLUTE RETICS # 0.067 10^6/uL (0.028-0.122); HEMATOCRIT 24.5 % (36.0-47.0); HEMOGLOBIN 8.1 g/dL (12.0-15.5); MEAN CORPUSCULAR HEMOGLOBIN 28.1 pg (27.0-33.4); MEAN CORPUSCULAR VOLUME 85 fl (80-97); PLATELET COUNT 137 10^3/uL (150-450); RED BLOOD COUNT 2.88 10^6/uL (3.72-5.28); RED CELL DISTRIBUTION WIDTH 14.7 % (11.5-14.0); RETICULOCYTE COUNT (AUTO) 2.34 % (0.66-2.85); WHITE BLOOD COUNT 7.4 10^3/uL (4.0-10.5)
[2020-06-25 07:03] LABS: CALCIUM 8.9 mg/dL (8.4-10.2); CARBON DIOXIDE 26 mmol/L (22-30); PHOSPHORUS 3.2 mg/dL (2.5-4.5); POTASSIUM 4.1 mmol/L (3.6-5.0)
[2020-06-25 08:09] LABS: ANION GAP 8 (5-19); BLOOD UREA NITROGEN 104 mg/dL (7-20); CHLORIDE 106 mmol/L (98-107); GLUCOSE 180 mg/dL (75-110); IRON(TIBC) 22.5 ug/dL (37-170)
[2020-06-25 08:15] LABS: FOLATE > 20.00 ng/mL (>2.76)
[2020-06-25] MEDS: INSULIN LISPRO 100 UNIT/ML 3 ML VIAL SUBCUT SCH ×4 (08:39→22:07)
[2020-06-25] MEDS: CALCIUM ACETATE 667 MG CAPSULE PO SCH ×3 (08:39→17:31)
[2020-06-25] MEDS ORDERED: FERRIC CARBOXYMALTOSE INJ 750 MG/15 ML VIAL IV SCH (08:45)
[2020-06-25] MEDS ORDERED: MAGNESIUM SULFATE/D5W 1 GM/100 ML RTUPB IV ONE (09:00)
[2020-06-25] MEDS: SENNOSIDES/DOCUSATE 8.6-50 MG 1 EACH TABLET PO SCH (09:49)
[2020-06-25] MEDS: DOCUSATE SODIUM 100 MG CAPSULE PO SCH ×2 (09:50→17:31)
[2020-06-25] MEDS: CALCITRIOL 0.25 MCG CAPSULE PO SCH (09:50)
[2020-06-25] MEDS: ATENOLOL 50 MG TABLET PO SCH (09:50)
[2020-06-25] MEDS ORDERED: FERRIC CARBOXYMALTOSE 750 MG in NORMAL SALINE 100 ML IV ONE (10:00)
[2020-06-25] MEDS ORDERED: EPOETIN ALFA-EPBX 20,000 UNIT in SYRINGE, DISPOSABLE, 1 EACH SUBCUT ONE (10:00)
--- NOTE | 2020-06-25 13:22 | PDOC PROGRESS REPORT ---
Subjective Progress Note for:: 06/25/20 Reason For Visit: Patient seen today in the hospital. She is sitting on the recliner without any problems or issues. She denies any chest pain or shortness of breath. No abdominal pains. Appetite is good without any history of nausea vomiting. Edema of the legs are better but is wrapped up. Labs and medications were reviewed which show stable creatinine at 4+. She continues to make good amounts of urine. Physical Exam Vital Signs: Temp Pulse Resp BP Pulse Ox 97.4 F 73 18 134/71 H 98 06/25/20 10:00 06/25/20 07:00 06/25/20 03:48 06/25/20 03:48 06/24/20 23:17 Intake & Output 06/24/20 06/25/20 06/26/20 06:59 06:59 06:59 Intake Total 1628 3021 Output Total 1925 1700 Balance -297 1321 Weight 125.8 kg 124.8 kg General appearance: PRESENT: no acute distress Respiratory exam: PRESENT: clear to auscultation paulie, decreased breath sounds. ABSENT: crackles Cardiovascular exam: PRESENT: +S1, +S2 GI/Abdominal exam: PRESENT: normal bowel sounds, soft. ABSENT: distended, guarding, organomegaly, tenderness Extremities exam: PRESENT: pedal edema Neurological exam: PRESENT: alert, awake, oriented to person, oriented to place Psychiatric exam: PRESENT: appropriate affect Results Laboratory Results: 06/25/20 05:33 06/25/20 05:33 06/25/20 06/25/20 05:33 05:33 WBC 7.4 RBC 2.88 L Hgb 8.1 L Hct 24.5 L MCV 85 MCH 28.1 MCHC 33.0 RDW 14.7 H Plt Count 137 L Retic Count (auto) 2.34 Sodium 139.9 Potassium 4.1 Chloride 106 Carbon Dioxide 26 Anion Gap 8 BUN 104 H Creatinine 4.32 H Est GFR ( Amer) 12 L Glucose 180 H Calcium 8.9 Phosphorus 3.2 Magnesium 1.2 L* Iron 22.5 L TIBC 182 L % Saturation 12 Ferritin 333.00 H Vitamin B12 751.0 Folate > 20.00 06/17/20 06/17/20 02:10 09:55 Creatine Kinase 157 H NT-Pro-B Natriuret Pep 1020 H Impressions: Chest X-Ray 10/13/20 00:00 IMPRESSION: Tip of the central line in the cavoatrial junction copyright 2011 [employer]- All Rights Reserved Renal Ultrasound 06/17/20 00:00 IMPRESSION: There is no evidence of hydronephrosis. Both kidneys demonstrate increased cortical echogenicity, suggestive of chronic medical renal disease. There is mild prominence of the right renal pelvis without caliectasis, likely from an extrarenal pelvis. Assessment & Plan - Diagnosis (1) Vwosp-eo-vgexvnz kidney injury Qualifiers: Acute renal failure type: unspecified Chronic kidney disease stage: stage 4 (severe) Qualified Code(s): N17.9 - Acute kidney failure, unspecified; N18.4 - Chronic kidney disease, stage 4 (severe) Is this a current diagnosis for this admission?: Yes Plan: Patient came in with a LEDA on CKD stage IV. Nonoliguric. Labs are rather static with creatinine at 4+ as compared to yesterday. Has been making quite good improvement in the current situation of likely ATN from her cellulitis of legs on top of her chronic lymphedema/venous stasis. Continue current guidelines. No indications for acute hemodialysis. However she is quite close to it and discussed the possibility. (2) Cellulitis Qualifiers: Site of cellulitis: extremity Site of cellulitis of extremity: lower extremity Laterality: left Qualified Code(s): L03.116 - Cellulitis of left lower limb Is this a current diagnosis for this admission?: Yes Plan: On antibiotics. Being managed by hospitalist. (3) Lymphedema Is this a current diagnosis for this admission?: Yes Plan: Chronic in association with venous stasis. (4) DEEPA (renal osteodystrophy) Is this a current diagnosis for this admission?: Yes Plan: Appropriate medications. Can be monitored as an outpatient. (5) Benign essential hypertension Is this a current diagnosis for this admission?: Yes Plan: Controlled . Monitor. continue current antihypertensives. (6) Morbid obesity Plan: Status quo. (7) Anemia of chronic renal failure, stage 4 (severe) Is this a current diagnosis for this admission?: Yes Plan: Patient was get receiving erythropoietin in office as an outpatient. Currently dropping . Low iron studies.Discussed IV Injectafer and discussed pros and cons including adverse effect including anaphylaxis and patient willing to proceed. (8) Diabetes mellitus type 2 in obese Is this a current diagnosis for this admission?: Yes Plan: Hospitalist. (9) Obstructive sleep apnea of adult Is this a current diagnosis for this admission?: Yes Plan: As per hospitalist. (10) Sepsis Qualifiers: Sepsis type: sepsis due to unspecified organism Sepsis acute organ dysfunction status: with acute organ dysfunction Severe sepsis acute organ dysfunction type: acute renal failure Acute renal failure type: unspecified Severe sepsis shock status: unspecified Qualified Code(s): A41.9 - Sepsis, unspecified organism; R65.20 - Severe sepsis without septic shock; N17.9 - Acute kidney failure, unspecified Plan: White count is finally normalized and prognosis looks good.
[2020-06-25] MEDS ORDERED: HYDROCODONE/ACETAMINOPHEN 5-325 MG TABLET PO PRN (16:08)
[2020-06-25] MEDS: RINGERS SOLUTION,LACTATED 1,000 ML IV PRN (17:36)
--- NOTE | 2020-06-25 19:20 | PDOC PROGRESS REPORT ---
Subjective Progress Note for:: 06/25/20 Subjective:: CARMELO WHITTEN is a 65 year old female with history of diabetes mellitus, lymphedema, CKD stage IV, hypertension, hyperlipidemia, sleep apnea who was admitted 06/17/2020 for bilateral lower extremity cellulitis and acute on chronic kidney injury. Patient was seen on afternoon rounds. She was found sitting up to the recliner, comfortably, on room air. She reports that she is feeling well today. Legs continue to improve with decreased erythema, edema, and discomfort. She admits to chronic edema to the left lower extremity but notes that this is improved from time of admission. Reports that her pain is not responsive to tramadol and requests something stronger. She denies all other complaints today; specifically no fever, chest pain, dyspnea, abdominal pain, nausea. She has no questions or concerns at this time. No concerns per nursing. Reason For Visit: LEDA ON CKD, UREMIA, INFECTED LYMPHEDEMA Physical Exam Vital Signs: Temp Pulse Resp BP Pulse Ox 97.4 F 73 18 134/71 H 98 06/25/20 10:00 06/25/20 14:00 06/25/20 03:48 06/25/20 03:48 06/24/20 23:17 Intake & Output 06/24/20 06/25/20 06/26/20 06:59 06:59 06:59 Intake Total 1628 3021 917 Output Total 1925 1700 Balance -297 1321 917 Weight 125.8 kg 124.8 kg General appearance: PRESENT: no acute distress, cooperative, obese, well-developed, well-nourished Head exam: PRESENT: atraumatic, normocephalic Eye exam: PRESENT: conjunctiva pink, EOMI, PERRLA. ABSENT: scleral icterus Mouth exam: PRESENT: moist, tongue midline Respiratory exam: PRESENT: clear to auscultation paulie, symmetrical, unlabored, other - room air. ABSENT: rales, rhonchi, wheezes Cardiovascular exam: PRESENT: RRR. ABSENT: diastolic murmur, rubs, systolic murmur Vascular exam: PRESENT: normal capillary refill Gentrourinary exam: PRESENT: indwelling catheter Extremities exam: PRESENT: full ROM, +1 edema - nonpitting RLE. Compression wrap to left lower extremity; decreased edema per patient. ABSENT: calf tenderness, clubbing, pedal edema Musculoskeletal exam: PRESENT: ambulatory Neurological exam: PRESENT: alert, awake, oriented to person, oriented to place, oriented to time, oriented to situation, CN II-XII grossly intact. ABSENT: motor sensory deficit Psychiatric exam: PRESENT: appropriate affect, normal mood. ABSENT: homicidal ideation, suicidal ideation Skin exam: PRESENT: dry, warm, other - Chronic bilateral lower extremity lymphedema with venous stasis changes. ABSENT: cyanosis, rash Results Laboratory Results: 06/25/20 05:33 06/25/20 05:33 06/25/20 06/25/20 05:33 05:33 WBC 7.4 RBC 2.88 L Hgb 8.1 L Hct 24.5 L MCV 85 MCH 28.1 MCHC 33.0 RDW 14.7 H Plt Count 137 L Retic Count (auto) 2.34 Sodium 139.9 Potassium 4.1 Chloride 106 Carbon Dioxide 26 Anion Gap 8 BUN 104 H Creatinine 4.32 H Est GFR ( Amer) 12 L Glucose 180 H Calcium 8.9 Phosphorus 3.2 Magnesium 1.2 L* Iron 22.5 L TIBC 182 L % Saturation 12 Ferritin 333.00 H Vitamin B12 751.0 Folate > 20.00 06/17/20 06/17/20 02:10 09:55 Creatine Kinase 157 H NT-Pro-B Natriuret Pep 1020 H Impressions: Chest X-Ray 06/17/20 00:00 IMPRESSION: Tip of the central line in the cavoatrial junction copyright 2011 [employer]- All Rights Reserved Renal Ultrasound 06/17/20 00:00 IMPRESSION: There is no evidence of hydronephrosis. Both kidneys demonstrate increased cortical echogenicity, suggestive of chronic medical renal disease. There is mild prominence of the right renal pelvis without caliectasis, likely from an extrarenal pelvis. Assessment and Plan - Diagnosis (1) Kewcc-qk-drdxhwo kidney injury Qualifiers: Acute renal failure type: unspecified Chronic kidney disease stage: stage 4 (severe) Qualified Code(s): N17.9 - Acute kidney failure, unspecified; N18.4 - Chronic kidney disease, stage 4 (severe) Is this a current diagnosis for this admission?: Yes Plan: Patient seems to be stage IV CKD at baseline with creatinine ranging between 2.5 and 3.5 Currently creatinine is 4.32 with BUN 104; improved significantly from a creatinine of 12 and a BUN greater than 200 Nephrology has been consulted Strict monitoring of urine output Continue calcitriol Avoid nephrotoxic medications. Continue IV fluids. Primary management per Nephrology's expertise. (2) Cellulitis Qualifiers: Site of cellulitis: extremity Site of cellulitis of extremity: lower extremity Laterality: left Qualified Code(s): L03.116 - Cellulitis of left lower limb Is this a current diagnosis for this admission?: Yes Plan: Resolved. Leukocytosis is significantly improved; 29->10-> 7.4. Patient has been afebrile > 48 hours. Erythema, edema, and discomfort all improved. Associated with lymphedema, not associated or as a result of diabetes Blood culture (1/4 bottles) revealed corny bacterium; otherwise no growth at 5 days no history of MRSA Completed a 4-day course of vancomycin and 7-day course of cefepime. (3) Hyperphosphatemia Is this a current diagnosis for this admission?: Yes Plan: Improved. Secondary to acute on chronic renal failure. Phosphorus 8.5->5.0 Nephrology is consulted. (4) Lymphedema Is this a current diagnosis for this admission?: Yes Plan: Compression wraps as recommended by Dr. Santos. Outpatient follow-up. (5) Morbid obesity with BMI of 40.0-44.9, adult Is this a current diagnosis for this admission?: Yes Plan: BMI 43.1 Dietary discretion lifestyle modification encouraged. Patient continues on a Prerenal diet. Registered dietitian consulted. (6) DEEPA (renal osteodystrophy) Is this a current diagnosis for this admission?: Yes Plan: Primary management per nephrology. (7) Benign essential hypertension Is this a current diagnosis for this admission?: Yes Plan: Blood pressure slightly elevated but overall acceptable. Continue atenolol 25 mg daily. (8) Hyperglycemia due to type 2 diabetes mellitus Qualifiers: Diabetes mellitus [facility] insulin use: unspecified joint terminal attack controller insulin use status Qualified Code(s): E11.65 - Type 2 diabetes mellitus with hyperglycemia Is this a current diagnosis for this admission?: Yes Plan: A1C 7.2% Accu-Cheks before meals and at bedtime with Humalog for sliding scale coverage. Hypoglycemia protocol in place. Registered dietitian consulted. (9) Obstructive sleep apnea of adult Is this a current diagnosis for this admission?: Yes (10) High anion gap metabolic acidosis Is this a current diagnosis for this admission?: Yes Plan: Resolved. Secondary to acute renal failure (11) Infection associated with lymphedema Is this a current diagnosis for this admission?: Yes Plan: Management as above. - Time Time Spent with patient: 25-34 minutes Medications reviewed and adjusted accordingly: Yes Anticipated Discharge Disposition: Home with Home Health Anticipated Discharge Timeframe: Pending Nephrology clearance
[2020-06-25] MEDS: ATORVASTATIN CALCIUM 10 MG TABLET PO SCH (22:08)
[2020-06-26] MEDS: HEPARIN SOD (PORCINE) 5,000 UNIT/ML 1 ML VIAL SUBCUT SCH ×3 (05:07→21:47)
[2020-06-26] MEDS: CALCIUM ACETATE 667 MG CAPSULE PO SCH ×3 (08:22→16:35)
[2020-06-26] MEDS: INSULIN LISPRO 100 UNIT/ML 3 ML VIAL SUBCUT SCH ×4 (08:23→21:57)
[2020-06-26] MEDS: ACETAMINOPHEN 325 MG TABLET PO PRN (08:45)
[2020-06-26 09:14] LABS: ANION GAP 10 (5-19); BLOOD UREA NITROGEN 88 mg/dL (7-20); CALCIUM 8.9 mg/dL (8.4-10.2); CARBON DIOXIDE 24 mmol/L (22-30); CHLORIDE 107 mmol/L (98-107); GLUCOSE 190 mg/dL (75-110); POTASSIUM 4.1 mmol/L (3.6-5.0)
[2020-06-26] MEDS: SENNOSIDES/DOCUSATE 8.6-50 MG 1 EACH TABLET PO SCH (09:26)
[2020-06-26] MEDS: CALCITRIOL 0.25 MCG CAPSULE PO SCH (09:26)
[2020-06-26] MEDS: ATENOLOL 50 MG TABLET PO SCH (09:27)
[2020-06-26] MEDS: DOCUSATE SODIUM 100 MG CAPSULE PO SCH ×2 (09:27→17:37)
[2020-06-26] MEDS: MAGNESIUM OXIDE 400 MG TABLET PO SCH ×2 (11:40→16:36)
--- NOTE | 2020-06-26 14:08 | PDOC PROGRESS REPORT ---
Subjective Progress Note for:: 06/26/20 Subjective:: CARMELO WHITTEN is a 65 year old female with history of diabetes mellitus, lymphedema, CKD stage IV, hypertension, hyperlipidemia, sleep apnea who was admitted 06/17/2020 for bilateral lower extremity cellulitis and acute on chronic kidney injury. Patient was seen on morning rounds. She was found resting in bed, comfortably, on room air. She reports that she is feeling well today. Legs continue to improve with decreased erythema, edema, and discomfort. Did not like the [place]; felt it just caused her to be sedated. Otherwise, she complains of RUE edema related to PIV and fluids. She denies all other complaints today; specifically no fever, chest pain, dysp honorio, abdominal pain, nausea. She has no questions or concerns at this time. Hopeful to d/c home soon. No concerns per nursing. Reason For Visit: LEDA ON CKD, UREMIA, INFECTED LYMPHEDEMA Physical Exam Vital Signs: Temp Pulse Resp BP Pulse Ox 98.1 F 73 16 119/50 L 100 06/26/20 11:10 06/26/20 11:10 06/26/20 11:10 06/26/20 11:10 06/26/20 11:10 Intake & Output 06/25/20 06/26/20 06/27/20 06:59 06:59 06:59 Intake Total 3021 1609 Output Total 1700 1375 Balance 1321 234 Weight 124.8 kg 128.9 kg General appearance: PRESENT: no acute distress, cooperative, morbidly obese, well-developed, well-nourished Head exam: PRESENT: atraumatic, normocephalic Eye exam: PRESENT: conjunctiva pink, EOMI, PERRLA. ABSENT: scleral icterus Mouth exam: PRESENT: moist, tongue midline Respiratory exam: PRESENT: clear to auscultation paulie, symmetrical, unlabored, other - room air. ABSENT: rales, rhonchi, wheezes Cardiovascular exam: PRESENT: RRR. ABSENT: diastolic murmur, rubs, systolic murmur Vascular exam: PRESENT: normal capillary refill Gentrourinary exam: PRESENT: indwelling catheter Extremities exam: PRESENT: full ROM, +1 edema - nonpitting RLE. Compression wrap to left lower extremity. ABSENT: calf tenderness, clubbing, pedal edema Musculoskeletal exam: PRESENT: ambulatory - w/ FWW Neurological exam: PRESENT: alert, awake, oriented to person, oriented to place, oriented to time, oriented to situation, CN II-XII grossly intact. ABSENT: motor sensory deficit Psychiatric exam: PRESENT: appropriate affect, normal mood. ABSENT: homicidal ideation, suicidal ideation Skin exam: PRESENT: dry, warm, other - Chronic bilateral lower extremity lymphedema with venous stasis changes. ABSENT: cyanosis, rash Results Laboratory Results: 06/25/20 05:33 06/26/20 07:48 06/26/20 07:48 Sodium 140.6 Potassium 4.1 Chloride 107 Carbon Dioxide 24 Anion Gap 10 BUN 88 H Creatinine 3.90 H Est GFR ( Amer) 14 L Glucose 190 H Calcium 8.9 Magnesium 1.3 L 06/17/20 06/17/20 02:10 09:55 Creatine Kinase 157 H NT-Pro-B Natriuret Pep 1020 H Impressions: Chest X-Ray 06/17/20 00:00 IMPRESSION: Tip of the central line in the cavoatrial junction copyright 2011 [employer]- All Rights Reserved Renal Ultrasound 06/17/20 00:00 IMPRESSION: There is no evidence of hydronephrosis. Both kidneys demonstrate increased cortical echogenicity, suggestive of chronic medical renal disease. There is mild prominence of the right renal pelvis without caliectasis, likely from an extrarenal pelvis. Assessment and Plan - Diagnosis (1) [id number]-ckjpncs kidney injury Qualifiers: Acute renal failure type: unspecified Chronic kidney disease stage: stage 4 (severe) Qualified Code(s): N17.9 - Acute kidney failure, unspecified; N18.4 - Chronic kidney disease, stage 4 (severe) Is this a current diagnosis for this admission?: Yes Plan: Patient seems to be stage IV CKD at baseline with creatinine ranging between 2.5 and 3.5 Currently creatinine is 3.90 with BUN 88; improved significantly from a creatinine of 12 and a BUN greater than 200 Nephrology has been consulted Strict monitoring of urine output Continue calcitriol Avoid nephrotoxic medications. Continue IV fluids. Primary management per Nephrology's expertise. (2) Cellulitis Qualifiers: Site of cellulitis: extremity Site of cellulitis of extremity: lower extremity Laterality: left Qualified Code(s): L03.116 - Cellulitis of left lower limb Is this a current diagnosis for this admission?: Yes Plan: Resolved. Leukocytosis is significantly improved; 29->10-> 7.4. Patient has been afebrile > 48 hours. Erythema, edema, and discomfort all improved. Associated with lymphedema, not associated or as a result of diabetes Blood culture (1/4 bottles) revealed corny bacterium; otherwise no growth at 5 days no history of MRSA Completed a 4-day course of vancomycin and 7-day course of cefepime. (3) Hyperphosphatemia Is this a current diagnosis for this admission?: Yes Plan: Improved. Secondary to acute on chronic renal failure. Phosphorus 8.5->5.0 Nephrology is consulted. (4) Lymphedema Is this a current diagnosis for this admission?: Yes Plan: Compression wraps as recommended by Dr. Santos. Outpatient follow-up. (5) Morbid obesity with BMI of 40.0-44.9, adult Is this a current diagnosis for this admission?: Yes Plan: BMI 44.5 Dietary discretion lifestyle modification encouraged. Patient continues on a Prerenal diet. Registered dietitian consulted. (6) DEEPA (renal osteodystrophy) Is this a current diagnosis for this admission?: Yes Plan: Primary management per nephrology. (7) Benign essential hypertension Is this a current diagnosis for this admission?: Yes Plan: Blood pressure slightly elevated but overall acceptable. Continue atenolol 25 mg daily. (8) Hyperglycemia due to type 2 diabetes mellitus Qualifiers: Diabetes mellitus correction insulin use: unspecified in service education teacher insulin use status Qualified Code(s): E11.65 - Type 2 diabetes mellitus with hyperglycemia Is this a current diagnosis for this admission?: Yes Plan: A1C 7.2% Accu-Cheks before meals and at bedtime with Humalog for sliding scale coverage. Hypoglycemia protocol in place. Registered dietitian consulted. (9) Obstructive sleep apnea of adult Is this a current diagnosis for this admission?: Yes (10) High anion gap metabolic acidosis Is this a current diagnosis for this admission?: Yes Plan: Resolved. Secondary to acute renal failure (11) Infection associated with lymphedema Is this a current diagnosis for this admission?: Yes Plan: Management as above. (12) Hypomagnesemia Is this a current diagnosis for this admission?: Yes Plan: Oral replacements w/ meals. Periodic magnesium level. - Time Time Spent with patient: 25-34 minutes Medications reviewed and adjusted accordingly: Yes Anticipated Discharge Disposition: Home with Home Health Anticipated Discharge Timeframe: Pending Nephrology's clearance
[2020-06-26] MEDS: ATORVASTATIN CALCIUM 10 MG TABLET PO SCH (21:58)
[2020-06-27] MEDS: HEPARIN SOD (PORCINE) 5,000 UNIT/ML 1 ML VIAL SUBCUT SCH ×3 (04:59→21:53)
[2020-06-27] MEDS: INSULIN LISPRO 100 UNIT/ML 3 ML VIAL SUBCUT SCH ×4 (07:50→21:56)
[2020-06-27] MEDS: CALCIUM ACETATE 667 MG CAPSULE PO SCH ×3 (07:50→16:31)
[2020-06-27] MEDS: MAGNESIUM OXIDE 400 MG TABLET PO SCH ×3 (07:50→16:31)
[2020-06-27] MEDS: CALCITRIOL 0.25 MCG CAPSULE PO SCH (09:52)
[2020-06-27] MEDS: ATENOLOL 50 MG TABLET PO SCH (09:53)
[2020-06-27] MEDS: SENNOSIDES/DOCUSATE 8.6-50 MG 1 EACH TABLET PO SCH (09:53)
[2020-06-27] MEDS: DOCUSATE SODIUM 100 MG CAPSULE PO SCH ×2 (09:53→17:06)
[2020-06-27 10:27] LABS: ANION GAP 7 (5-19); BLOOD UREA NITROGEN 81 mg/dL (7-20); CALCIUM 9.1 mg/dL (8.4-10.2); CARBON DIOXIDE 25 mmol/L (22-30); CHLORIDE 108 mmol/L (98-107); GLUCOSE 278 mg/dL (75-110); POTASSIUM 4.2 mmol/L (3.6-5.0)
--- NOTE | 2020-06-27 10:50 | PDOC PROGRESS REPORT ---
Subjective Progress Note for:: 06/27/20 Reason For Visit: Patient seen today. She continues to feel better. She is sitting on the recliner with her legs elevated. She denies any history of chest pain or shortness of breath. Labs and medications were reviewed. Labs shows creatinine relatively static at around 4. She continues to make good amounts of urine. Physical Exam Vital Signs: Temp Pulse Resp BP Pulse Ox 98.1 F 70 16 127/64 H 100 06/27/20 07:26 06/27/20 07:26 06/27/20 07:26 06/27/20 07:26 06/27/20 07:26 Intake & Output 06/26/20 06/27/20 06/28/20 06:59 06:59 06:59 Intake Total 1609 720 Output Total 1375 1400 Balance 234 -680 Weight 128.9 kg 116 kg General appearance: PRESENT: no acute distress Respiratory exam: PRESENT: clear to auscultation paulie, decreased breath sounds. ABSENT: crackles Cardiovascular exam: PRESENT: +S1, +S2 GI/Abdominal exam: PRESENT: normal bowel sounds, soft. ABSENT: distended, guarding, organomegaly, tenderness Extremities exam: PRESENT: pedal edema Neurological exam: PRESENT: alert, awake, oriented to person, oriented to place Psychiatric exam: PRESENT: appropriate affect Results Laboratory Results: 06/25/20 05:33 06/27/20 09:42 06/27/20 09:42 Sodium 140.0 Potassium 4.2 Chloride 108 H Carbon Dioxide 25 Anion Gap 7 BUN 81 H Creatinine 3.91 H Est GFR ( Amer) 14 L Glucose 278 H Calcium 9.1 06/17/20 06/17/20 02:10 09:55 Creatine Kinase 157 H NT-Pro-B Natriuret Pep 1020 H Impressions: Chest X-Ray 06/17/20 00:00 IMPRESSION: Tip of the central line in the cavoatrial junction copyright 2011 [employer]- All Rights Reserved Renal Ultrasound 06/17/20 00:00 IMPRESSION: There is no evidence of hydronephrosis. Both kidneys demonstrate increased cortical echogenicity, suggestive of chronic medical renal disease. There is mild prominence of the right renal pelvis without caliectasis, likely from an extrarenal pelvis. Assessment & Plan - Diagnosis (1) Nrkbs-ep-yjrervp kidney injury Qualifiers: Acute renal failure type: unspecified Chronic kidney disease stage: stage 4 (severe) Qualified Code(s): N17.9 - Acute kidney failure, unspecified; N18.4 - Chronic kidney disease, stage 4 (severe) Is this a current diagnosis for this admission?: Yes Plan: Patient came in with a LEDA on CKD stage IV. Nonoliguric. Labs are rather static with creatinine at around 4. Has been making quite good improvement in the current situation of likely ATN from her cellulitis of legs on top of her chronic lymphedema/venous stasis. Continue current guidelines. No indications for acute hemodialysis. However she is quite close to it and discussed the possibility. (2) Cellulitis Qualifiers: Site of cellulitis: extremity Site of cellulitis of extremity: lower extremity Laterality: left Qualified Code(s): L03.116 - Cellulitis of left lower limb Is this a current diagnosis for this admission?: Yes Plan: On antibiotics. Being managed by hospitalist. (3) Lymphedema Is this a current diagnosis for this admission?: Yes Plan: Chronic in association with venous stasis. (4) DEEPA (renal osteodystrophy) Is this a current diagnosis for this admission?: Yes Plan: Appropriate medications. Can be monitored as an outpatient. (5) Benign essential hypertension Is this a current diagnosis for this admission?: Yes Plan: Controlled . Monitor. continue current antihypertensives. (6) Morbid obesity Plan: Status quo. (7) Anemia of chronic renal failure, stage 4 (severe) Is this a current diagnosis for this admission?: Yes Plan: Patient was get receiving erythropoietin in office as an outpatient. Had low iron studies and has received IV Injectafer. Monitor labs. (8) Diabetes mellitus type 2 in obese Is this a current diagnosis for this admission?: Yes Plan: Hospitalist. (9) Obstructive sleep apnea of adult Is this a current diagnosis for this admission?: Yes Plan: As per hospitalist. (10) Sepsis Qualifiers: Sepsis type: sepsis due to unspecified organism Sepsis acute organ dysfunction status: with acute organ dysfunction Severe sepsis acute organ dysfunction type: acute renal failure Acute renal failure type: unspecified Severe sepsis shock status: unspecified Qualified Code(s): A41.9 - Sepsis, unspecified organism; R65.20 - Severe sepsis without septic shock; N17.9 - Acute kidney failure, unspecified Plan: White count is finally normalized and prognosis looks good.
[2020-06-27] MEDS: RINGERS SOLUTION,LACTATED 1,000 ML IV PRN ×2 (12:22→21:58)
--- NOTE | 2020-06-27 14:24 | PDOC PROGRESS REPORT ---
Subjective Progress Note for:: 06/27/20 Subjective:: CARMELO WHITTEN is a 65 year old female with history of diabetes mellitus, lymphedema, CKD stage IV, hypertension, hyperlipidemia, sleep apnea who was admitted 06/17/2020 for bilateral lower extremity cellulitis and acute on chronic kidney injury. Patient was seen on morning rounds. She was found sitting up to the recliner, comfortably, on room air. She reports that she is feeling well. She is in good spirits and hopes to discharge home soon. Does have some residual swelling to her right arm. Nursing is reminded to remove the PIV and obtain new access for continued IVF. She denies all complaints today; specifically no fever, chest pain, dyspnea, abdominal pain, nausea. Reports good appetite. No leg pain today. She has no questions or concerns at this time. No concerns per nursing. Reason For Visit: LEDA ON CKD, UREMIA, INFECTED LYMPHEDEMA Physical Exam Vital Signs: Temp Pulse Resp BP Pulse Ox 98.0 F 67 16 129/58 H 98 06/27/20 11:16 06/27/20 14:00 06/27/20 11:16 06/27/20 11:16 06/27/20 11:16 Intake & Output 06/26/20 06/27/20 06/28/20 06:59 06:59 06:59 Intake Total 1609 1720 Output Total 1375 1400 Balance 234 320 Weight 128.9 kg 116 kg General appearance: PRESENT: no acute distress, cooperative, morbidly obese, well-developed, well-nourished Head exam: PRESENT: atraumatic, normocephalic Eye exam: PRESENT: conjunctiva pink, EOMI, PERRLA. ABSENT: scleral icterus Mouth exam: PRESENT: moist, tongue midline Respiratory exam: PRESENT: clear to auscultation paulie, symmetrical, unlabored. ABSENT: rales, rhonchi, wheezes Cardiovascular exam: PRESENT: RRR. ABSENT: diastolic murmur, rubs, systolic murmur Vascular exam: PRESENT: normal capillary refill Gentrourinary exam: PRESENT: indwelling catheter Extremities exam: PRESENT: full ROM, +1 edema - nonpitting RLE. Compression wrap to left lower extremity. ABSENT: calf tenderness, clubbing, pedal edema Musculoskeletal exam: PRESENT: ambulatory Neurological exam: PRESENT: alert, awake, oriented to person, oriented to place, oriented to time, oriented to situation, CN II-XII grossly intact. ABSENT: motor sensory deficit Psychiatric exam: PRESENT: appropriate affect, normal mood. ABSENT: homicidal ideation, suicidal ideation Skin exam: PRESENT: dry, intact, warm. ABSENT: cyanosis, erythema, rash Results Laboratory Results: 06/25/20 05:33 06/27/20 09:42 06/27/20 09:42 Sodium 140.0 Potassium 4.2 Chloride 108 H Carbon Dioxide 25 Anion Gap 7 BUN 81 H Creatinine 3.91 H Est GFR ( Amer) 14 L Glucose 278 H Calcium 9.1 06/17/20 06/17/20 02:10 09:55 Creatine Kinase 157 H NT-Pro-B Natriuret Pep 1020 H Impressions: Chest X-Ray 06/17/20 00:00 IMPRESSION: Tip of the central line in the cavoatrial junction copyright 2011 [employer]- All Rights Reserved Renal Ultrasound 06/17/20 00:00 IMPRESSION: There is no evidence of hydronephrosis. Both kidneys demonstrate increased cortical echogenicity, suggestive of chronic medical renal disease. There is mild prominence of the right renal pelvis without caliectasis, likely from an extrarenal pelvis. Assessment and Plan - Diagnosis (1) Rvfpc-gb-cdxydan kidney injury Qualifiers: Acute renal failure type: unspecified Chronic kidney disease stage: stage 4 (severe) Qualified Code(s): N17.9 - Acute kidney failure, unspecified; N18.4 - Chronic kidney disease, stage 4 (severe) Is this a current diagnosis for this admission?: Yes Plan: Patient seems to be stage IV CKD at baseline with creatinine ranging between 2.5 and 3.5 Currently creatinine is 3.91 with BUN 81; improved significantly from a creatinine of 12 and a BUN greater than 200 Nephrology has been consulted. Discussed with Dr. Wayne; january d/c once Cr is <3.5 Strict monitoring of urine output Continue calcitriol Avoid nephrotoxic medications. Continue IV fluids. Primary management per Nephrology's expertise. (2) Cellulitis Qualifiers: Site of cellulitis: extremity Site of cellulitis of extremity: lower extremity Laterality: left Qualified Code(s): L03.116 - Cellulitis of left lower limb Is this a current diagnosis for this admission?: Yes Plan: Resolved. Leukocytosis is significantly improved; 29->10-> 7.4. Patient has been afebrile > 48 hours. Erythema, edema, and discomfort all improved. Associated with lymphedema, not associated or as a result of diabetes Blood culture (1/4 bottles) revealed corny bacterium; otherwise no growth at 5 days no history of MRSA Completed a 4-day course of vancomycin and 7-day course of cefepime. (3) Hyperphosphatemia Is this a current diagnosis for this admission?: Yes Plan: Improved. Secondary to acute on chronic renal failure. Phosphorus 8.5->5.0 Nephrology is consulted. (4) Lymphedema Is this a current diagnosis for this admission?: Yes Plan: Compression wraps as recommended by Dr. Santos. Outpatient follow-up. (5) Morbid obesity with BMI of 40.0-44.9, adult Is this a current diagnosis for this admission?: Yes Plan: BMI 44.5 Dietary discretion lifestyle modification encouraged. Patient continues on a Prerenal diet. Registered dietitian consulted. (6) DEEPA (renal osteodystrophy) Is this a current diagnosis for this admission?: Yes Plan: Primary management per nephrology. (7) Benign essential hypertension Is this a current diagnosis for this admission?: Yes Plan: Blood pressure overall acceptable. Continue atenolol 25 mg daily. (8) Hyperglycemia due to type 2 diabetes mellitus Qualifiers: Diabetes mellitus fpc insulin use: unspecified fpc insulin use s tatus Qualified Code(s): E11.65 - Type 2 diabetes mellitus with hyperglycemia Is this a current diagnosis for this admission?: Yes Plan: A1C 7.2% Accu-Cheks before meals and at bedtime with Humalog for sliding scale coverage. Hypoglycemia protocol in place. Registered dietitian consulted. (9) Obstructive sleep apnea of adult Is this a current diagnosis for this admission?: Yes (10) High anion gap metabolic acidosis Is this a current diagnosis for this admission?: Yes Plan: Resolved. Secondary to acute renal failure (11) Infection associated with lymphedema Is this a current diagnosis for this admission?: Yes Plan: Management as above. (12) Hypomagnesemia Is this a current diagnosis for this admission?: Yes Plan: Oral replacements w/ meals. Periodic magnesium level. - Time Anticipated Discharge Disposition: Home with Home Health Anticipated Discharge Timeframe: within 72 hours
[2020-06-27] MEDS: ATORVASTATIN CALCIUM 10 MG TABLET PO SCH (21:56)
[2020-06-28] MEDS: HEPARIN SOD (PORCINE) 5,000 UNIT/ML 1 ML VIAL SUBCUT SCH ×2 (05:23→14:19)
[2020-06-28] MEDS: RINGERS SOLUTION,LACTATED 1,000 ML IV PRN (05:25)
[2020-06-28] MEDS: MAGNESIUM OXIDE 400 MG TABLET PO SCH ×2 (08:02→11:15)
[2020-06-28] MEDS: INSULIN LISPRO 100 UNIT/ML 3 ML VIAL SUBCUT SCH ×2 (08:02→11:15)
[2020-06-28] MEDS: CALCIUM ACETATE 667 MG CAPSULE PO SCH ×2 (08:02→11:15)
[2020-06-28] MEDS: ACETAMINOPHEN 325 MG TABLET PO PRN (08:07)
[2020-06-28] MEDS: CALCITRIOL 0.25 MCG CAPSULE PO SCH (09:25)
[2020-06-28] MEDS: ATENOLOL 50 MG TABLET PO SCH (09:26)
[2020-06-28] MEDS: DOCUSATE SODIUM 100 MG CAPSULE PO SCH (09:26)
[2020-06-28] MEDS: SENNOSIDES/DOCUSATE 8.6-50 MG 1 EACH TABLET PO SCH (09:27)
[2020-06-28 10:07] LABS: ANION GAP 8 (5-19); BLOOD UREA NITROGEN 75 mg/dL (7-20); CARBON DIOXIDE 25 mmol/L (22-30); CHLORIDE 107 mmol/L (98-107); GLUCOSE 199 mg/dL (75-110); HEMATOCRIT 25.8 % (36.0-47.0); HEMOGLOBIN 8.2 g/dL (12.0-15.5); MEAN CORPUSCULAR HEMOGLOBIN 28.3 pg (27.0-33.4); PLATELET COUNT 156 10^3/uL (150-450); POTASSIUM 4.6 mmol/L (3.6-5.0); RED BLOOD COUNT 2.91 10^6/uL (3.72-5.28); RED CELL DISTRIBUTION WIDTH 15.1 % (11.5-14.0); WHITE BLOOD COUNT 5.7 10^3/uL (4.0-10.5)
[2020-06-28 10:28] LABS: MEAN CORPUSCULAR VOLUME 89 fl (80-97)
[2020-06-28 14:17] VITALS: BP 134/71
--- NOTE | 2020-06-28 15:25 | PDOC DISCHARGE SUMMARY ---
Impression - Admit/DC Date/PCP Admission Date/Primary Care Provider: 06/17/20 06:01 AQUILINO LIPSCOMB Discharge Date: 06/28/20 - Discharge Diagnosis (1) Typez-nd-ssaskhw kidney injury Is this a current diagnosis for this admission?: Yes (2) Cellulitis Is this a current diagnosis for this admission?: Yes (3) Hyperphosphatemia Is this a current diagnosis for this admission?: Yes (4) Lymphedema Is this a current diagnosis for this admission?: Yes (5) Morbid obesity with BMI of 40.0-44.9, adult Is this a current diagnosis for this admission?: Yes (6) DEEPA (renal osteodystrophy) Is this a current diagnosis for this admission?: Yes (7) Benign essential hypertension Is this a current diagnosis for this admission?: Yes (8) Hyperglycemia due to type 2 diabetes mellitus Is this a current diagnosis for this admission?: Yes (9) Obstructive sleep apnea of adult Is this a current diagnosis for this admission?: Yes (10) High anion gap metabolic acidosis Is this a current diagnosis for this admission?: Yes (11) Infection associated with lymphedema Is this a current diagnosis for this admission?: Yes (12) Hypomagnesemia Is this a current diagnosis for this admission?: Yes - Additional Information Resuscitation Status: Full Code Discharge Diet: Diabetic, Other (Comments) Discharge Activity: Activity As Tolerated, Balance Activity w/Rest, Slowly Increase Activity, Supervised Activity Referrals: AQUILINO LIPSCOMB MD [Primary Care Provider] - Follow up as needed (Follow up within 1-2 weeks.) Masha WAYNE MD [ACTIVE STAFF] - Prescriptions: Magnesium Oxide [Mag-Ox 400 mg Tablet] 400 mg PO MEALS #90 tablet Calcium Acetate [Phoslo 667 mg Capsule] 1,334 mg PO MEALS #90 capsule Calcitriol [Rocaltrol 0.25 mcg Capsule] 0.5 mcg PO DAILY #30 capsule Atenolol [Tenormin] 25 mg PO DAILY #30 tablet Home Medications: Ergocalciferol (Vitamin D2) [Drisdol 50,000 unit (1.25MG) Capsule] 50,000 unit PO LOAIZA@1000 90 Days #05/21/19 Pravastatin Sodium [Pravachol] 40 mg PO DAILY 90 Days #05/21/19 Ascorbic Acid [Vitamin C 500 mg Tablet] 500 mg PO DAILY 11/08/19 B Complex W-C No.20/Folic Acid [Virt-Caps Softgel] 1 mg PO DAILY 11/08/19 Ferrous Sulfate [Feosol 325 mg Tablet] 325 mg PO BID 11/08/19 Docusate Sodium [Colace 100 mg Capsule] 100 mg PO BID 06/17/20 Hum Insulin NPH/Reg Insulin Hm [Insulin 70-30 (NPH/Reg) 100 unit/mL] 20 unit SQ BIDACBS 06/17/20 Acetaminophen [Tylenol 325 mg Tablet] 650 mg PO Q4HP PRN tablet 06/28/20 Atenolol [Tenormin] 25 mg PO DAILY #30 tablet 06/28/20 Calcitriol [Rocaltrol 0.25 mcg Capsule] 0.5 mcg PO DAILY #30 capsule 06/28/20 Calcium Acetate [Phoslo 667 mg Capsule] 1,334 mg PO MEALS #90 capsule 06/28/20 Magnesium Oxide [Mag-Ox 400 mg Tablet] 400 mg PO MEALS #90 tablet 06/28/20 History of Present Illiness History of Present Illness: Per H&P by Dr. Friedman: CARMELO WHITTEN is a 65 year old female with history of diabetes mellitus, lymphedema, CKD stage IV, hypertension, who presents to the hospital for evaluation of worsening pain in her lower extremities. Patient has also complained of increased drainage from both legs especially her left leg. She does follow-up at the wound clinic. She states that she has seen a vascular surgeon before in [place] a while back. She denies any fevers but admits to chills. Denies nausea or vomiting. In the ER, work-up reveals significant leukocytosis, LEDA with creatinine of 12 and venous blood gas revealing pH of 7.19. Patient denies inadequate fluid intake but states that she feels that she loses a lot of fluid in form of drainage from her legs. Patient has been evaluated by forestry instructor who recommends that patient does not need ICU admission at this time. Hospital Course Hospital Course: (1) Gcjea-qh-lyysbrw kidney injury Patient seems to be stage IV CKD at baseline with creatinine ranging between 2.5 and 3.5 Currently creatinine is 3.58 with BUN 75; improved significantly from a creatinine of 12 and a BUN greater than 200 Nephrology has been consulted. Discussed with Dr. Wayne; goal creatinine of 3.5 Patient was provided IV fluids. Nephrotoxic medications avoided. Nephrology consulted; placed on calcitriol and PhosLo. Potassium and magnesium replacement as indicated by joint panel. Ritter catheter for strict monitoring of urine output. She is discharged home with instructions to follow-up with Dr. Wayne within 1 to 2 weeks. (2) Cellulitis Resolved. Leukocytosis is sresolved. Patient has been afebrile > 48 hours. Erythema, edema, and discomfort all improved. Associated with lymphedema, not associated or as a result of diabetes Blood culture (1/4 bottles) revealed corny bacterium; otherwise no growth at 5 days no history of MRSA Completed a 4-day course of vancomycin and 7-day course of cefepime. (3) Hyperphosphatemia Improved. Secondary to acute on chronic renal failure. Phosphorus 8.5->5.0 Continue Phoslo with meals. Outpatient management per Nephrology. (4) Lymphedema Significantly improved. Compression wraps as recommended by Dr. Santos. Outpatient follow-up. (5) Morbid obesity with BMI of 40.0-44.9, adult BMI 40.1 Dietary discretion and lifestyle modification encouraged. Patient continues on a Prerenal, consistent carb, diet. Registered dietitian was consulted for education. (6) DEEPA (renal osteodystrophy) Primary management per nephrology. (7) Benign essential hypertension Blood pressure overall acceptable. Continue atenolol 25 mg daily. (8) Hyperglycemia due to type 2 diabetes mellitus A1C 7.2% Resume outpatient management at discharge. Continue consistent carb diet. (9) Obstructive sleep apnea of adult (10) High anion gap metabolic acidosis Resolved. Secondary to acute renal failure (11) Infection associated with lymphedema Management as above. (12) Hypomagnesemia Oral replacements w/ meals. Physical Exam Vital Signs: Temp Pulse Resp BP Pulse Ox 97.8 F 63 16 134/71 H 100 06/28/20 14:15 06/28/20 14:15 06/28/20 14:15 06/28/20 14:15 06/28/20 14:15 Intake & Output 06/27/20 06/28/20 06/29/20 06:59 06:59 06:59 Intake Total 1720 2416 Output Total 1400 875 Balance 320 1541 Weight 116 kg 116 kg General appearance: PRESENT: no acute distress, cooperative, obese, well- developed, well-nourished Head exam: PRESENT: atraumatic, normocephalic Eye exam: PRESENT: conjunctiva pink, EOMI, PERRLA. ABSENT: scleral icterus Mouth exam: PRESENT: moist, tongue midline Respiratory exam: PRESENT: clear to auscultation paulie, symmetrical, unlabored, other - Room air. ABSENT: rales, rhonchi, wheezes Cardiovascular exam: PRESENT: RRR, +S1, +S2. ABSENT: diastolic murmur, rubs, systolic murmur Pulses: PRESENT: normal dorsalis pedis pul Vascular exam: PRESENT: normal capillary refill GI/Abdominal exam: PRESENT: normal bowel sounds, soft. ABSENT: distended, guarding, mass, organolmegaly, rebound, tenderness Rectal exam: PRESENT: deferred Extremities exam: PRESENT: full ROM, +1 edema - RLE, +2 edema - LLE. ABSENT: calf tenderness, clubbing, pedal edema Musculoskeletal exam: PRESENT: ambulatory - w/ FWW Neurological exam: PRESENT: alert, awake, oriented to person, oriented to place, oriented to time, oriented to situation, CN II-XII grossly intact. ABSENT: motor sensory deficit Psychiatric exam: PRESENT: appropriate affect, normal mood. ABSENT: homicidal ideation, suicidal ideation Skin exam: PRESENT: dry, warm, other - Venous stasis dermatitis to bilateral lower extremities; increased on the left. Left lower leg lateral, shallow, ulceration measuring 1 cm round. Left lower leg medial, shallow ulceration, approximately 2 cm round. Both with serosanguineous bleeding. No surrounding erythema or edema.. ABSENT: cyanosis, rash Results Laboratory Results: WBC 5.7 10^3/uL (4.0-10.5) 06/28/20 08:53 RBC 2.91 10^6/uL (3.72-5.28) L 06/28/20 08:53 Hgb 8.2 g/dL (12.0-15.5) L 06/28/20 08:53 Hct 25.8 % (36.0-47.0) L 06/28/20 08:53 MCV 89 fl (80-97) D 06/28/20 08:53 MCH 28.3 pg (27.0-33.4) 06/28/20 08:53 MCHC 32.0 g/dL (32.0-36.0) 06/28/20 08:53 RDW 15.1 % (11.5-14.0) H 06/28/20 08:53 Plt Count 156 10^3/uL (150-450) 06/28/20 08:53 Lymph % (Auto) 8.1 % (13-45) L 06/20/20 05:43 Callahan % (Auto) 10.2 % (3-13) 06/20/20 05:43 Eos % (Auto) 3.1 % (0-6) 06/20/20 05:43 Baso % (Auto) 0.3 % (0-2) 06/20/20 05:43 Reticulocyte # 0.067 10^6/uL (0.028-0.122) 06/25/20 05:33 Absolute Neuts (auto) 8.3 10^3/uL (1.7-8.2) H 06/20/20 05:43 Absolute Lymphs (auto) 0.9 10^3/uL (0.5-4.7) 06/20/20 05:43 Absolute Monos (auto) 1.1 10^3/uL (0.1-1.4) 06/20/20 05:43 Absolute Eos (auto) 0.3 10^3/uL (0.0-0.6) 06/20/20 05:43 Absolute Basos (auto) 0.0 10^3/uL (0.0-0.2) 06/20/20 05:43 Total Counted 100 06/18/20 05:30 Seg Neutrophils % 78.3 % (42-78) H 06/20/20 05:43 Seg Neuts % (Manual) 94 % (42-78) H 06/18/20 05:30 Lymphocytes % (Manual) 1 % (13-45) L 06/18/20 05:30 Monocytes % (Manual) 4 % (3-13) 06/18/20 05:30 Eosinophils % (Manual) 0 % (0-6) 06/18/20 05:30 Basophils % (Manual) 1 % (0-2) 06/18/20 05:30 Abs Neuts (Manual) 15.2 10^3/uL (1.7-8.2) H 06/18/20 05:30 Abs Lymphs (Manual) 0.2 10^3/uL (0.5-4.7) L 06/18/20 05:30 Abs Monocytes (Manual) 0.6 10^3/uL (0.1-1.4) 06/18/20 05:30 Absolute Eos (Manual) 0.0 10^3/uL (0.0-0.6) 06/18/20 05:30 Abs Basophils (Manual) 0.2 10^3/uL (0.0-0.2) 06/18/20 05:30 Toxic Granulation SLIGHT 06/18/20 05:30 Toxic Vacuolation PRESENT 06/17/20 02:10 Platelet Comment DECREASED 06/18/20 05:30 Poikilocytosis SLIGHT 06/18/20 05:30 Anisocytosis SLIGHT 06/18/20 05:30 Tear Drop Cells SLIGHT 06/17/20 02:10 Ovalocytes SLIGHT 06/18/20 05:30 Retic Count (auto) 2.34 % (0.66-2.85) 06/25/20 05:33 PT 17.4 SEC (11.4-15.4) H 06/17/20 10:22 INR 1.41 06/17/20 10:22 APTT 29.1 SEC (23.5-35.8) 06/17/20 10:22 VBG pH 7.29 (7.30-7.42) L 06/17/20 09:55 VBG pCO2 35.7 mmHg (35-63) 06/17/20 09:55 VBG HCO3 16.8 mmol/L (20-32) L 06/17/20 09:55 VBG Base Excess -8.8 mmol/L 06/17/20 09:55 Sodium 139.9 mmol/L (137-145) 06/28/20 08:53 Potassium 4.6 mmol/L (3.6-5.0) 06/28/20 08:53 Chloride 107 mmol/L (98-107) 06/28/20 08:53 Carbon Dioxide 25 mmol/L (22-30) 06/28/20 08:53 Anion Gap 8 (5-19) 06/28/20 08:53 BUN 75 mg/dL (7-20) H 06/28/20 08:53 Creatinine 3.58 mg/dL (0.52-1.25) H 06/28/20 08:53 Est GFR ( Amer) 15 (>60) L 06/28/20 08:53 Est GFR (MDRD) Non-Af 13 (>60) L 06/28/20 08:53 Glucose 199 mg/dL (75-110) H 06/28/20 08:53 POC Glucose 169 mg/dL (70-110) H 06/28/20 10:59 Hemoglobin A1c % 7.2 % (4.7-6.0) H 06/25/20 05:33 Lactic Acid 0.6 mmol/L (0.7-2.1) L 06/17/20 06:04 Calcium 9.0 mg/dL (8.4-10.2) 06/28/20 08:53 Phosphorus 3.2 mg/dL (2.5-4.5) 06/25/20 05:33 Magnesium 1.3 mg/dL (1.6-2.3) L 06/26/20 07:48 Iron 22.5 ug/dL (37-170) L 06/25/20 05:33 TIBC 182 ug/dL (250-450) L 06/25/20 05:33 % Saturation 12 % 06/25/20 05:33 Ferritin 333.00 ng/mL (11.1-264.0) H 06/25/20 05:33 Total Bilirubin 0.6 mg/dL (0.2-1.3) 06/17/20 02:10 Direct Bilirubin 0.5 mg/dL (0.0-0.4) H 06/17/20 02:10 Neonat Total Bilirubin Not Reportable 06/17/20 02:10 Neonat Direct Bilirubin Not Reportable 06/17/20 02:10 Neonat Indirect Bili Not Reportable 06/17/20 02:10 AST 23 U/L (14-36) 06/17/20 02:10 ALT 17 U/L (<35) 06/17/20 02:10 Alkaline Phosphatase 68 U/L (38-126) 06/17/20 02:10 Creatine Kinase 157 U/L (30-135) H 06/17/20 09:55 NT-Pro-B Natriuret Pep 1020 pg/mL (<125) H 06/17/20 02:10 Total Protein 7.7 g/dL (6.3-8.2) 06/17/20 02:10 Albumin 2.8 g/dL (3.5-5.0) L 06/17/20 09:55 Vitamin B12 751.0 pg/mL (239-931) 06/25/20 05:33 Folate > 20.00 ng/mL (>2.76) 06/25/20 05:33 PTH Intact 825.3 pg/mL (10.0-65.0) H 06/17/20 12:06 Urine Color YELLOW 06/17/20 04:18 Urine Appearance SLIGHTLY-CLOUDY 06/17/20 04:18 Urine pH 5.0 (5.0-9.0) 06/17/20 04:18 Ur Specific Brinklow 1.014 06/17/20 04:18 Urine Protein NEGATIVE mg/dL (NEGATIVE) 06/17/20 04:18 Urine Glucose (UA) NEGATIVE mg/dL (NEGATIVE) 06/17/20 04:18 Urine Ketones NEGATIVE mg/dL (NEGATIVE) 06/17/20 04:18 Urine Blood NEGATIVE (NEGATIVE) 06/17/20 04:18 Urine Nitrite NEGATIVE (NEGATIVE) 06/17/20 04:18 Urine Bilirubin NEGATIVE (NEGATIVE) 06/17/20 04:18 Urine Urobilinogen NEGATIVE mg/dL (<2.0) 06/17/20 04:18 Ur Leukocyte Esterase TRACE (NEGATIVE) H 06/17/20 04:18 Urine WBC (Auto) 3 /HPF 06/17/20 04:18 Urine RBC (Auto) 1 /HPF 06/17/20 04:18 U Hyaline Cast (Auto) 2 /LPF 06/17/20 04:18 Urine Bacteria (Auto) TRACE /HPF 06/17/20 04:18 Squamous Epi Cells Auto 1 /HPF 06/17/20 04:18 Urine Mucus (Auto) RARE /LPF 06/17/20 04:18 Ur 24 Hour Volume Cancelled 06/28/20 08:53 Urine Creatinine Cancelled 06/28/20 08:53 Serum Creatinine Cancelled 06/28/20 08:53 Creatinine Clearance Cancelled 06/28/20 08:53 Urine Ascorbic Acid 40 (NEGATIVE) H 06/17/20 04:18 Time Trough Drawn 0910 06/24/20 09:10 Vancomycin Trough 13.9 ug/mL (5.0-20.0) 06/24/20 09:10 06/17/20 02:10 NT-Pro-B Natriuret Pep 1020 H Impressions: Chest X-Ray 06/16/20 21:07 IMPRESSION: Improvement in lung volumes and aeration. No acute process. No pneumonia or edema. Chest X-Ray 06/17/20 00:00 IMPRESSION: Tip of the central line in the cavoatrial junction copyright 2011 [employer]- All Rights Reserved Renal Ultrasound 06/17/20 00:00 IMPRESSION: There is no evidence of hydronephrosis. Both kidneys demonstrate increased cortical echogenicity, suggestive of chronic medical renal disease. There is mild prominence of the right renal pelvis without caliectasis, likely from an extrarenal pelvis. Plan Plan of Treatment: Patient is discharged home, in stable condition, with home health services. She is advised follow-up with your primary care provider within 1 week. Follow-up with Dr. Wayne within 1 to 2 weeks. Take medications as prescribed. Continues to place compression wraps on left lower extremity. Dry dressings to open areas. 8 8 prerenal, consistent carb diet. Return to the emergency department, as needed, for concerning symptoms. Time Spent: Greater than 30 Minutes Stroke Is this a Stroke Patient?: No Acute Heart Failure Is this a Heart Failure Patient?: No
== END 2020-06-28 16:32 | disposition home health service (06) | DRG 603 ==
LOC: ER 20:05 → EH 06-17 06:01 → 3W 06-17 16:10
PROVIDERS: ADMIT Internal Medicine; ATTEND Registered Nurse
PROC: 02HV33Z Insertion of Infusion Device into Superior Vena Cava, Percutaneous Approach (ICD-10-PCS; principal; 2020-06-17)
DX: L03.116 Cellulitis of left lower limb (principal); N17.9 Acute kidney failure, unspecified; E87.2 Acidosis; Z68.41 Body mass index [BMI] 40.0-44.9, adult; N18.4 Chronic kidney disease, stage 4 (severe); L97.929 Non-pressure chronic ulcer of unspecified part of left lower leg with unspecified severity; E11.22 Type 2 diabetes mellitus with diabetic chronic kidney disease; E11.622 Type 2 diabetes mellitus with other skin ulcer; I87.2 Venous insufficiency (chronic) (peripheral); I12.9 Hypertensive chronic kidney disease with stage 1 through stage 4 chronic kidney disease, or unspecified chronic kidney disease; E78.5 Hyperlipidemia, unspecified; D63.1 Anemia in chronic kidney disease; E66.01 Morbid (severe) obesity due to excess calories; E86.0 Dehydration; I89.0 Lymphedema, not elsewhere classified; E83.39 Other disorders of phosphorus metabolism; G47.33 Obstructive sleep apnea (adult) (pediatric); E83.9 Disorder of mineral metabolism, unspecified; K59.00 Constipation, unspecified; N25.0 Renal osteodystrophy; D72.829 Elevated white blood cell count, unspecified; Z83.3 Family history of diabetes mellitus; Z82.49 Family history of ischemic heart disease and other diseases of the circulatory system; Z79.4 Long term (current) use of insulin; Z79.899 Other long term (current) drug therapy; Z88.5 Allergy status to narcotic agent; Z71.3 Dietary counseling and surveillance; Z91.19 Patient's noncompliance with other medical treatment and regimen
CPT/HCPCS: 36415; 71045; 76775; 80048; 80053; 80202; 81001; 82040; 82550; 82607; 82728; 82746; 82803; 82962; 83036; 83540; 83550; 83605; 83735; 83880; 83970; 84100; 85025; 85027; 85045; 85610; 85730; 87040; 87077; 87150; 93005; 93010; 96361; 96365; 96375; 99285; J0692; J1439; J1644; J1815; J2270; J3370; J3475; J3490; J7030; J7050; J7060; J7120; Q5106

== ENCOUNTER → 2020-07-24 | Outpatient (CLI) | payer MEDICAID, MEDICARE ==
--- NOTE | 2020-07-24 14:28 | RADIOLOGY REPORT (SQ) ---
EXAM DESCRIPTION: ARTERIAL LOWER EXTREM BILAT IMAGES COMPLETED DATE/TIME: 07/24/2020 12:43 pm REASON FOR STUDY: RT CALF ULCER L97.212 NON-PRESSURE CHRONIC ULCER OF RIGHT CALF W FAT LAYER COMPARISON: None. TECHNIQUE: Dynamic and static ceja scale and color images acquired of the lower extremity arteries. Additional selected spectral images recorded. LIMITATIONS: ABIs could not be obtained due to ankle edema. FINDINGS: RIGHT LEG: FEMORAL ARTERIES:Multiphasic waveforms. Normal, no velocity elevation to suggest focal stenosis. Norm al color Doppler evaluation. No aneurysm. POPLITEAL ARTERY:Multiphasic waveforms. Normal, no velocity elevation to suggest focal stenosis. Norm al color Doppler evaluation. No aneurysm. PATENT TIBIOPERONEAL TRUNK AND 3 VESSEL RUNOFF: Yes. OTHER: No other significant finding. LEFT LEG: FEMORAL ARTERIES:Multiphasic waveforms. Normal, no velocity elevation to suggest focal stenosis. Norm al color Doppler evaluation. No aneurysm. POPLITEAL ARTERY:Multiphasic waveforms. Normal, no velocity elevation to suggest focal stenosis. Norm al color Doppler evaluation. No aneurysm. PATENT TIBIOPERONEAL TRUNK AND 3 VESSEL RUNOFF: Yes. OTHER: No other significant finding. IMPRESSION: No significant stenosis. TECHNICAL DOCUMENTATION: JOB ID: [id number] 2010 [employer]- All Rights Reserved Reading location - IP/workstation name: [email or web address]
== END ==
LOC: SP 08:30
PROVIDERS: ATTEND Nurse Practitioner Family
DX: L97.212 Non-pressure chronic ulcer of right calf with fat layer exposed (principal); L97.222 Non-pressure chronic ulcer of left calf with fat layer exposed
CPT/HCPCS: 93925

== ENCOUNTER → 2020-09-22 | Outpatient (CLI) | payer MEDICARE | LOC: OD 11:28 | PROVIDERS: ATTEND Internal Medicine Nephrology | DX: E87.5 Hyperkalemia (principal) | CPT/HCPCS: 36415; 84132 ==